=== PATIENT | male | born 1990 | race Caucasian/White ===

== ENCOUNTER 2016-11-22 09:37 | Inpatient (IN) | payer BC, OTHER ==
[~2016-11-22] VITALS: Ht 152.4 cm; Wt 113.4 kg
[2016-11-22] MEDS ORDERED: LEVO175T2 PO (10:50)
[2016-11-22] MEDS ORDERED: INSU100V3 SQ (10:50)
[2016-11-22 11:29] LABS: BASOPHILS % (AUTO) 0.2 % (0.0-2.0); DIFF TOTAL % 100 %; EOSINOPHILS # (AUTO) 0.1 /CMM (0.0-0.7); EOSINOPHILS % (AUTO) 0.8 % (0.0-6.0); HEMATOCRIT 29 % (39-51); HEMOGLOBIN 8.6 g/dL (13.5-17.5); LYMPHOCYTES # (AUTO) 0.8 /CMM (0.8-4.8); LYMPHOCYTES % (AUTO) 8.3 % (20.0-44.0); MEAN CORPUSCULAR HEMOGLOBIN 26 PG (26.0-33.0); MEAN CORPUSCULAR HGB CONC 30 g/dl (31.0-36.0); MEAN CORPUSCULAR VOLUME 86 fL (80-96); MONOCYTES # (AUTO) 0.4 /CMM (0.1-1.30); MONOCYTES % (AUTO) 4.6 % (2.0-12.0); NEUTROPHILS # (AUTO) 7.8 /CMM (1.8-8.9); NEUTROPHILS % (AUTO) 86.1 % (43.0-81.0); PLATELET COUNT (AUTO) 268 /CMM (150-450); RED BLOOD CELL COUNT(AUTO) 3.32 MIL/uL (4.5-6.0); WHITE BLOOD COUNT (AUTO) 9.1 K/uL (4.3-11.0)
[2016-11-22 11:36] LABS: CALCIUM, SERUM 8.8 mg/dL (8.5-10.1); POTASSIUM 4.7 mmol/L (3.5-5.1)
[2016-11-22 11:37] LABS: INR 1.1 (0.87-1.13); PROTHROMBIN TIME 11.5 SECS (9.5-12.7)
[2016-11-22 11:38] LABS: CREATININE 7.7 mg/dL (0.6-1.3)
[2016-11-22 12:30] VITALS: BP 133/83
[2016-11-22] MEDS ORDERED: DEXTROSE 50%-WATER 50 ML DISP.SYRIN IV PRN (12:30)
[2016-11-22] MEDS ORDERED: MAGNESIUM HYDROXIDE 30 ML UDC PO PRN (12:30)
[2016-11-22] MEDS ORDERED: ONDANSETRON HCL/PF 4 MG/2 ML VIAL IVP PRN (12:30)
[2016-11-22] MEDS ORDERED: MAG HYDROX/AL HYDROX/SIMETH 30 ML UDC PO PRN (12:30)
[2016-11-22] MEDS ORDERED: BLOOD SUGAR DIAGNOSTIC 1 EACH STRIP IN SCH (12:30)
[2016-11-22] MEDS ORDERED: ACETAMINOPHEN 325 MG TABLET PO PRN (12:30)
[2016-11-22] MEDS ORDERED: Z GUARD REMEDY 2 OZ OINT TP PRN (12:30)
[2016-11-22] MEDS ORDERED: HYDROCODONE/APAP 5/325MG 1 EACH TABLET PO PRN (12:30)
[2016-11-22] MEDS ORDERED: *INSULIN REGULAR(HUMULIN R)HUM 100 UNIT/ML VIAL SQ PRN (12:30)
[2016-11-22] MEDS: BLOOD SUGAR DIAGNOSTIC 1 EACH STRIP VI SCH ×3 (14:24→22:30)
[2016-11-22] MEDS: INSULIN REGULAR, HUMAN 100 UNIT/ML 3 ML VIAL SQ PRN ×2 (14:28→18:24)
[2016-11-22] MEDS ORDERED: IV NS 0.9% 250 ML IV ONE (19:00)
[2016-11-22 20:00] VITALS: BP 148/91
[2016-11-22] MEDS ORDERED: ZOLPIDEM TARTRATE 5 MG TABLET PO PRN (22:00)
[2016-11-22] MEDS ORDERED: INSULIN DETEMIR 100 UNIT/ML CARTRIDGE SQ SCH (22:00)
[2016-11-23] MEDS: BLOOD SUGAR DIAGNOSTIC 1 EACH STRIP VI SCH ×6 (02:01→22:54)
[2016-11-23] MEDS ORDERED: LEVOTHYROXINE SODIUM 175 MCG TABLET PO SCH (07:30)
[2016-11-23 08:07] LABS: DIFF TOTAL % 100 %; EOSINOPHILS # (AUTO) 0.1 /CMM (0.0-0.7); EOSINOPHILS % (AUTO) 1.1 % (0.0-6.0); HEMATOCRIT 26 % (39-51); HEMOGLOBIN 7.9 g/dL (13.5-17.5); LYMPHOCYTES # (AUTO) 1.1 /CMM (0.8-4.8); LYMPHOCYTES % (AUTO) 10.8 % (20.0-44.0); MEAN CORPUSCULAR HEMOGLOBIN 26 PG (26.0-33.0); MEAN CORPUSCULAR HGB CONC 31 g/dl (31.0-36.0); MEAN CORPUSCULAR VOLUME 86 fL (80-96); MONOCYTES # (AUTO) 0.4 /CMM (0.1-1.30); NEUTROPHILS # (AUTO) 8.2 /CMM (1.8-8.9); NEUTROPHILS % (AUTO) 84.1 % (43.0-81.0); PLATELET COUNT (AUTO) 242 /CMM (150-450); RED BLOOD CELL COUNT(AUTO) 3.02 MIL/uL (4.5-6.0); WHITE BLOOD COUNT (AUTO) 9.8 K/uL (4.3-11.0)
[2016-11-23 08:26] LABS: CALCIUM, SERUM 8.5 mg/dL (8.5-10.1); CREATININE 5.8 mg/dL (0.6-1.3); POTASSIUM 3.9 mmol/L (3.5-5.1)
[2016-11-23] MEDS: PANTOPRAZOLE 40 MG TABLET.DR PO SCH (08:59)
[2016-11-23 11:22] VITALS: BP 157/92
[2016-11-23] MEDS ORDERED: DEXTROSE 50%-WATER 50 ML DISP.SYRIN IV PRN ×2 (14:30→16:00)
[2016-11-23] MEDS ORDERED: *INSULIN REGULAR(HUMULIN R)HUM 100 UNIT/ML VIAL SQ PRN (14:30)
[2016-11-23 15:23] LABS: THYROID STIMULATING HORMONE 56.319 uIU/mL (0.358-3.74)
[2016-11-23] MEDS ORDERED: INSULIN REGULAR, HUMAN 100 UNIT/ML 3 ML VIAL SQ PRN (16:00)
[2016-11-23] MEDS: INSULIN REGULAR, HUMAN 100 UNIT/ML 3 ML VIAL SQ PRN (16:34)
[2016-11-23 22:00] VITALS: BP 142/98
[2016-11-23] MEDS ORDERED: INSULIN DETEMIR 100 UNIT/ML CARTRIDGE SQ SCH (22:00)
[2016-11-24] MEDS: BLOOD SUGAR DIAGNOSTIC 1 EACH STRIP VI SCH ×2 (07:30→12:22)
[2016-11-24] MEDS: PANTOPRAZOLE 40 MG TABLET.DR PO SCH (07:30)
[2016-11-24 08:00] VITALS: BP 116/49
[2016-11-24] MEDS ORDERED: LEVOTHYROXINE SODIUM 100 MCG TABLET PO SCH (09:58)
[2016-11-24] MEDS: INSULIN REGULAR, HUMAN 100 UNIT/ML 3 ML VIAL SQ PRN (12:25)
[2016-11-25] MEDS ORDERED: LEVOTHYROXINE SODIUM 100 MCG TABLET PO SCH (07:30)
== END 2016-11-24 15:00 | disposition home or self-care (01) | DRG 314 ==
LOC: ER 09:40 → TELE1 12:12 → MEDSG1 17:54
PROVIDERS: ADMIT Student in an Organized Health Care Education/Training Program; ATTEND Student in an Organized Health Care Education/Training Program
PROC: 5A1D60Z (ICD-10-PCS; principal; 2016-11-22)
DX: T82.49XA Other complication of vascular dialysis catheter, initial encounter (principal); N18.6 End stage renal disease; I13.11 Hypertensive heart and chronic kidney disease without heart failure, with stage 5 chronic kidney disease, or end stage renal disease; E87.1 Hypo-osmolality and hyponatremia; J90 Pleural effusion, not elsewhere classified; Z99.2 Dependence on renal dialysis; E11.22 Type 2 diabetes mellitus with diabetic chronic kidney disease; Q90.9 Down syndrome, unspecified; D63.1 Anemia in chronic kidney disease; E03.9 Hypothyroidism, unspecified; E87.70 Fluid overload, unspecified; I25.10 Atherosclerotic heart disease of native coronary artery without angina pectoris; Z91.19 Patient's noncompliance with other medical treatment and regimen; Y84.9 Medical procedure, unspecified as the cause of abnormal reaction of the patient, or of later complication, without mention of misadventure at the time of the procedure; Y92.009 Unspecified place in unspecified non-institutional (private) residence as the place of occurrence of the external cause; E83.9 Disorder of mineral metabolism, unspecified; E11.65 Type 2 diabetes mellitus with hyperglycemia
CPT/HCPCS: 36415; 71010-TC; 80048-TC; 80061-TC; 82962-TC; 83735-TC; 84443-TC; 85025-TC; 85730-TC; 87081-TC; 94799-TC; A4606; A6402; A6403; J1815; Z7610

== ENCOUNTER 2016-11-29 11:41 | Emergency (ER) | payer BC ==
[~2016-11-29] VITALS: Ht 157.5 cm; Wt 68.0 kg
[~2016-11-29 11:41] MED LIST: INSU100V3 SQ; LEVO175T2 PO
[2016-11-29 13:17] VITALS: BP 118/74
== END 2016-11-29 13:19 | disposition home or self-care (01) ==
LOC: ER 11:43
DX: E11.22 Type 2 diabetes mellitus with diabetic chronic kidney disease (principal); I12.0 Hypertensive chronic kidney disease with stage 5 chronic kidney disease or end stage renal disease; N18.6 End stage renal disease; E03.9 Hypothyroidism, unspecified; Q90.9 Down syndrome, unspecified; Z99.2 Dependence on renal dialysis; Z79.4 Long term (current) use of insulin
CPT/HCPCS: 99284; A4606; Z7610

== ENCOUNTER 2016-11-30 11:26 | Inpatient (IN) | payer BC ==
[~2016-11-30] VITALS: Ht 157.5 cm; Wt 57.2 kg
[2016-11-30] VITALS (14 sets, daily range): BP systolic 108–176; BP diastolic 60–128
--- NOTE | 2016-11-30 11:30 | NUR ---
PT BIB RA C/O SOB. HYPOXIC IN 80'S ON BREATHING TREATMENT FROM RESCUE. SKIN COOL AND PALE, NONDIAPHORETIC. WHEEZES AUDIBLE. PT AT BASELINE LOC. MD AT BEDSIDE FOR EXAM. IN ER BED 09 ON MONITOR WITH BREATHING TREATMENT ONGOING.
--- NOTE | 2016-11-30 11:40 | NUR ---
CALLED FOR MIDLINE
--- NOTE | 2016-11-30 11:51 | NUR ---
DR MARIEE AT BEDSIDE FOR ULTRASOUND GUIDED IV INSERTION. SURFACE PLATE FINISHER AT BEDSIDE. 20G RAC INSERTED BY ; LABS DRAWN OFF LINE. VBG DRAWN FOR RT.
--- NOTE | 2016-11-30 12:06 | NUR ---
CALLED NURSING SUP. FOR ICU BED
[2016-11-30 12:15] LABS: ABG BASE EXCESS -7.9 mmol/L; ABG OXYGEN SATURATION 26.3 % (92.0-98.5); ABG PCO2 71.7 mmHg (35.0-45.0); ABG PH 7.101 (7.350-7.450); ABG PO2 23.3 mmHg (75.0-100.0); ABG TOTAL HEMOGLOBIN 8.6 G/dL (13.5-18.0); COHb 0.7 % (0.5-1.5); MetHb 1.4 % (0.0-1.5); O2Hb 25.7 % (94.0-97.0); VENT MODE, BG SIMPLE MASK
[2016-11-30 12:17] LABS: ALBUMIN 2.8 g/dL (3.4-5.0); BILIRUBIN,DIRECT 0.1 mg/dL (0.0-0.2); BILIRUBIN,TOTAL 0.4 mg/dL (0.2-1.0); CALCIUM, SERUM 8.3 mg/dL (8.5-10.1); POTASSIUM 5.5 mmol/L (3.5-5.1); TOTAL PROTEIN, SERUM 8.2 g/dL (6.4-8.2)
[2016-11-30 12:19] LABS: TROPONIN I 0.055 ng/mL (0.00-0.056)
--- NOTE | 2016-11-30 12:20 | NUR ---
RT AT BEDSIDE FOR BIPAP
[2016-11-30 12:21] LABS: BASOPHILS % (AUTO) 0.3 % (0.0-2.0); EOSINOPHILS # (AUTO) 0.1 /CMM (0.0-0.7); EOSINOPHILS % (AUTO) 0.9 % (0.0-6.0); HEMATOCRIT 26 % (39-51); HEMOGLOBIN 8.1 g/dL (13.5-17.5); LYMPHOCYTES % (AUTO) 12.8 % (20.0-44.0); MEAN CORPUSCULAR HEMOGLOBIN 27 PG (26.0-33.0); MEAN CORPUSCULAR HGB CONC 31 g/dl (31.0-36.0); MEAN CORPUSCULAR VOLUME 87 fL (80-96); MONOCYTES # (AUTO) 0.3 /CMM (0.1-1.30); MONOCYTES % (AUTO) 3.4 % (2.0-12.0); NEUTROPHILS # (AUTO) 6.5 /CMM (1.8-8.9); NEUTROPHILS % (AUTO) 82.6 % (43.0-81.0); PLATELET COUNT (AUTO) 240 /CMM (150-450); RDW COEFFICIENT OF VARIATION 20.3 (11.5-15.0); WHITE BLOOD COUNT (AUTO) 7.9 K/uL (4.3-11.0)
[2016-11-30] MEDS ORDERED: MIDAZOLAM HCL 2 MG/2ML VIAL ONE (12:23)
[2016-11-30 12:26] LABS: CREATININE 8.8 mg/dL (0.6-1.3)
[2016-11-30] MEDS ORDERED: MIDAZOLAM HCL 2 MG/2ML VIAL IV ONE ×2 (12:30→13:30)
--- NOTE | 2016-11-30 12:30 | NUR ---
PATIENT REFUSES TO KEEP BIPAP ON NURSE(JUAN) AND AWARE.
[2016-11-30 12:34] LABS: LACTIC ACID 1.6 mmol/L (0.4-2.0)
--- NOTE | 2016-11-30 12:39 | NUR ---
ATTEMPTED TO PLACE ON BIPAP AGAIN. PATIENT CONTINUED TO BE COMBATIVE AND REMOVE MASK. NOTIFIED AND NURSE(JUAN).
--- NOTE | 2016-11-30 13:31 | NUR ---
[facility] PAGED, DR.VU SINGH SENIOR SOFTWARE ANALYST
--- NOTE | 2016-11-30 13:40 | NUR ---
PT BREATHING MUCH EASIER AT THIS TIME ON BIPAP. OXYGENATING WELL, RESP UNLABORED WITH BIPAP ASSIST. MOTHER AT BEDSIDE.
--- NOTE | 2016-11-30 13:51 | NUR ---
JOB RN AT BEDSIDE FOR MIDLINE PLACEMENT
[2016-11-30] MEDS ORDERED: ONDANSETRON HCL/PF 4 MG/2 ML VIAL IVP PRN (14:00)
[2016-11-30] MEDS ORDERED: MAG HYDROX/AL HYDROX/SIMETH 30 ML UDC PO PRN (14:00)
[2016-11-30] MEDS ORDERED: MAGNESIUM HYDROXIDE 30 ML UDC PO PRN (14:00)
--- NOTE | 2016-11-30 14:10 | NUR ---
PT'S MOTHER WILL NOT ALLOW FOR MIDLINE PLACEMENT, DESPITE EDUCATION ABOUT THE INSTABILITY OF CURRENT IV. PT HAS RIGHT AC 20G WITH GOOD BLOOD RETURN.
[2016-11-30] MEDS ORDERED: *INSULIN REGULAR(HUMULIN R)HUM 100 UNIT/ML VIAL SQ PRN (14:30)
--- NOTE | 2016-11-30 14:42 | NUR ---
PT TRANSPORTED TO ICU RM 260 IN CRITICAL CONDITION, BECOMING HYPOXIC ON 6LPM VIA SIMPLE FACE MASK PRIOR TO TRANSPORT. RT PRESENT DURING TRANSFER FOR RESUMING OF BIPAP IN ICU.
--- NOTE | 2016-11-30 14:57 | NUR ---
MIDDLE SCHOOL TEACHER; ADMIT RECEIVED PT VIA GURNEY WITH SIMPLE MASK 6L. PTS MOTHER AT BEDSIDE REFUSING ANY TREATMENT, NO BIPAP, NO HD, NO ABG DRAWS. PT Teresa SINGH AT BEDSIDE EXPLAINING TO PT MOTHER THE NEED FOR TREATMENT. MOTHER CONTINUES TO REFUSE AND IS ONLY ASKING FOR BLOOD TRANSFUSION BUT NO HD. EXPLAINED THAT IF WE GIVE IT WILL CAUSE MORE FLUID OVER LOAD. BUT SHE STILL CONTINUES TREATMENT.
--- NOTE | 2016-11-30 14:57 | NUR ---
RT PT FAMILY EXTREMELY UNCOOPERATIVE AND REFUSING ALL RESPIRATORY SERVICES, DR. SINGH AND RN AWARE.
--- NOTE | 2016-11-30 15:00 | NUR ---
CARTON FILLER: MILLING PLANER OPERATOR MADE AWARE REGARDING PTS MOTHER REFUSING ANY CARE FOR PT.
--- NOTE | 2016-11-30 15:30 | NUR ---
SPACE SYSTEMS OPERATIONS CRAFTSMAN; PTS MOTHER CASSY ANDERSON NOW AGREEING WITH HD LONG PT GETS BLOOD TRANSFUSION. DR. SINHG MADE AWARE NEW ORDERS ENTERED.
--- NOTE | 2016-11-30 15:35 | NUR ---
PRE PRESS MANAGER; PT REMOVING CUSTOMER SERVICE PROFESSIONAL AND SPO2 MONITOR. EXPLAINED THE NEED TO BE ON CONTINUOUS MONITOR BUT PT CONTINUES TO REMOVE MONITOR.
[2016-11-30] MEDS: BLOOD SUGAR DIAGNOSTIC 1 EACH STRIP IN SCH (17:11)
[2016-11-30] MEDS ORDERED: BLOOD IV SET 1 EA INFUS.SET MC ONE (17:16)
[2016-11-30] MEDS: INSULIN REGULAR, HUMAN 100 UNIT/ML 3 ML VIAL SQ PRN ×2 (17:17→23:45)
--- NOTE | 2016-11-30 17:24 | NUR ---
CARDIOLOGY CONSULTANT; ACCU CHECK BLOOD SUGAR CHECKED RESULT 278, ORDER TO GIVE 12UNITS OF REGULAR INSULIN SQ, PTS MOTHER REFUSES FOR PT TO GET FULL 12UNITS. PER MOTHER JUST TO GIVE 6UNITS.
--- NOTE | 2016-11-30 17:46 | NUR ---
[facility] HOLD; TRANSFUSION PT HD STARTED. PRBC TO BE TRANSFUSED WITH HD, SEE HD NOTED FOR VS.
[2016-11-30] MEDS: ZOLPIDEM TARTRATE 5 MG TABLET PO PRN (23:39)
[2016-12-01] VITALS (26 sets, daily range): BP systolic 64–182; BP diastolic 26–117
[2016-12-01] MEDS: Z GUARD REMEDY 2 OZ OINT TP PRN (00:06)
[2016-12-01] MEDS: BLOOD SUGAR DIAGNOSTIC 1 EACH STRIP IN SCH ×4 (00:07→17:56)
[2016-12-01] MEDS: HYDROCODONE/APAP 5/325MG 1 EACH TABLET PO PRN (00:36)
--- NOTE | 2016-12-01 00:36 | NUR ---
GLAZE CARRIER - REC'D PT. RECEIVING HD. 1800CC REMOVED. PT.IS REFUSING "EVERYTHING". HOWEVER, AT 23:39 PT. SAID "YES" TO AMBIEN. PT. WAS ADM. AMBIEN 5MG/PO TO HELP W/ SLEEP. PT. CANNOT SLEEP DUE TO PAIN IN INFECTED LEFT FISTULA. AT 00:30, PT. WAS ADM. NORCO ONE TAB ()/PO. PT.IS REFUSING B/P. EKG, BUT DID LET RN TAKE HIS ACCU - CHECK. #386. PT. WAS COVERED W/20UNITS OF REG. INSULIN PER AGGRESSIVE SCALE. WILL RECHECK. NOTED. PT.IS AFEBRILE. RAC-PIV. WRAPPED IN FISHNET, PT. IS REFUSING TO LET ME FLUSH LINES. WILL F/U. CONT. POC.
--- NOTE | 2016-12-01 06:30 | NUR ---
ROBOTICS TECHNOLOGIST - PT.IS STILL REFUSING EKG MONITORING, B/P'S, AND AM LAB DRAW. SILVIA HD RN IS HERE TO PERFORM HD & WAS ABLE TO GIVE RN VS'S AND LAB DRAW FROM DIALYSIS MACHINE. ACCUCHECK WAS DONE AT 5AM AND WAS #141. PT. DID SLEEP FOR MOST LATTER PART OF THE MORNING. PT.REMAINS ON SIMPLE MASK AT 5L. LAST SET OF VS'S WAS B/P=130/70, HR/SR/72, O2 SATS AT 91%, RR- 12 & TAS TEMP AT 97.6. PT. DID LET RADIOLOGY STAFF PERFORM PCXR. REPORT WILL BE GIVEN TO MAURO KHALIL. CONT. POC.
[2016-12-01 06:39] LABS: BASOPHILS # (AUTO) 0.1 /CMM (0.0-0.2); BASOPHILS % (AUTO) 2.5 % (0.0-2.0); EOSINOPHILS % (AUTO) 0.8 % (0.0-6.0); HEMATOCRIT 22 % (39-51); LYMPHOCYTES # (AUTO) 0.4 /CMM (0.8-4.8); MEAN CORPUSCULAR HEMOGLOBIN 27 PG (26.0-33.0); MEAN CORPUSCULAR HGB CONC 31 g/dl (31.0-36.0); MEAN CORPUSCULAR VOLUME 86 fL (80-96); MONOCYTES # (AUTO) 0.2 /CMM (0.1-1.30); MONOCYTES % (AUTO) 4.3 % (2.0-12.0); NEUTROPHILS # (AUTO) 4.5 /CMM (1.8-8.9); NEUTROPHILS % (AUTO) 84.4 % (43.0-81.0); PLATELET COUNT (AUTO) 156 /CMM (150-450); RED BLOOD CELL COUNT(AUTO) 2.55 MIL/uL (4.5-6.0); WHITE BLOOD COUNT (AUTO) 5.4 K/uL (4.3-11.0)
[2016-12-01 06:54] LABS: ALBUMIN 2.3 g/dL (3.4-5.0); BILIRUBIN,TOTAL 0.4 mg/dL (0.2-1.0); CALCIUM, SERUM 7.6 mg/dL (8.5-10.1); CREATININE 7.1 mg/dL (0.6-1.3); MAGNESIUM 2.4 mg/dL (1.8-2.4); PHOSPHORUS 6.6 mg/dL (2.5-4.9); POTASSIUM 4.1 mmol/L (3.5-5.1); TOTAL PROTEIN, SERUM 6.9 g/dL (6.4-8.2)
[2016-12-01 07:15] LABS: HEMOGLOBIN 6.8 g/dL (13.5-17.5)
--- NOTE | 2016-12-01 07:20 | NUR ---
MODULAR HOME CREW MEMBER: H/H 8.10/26 on 11/30/16, got 2 units PRBC, H/H 6.05/22 now, will repeat H/H now, no acute bleeding by report. Pt.is getting HD now, refusing for VS monitoring, blood draw, wound care consult, RR WNL, unable to see O2 sat. prop., SR, SBP over 100, pt.is awake, confused (Down Sd), rest, was encouraged friendly and oriented for POC
[2016-12-01 07:39] LABS: BASOPHILS % (AUTO) 0.7 % (0.0-2.0); EOSINOPHILS # (AUTO) 0.1 /CMM (0.0-0.7); EOSINOPHILS % (AUTO) 0.8 % (0.0-6.0); HEMATOCRIT 31 % (39-51); HEMOGLOBIN 9.6 g/dL (13.5-17.5); LYMPHOCYTES # (AUTO) 0.6 /CMM (0.8-4.8); LYMPHOCYTES % (AUTO) 10.3 % (20.0-44.0); MEAN CORPUSCULAR HEMOGLOBIN 27 PG (26.0-33.0); MEAN CORPUSCULAR HGB CONC 31 g/dl (31.0-36.0); MEAN CORPUSCULAR VOLUME 86 fL (80-96); MONOCYTES # (AUTO) 0.3 /CMM (0.1-1.30); MONOCYTES % (AUTO) 4.3 % (2.0-12.0); NEUTROPHILS # (AUTO) 5.2 /CMM (1.8-8.9); NEUTROPHILS % (AUTO) 83.9 % (43.0-81.0); PLATELET COUNT (AUTO) 238 /CMM (150-450); RDW COEFFICIENT OF VARIATION 19.2 (11.5-15.0); RED BLOOD CELL COUNT(AUTO) 3.56 MIL/uL (4.5-6.0); WHITE BLOOD COUNT (AUTO) 6.2 K/uL (4.3-11.0)
--- NOTE | 2016-12-01 07:52 | NUR ---
WOUND CARE CONSULT PATIENT REFUSED TO ALLOW HUMAN RESOURCES ADMINISTRATOR TO PERFORM ASSESSMENT OF SKIN. WILL TRY AGAIN AT A LATER DATE PATIENT CONDITION PERMITS.
[2016-12-01] MEDS: DEXTROSE 50%-WATER 50 ML DISP.SYRIN IV PRN (07:58)
--- NOTE | 2016-12-01 08:00 | NUR ---
SUPERVISOR CHAR HOUSE: checked BS x2: 37,38, 50%Dextrose 50ml IV given
--- NOTE | 2016-12-01 08:15 | NUR ---
SUPPLY ANALYST: repeated H/H: 9., pt.mother is in room, was notified re pt.current status, POC, VS, orders, spoke with HD nurse, pt.is still refusing for VS monitoring
--- NOTE | 2016-12-01 09:30 | NUR ---
TAFFY PULLER: O2 sat. 82-87%, pt.is still refusing Bipap, pt.mother said: its ok, on SM O2 5L, switched for NRBSM by RT, O2 sat. up to 89-90%, L.f/arm fistula wound: no acute bleeding, same wound status, dressing was changed, was in room, updated by HD nurse
[2016-12-01] MEDS: PANTOPRAZOLE 40 MG VIAL IV SCH (09:36)
[2016-12-01 10:16] LABS: ANISOCYTOSIS 1+; EOSINOPHILS % (MANUAL) 3 % (0-4); HYPOCHROMASIA 2+; LYMPHOCYTES % (MANUAL) 4 % (16-48); MONOCYTES % (MANUAL) 3 % (0-11.0); NEUTROPHILS % (MANUAL) 90 (42-76); PLATELET ESTIMATE ADEQUATE
--- NOTE | 2016-12-01 11:00 | NUR ---
INSURANCE SPECIALIST: is in room, updated with pt.current condition, VS, I/O, HD, labs, BSL. Unable to monitor VS, O2 sat. correctly, Bipap refused/pt.is on SM O2 6L now, no SOB, removing sensors after 7 attempts to reapply, SR, SBP over 100, pt.is awake, weak, can follow simple commands, but O2 sat. around 80-90%, pt.mother said: can't apply Bipap, no way for restraints d/t pt.mental status, no c/o any pain
--- NOTE | 2016-12-01 13:00 | NUR ---
PROFESSIONAL BENEFITS SALES CONSULTANT: pt.is awake, weak, rest, in seat position, no SOB, still removing [id number], on O2 SM 6 L, pt.and pt.mother still refuse for Bipap, were encouraged to let get prop.monitoring per ICU protocols, oriented for POC, risks re: refuse to follow MD orders/monitoring d/t respiratory status, pt.mother spoke with before, [facility]SH was paged re home meds verification
[2016-12-01] MEDS: LEVOTHYROXINE SODIUM 175 MCG TABLET PO SCH (14:35)
--- NOTE | 2016-12-01 14:45 | NUR ---
FIELD ADMINISTRATOR: Reuben Wall NP is in room, updated with pt.current condition, VS, unable to fix/monitor O2 sat. well, Bipap refusing, HD done, I/O, L.jacquelyn matute, BS: - ,38, 05.30 - after Dextrose 50-50, 09.19 - , labs, meds, pt.is on aggressive insulin SS, spoke with pt.mother with Rk translation support, see new orders
--- NOTE | 2016-12-01 16:03 | NUR ---
FOREIGN LANGUAGE INTERPRETER: reapplied all sensors: SR 70-72, BP 136/97, RR 14-16, O2 sat. 90-93% on 10L NRBM, pt.is awake, was let to see VS, in sit position, able void: 100ml, no any pain
--- NOTE | 2016-12-01 17:50 | NUR ---
RAILWAY SIGNALLING ENGINEER: BS 155, 2 units R.insulin given
[2016-12-01] MEDS: ACETAMINOPHEN 325 MG TABLET PO PRN (17:51)
[2016-12-01] MEDS: INSULIN REGULAR, HUMAN 100 UNIT/ML 3 ML VIAL SQ PRN ×2 (18:00→22:02)
--- NOTE | 2016-12-01 18:00 | NUR ---
PRESS BREAKER: pt.sister is in room, got detailed explanation re pt.current condition, orders, VS, risks for Resp.Tx refuses, pt.c/o headache now, 3-01/08, Tylenol given
--- NOTE | 2016-12-01 19:25 | NUR ---
Patient is developmentally delay, he is HD dependent. He goes to [phone] every MWF. Patient lives at home with his mother, he requires assistance with adl's. Patient will go back home upon discharge per family. Addendum: 12/01/16 at 1926 by BLANK SIMS RN Amended: Links added.
--- NOTE | 2016-12-01 19:30 | NUR ---
ICU/RN RECEIVED PT SCREAMING FOR HELP,WANTING 1005% NRB TO A SIMPLE MASK.WILL NOT LET RN TO CHECK SP02,KEEPS SAYING "NO!" EVEN W/ MUCH PERSUASION.SHAKES HEAD WHEN ATTEMPTED TO PUT PULSE OX. ON EAR OR ANY FINGERS.
--- NOTE | 2016-12-01 20:30 | NUR ---
ICU/RN WANTED TYLENOL FOR HEADACHE BUT REFUSED AFTER TAKING MED FRO PYXIS.
[2016-12-02] VITALS (32 sets, daily range): BP systolic 32–161; BP diastolic 22–117
[2016-12-02] MEDS: BLOOD SUGAR DIAGNOSTIC 1 EACH STRIP IN SCH ×5 (00:19→21:45)
--- NOTE | 2016-12-02 00:20 | NUR ---
ICU/RN PT C/O HEADACHE,ASKING FOR TYLENOL.650MG TYLENOL GIVEN UNABLE TO GET PAIN LEVEL PT NON-COMPLIANT AND DOES NOT FOLLOW COMMANDS.
[2016-12-02] MEDS: ACETAMINOPHEN 325 MG TABLET PO PRN ×2 (00:21→09:54)
--- NOTE | 2016-12-02 04:20 | NUR ---
ICU/RN AWAKENED BY SUPERVISOR FUR DRESSING TO DRAW BLOOD BUT PT REFUSED EVEN W/MUCH ENCOURAGEMENT.ASKED FOR SNACK IN A NICE MANNER AND SAID"PLS".SKIN WARM AND DRY.GIVEN 2GRAHAM CRACKERS AND 2%MILK.SPOT CHECK ON SAT.COOPERATIVE.
--- NOTE | 2016-12-02 07:23 | NUR ---
ICU/RN REPORT AND CARE OF PT.GIVEN TO JOB RN.
[2016-12-02] MEDS: PANTOPRAZOLE 40 MG VIAL IV SCH (08:36)
[2016-12-02] MEDS: LEVOTHYROXINE SODIUM 175 MCG TABLET PO SCH (08:36)
--- NOTE | 2016-12-02 10:03 | NUR ---
PT'S MOTHER AT BEDSIDE IS NOT ALLOWING FOR PERIPHERAL BLOOD DRAW. WILL ONLY ALLOW FOR BLOOD DRAW THROUGH THE HEMODIALYSIS CATHETER. SHE WANTS DIALYSIS TODAY WELL. I UTILIZED IRANIAN SPEAKING CLINICAL OUTCOMES MANAGER TO TELL HER THAT WE NEED TO HAVE LABS PRIOR TO HEMODIALYSIS SO WE KNOW WHAT ELECTROLYTES (ESPECIALLY POTASSIUM) TO CORRECT. THE MOTHER TELLS THE CLINICAL OUTCOMES MANAGER ([email or web address]) THAT THE POTASSIUM IS FINE... SHE IS EXTREMELY SELECTIVE WITH CARE AND NOT ACCEPTING EDUCATION ABOUT HER CARE. AWAITING FOR RENAL MD TO SEE IF WE CAN DRAW FROM THE HD CATHETER, RUN THE LABS AND DO HD TODAY.
[2016-12-02] MEDS ORDERED: EPOETIN ALFA (10,000 UNIT) 10,000 UNIT/ML VIAL SQ ONE (11:00)
--- NOTE | 2016-12-02 11:12 | NUR ---
MOTHER AT BEDSIDE NOT ALLOWING FOR ABG DRAW. SHE ALLOWS FOR BLOOD DRAW FROM THE IV ONLY. OBTAINED FROM IV SAMPLE AND RAN VBG
[2016-12-02 11:13] LABS: ABG BASE EXCESS -8.2 mmol/L; ABG OXYGEN SATURATION 39.3 % (92.0-98.5); ABG PCO2 54.5 mmHg (35.0-45.0); ABG PH 7.186 (7.350-7.450); ABG PO2 28.6 mmHg (75.0-100.0); ABG TOTAL HEMOGLOBIN 11.1 G/dL (13.5-18.0); O2Hb 38.1 % (94.0-97.0); SITE, ABG Right Radial; VENT MODE, BG NON-REBREATHER
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
--- NOTE | 2016-12-02 11:40 | NUR ---
HD nurse in for treatment.
[2016-12-02 12:19] LABS: BASOPHILS % (AUTO) 0.1 % (0.0-2.0); EOSINOPHILS # (AUTO) 0.1 /CMM (0.0-0.7); EOSINOPHILS % (AUTO) 1.4 % (0.0-6.0); HEMATOCRIT 33 % (39-51); HEMOGLOBIN 10.1 g/dL (13.5-17.5); LYMPHOCYTES # (AUTO) 0.6 /CMM (0.8-4.8); LYMPHOCYTES % (AUTO) 6.9 % (20.0-44.0); MEAN CORPUSCULAR HEMOGLOBIN 27 PG (26.0-33.0); MEAN CORPUSCULAR HGB CONC 31 g/dl (31.0-36.0); MEAN CORPUSCULAR VOLUME 86 fL (80-96); MONOCYTES # (AUTO) 0.3 /CMM (0.1-1.30); MONOCYTES % (AUTO) 3.5 % (2.0-12.0); NEUTROPHILS # (AUTO) 7.6 /CMM (1.8-8.9); NEUTROPHILS % (AUTO) 88.1 % (43.0-81.0); PLATELET COUNT (AUTO) 241 /CMM (150-450); RDW COEFFICIENT OF VARIATION 18.9 (11.5-15.0); RED BLOOD CELL COUNT(AUTO) 3.77 MIL/uL (4.5-6.0); WHITE BLOOD COUNT (AUTO) 8.6 K/uL (4.3-11.0)
[2016-12-02 12:31] LABS: INR 1.11 (0.87-1.13)
[2016-12-02 12:32] LABS: CALCIUM, SERUM 8.5 mg/dL (8.5-10.1); POTASSIUM 5.4 mmol/L (3.5-5.1)
[2016-12-02 12:40] LABS: CREATININE 9.7 mg/dL (0.6-1.3)
[2016-12-02 12:40] LABS: ABG BASE EXCESS -0.4 mmol/L; ABG OXYGEN SATURATION 56.7 % (92.0-98.5); ABG PCO2 70.8 mmHg (35.0-45.0); ABG PH 7.223 (7.350-7.450); ABG PO2 35.7 mmHg (75.0-100.0); ABG TOTAL HEMOGLOBIN 11.4 G/dL (13.5-18.0); COHb 1.4 % (0.5-1.5); O2Hb 55.3 % (94.0-97.0)
[2016-12-02] MEDS: CALCIUM ACETATE 667 MG TABLET PO SCH ×2 (13:00→18:00)
--- NOTE | 2016-12-02 13:04 | NUR ---
US tech at bedside evaluating the fluid in the lungs and whether it is able to be pulled with thoracentesis or not (loculated fluid). Addendum: 12/02/16 at 1337 by ANGELA SUNG RN US tech speaks directly with radiologist. He determines that the fluid is loculated and it is not able to be pulled via thoracentesis. Dr. August notified about US results.
--- NOTE | 2016-12-02 13:39 | NUR ---
DR. DALAL ORDERS TO HAVE VBG DRAWN AFTER HD IS COMPLETE. HE OKAYS TO DRAW FROM PIV THE PT WILL NOT ALLOW FOR BLOOD DRAW.
--- NOTE | 2016-12-02 14:22 | NUR ---
HD COMPLETE 2.5 LITERS OUT.
--- NOTE | 2016-12-02 14:23 | NUR ---
DR. OG CALLED ASKING IF THE PATIENT'S HD CATHETER IS WORKING. I EXPLAINED PER HD NURSE THAT THE RED PORT IN NOT WITHDRAWING BLOOD, DR. OG STATES THAT LONG HE CAN GET HEMODIALYSIS HE WILL NOT PLACE A NEW ONE.
--- NOTE | 2016-12-02 15:13 | NUR ---
PT REMOVING BIPAP TO THE POINT OF BEING COMBATIVE. OBTAINED VBG PRIOR, TO REMOVAL AWAITING RESULTS.
[2016-12-02 15:23] LABS: ABG OXYGEN SATURATION 78.2 % (92.0-98.5); ABG PCO2 42.2 mmHg (35.0-45.0); ABG PH 7.313 (7.350-7.450); ABG PO2 48.2 mmHg (75.0-100.0); ABG TOTAL HEMOGLOBIN 9.6 G/dL (13.5-18.0); MetHb 1.2 % (0.0-1.5); O2Hb 75.7 % (94.0-97.0)
--- NOTE | 2016-12-02 15:35 | NUR ---
PATIENT'S VBG RESULTS REPORTED TO . HE WAS ALSO MADE AWARE THAT PATIENT IS REMOVING BIPAP MASK AND WAS PLACED ON NON-REBREATHER MASK WITH 100% SATURATION. NO NEW ORDER AT THIS TIME. RN(JOB) NOTIFIED.
[2016-12-02] MEDS: INSULIN REGULAR, HUMAN 100 UNIT/ML 3 ML VIAL SQ PRN ×2 (17:32→23:00)
--- NOTE | 2016-12-02 18:39 | NUR ---
PT DOES NOT HAVE APPETITE FOR DINNER ONLY FEW SIPS OF FLUID (TRYING TO RESTRICT FLUIDS), HELD PHOSLO.
--- NOTE | 2016-12-02 21:23 | NUR ---
2100 WATCHING TV O2 100% NON-REBREATHING MASK. SAT, 90% . ASKING FOR H20 CONSTANTLY ICE CHIPS GIVEN. FUSSING WHILE TAKING BP. RATHER UNCOOPERATIVE. SISTER IN VISITING. Addendum: 12/02/16 at 2126 by GULSHAN CULLEN RN Amended: Links added.
[2016-12-02 22:39] LABS: CREATININE 7.5 mg/dL (0.6-1.3)
[2016-12-02] MEDS: ZOLPIDEM TARTRATE 5 MG TABLET PO PRN (23:14)
--- NOTE | 2016-12-02 23:33 | NUR ---
2200 BS ACCUCHECK WAS 531 LAB DRAW WAS 593 20 UNITS HUMILAN REG. INSULIN GIVEN PER SCALE ALSO NOTIFIED . WILL CHECK IN 1 HR. & COVER ACCORSINGLY. 2330 SLEEPING PILL OFFERED TRYING TO GO TO SLEEP. Addendum: 12/02/16 at 2337 by GULSHAN CULLEN RN Amended: Links added.
[2016-12-03] VITALS (23 sets, daily range): BP systolic 91–175; BP diastolic 27–113
[2016-12-03] MEDS: HYDROCODONE/APAP 5/325MG 1 EACH TABLET PO PRN (00:07)
[2016-12-03] MEDS: INSULIN REGULAR, HUMAN 100 UNIT/ML 3 ML VIAL SQ PRN (00:23)
[2016-12-03] MEDS ORDERED: MORPHINE SULFATE INJ 2 MG/ML DISP.SYRIN ONE (03:39)
[2016-12-03 04:39] LABS: EOSINOPHILS # (AUTO) 0.1 /CMM (0.0-0.7); EOSINOPHILS % (AUTO) 0.5 % (0.0-6.0); HEMATOCRIT 33 % (39-51); HEMOGLOBIN 10.2 g/dL (13.5-17.5); LYMPHOCYTES # (AUTO) 0.4 /CMM (0.8-4.8); LYMPHOCYTES % (AUTO) 4.4 % (20.0-44.0); MEAN CORPUSCULAR HEMOGLOBIN 27 PG (26.0-33.0); MEAN CORPUSCULAR HGB CONC 31 g/dl (31.0-36.0); MEAN CORPUSCULAR VOLUME 87 fL (80-96); MONOCYTES # (AUTO) 0.3 /CMM (0.1-1.30); MONOCYTES % (AUTO) 2.5 % (2.0-12.0); NEUTROPHILS # (AUTO) 9.5 /CMM (1.8-8.9); NEUTROPHILS % (AUTO) 92.6 % (43.0-81.0); PLATELET COUNT (AUTO) 228 /CMM (150-450); RDW COEFFICIENT OF VARIATION 19.2 (11.5-15.0); RED BLOOD CELL COUNT(AUTO) 3.78 MIL/uL (4.5-6.0); WHITE BLOOD COUNT (AUTO) 10.2 K/uL (4.3-11.0)
[2016-12-03 04:58] LABS: CALCIUM, SERUM 8.6 mg/dL (8.5-10.1); MAGNESIUM 2.2 mg/dL (1.8-2.4); PHOSPHORUS 6.5 mg/dL (2.5-4.9); POTASSIUM 4.5 mmol/L (3.5-5.1)
[2016-12-03 05:01] LABS: CREATININE 7.7 mg/dL (0.6-1.3)
--- NOTE | 2016-12-03 06:56 | NUR ---
0630 AWAKE MOST OF THE NIGHT ASKING FOR H20 . O2 SAT. 80-85 % remains uncooperative. Refused bath. Addendum: 12/03/16 at 0659 by GULSHAN CULLEN RN Amended: Links added.
[2016-12-03] MEDS: DEXTROSE 50%-WATER 50 ML DISP.SYRIN IV PRN ×2 (07:23→11:45)
--- NOTE | 2016-12-03 07:30 | NUR ---
RN INITIAL NOTES 0710 RECEIVED PT AWAKE, A/OX1. SITTING ON BED, YELLING. ON NON-REBREATHER MASK 100%. NO SIGNS OF PAIN NOTED. WITH RAC G#20 AND RIGHT FEMORAL HD CATH IN PLACE. PT CLEAN AND DRY. WILL CONTINUE TO MONITOR. 0720 BLOOD SUGAR CHECKED, RESULT 38. REPEATED, RESULT 28. D50 GIVEN ORDERED. PT REMAINS AWAKE, A/OX1. MO SOB NOTED. WILL RECHECK BLOOD SUGAR. WILL MONITOR.
[2016-12-03] MEDS: LEVOTHYROXINE SODIUM 175 MCG TABLET PO SCH (08:20)
[2016-12-03] MEDS: PANTOPRAZOLE 40 MG VIAL IV SCH (08:20)
[2016-12-03] MEDS: CALCIUM ACETATE 667 MG TABLET PO SCH ×3 (08:20→17:05)
[2016-12-03] MEDS: BLOOD SUGAR DIAGNOSTIC 1 EACH STRIP IN SCH ×4 (08:28→22:07)
--- NOTE | 2016-12-03 08:30 | NUR ---
RN NOTES PT PLACED ON BIPAP. 02 SAT ON 70S. KEPT HOB ELEVATED. WILL CONTINUE TO MONITOR.
--- NOTE | 2016-12-03 09:23 | NUR ---
@0830 pt placed on bipap s/p SPO2<90, SOB and noted cyanosis. Mother at bedside, agitated and uncooperative. Post placement on BIPAP, SPO2 waveform from finger pulse ox unreliable, fingers cold and cyanotic. Max SPO2 reading noted @ 88%. RT and RN attempted to place an ear pulse ox sensor but mother refused. Wants the patient to "sleep", refuses BP cuff and placement of pulse ox on ear. Will continue monitoring pt for any further changes.
--- NOTE | 2016-12-03 10:40 | NUR ---
RN NOTES SEEN AND EXAMINED BY DR. KYLAH FLORES. AWARE OF CURRENT LAB RESULTS. ORDERED HD, EPOGEN AND LABS IN AM. MOTHER AT BEDSIDE AWARE
--- NOTE | 2016-12-03 11:00 | NUR ---
RN NOTES SEEN AND EXAMINED BY DR. DALAL. AWARE OF CURRENT LAB AND CXR RESULT. NOTIFIED THAT PT 02 SAT WENT DOWN TO 70S AND PLACED ON BIPAP. PT AND MOM REMOVING BIPAP FROM TIME TO TIME. EXPLAINED THAT PT NEEDS TO BE ON BIPAP TO KEEP O2 SAT AT LEAST 90%. DR. DALAL EMPHASIZED THAT PUTTING A TUBE IN WONT HELP BEC PT HAS LEFT AND RIGHT MULTILOCULATED PLEURAL EFFUSION AND DR. FLORES ALSO EXPLAINED TO MOM THAT DIALYSIS CANT REMOVED THOSE FLUID IN HIS LUNGS BEC ITS MULTILOCULATED. PT AND MOTHER REMAINS NON-COMPLIANT. REMOVING BIPAP FROM TIME TO TIME, 02 SAT DROPS FROM 90S- 70S, THEN WILL PUT BIPAP BACK ON. EXPLAINED TO MOTHER THAT SHE CANNOT INTERFERE WITH PT'S CARE. DR. DALAL ORDERED BLE VENOUS DOPPLER TO R/O DVT. WILL CLOSELY MONITOR.
--- NOTE | 2016-12-03 12:30 | NUR ---
RN NOTES BLOOD SUGAR LEVEL 28 AT 1159. D50 GIVEN ORDERED. RECHECKED AT 1221, LEVEL 120. ENCOURAGED TO EAT AT LEAST 75% FOR LUNCH. WILL MONITOR.
--- NOTE | 2016-12-03 13:15 | NUR ---
RN NOTES BLE VENOUS DOPPLER REFUSED BY MOTHER. EXPLAINED THE IMPORTANCE. PT ASLEEP. WILL COME BACK ONCE PT AWAKE. Addendum: 12/03/16 at 1416 by NI JACKSON RN PT AWAKE. EXPLAINED TO MOTHER THAT BLE VENOUS DOPPLER NEEDS TO BE DONE. MOTHER AGREED. CALLED [phone] TO NOTIFY PT AWAKE AND SHE CAN DO BLE VENOUS DOPPLER. LEFT A G.
--- NOTE | 2016-12-03 16:00 | NUR ---
RN NOTES NOTED RAC INFILTRATED. REMOVED IV LINE. COVERED WITH GAUZE. EXPLAINED TO PT AND MOTHER THAT PT NEEDS TO HAVE AN IV LINE ACCESS. NEED TO START AN IV LINE. MOTHER REFUSED, EXPLAINED X3. STILL REFUSED. WILL TRY TO OFFER AGAIN LATER
--- NOTE | 2016-12-03 17:18 | NUR ---
REMI NOTES BLOOD SUGAR CHECKED, 51. GIVEN APPLE JUICE PER PT'S CHOICE AND MOTHER GAVE A LIL CHOCOLATE. EXPLAINED THAT PT NEEDS IV LINE TO BE INSERTED FOR D50 ORDERED. MOTHER REFUSED. EXPLAINED IMPORTANCE AND OFFERED 3X. PT GIVEN SUGAR THRU MOUTH AND ADDITIONAL JUICE. SHERRON ZAMUDIO NP NOTIFIED. AWAITING FOR CALL BACK. Addendum: 12/03/16 at 1734 by NI JACKSON RN WENT INSIDE THE ROOM TO RECHECK BLOOD SUGAR. MOTHER REFUSED. EXPLAINED IMPORTANCE. OFFERED 3X. STILL REFUSED. CALLED SHERRON ZAMUDIO NP. LEFT A MESSAGE. AWAITING CALL BACK. Addendum: 12/03/16 at 1752 by NI JACKSON RN REMI ZAMUDIO NP CALLED BACK AND NOTIFIED REGARDING LATEST BLOOD SUGAR 51. GIVEN JUICE AND A LIL CHOCOLATE. NO IV LINE. UNABLE TO GIVE D50 ORDERED. MOTHER REFUSED IV LINE REINSERTION DESPITE OF EXPLANATION OF IMPORTANCE/BENEFITS. MOTHER REFUSED BLOOD SUGAR RECHECK AFTER EXPLAINATION OF IMPORTANCE/BENEFITS. MOTHER IS MAD AND NON-COMPLIANT. ALSO REMOVED BP CUFF AND STILL REMOVING BIPAP EVERY NOW AND THEN. OS SAT FLUCTUATES FROM 60S-80S. PER MOTHER, SOMEONE WILL PICK THEM UP AND WILL GO TO ANOTHER HOSPITAL. ARCHITECTURAL PROJECT MANAGER AWARE. NO ORDER MADE. WILL MONITOR.
--- NOTE | 2016-12-03 18:45 | NUR ---
RN CLOSING NOTES PT ON BIPAP, MOTHER PUT IT ON AND OFF. BOTH PT AND MOTHER NON-COMPLIANT, PROJECT INTERNSHIP AWARE. NO IV LINE. MOTHER REFUSED REINSERTION DESPITE OF OFFERING 3X AND EXPLANATION OF IMPORTANCE. UNABLE TO MONITOR BP ON TIMELY MANNER, MOTHER REMOVES CUFF, PROJECT INTERNSHIP AWARE. PT LOOKS COMFORTABLE, HOB ELEVATED. NO SIGNS OF PAIN NOTED. WILL ENDORSE FOR CONTINUITY OF CARE.
[2016-12-03] MEDS ORDERED: PHENYLEPHRINE 10 MG/ML VIAL ONE (19:32)
[2016-12-03] MEDS ORDERED: IV D5W 500 ML IV ONE (19:33)
[2016-12-03] MEDS ORDERED: IV SET PRIMARY PUMP SET 1 EA INFUS.SET MC ONE (19:33)
--- NOTE | 2016-12-03 20:00 | NUR ---
received pt from day shift, alert, follows commands, SR, on bipap at 100% fio2, sat well, lungs congested, no edema, tolerates diet, anuric, HD in AM, v/s stable, no pain, pt turns and repositions by himself.
--- NOTE | 2016-12-03 22:08 | NUR ---
BS 56, no iv access for D50, pt refused IV insertion, orange juice given.
--- NOTE | 2016-12-03 22:40 | NUR ---
pt refused rechecking blood sugar.
[2016-12-04] VITALS (66 sets, daily range): BP systolic 46–149; BP diastolic 21–93
--- NOTE | 2016-12-04 00:59 | NUR ---
pt is resting in the bed, on and off of bipap, v/s stable, no pain.
--- NOTE | 2016-12-04 04:14 | NUR ---
pt is resting in the bed, on bipap at 100% fi02, sat well, v/s stable, no pain.
[2016-12-04 04:54] LABS: BASOPHILS % (AUTO) 0.1 % (0.0-2.0); EOSINOPHILS % (AUTO) 0.6 % (0.0-6.0); HEMATOCRIT 30 % (39-51); HEMOGLOBIN 9.3 g/dL (13.5-17.5); LYMPHOCYTES # (AUTO) 0.4 /CMM (0.8-4.8); LYMPHOCYTES % (AUTO) 5.4 % (20.0-44.0); MEAN CORPUSCULAR HEMOGLOBIN 27 PG (26.0-33.0); MEAN CORPUSCULAR HGB CONC 31 g/dl (31.0-36.0); MEAN CORPUSCULAR VOLUME 87 fL (80-96); MONOCYTES # (AUTO) 0.2 /CMM (0.1-1.30); MONOCYTES % (AUTO) 2.8 % (2.0-12.0); NEUTROPHILS # (AUTO) 6.6 /CMM (1.8-8.9); NEUTROPHILS % (AUTO) 91.1 % (43.0-81.0); PLATELET COUNT (AUTO) 186 /CMM (150-450); RDW COEFFICIENT OF VARIATION 19.7 (11.5-15.0); RED BLOOD CELL COUNT(AUTO) 3.43 MIL/uL (4.5-6.0); WHITE BLOOD COUNT (AUTO) 7.2 K/uL (4.3-11.0)
[2016-12-04 05:05] LABS: CALCIUM, SERUM 8.1 mg/dL (8.5-10.1); MAGNESIUM 2.1 mg/dL (1.8-2.4); POTASSIUM 5.9 mmol/L (3.5-5.1)
[2016-12-04 05:10] LABS: CREATININE 8.9 mg/dL (0.6-1.3)
[2016-12-04] MEDS: BLOOD SUGAR DIAGNOSTIC 1 EACH STRIP IN SCH ×4 (07:30→20:03)
--- NOTE | 2016-12-04 07:45 | NUR ---
ICU/RN PT IS SITTING IN THE BED ON NONREBREATHER MASK SAT O2-78-80%.MOTHER AT BED SIDE PT REFUSED BI-PAP AT THIS MOMENT.SOB,GENERALIZED WEAKNESS NOTED.BP STABLE,AFEBRILE.NO PAIN REPORTED AT THIS TIME.PT HAS NO IV ACCESS,HE REFUSED IT.PT HAS RIGHT FEMORAL HD CATH ,ESRD ON HD .GENERALIZED EDEMA PRESENT.PT HAS LEFT HAND DRESSING REFUSED TO TOUCH IT AND CHECK.ANURIC.PT HAS DOWN SYNDROME.MOTHER AT BEDSIDE.MOTHER AND SON ARE NON COMPLIANT WITH POC.
[2016-12-04] MEDS: CALCIUM ACETATE 667 MG TABLET PO SCH ×3 (07:49→17:20)
[2016-12-04] MEDS: LEVOTHYROXINE SODIUM 175 MCG TABLET PO SCH (07:49)
[2016-12-04] MEDS ORDERED: PANTOPRAZOLE 40 MG TABLET.DR PO SCH (08:00)
--- NOTE | 2016-12-04 08:02 | NUR ---
RT PATIENT PLACED BACK ON BIPAP FOR SOB AND DESATURATION. MOTHER AT BEDSIDE WHO IS VERY NON COMPLIANT WITH MEDICARE CARE. PATIENT SHOULD REMAIN ON BIPAP BUT MOTHER REMOVES AT WILL AND PLACES PATIENT ON NON REBREATHER. CARE PLAN THOROUGHLY EXPLAINED TO MOTHER AND SHE REMAINS NON COMPLIANT. MEDICAL STAFF AND MANAGERS AWARE. Addendum: 12/04/16 at 0821 by MIRANDA POWELL RT Amended: Links added.
--- NOTE | 2016-12-04 08:42 | NUR ---
RT AGAINST MEDICAL ADVICE PATIENTS MOTHER REMOVED BIPAP AND PLACED HIM ON NON REBREATHER. PATIENT DESATURATING AND MOTHER DOES NOT ALLOW ME TO PLACE BIPAP BACK ON. RN AWARE.
--- NOTE | 2016-12-04 10:00 | NUR ---
ICU/SHAVING MACHINE OPERATOR NURSE BRAD AND NURSING HEALTH AID STACEY TALK TO THE MOTHER OF THE PATIENT.FAMILY AGREE TO INTUBATE NOTIFIED.
[2016-12-04] MEDS ORDERED: IV SET PRIMARY PUMP SET 1 EA INFUS.SET MC ONE ×2 (10:02→17:14)
[2016-12-04] MEDS ORDERED: IV NS 0.9% 250 ML IV ONE ×2 (10:03→17:14)
--- NOTE | 2016-12-04 10:15 | NUR ---
RT PER MD ORDER PATIENT ORALLY INTUBATED BY ER DOCTOR ACOSTA WITH A 7.5 ETT SECURED AT 21CM @ TOP LIP VIA ANCHOR FAST. POSITIVE CO2 DETECTOR COLOR CHANGE NOTED. BILAT BREATH SOUNDS, BILAT CHEST RISE NOTED. PLACED ON 840 VENTILATOR WITH SETTINGS PER DR DALAL. AC12, 450, 100% +5. VENT ALARMS CHECKED + AUDIBLE. AMBU BAG AT HOB. Addendum: 12/04/16 at 1042 by MIRANDA POWELL RT Amended: Links added.
[2016-12-04] MEDS ORDERED: VECURONIUM 10 MG VIAL IV ONE (10:30)
[2016-12-04] MEDS ORDERED: ETOMIDATE 2 MG/ML VIAL IV ONE ×2 (10:30→11:30)
--- NOTE | 2016-12-04 10:30 | NUR ---
ICU/RN PT IS SEDATED ORDERED AND INTUBATED,BY ER DOCTOR.
[2016-12-04] MEDS ORDERED: EPOETIN ALFA (10,000 UNIT) 10,000 UNIT/ML VIAL SQ ONE (11:00)
--- NOTE | 2016-12-04 11:02 | NUR ---
RT POST CHEST X-RAY PER MD ORDER ETT PUSHED IN 4CM AND SECURED AT 25CM TOP LIP Addendum: 12/04/16 at 1103 by MIRANDA POWELL RT Amended: Links added.
[2016-12-04] MEDS: PROPOFOL 100 ML IV PRN ×2 (11:18→18:51)
[2016-12-04] MEDS ORDERED: ROCURONIUM BROMIDE 50 MG/5 ML IV ONE (11:30)
[2016-12-04 11:33] LABS: ABG BASE EXCESS -9.4 mmol/L; ABG OXYGEN SATURATION 81.5 % (92.0-98.5); ABG PCO2 61.3 mmHg (35.0-45.0); ABG PH 7.131 (7.350-7.450); ABG PO2 57.9 mmHg (75.0-100.0); ABG TOTAL HEMOGLOBIN 10.8 G/dL (13.5-18.0); AaDO2 593.8 mmHg; COHb 1.5 % (0.5-1.5); MetHb 0.7 % (0.0-1.5); O2Hb 79.7 % (94.0-97.0); SITE, ABG Right Radial
--- NOTE | 2016-12-04 12:10 | NUR ---
ICU/RN CT OF THE CHEST DONE ORDERED.PT IS BACK TO THE ROOM .PT IS SEDATED ON PROPOFOL.FAMILY AT BEDSIDE.
[2016-12-04] MEDS: INSULIN REGULAR, HUMAN 100 UNIT/ML 3 ML VIAL SQ PRN (12:17)
--- NOTE | 2016-12-04 14:00 | NUR ---
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
[2016-12-04] MEDS ORDERED: IV NS 0.9% 500 ML IV ONE (14:04)
[2016-12-04 14:14] LABS: ABG BASE EXCESS -5.9 mmol/L; ABG OXYGEN SATURATION 95.8 % (92.0-98.5); ABG PCO2 28.6 mmHg (35.0-45.0); ABG PH 7.413 (7.350-7.450); ABG PO2 84.4 mmHg (75.0-100.0); ABG TOTAL HEMOGLOBIN 8.9 G/dL (13.5-18.0); COHb 1.9 % (0.5-1.5); MetHb 1.1 % (0.0-1.5); O2Hb 92.9 % (94.0-97.0); PEEP,BG 8 cm H2O; SITE, ABG Right Brachial; VT, ABG 500 mL
[2016-12-04] MEDS: NOREPINEPHRINE 16 MG in IV D5W 500 ML IV PRN (15:37)
[2016-12-04] MEDS ORDERED: PHARMACY TO ADJUST ALL MEDS FOR RENAL FUNCT XX PRN (16:30)
[2016-12-04] MEDS ORDERED: FEE PK DOSING 1 MIN EA MC ONE (16:44)
[2016-12-04] MEDS ORDERED: DEXTROSE 50%-WATER 50 ML DISP.SYRIN IV PRN (17:00)
[2016-12-04] MEDS ORDERED: VANCOMYCIN 1 GM in IV D5W 250 ML IV PRN (17:00)
[2016-12-04] MEDS: MEROPENEM 500 MG in IV NS 0.9% 50 ML IV SCH (17:20)
--- NOTE | 2016-12-04 17:40 | NUR ---
ICU/RN CORINNA RICHTER AT BEDSIDE.PLACED A-LINE ON THE LEFT FEMORAL .PT TOLERATED WELL.FAMILY AT BEDSIDE.
--- NOTE | 2016-12-04 18:15 | NUR ---
ICU/RN PM CARE PROVIDED.DUE MEDS ARE GIVEN ORDERED.WOUND DRESSING DONE .HD IS OVER 2,600 ML OUT.DURING HD BLOOD PRESSURE DECREASED.LEVOPHED STARTED ORDERED.PT IS STILL ON LEVOPHED.SEDATED ON PROPOFOL.BILATERAL WRIST RESTRAINS ON.SUCTION PROVIDED.REPOSITION FOR COMFORT.
[2016-12-04] MEDS ORDERED: SECONDARY IV SET 1 EA INFUS.SET MC ONE (18:46)
--- NOTE | 2016-12-04 19:30 | NUR ---
RN INITIAL NOTES RECEIVED PT SEDATED WITH DIPRIVAN 50MCG/KG/MIN ON BED. INTUBATED ETT 7.5/25, VENT AC 24, TV 500, 80% FIO2, PEEP 8, SATURATING WELL, NO S/S OF RESP DISTRESS. CURRENTLY SR ON THE MONITOR, HR 70'S, ON LEVOPHED DRIP @ 2MCG/MIN. OGT IS CLAMPED. PT IS ANURIC. PT HAS A NON-WORKING LEFT WRIST AV SHUNT, COVERED WITH KERLIX. LEFT FEMORAL A-LINE AND RIGHT FEMORAL HD CATH BOTH INTACT. LEFT UPPER ARM PICC INTACT, FLUSHED AND PATENT, NO S/S OF INFILTRATION/INFECTION, DRESSINGS CDI. BED LOW AND LOCKED, SIDERAILS UP, BED ALARM ON, BILATERAL SOFT WRIST RESTRAINTS IN PLACE. WILL MONITOR CLOSELY
[2016-12-04] MEDS: methylPREDNISolone SOD SUCC 125 MG/2ML VIAL IV SCH (20:04)
[2016-12-04] MEDS: *INSULIN REGULAR(HUMULIN R)HUM 100 UNIT/ML VIAL SQ PRN (20:08)
[2016-12-05] VITALS (67 sets, daily range): BP systolic 64–128; BP diastolic 31–74
[2016-12-05] MEDS: BLOOD SUGAR DIAGNOSTIC 1 EACH STRIP IN SCH ×6 (00:28→20:07)
[2016-12-05] MEDS: PROPOFOL 100 ML IV PRN ×5 (00:40→23:25)
[2016-12-05] MEDS: *INSULIN REGULAR(HUMULIN R)HUM 100 UNIT/ML VIAL SQ PRN ×4 (04:17→20:08)
[2016-12-05] MEDS: methylPREDNISolone SOD SUCC 125 MG/2ML VIAL IV SCH ×3 (04:18→20:07)
[2016-12-05 04:39] LABS: EOSINOPHILS % (AUTO) 0.4 % (0.0-6.0); HEMATOCRIT 28 % (39-51); HEMOGLOBIN 9.1 g/dL (13.5-17.5); LYMPHOCYTES # (AUTO) 0.3 /CMM (0.8-4.8); LYMPHOCYTES % (AUTO) 4.1 % (20.0-44.0); MEAN CORPUSCULAR HEMOGLOBIN 28 PG (26.0-33.0); MEAN CORPUSCULAR HGB CONC 33 g/dl (31.0-36.0); MEAN CORPUSCULAR VOLUME 85 fL (80-96); MONOCYTES # (AUTO) 0.1 /CMM (0.1-1.30); MONOCYTES % (AUTO) 1.5 % (2.0-12.0); NEUTROPHILS # (AUTO) 7.8 /CMM (1.8-8.9); PLATELET COUNT (AUTO) 164 /CMM (150-450); RDW COEFFICIENT OF VARIATION 19.4 (11.5-15.0); WHITE BLOOD COUNT (AUTO) 8.3 K/uL (4.3-11.0)
[2016-12-05 05:10] LABS: CALCIUM, SERUM 8.2 mg/dL (8.5-10.1); MAGNESIUM 2.1 mg/dL (1.8-2.4); PHOSPHORUS 4.6 mg/dL (2.5-4.9); POTASSIUM 5.4 mmol/L (3.5-5.1)
[2016-12-05 05:17] LABS: CREATININE 7.6 mg/dL (0.6-1.3)
[2016-12-05] MEDS ORDERED: IV SET PRIMARY PUMP SET 1 EA INFUS.SET MC ONE ×3 (05:48→21:31)
--- NOTE | 2016-12-05 06:20 | NUR ---
RN NOTES RECEIVED A CALL FROM THE RADIOLOGIST WHEREIN SHE STATED THAT THE PATIENT'S PICC LINE PLACEMENT IS QUESTIONABLE BASED FROM WHAT SHE READ IN THE CHEST CT AND XRAY. SHE SUGGESTS THAT A VBG TO BE DONE THROUGH THE PICC LINE TO CONFIRM PLACEMENT. DR ADAN IS NOTIFIED, AWAITING ORDERS. WILL ALSO NOTIFY INCOMING AM RN
--- NOTE | 2016-12-05 06:30 | NUR ---
RN CLOSING NOTES PT REMAINS STABLE OF THE MOMENT. ALL DUE MEDS GIVEN, AM CARE PROVIDED. WILL ENDORSE CONTINUITY OF CARE TO AM RN
--- NOTE | 2016-12-05 08:01 | NUR ---
PRODUCTION GRAPHIC DESIGNER RECEIVED PATIENT FROM THE PREVIOUS SHIFT. PATIENT IN BED. RESTING COMFORTABLY. NO DISTRESS. EVEN NON LABORED BREATHING PATTERN. SEDATED ON DIPRIVAN 50MCG. BP MONITORED. SINUS PETTY ON MONITOR. FAMILY AT BEDSIDE. AFEBRILE. TURNED AND REPOSITIONED FOR COMFORT AND WOUND PREVENTION. WILL CONTINUE TO MONITOR AND PROVIDE CARE.
--- NOTE | 2016-12-05 08:35 | NUR ---
RESIDENTIAL BUILDER I WAS ABLE TO PERFORM ASSESSMENT OF PATIENT'S LEFT FOREARM AND RIGHT UPPER ARM WOUNDS. PATIENT'S MOM CAME IN THE ROOM AND REFUSED FOR ME TO LOOK AT PATIENT'S BACK AT THIS TIME. PLEASE SEE PCS FOR TODAY FOR ASSESSMENT AND ALL RECOMMENDATIONS. PATIENT NOW INTUBATED, RECOMMEND TURNING SCHED Q 2 HOURS, BILATERAL HEEL FLOATING AND USE OF Z GUARD FOR MOISTURE MANAGEMENT. PATIENT ON DARIUSZ ISOFLEX LOW AIRLOSS BED FOR SKIN MANAGEMENT AT THIS TIME. CURRENT ROSLYN AT 13. ALL DISCUSSED WITH [employer] SERVICES DISPATCHER AT THE BEDSIDE AND ALSO THE TREATMENT PLAN FOR THE PATIENT'S ARM WOUNDS WAS DISCUSSED WITH PATIENT'S MOM AT THE BEDSIDE.
[2016-12-05 08:51] LABS: ABG BASE EXCESS -5.5 mmol/L; ABG OXYGEN SATURATION 97.4 % (92.0-98.5); ABG PH 7.452 (7.350-7.450); ABG PO2 108.1 mmHg (75.0-100.0); AaDO2 292.2 mmHg; MetHb 0.5 % (0.0-1.5); O2Hb 95.9 % (94.0-97.0); PEEP,BG 8 cm H2O; SITE, ABG Right Radial; VT, ABG 500 mL
[2016-12-05] MEDS: HYDROGEL DRESSING 90 GM TUBE TP SCH (09:13)
[2016-12-05] MEDS: NEOMY SULF/BACITRAC ZN/POLY 15 GM TUBE TP SCH (09:13)
[2016-12-05] MEDS ORDERED: IV NS 0.9% 500 ML IV ONE (09:13)
[2016-12-05] MEDS ORDERED: IV NS 0.9% 250 ML IV ONE (09:13)
[2016-12-05] MEDS: CALCIUM ACETATE 667 MG TABLET PO SCH ×3 (09:18→17:11)
[2016-12-05] MEDS: PANTOPRAZOLE 40 MG VIAL IV SCH (09:18)
[2016-12-05] MEDS: LEVOTHYROXINE SODIUM 175 MCG TABLET PO SCH (09:18)
--- NOTE | 2016-12-05 09:30 | NUR ---
SPACE PHYSICIST DURING SEDATION VACATION PATIENT NOTED TO BE RESTLESS, AGITATED, NO FOCUSED ENOUGH TO FOLLOW COMMANDS. PATIENT TRYING TO REMOVE LINES AND TUBES DURING SEDATION VACATION. SEDATION RESTARTED.
[2016-12-05 11:42] LABS: ABG BASE EXCESS -4.4 mmol/L; ABG PCO2 43.2 mmHg (35.0-45.0); ABG PH 7.315 (7.350-7.450); ABG PO2 35.6 mmHg (75.0-100.0); AaDO2 272.3 mmHg; COHb 1.4 % (0.5-1.5); MetHb 1.2 % (0.0-1.5); O2Hb 54.5 % (94.0-97.0); SITE, ABG A-Line
[2016-12-05] MEDS: NOREPINEPHRINE 16 MG in IV D5W 500 ML IV PRN (16:36)
--- NOTE | 2016-12-05 16:48 | NUR ---
PAYROLL MANAGER PATIENT IN BED. MODERATE AGITATION NOTED. DIPRIVAN INCREASED TO 100MCG/MIN/KG TO MANAGE AGITATION. HYPOTENSIVE SO ON LEVOPHED LOW DOSES FOR BP SUPPORT. ANEURIC. SINUS RHYTHM ON MONITOR. AFEBRILE. VITAL SIGNS MONITORED. TURNED AND REPOSITIONED FOR COMFORT AND WOUND PREVENTION. WILL CONTINUE TO MONITOR AND PROVIDE CARE.
--- NOTE | 2016-12-05 17:02 | NUR ---
FLATWORK FOLDER VANCO RANDOM LEVEL FROM AM 28. VANCO DOSE HELD. PHARMACIST MADE AWARE.
[2016-12-05] MEDS: MEROPENEM 500 MG in IV NS 0.9% 50 ML IV SCH (17:11)
--- NOTE | 2016-12-05 19:30 | NUR ---
RN INITIAL NOTES RECEIVED PT SEDATED WITH DIPRIVAN 70MCG/KG/MIN ON BED. INTUBATED ETT 7.5/25, VENT AC 16, TV 500, 50% FIO2, PEEP 5, SATURATING WELL, NO S/S OF RESP DISTRESS. CURRENTLY SR ON THE MONITOR, HR 60'S. OGT IS CLAMPED. PT IS ANURIC. PT HAS A NON-WORKING LEFT WRIST AV SHUNT, COVERED WITH KERLIX. LEFT FEMORAL A-LINE AND RIGHT FEMORAL HD CATH BOTH INTACT. LEFT UPPER ARM PICC INTACT, FLUSHED AND PATENT, NO S/S OF INFILTRATION/INFECTION, DRESSINGS CDI. BED LOW AND LOCKED, SIDERAILS UP, BED ALARM ON, BILATERAL SOFT WRIST RESTRAINTS IN PLACE. WILL MONITOR CLOSELY
[2016-12-06] VITALS (54 sets, daily range): BP systolic 85–164; BP diastolic 35–82
[2016-12-06] MEDS: BLOOD SUGAR DIAGNOSTIC 1 EACH STRIP IN SCH ×6 (00:39→21:12)
[2016-12-06] MEDS: *INSULIN REGULAR(HUMULIN R)HUM 100 UNIT/ML VIAL SQ PRN ×6 (00:45→21:13)
[2016-12-06] MEDS: PROPOFOL 100 ML IV PRN ×6 (01:42→20:10)
[2016-12-06] MEDS: methylPREDNISolone SOD SUCC 125 MG/2ML VIAL IV SCH ×3 (04:33→20:46)
[2016-12-06 05:06] LABS: HEMATOCRIT 29 % (39-51); HEMOGLOBIN 9.5 g/dL (13.5-17.5); MEAN CORPUSCULAR HEMOGLOBIN 28 PG (26.0-33.0); MEAN CORPUSCULAR HGB CONC 33 g/dl (31.0-36.0); MEAN CORPUSCULAR VOLUME 86 fL (80-96); PLATELET COUNT (AUTO) 191 /CMM (150-450); RED BLOOD CELL COUNT(AUTO) 3.37 MIL/uL (4.5-6.0); WHITE BLOOD COUNT (AUTO) 6.9 K/uL (4.3-11.0)
[2016-12-06 05:39] LABS: CALCIUM, SERUM 8.5 mg/dL (8.5-10.1); MAGNESIUM 2.3 mg/dL (1.8-2.4)
[2016-12-06 05:45] LABS: POTASSIUM 6.5 mmol/L (3.5-5.1)
[2016-12-06 05:46] LABS: PHOSPHORUS 9.6 mg/dL (2.5-4.9)
[2016-12-06 06:26] LABS: ANISOCYTOSIS 2+; PLATELET ESTIMATE ADEQUATE
--- NOTE | 2016-12-06 06:30 | NUR ---
RN CLOSING NOTES PT REMAINS STABLE OF THE MOMENT. ALL DUE MEDS GIVEN, AM CARE PROVIDED. WILL ENDORSE CONTINUITY OF CARE TO AM RN
--- NOTE | 2016-12-06 07:15 | NUR ---
COMMERCIAL ATTACHE NOTES RECEIVED PATIENT SEDATED , RESPONSIVE TO PAIN STIMULI , NOT IN ACUTE DISTRESS , RESPIRATION EVEN AND UNLABORED WITH SPO2 OF 100% VIA MECHANICAL VENTILATOR SETTING ORDERED , ETT 7.5/[address] , SB 55 ON BEDSIDE MONITOR , OJT IN PLACE VERIFIED VIA AUSCULTATION NOTED WITH GURGLING SOUND AT STOMACH REGION , ON DARIUSZ BED , B WRIST RESTRAINS IN PLACE VISUAL CHECK PER PROTOCOL , JUAN MANUEL PICC LINE TRIPLE LUMEN PATENT AND INTACT WITH DIPRIVAN @ 35MCG/MIN , R FEMORAL HD CATH C/D/I , L FEMORAL A LINE PATENT AND INTACT ZEROED WITH GOOD WAVE FORM , L WRIST AV SHUNT NOT WORKING , ALL NEEDS ATTENDED , BED ON LOW AND LOCKED POSITION , SIDE RAILS X2 ,HOB @ 45 , WILL CONTINUE TO MONITOR
[2016-12-06 08:37] LABS: BAND % (MANUAL) 3 % (0.0-5.0); LYMPHOCYTES % (MANUAL) 6 % (16-48); MONOCYTES % (MANUAL) 2 % (0-11.0); NEUTROPHILS % (MANUAL) 89 (42-76)
[2016-12-06] MEDS: LEVOTHYROXINE SODIUM 175 MCG TABLET PO SCH (08:40)
[2016-12-06] MEDS: CALCIUM ACETATE 667 MG TABLET PO SCH (08:40)
[2016-12-06] MEDS: PANTOPRAZOLE 40 MG VIAL IV SCH (08:40)
[2016-12-06] MEDS: Z GUARD REMEDY 2 OZ OINT TP PRN (08:41)
[2016-12-06] MEDS: HYDROGEL DRESSING 90 GM TUBE TP SCH (08:42)
[2016-12-06] MEDS: NEOMY SULF/BACITRAC ZN/POLY 15 GM TUBE TP SCH (08:42)
--- NOTE | 2016-12-06 08:45 | NUR ---
PUBLICATIONS DISTRIBUTION CLERK NOTES DR DALAL AT BEDSIDE , NOTIFIED PT TOLERATING CURRENT VENT SETTINGS WITH SPO2 OF 100% NO DISTRESS NOTED , SB 50-55 ON BEDSIDE MONITOR , WITH BP OF 130/55 VIA CHIQUITA , AFEBRILE, OFF DIPRIVAN SINCE 0800 , AWARE .
--- NOTE | 2016-12-06 09:00 | NUR ---
COLLEGE ARCHIVIST NOTES NOTIFIED DR DALAL REGARDING ABG RESULT , TIDAL VOLUME TITRATED DOWN TO 450 AND FIO2 45 % WITH SPO2 OF 100% WILL CONTINUE TO MONITOR ,
--- NOTE | 2016-12-06 09:00 | NUR ---
MOUNTED POLICE NOTES @ 0800 PATIENT ON SEDATION VACATION , STABLE AT THIS TIME , SEDATED , BILATERAL WRIST RESTRAINTS IN PLACE , WILL CONTINUE TO MONITOR @ 0830 , PT ABLE TO OPENS EYES ,AGITATED , DIRPIVAN @ 35MCG/MIN RE STARTED .
[2016-12-06 09:12] LABS: ABG BASE EXCESS -5.6 mmol/L; ABG OXYGEN SATURATION 98.3 % (92.0-98.5); ABG PCO2 29.5 mmHg (35.0-45.0); ABG PH 7.407 (7.350-7.450); ABG PO2 133.1 mmHg (75.0-100.0); ABG TOTAL HEMOGLOBIN 9.8 G/dL (13.5-18.0); AaDO2 190.2 mmHg; COHb 1.5 % (0.5-1.5); MetHb 0.7 % (0.0-1.5); O2Hb 96.1 % (94.0-97.0); PEEP,BG 5 cm H2O; SITE, ABG A-Line; VT, ABG 500 mL
[2016-12-06] MEDS ORDERED: EPOETIN ALFA (10,000 UNIT) 10,000 UNIT/ML VIAL SQ ONE (12:00)
--- NOTE | 2016-12-06 12:00 | NUR ---
BOOKBINDING MACHINE OPERATOR NOTES DR KYLAH FLORES AT BEDSIDE , NOTIFIED PT NA 129 , K 6.5 , BUN 65 , CREATININE 8.0 , CA 8.5 , PHOS 9.6 AND MAG 2.3 , PER MD SHE WILL ORDER HD AND INCREASE DOSE OF PHOSLO. HSERRON LAST SCOURER AT BEDSIDE , NOTIFIED PT HR IS SR 40-50 , OFF LEVOPHED , WITH SBP OF 105/55 , DIETARY CONSULT STILL PENDING FOR OJT FEEDING , AFEBRILE, LAST SCOURER AWARE
[2016-12-06] MEDS: CALCIUM ACETATE 667 MG TABLET NG SCH ×2 (13:44→16:40)
--- NOTE | 2016-12-06 14:21 | NUR ---
Patient received orally intubated with 7.5 ETT secured at 25 cm mid lip line. ETT moved from left to right via anchor fast throughout shift per policy. Patient on PB 840 Vent with alarms verified and audible. Vent settings changed to AC 16, VT 450, FI02=40%, PEEP+5, PER DR. DALAL'S ORDER. Suctioned and lavaged small-moderate amount of thick lew secretions. Ambu bag at [facility].
[2016-12-06] MEDS: RENAL NOVASOURCE 1,000 ML BOTTLE GT PRN (16:00)
--- NOTE | 2016-12-06 16:00 | NUR ---
SALES AND MARKETING ASSISTANT NOTES NG TUBE FEEDING OF NOVASOURCE RENAL STARTED @ 20ML/HR, INCREASE GOAL RATE OF @60ML/HR VERIFIED PLACEMENT VIA AUSCULTATION NOTED WITH GURGLING SOUND AROUND STOMACH , WILL CONTINUE TO MONITOR
--- NOTE | 2016-12-06 16:15 | NUR ---
DIGITAL MEDIA DIRECTOR NOTES PT STABLE POST HD REMOVED 2800 L OF FLUIDS , LEVOPHED TITRATED DOWN TO 5MCG/MIN , BP OF 134/44 , JR 67 , SPO2 OF 9 VIA MECHANICAL VENTILATOR SETTINGS ORDERED , RR 16 , AFEBRILE TOLERATED WELL , WILL CONTINUE TO MONITOR
[2016-12-06] MEDS ORDERED: IV SET PRIMARY PUMP SET 1 EA INFUS.SET MC ONE ×2 (16:28→19:48)
[2016-12-06] MEDS: MEROPENEM 500 MG in IV NS 0.9% 50 ML IV SCH (16:40)
[2016-12-06] MEDS ORDERED: VANCOMYCIN 500 MG in IV D5W 100 ML IV PRN (17:00)
[2016-12-06] MEDS: LACTOBACILLUS RHAMNOSUS GG 1 EACH CAP.SPRINK GT SCH (18:44)
[2016-12-06] MEDS ORDERED: IV NS 0.9% 500 ML IV ONE (19:49)
[2016-12-06] MEDS ORDERED: IV NS 0.9% 250 ML IV ONE (19:49)
[2016-12-06] MEDS: IV NS 0.9% 250 ML IV PRN (19:58)
--- NOTE | 2016-12-06 21:15 | NUR ---
CRATE REPAIRER: SALMA WINN ON THE ICU UNIT AND MADE AWARE OF PT's RIGHT PUPIL UNEQUAL AND CLOUDY. NO NEW ORDER AT THIS TIME. RENETTA CHARGE NURSE MADE AWARE. PT REMAINS ORALLY INTUBATED AND TOLERATING MECH VENT SETTINGS. SEDATED ON DIPRIVAN DECREASED RATE TO 30MCG/KG/MIN. BILAT. SOFT WRIST RESTRAINTS IN PLACE PER PROTOCOL FOR EPISODE OF TRYING TO REACH FOR TUBINGS. WT GOOD CIRCULATION AND NO NEW SKIN BREAKDOWN WHEN RELEASED AND CHECKED. TOLERATING OGT FEEDING AT 50ML/HR WT NO RESIDUAL AND WILL INCREASE RATE TO MAX. GOAL RATE TOLERATED. SR-SB ON THE TORPEDO WORKER. SAFETY PRECAUTION NOTED. WILL CONTINUE TO MONITOR.
[2016-12-07] VITALS (52 sets, daily range): BP systolic 70–170; BP diastolic 30–94
[2016-12-07] MEDS: BLOOD SUGAR DIAGNOSTIC 1 EACH STRIP IN SCH ×7 (01:19→21:32)
[2016-12-07] MEDS: *INSULIN REGULAR(HUMULIN R)HUM 100 UNIT/ML VIAL SQ PRN ×2 (01:20→05:24)
--- NOTE | 2016-12-07 02:30 | NUR ---
VEHICLE TECHNICIAN: DILLAN NOW AT 75MCG/KG/MIN PT HAS EPISODES RESTLESSNESS M/B TRYING TO REACH TUBINGS AND MOVING LEGS. BILAT. SOFT WRIST RESTRAINTS REMAINED IN PLACE PER PROTOCOL. RELEASED AND CHECKED WT GOOD CIRCULATION AND PALPABLE PULSES. BED BATH GIVEN AND TOLERATED FAIRLY. TOLERATING OGT FEEDING AT MAX. GOAL RATE OF 60ML/HR WT 10CC RESIDUAL. REPOSITIONED FOR COMFORT. SAFETY PRECAUTION NOTED AT ALL TIMES.
[2016-12-07] MEDS: PROPOFOL 100 ML IV PRN ×6 (03:06→22:12)
[2016-12-07 05:02] LABS: HEMATOCRIT 32 % (39-51); HEMOGLOBIN 10.3 g/dL (13.5-17.5); MEAN CORPUSCULAR HEMOGLOBIN 27 PG (26.0-33.0); MEAN CORPUSCULAR HGB CONC 32 g/dl (31.0-36.0); MEAN CORPUSCULAR VOLUME 86 fL (80-96); PLATELET COUNT (AUTO) 200 /CMM (150-450); RDW COEFFICIENT OF VARIATION 19.1 (11.5-15.0); RED BLOOD CELL COUNT(AUTO) 3.76 MIL/uL (4.5-6.0); WHITE BLOOD COUNT (AUTO) 9.8 K/uL (4.3-11.0)
[2016-12-07] MEDS: methylPREDNISolone SOD SUCC 125 MG/2ML VIAL IV SCH ×3 (05:11→21:35)
[2016-12-07 05:24] LABS: CALCIUM, SERUM 8.4 mg/dL (8.5-10.1); CREATININE 7.1 mg/dL (0.6-1.3); MAGNESIUM 2.2 mg/dL (1.8-2.4); POTASSIUM 6.1 mmol/L (3.5-5.1)
[2016-12-07 05:31] LABS: PHOSPHORUS 9.4 mg/dL (2.5-4.9)
--- NOTE | 2016-12-07 05:38 | NUR ---
Per DR SANTOS request ET tube was withdrawn and secured at 24cm at the lip.
--- NOTE | 2016-12-07 06:20 | NUR ---
ENDODONTIST: SALMA WINN MADE AWARE OF JUAN MANUEL PICC LINE ABNORMAL POSITION PER RADIOLOGIST. SALMA SAID SALMA SIU ADDRESSED THE ISSUE ON HIS NOTES ON 12/05/16 AT 10:26AM THAT IT IS SAFE TO USE AND ON THE VEIN. SHE ALSO ORDERED CXR STAT AFTER RETRACTION OF ETT TO 1CM TO VERIFY PLACEMENT.
[2016-12-07 07:37] LABS: BAND % (MANUAL) 2 % (0.0-5.0); LYMPHOCYTES % (MANUAL) 7 % (16-48); MONOCYTES % (MANUAL) 2 % (0-11.0); NEUTROPHILS % (MANUAL) 89 (42-76)
[2016-12-07 07:38] LABS: ANISOCYTOSIS 1+; PLATELET ESTIMATE ADEQUATE
[2016-12-07] MEDS: CALCIUM ACETATE 667 MG TABLET NG SCH ×3 (07:49→17:22)
[2016-12-07] MEDS: PANTOPRAZOLE 40 MG VIAL IV SCH (07:50)
[2016-12-07] MEDS: LACTOBACILLUS RHAMNOSUS GG 1 EACH CAP.SPRINK GT SCH ×2 (07:50→17:22)
[2016-12-07] MEDS: LEVOTHYROXINE SODIUM 175 MCG TABLET PO SCH (07:50)
[2016-12-07] MEDS: HYDROGEL DRESSING 90 GM TUBE TP SCH (07:51)
[2016-12-07] MEDS: NEOMY SULF/BACITRAC ZN/POLY 15 GM TUBE TP SCH (07:51)
--- NOTE | 2016-12-07 08:00 | NUR ---
ACCELERATOR SYSTEMS DIRECTOR PT IN BED INTUBATED SEDATED ON PROPOFOL, PT STILL WAKES UP WITH PROPOFOL 80MICS, SR ON TELE SBP STABLE IN THE 90S O2 SAT 100%, ABD SOFT NG TUBE PATENT INFUSING FEEDING ORDERED, IV ACCESS PATENT CARDIAC MONITOR SHERRON OK TO USE PICC LINE THE LINE ACCORDING TO HIM IS IN THE RIGHT PLACE, HD CATERER NOTED, FAMILY AT BEDSIDE (MOTHER) WILL CONTINUE TO MONIITOR TURN AND REPSOTIION IN BED FALL PRECAUTIONS TAKEN WILL CONTINUE TO MONITOR.
--- NOTE | 2016-12-07 08:27 | NUR ---
RT PATIENT REC'D ORALLY INTUBATED WITH A 7.5 ETT SECURED AT 24CM AT THE LIP VIA ANCHOR FAST. ON [facility] VENTILATOR WITH SETTINGS SET PER MD TOLERATED WELL. VENT ALARMS CHECKED + AUDIBLE. CUFF PRESSURE CHECKED WELL TENDER. SX'D WITH SMALL AMT PALE SEMITHICK SECRETIONS. B/S DIM COARSE. PATIENT SEDATED AND APPEARS COMFORTABLE. AMBU BAG AT [facility]. CONTINUE CURRENT PLAN OF RESP CARE. Addendum: 12/07/16 at 0830 by MIRANDA POWELL RT Amended: Links added.
[2016-12-07 08:40] LABS: ABG BASE EXCESS -3.9 mmol/L; ABG OXYGEN SATURATION 95.2 % (92.0-98.5); ABG PH 7.318 (7.350-7.450); ABG PO2 92.1 mmHg (75.0-100.0); ABG TOTAL HEMOGLOBIN 11.1 G/dL (13.5-18.0); AaDO2 142.5 mmHg; MetHb 0.8 % (0.0-1.5); O2Hb 93.5 % (94.0-97.0); SITE, ABG A-Line
[2016-12-07] MEDS ORDERED: DEXTROSE 50%-WATER 50 ML DISP.SYRIN IV PRN ×2 (10:00→20:30)
[2016-12-07] MEDS ORDERED: IV NS 0.9% 250 ML IV ONE (10:07)
[2016-12-07] MEDS ORDERED: IV SET PRIMARY PUMP SET 1 EA INFUS.SET MC ONE ×3 (10:07→22:00)
[2016-12-07] MEDS: RENAL NOVASOURCE 1,000 ML BOTTLE GT PRN (10:25)
[2016-12-07] MEDS: INSULIN REGULAR, HUMAN 100 UNIT/ML 3 ML VIAL SQ PRN ×3 (12:17→20:16)
--- NOTE | 2016-12-07 13:00 | NUR ---
HEAD TRIMMER HD STARTED LEVOPHED ON STANDBY FOR BP SUPPORT.
[2016-12-07] MEDS: NOREPINEPHRINE 16 MG in IV D5W 500 ML IV PRN (14:46)
[2016-12-07] MEDS: LORAZEPAM INJ 2 MG/ML VIAL IV PRN (16:23)
--- NOTE | 2016-12-07 16:30 | NUR ---
DENTAL OFFICE COORDINATOR PT IN BED HD DONE NO DISTRESS OFF OF LEVOPHED TITRATED DOWN TO STOP, NO FEVER ALL PT NEEDS MEET, WILL CONTINUE TO MONITOR.
--- NOTE | 2016-12-07 16:30 | NUR ---
olericulture teacher constantin rn picc line nurse came to bedside as picc line not in the right place he pulled out ok to use.
[2016-12-07] MEDS: MEROPENEM 500 MG in IV NS 0.9% 50 ML IV SCH (17:22)
[2016-12-07 18:53] LABS: CALCIUM, SERUM 6.5 mg/dL (8.5-10.1)
[2016-12-07 18:54] LABS: POTASSIUM 5.2 mmol/L (3.5-5.1)
[2016-12-07 19:02] LABS: CREATININE 2.5 mg/dL (0.6-1.3)
[2016-12-07 19:10] LABS: CALCIUM, SERUM 7.8 mg/dL (8.5-10.1)
[2016-12-07 19:12] LABS: CREATININE 7.2 mg/dL (0.6-1.3)
[2016-12-07 19:32] LABS: POTASSIUM 2.6 mmol/L (3.5-5.1)
--- NOTE | 2016-12-07 19:50 | NUR ---
HEAD CONCIERGE: RECEIVED YITXMJH=047. K=2.6. ACCUCHEK DONE WT TW=385. PA IN CLASS SPECIAL EDUCATION TEACHER MADE AWARE WT ORDERS TO CHANGE ACCUCHEK TO Q4H AND WT AGGRESSIVE SS AND REPEAT BMP STAT.WILL ADMINISTER 20U INSULIN ORDERED PER SS. WILL CONTINUE TO MONITOR.
--- NOTE | 2016-12-07 19:53 | NUR ---
RT Received Patient intubated with 7.5 ETT @ 24cm at lip via anchor fast. Vent alarms set and audible. Suctioned copious amount of thick yellow secretions. Ambu bag at [facility]. Will continue to monitor pt. Addendum: 12/07/16 at 2204 by ANGI VALLEJO RT Amended: Links added.
[2016-12-07 20:49] LABS: CALCIUM, SERUM 6.5 mg/dL (8.5-10.1); POTASSIUM 4.9 mmol/L (3.5-5.1)
[2016-12-07] MEDS ORDERED: IV NS 0.9% 500 ML IV ONE (21:00)
--- NOTE | 2016-12-07 21:30 | NUR ---
LABORER: 2048 [id number]. PA CLARIFIER OPERATOR HELPER MADE AWARE. WAS GIVEN 20U INSULIN AT 2016 FOR NV=044. PER CLARIFIER OPERATOR HELPER, NO INSULIN COVERAGE NEEDED AT THIS TIME. INFORMED HER OF BMP RESULTS WT OPOUJIN=765. THE BLOOD WAS DRAWN SHORTLY AFTER 20U INSULIN WAS GIVEN. CLARIFIER OPERATOR HELPER SAID SHE WILL ORDER ANOTHER BMP AT 0000 AND DIETARY CONSULT.
[2016-12-07] MEDS: IV NS 0.9% 250 ML IV PRN (21:34)
--- NOTE | 2016-12-07 21:55 | NUR ---
PET AMBASSADOR: CALLED REMI ADAN FOR DAY SHIFT AND VERIFIED IF VANCO WAS GIVEN AFTER DIALYSIS BAG AND TUBING IS STILL ON THE IV POLE. HE SAID HE GAVE IT BUT FORGOT TO SCAN. ALSO SAID THAT OGT WAS REPLACED AND THE CT CHEST SHOWN RE OGT ON MID ESOPHAGUS WAS THE OLD ONE. OGT VERIFIED PLACEMENT.
[2016-12-08] VITALS (53 sets, daily range): BP systolic 89–126; BP diastolic 43–72
[2016-12-08] MEDS: BLOOD SUGAR DIAGNOSTIC 1 EACH STRIP IN SCH ×6 (00:23→20:12)
[2016-12-08] MEDS: INSULIN REGULAR, HUMAN 100 UNIT/ML 3 ML VIAL SQ PRN ×5 (00:25→20:12)
--- NOTE | 2016-12-08 00:29 | NUR ---
ELECTRICIAN BUS: BLOOD SUGAR CHECKED WT RESULT OF 427. GIVEN 20U INSULIN. BLOOD DRAWN FOR BMP JUST DONE. PAGED PA MARSH. AWAITING TO CALL BACK.
[2016-12-08] MEDS: PROPOFOL 100 ML IV PRN ×6 (00:43→18:19)
[2016-12-08 01:06] LABS: CALCIUM, SERUM 6.2 mg/dL (8.5-10.1)
--- NOTE | 2016-12-08 01:20 | NUR ---
COOK CANDY: SALMA WINN ON THE UNIT AND MADE AWARE OF BMP RESULTS. COLLAR FOLDER OPERATOR SAID SHE WILL PLACE ORDERS TO GIVE ANOTHER 20U OF REGULAR INSULIN X 1 AND TO RECHECK BLOOD SUGAR IN AN HOUR.
[2016-12-08] MEDS ORDERED: INSULIN REGULAR, HUMAN 100 UNIT/ML 10 ML VIAL SQ ONE (01:30)
[2016-12-08 01:36] LABS: CREATININE 6.6 mg/dL (0.6-1.3)
--- NOTE | 2016-12-08 02:45 | NUR ---
RETREADER: BLOOD SUGAR RECHECKED= 358. PA MARSH MADE AWARE WT NO NEW ORDER AT THIS TIME.
[2016-12-08] MEDS: methylPREDNISolone SOD SUCC 125 MG/2ML VIAL IV SCH ×3 (04:48→20:12)
[2016-12-08 05:10] LABS: CALCIUM, SERUM 6.5 mg/dL (8.5-10.1); MAGNESIUM 2.4 mg/dL (1.8-2.4); PHOSPHORUS 4.3 mg/dL (2.5-4.9); POTASSIUM 4.9 mmol/L (3.5-5.1)
[2016-12-08 05:20] LABS: CREATININE 6.8 mg/dL (0.6-1.3)
[2016-12-08 05:24] LABS: BASOPHILS % (AUTO) 0.1 % (0.0-2.0); HEMATOCRIT 30 % (39-51); HEMOGLOBIN 9.2 g/dL (13.5-17.5); LYMPHOCYTES % (AUTO) 7.5 % (20.0-44.0); MEAN CORPUSCULAR HEMOGLOBIN 26 PG (26.0-33.0); MEAN CORPUSCULAR HGB CONC 30 g/dl (31.0-36.0); MEAN CORPUSCULAR VOLUME 86 fL (80-96); MONOCYTES # (AUTO) 0.4 /CMM (0.1-1.30); NEUTROPHILS # (AUTO) 11.5 /CMM (1.8-8.9); NEUTROPHILS % (AUTO) 89.4 % (43.0-81.0); PLATELET COUNT (AUTO) 166 /CMM (150-450); RDW COEFFICIENT OF VARIATION 19.7 (11.5-15.0); RED BLOOD CELL COUNT(AUTO) 3.53 MIL/uL (4.5-6.0); WHITE BLOOD COUNT (AUTO) 12.8 K/uL (4.3-11.0)
--- NOTE | 2016-12-08 05:35 | NUR ---
HEALTH AND WELLNESS INSTRUCTOR: RECEIVED GLUCOSE RESULT FROM LAB DNIWQ=286. CALLED AND NOTIFIED SALMA WINN AND TOLD HER THAT ACCUCHEK WAS DONE AT SAME TIME LAB WAS DRAWN AND IT WAS 277. INSULIN 12U WAS GIVEN PER SLIDING SCALE. ACCUCHEK WAS DONE AGAIN AFTER LAB CALLED WT RESULT OF 271. TRAFFIC CHIEF SAID WE WILL GO BY THE ACCUCHEK RESULT WT NO NEW ORDER AT THIS TIME.
--- NOTE | 2016-12-08 06:40 | NUR ---
FISHING VESSEL CAPTAIN: NO SIGNIFICANT HENNA AT THIS TIME. TOLERATING VENT SETTINGS ORDERED WT NO ACUTE DISTRESS. NO EVIDENCE OF DISCOMFORT. TOLERATED OGT FEEDING WT NO RESIDUAL AND TURNED OFF AT THIS TIME PRIOR TO SYNTHROID ADMIN. JUAN MANUEL PICC LINE FLUSHED BUT WT MINIMAL RESISTANCE NOTED AND NO BLOOD RETURN. DIPRIVAN INFUSING AT 90MCG/KG/MIN. ALL NEEDS MET. SAFETY PRECAUTION NOTED AT ALL TIMES
--- NOTE | 2016-12-08 08:00 | NUR ---
INFERTILITY NURSE: pt.is sedated with 100mcg/kg/m Diprivan, on wrists restraints, arm activity+, can open eyes for seconds spont., rest now, no grimacing, ST, SBP (ludivina) over 100, pressor off, O2 sat. WNL, plan: SIMV today at 11.00, GTF residual WNL, L.femoral Ludivina dressing intact/0-ed, PICC CXR: loop near tip, REMI Pineda changed PICC to triple lumen midline, good blood return, Ok to use
[2016-12-08] MEDS: LEVOTHYROXINE SODIUM 175 MCG TABLET PO SCH (08:03)
[2016-12-08] MEDS: CALCIUM ACETATE 667 MG TABLET NG SCH ×3 (08:04→17:39)
--- NOTE | 2016-12-08 08:30 | NUR ---
MEMBERSHIP ADMINISTRATOR: pt.mother is in room, discussed re pt.current condition, sedation level/restraints, VS, I/O, GTF, HD, orders/POC, Tx, agree for now
[2016-12-08] MEDS: NEOMY SULF/BACITRAC ZN/POLY 15 GM TUBE TP SCH (09:34)
[2016-12-08] MEDS: PANTOPRAZOLE 40 MG VIAL IV SCH (09:34)
[2016-12-08] MEDS: HYDROGEL DRESSING 90 GM TUBE TP SCH (09:34)
[2016-12-08] MEDS: LACTOBACILLUS RHAMNOSUS GG 1 EACH CAP.SPRINK GT SCH ×2 (09:41→17:18)
[2016-12-08] MEDS ORDERED: IV SET PRIMARY PUMP SET 1 EA INFUS.SET MC ONE ×3 (10:06→22:17)
--- NOTE | 2016-12-08 11:40 | NUR ---
WOOD PATTERNMAKER APPRENTICE: stopped sedation, pt.is going for SIMV mode, suctioned x3 since 0800, am/skin/wound care done
[2016-12-08] MEDS: RENAL NOVASOURCE 1,000 ML BOTTLE GT PRN (11:51)
--- NOTE | 2016-12-08 12:02 | NUR ---
VENT CHANGES MADE PER MD ORDER: CPAP 5/ PS 12, FIO2 40%. Addendum: 12/08/16 at 1203 by MARIAELENA PEREZ RT Amended: Links added.
--- NOTE | 2016-12-08 12:10 | NUR ---
MANAGER OF CARE: sedation is off, pt.is restless, SR, SBP 119-125, O2 sat. 87-89%, coughing with large saliva amount, pt.is unable to follow commands, is in room, updated/resumed AC mode back, spoke with pt.mother. Resumed sedation
--- NOTE | 2016-12-08 12:12 | NUR ---
BACK TO AC 16, 450, FIO2 40%, PEEP 5 DUE TO SPO2 84- 86 AND RR 38 - 41. Addendum: 12/08/16 at 1213 by MARIAELENA PEREZ RT Amended: Links added.
--- NOTE | 2016-12-08 14:51 | NUR ---
SLOT ROUTER: MISSY Smith RN updated with labs, Dr.Lee maldonado
[2016-12-08] MEDS: MEROPENEM 500 MG in IV NS 0.9% 50 ML IV SCH (17:18)
--- NOTE | 2016-12-08 17:33 | NUR ---
ROLL TENSION TESTER: HD done, 2L out, SBP over 100, SR, pt.is rest now, sedated well, O2 sat. WNL
--- NOTE | 2016-12-08 21:00 | NUR ---
TUNNEL MINER DF RECEIVED PT TO ROOM#260 PT INTUBATED TOLERATING CURRENT AC VENT SETTINGS RR OF 20 O2SAT OF 98% SEDATED ON DIPRIVAN AT 80 MCG PT WITH BILATERAL WRIST RESTRAINTS FOR SAFETY(PT WITH DOWN SYNDROME DOES NOT COMPREHEND SAFETY INSTRUCTIONS AND WHEN PT IS UNRESTRAINED HE ATTEMPTS SELF EXTUBATION. PT ACCU CHECK OF 250 AND HE IS COVERED PER SLIDING SCALE WITH 8 UNITS REGULAR INSULIN. VSS. NAD NOTED.
[2016-12-08] MEDS ORDERED: IV NS 0.9% 250 ML IV ONE (22:17)
[2016-12-08] MEDS: LORAZEPAM INJ 2 MG/ML VIAL IV PRN (22:23)
--- NOTE | 2016-12-08 22:24 | NUR ---
AOC DIRECTOR COMBAT PLANS OFFICER DF PT ADMIN PRN ATIVAN FOR SEDATION/AGITATION. PT SEDATED ON 80MCG DIPRIVAN PT AWAKE,ATTEMPTING TO REACH FOR ETT, KICKING WITH BLE. PT ADMIN 1MG ATIVAN IVP. VSS. WILL MONITOR FOR EFFECT.
[2016-12-09] VITALS (72 sets, daily range): BP systolic 69–138; BP diastolic 28–78
[2016-12-09] MEDS: INSULIN REGULAR, HUMAN 100 UNIT/ML 3 ML VIAL SQ PRN ×6 (01:02→21:46)
[2016-12-09] MEDS: PROPOFOL 100 ML IV PRN ×4 (01:02→15:05)
[2016-12-09] MEDS: BLOOD SUGAR DIAGNOSTIC 1 EACH STRIP IN SCH ×6 (01:04→21:44)
[2016-12-09] MEDS: LORAZEPAM INJ 2 MG/ML VIAL IV PRN ×3 (01:54→07:31)
--- NOTE | 2016-12-09 01:54 | NUR ---
SEAT MENDER DF PT ADMIN PRN ATIVAN FOR SEDATION/AGITATION. PT SEDATED ON 80MCG DIPRIVAN PT AWAKE,ATTEMPTING TO REACH FOR ETT, KICKING WITH BLE. PT ADMIN 1MG ATIVAN IVP. VSS. WILL MONITOR FOR EFFECT.
[2016-12-09] MEDS: methylPREDNISolone SOD SUCC 125 MG/2ML VIAL IV SCH ×3 (04:34→21:43)
[2016-12-09] MEDS: RENAL NOVASOURCE 1,000 ML BOTTLE GT PRN (04:36)
--- NOTE | 2016-12-09 04:46 | NUR ---
PRODUCTION CREW SUPERVISOR DF PT ADMIN PRN ATIVAN FOR SEDATION/AGITATION. PT SEDATED ON 80MCG DIPRIVAN PT AWAKE,ATTEMPTING TO REACH FOR ETT, KICKING WITH BLE.PT VERY RESTLESS, UNCOOPERATIVE, EVEN ON 100 MCG OF DIPRIVAN PT ATTEMPTING SELF EXTUBATION, ATTEMPTING TO RAISE UPPER BODY OUT OF BED. PT ADMIN 1MG ATIVAN IVP. VSS. WILL MONITOR FOR EFFECT. PT ACCU CHECK OF 226 COVERED WITH 8 UNITS REGULAR INSULIN. Addendum: 12/09/16 at 0448 by DIMITRIOS WALKER RN DIPRIVAN DECREASED TO 80 MCG POST ADMIN OF ATIVAN,
[2016-12-09 05:30] LABS: HEMATOCRIT 33 % (39-51); HEMOGLOBIN 11.3 g/dL (13.5-17.5); MEAN CORPUSCULAR HEMOGLOBIN 30 PG (26.0-33.0); MEAN CORPUSCULAR HGB CONC 34 g/dl (31.0-36.0); MEAN CORPUSCULAR VOLUME 87 fL (80-96); PLATELET COUNT (AUTO) 158 /CMM (150-450); RDW COEFFICIENT OF VARIATION 19.6 (11.5-15.0); RED BLOOD CELL COUNT(AUTO) 3.79 MIL/uL (4.5-6.0); WHITE BLOOD COUNT (AUTO) 15.2 K/uL (4.3-11.0)
[2016-12-09 05:46] LABS: CALCIUM, SERUM 7.1 mg/dL (8.5-10.1); MAGNESIUM 2.2 mg/dL (1.8-2.4); PHOSPHORUS 3.2 mg/dL (2.5-4.9); POTASSIUM 4.6 mmol/L (3.5-5.1)
[2016-12-09 05:57] LABS: CREATININE 5.2 mg/dL (0.6-1.3)
[2016-12-09] MEDS: LEVOTHYROXINE SODIUM 175 MCG TABLET PO SCH (07:16)
--- NOTE | 2016-12-09 07:50 | NUR ---
GUEST SERVICE TEAM LEADER: pt.is sedated with 80mcg/kg/m Diprivan, can open eyes spont., restless, on wrists restraints, grimacing occas., legs/arms activity+, SBP 90-100, O2 sat. WNL, 40% FiO2, was suctioned, SR, vanco level 20
[2016-12-09] MEDS ORDERED: IV SET PRIMARY PUMP SET 1 EA INFUS.SET MC ONE ×2 (08:29→23:59)
--- NOTE | 2016-12-09 08:30 | NUR ---
THERAPY AIDE: is in room, updated with pt.current condition, VS, I/O, sedation level, orders, HD was done on 12/08, labs, ordered HD for today
--- NOTE | 2016-12-09 09:20 | NUR ---
VEHICLE AND EQUIPMENT CLEANER: Reuben, GRAPHIC TECHNICIAN was notified re VS, sedation level, I/O, labs, HD, orders, meds, v.wean failed on 12/08
[2016-12-09] MEDS: LACTOBACILLUS RHAMNOSUS GG 1 EACH CAP.SPRINK GT SCH ×2 (09:29→16:39)
[2016-12-09] MEDS: PANTOPRAZOLE 40 MG VIAL IV SCH (09:29)
[2016-12-09] MEDS: CALCIUM ACETATE 667 MG TABLET NG SCH ×3 (09:29→17:49)
[2016-12-09] MEDS: NEOMY SULF/BACITRAC ZN/POLY 15 GM TUBE TP SCH (09:30)
[2016-12-09] MEDS: HYDROGEL DRESSING 90 GM TUBE TP SCH (09:30)
[2016-12-09] MEDS ORDERED: SECONDARY IV SET 1 EA INFUS.SET MC ONE ×3 (10:02→12:35)
[2016-12-09] MEDS: ALBUMIN 25% 25 GM in PREMIX 1 EA IV PRN (10:07)
--- NOTE | 2016-12-09 10:30 | NUR ---
TECHNICAL SERVICE ENGINEER: albumin 100ml IV was given d/t low BP
--- NOTE | 2016-12-09 12:15 | NUR ---
MOGUL OPERATOR: HD done, 1.7L out, SBP 90-95, SR
--- NOTE | 2016-12-09 13:55 | NUR ---
WIRE TESTER: Ludivina SBP: 90-98, SR, O2 sat. 94-98%, reactive by name, touch, rest now, pt.mother at BS
[2016-12-09 14:39] LABS: BAND % (MANUAL) 12 % (0.0-5.0); LYMPHOCYTES % (MANUAL) 3 % (16-48); MYELOCYTES % 1 % (0-0); NEUTROPHILS % (MANUAL) 84 (42-76)
[2016-12-09 14:41] LABS: PLATELET ESTIMATE ADEQU
[2016-12-09 14:42] LABS: ANISOCYTOSIS 2+; ROULEAUX 1+
--- NOTE | 2016-12-09 15:26 | NUR ---
MOBILE APPLICATION ARCHITECT: pt.mother refused for PM/bedbath care, confirmed: pt.had long time R.UA AVF surgery, reapplied BP over L.calf, cuff SBP is over 90, Ludivina: 95-120, pt.is fast reactive after suction, tried touch tubes, sedation increased
--- NOTE | 2016-12-09 16:30 | NUR ---
ANIMAL SHELTER SUPERVISOR: updated with pt.current condition, sedation level, suctions amount, VS, HDs, SIMV failed attempt, I/O, GTF, orders
[2016-12-09] MEDS: MEROPENEM 500 MG in IV NS 0.9% 50 ML IV SCH (16:39)
--- NOTE | 2016-12-09 17:59 | NUR ---
CHILD NUTRITION DIRECTOR: pt.is grimacing, with open eyes, arms activity+, increased sedation
--- NOTE | 2016-12-09 18:47 | NUR ---
RF TEST TECHNICIAN: supervisor tan room was in room, did recommendation for new MD order: continue same GTF with rate 35ml/h
--- NOTE | 2016-12-09 20:42 | NUR ---
PT RECEIVED INTUBATED WITH 7.5 ETT SECURED AT 24CM AT THE LIP VIA ANCHOR FAST. NO RESP DISTRESS NOTED. PT TOLERATING VENT SETTINGS. SX'D FOR SML AMT OF THICK WHITE SECRETIONS. VENT ALARMS SET AND AUDIBLE. AMBU BAG AT BEDSIDE. VENT PLUGGED INTO RED OUTLET. WILL CONTINUE TO MONITOR. Addendum: 12/09/16 at 2043 by HILDA ABDULLAHI RT Amended: Links added.
[2016-12-10] VITALS (52 sets, daily range): BP systolic 48–113; BP diastolic 37–75
[2016-12-10] MEDS ORDERED: IV NS 0.9% 500 ML IV ONE
[2016-12-10] MEDS: PROPOFOL 100 ML IV PRN (00:09)
[2016-12-10] MEDS: IV NS 0.9% 250 ML IV PRN (00:14)
[2016-12-10] MEDS: BLOOD SUGAR DIAGNOSTIC 1 EACH STRIP IN SCH ×6 (01:34→20:07)
[2016-12-10] MEDS: INSULIN REGULAR, HUMAN 100 UNIT/ML 3 ML VIAL SQ PRN ×6 (01:36→20:07)
[2016-12-10] MEDS: methylPREDNISolone SOD SUCC 125 MG/2ML VIAL IV SCH ×3 (05:33→20:07)
--- NOTE | 2016-12-10 06:45 | NUR ---
DAILY SALES AUDIT CLERK: NO SIGNIFICANT HENNA DURING THE SHIFT. REMAINED SEDATED ON DIPRIVAN DRIP AT 30MCG/KG/MIN. ABLE TO WAKE UP AND FOLLOW SIMPLE COMMANDS. TOLERATED VENT SETTINGS ORDERED WT NO ACUTE DISTRESS. NO EVIDENCE OF DISCOMFORT. TOLERATED OGT FEEDING WT NO RESIDUAL. TURNED OFF SINCE 629 PRIOR TO SYNTHROID ADMINISTRATION. REMAINED ANURIC. HAD 1 MODERATE AMT. OF SOFT FORMED BROWN STOOLS. GOOD FAREED CARE/BED BATH GIVEN AND TOLERATED FAIRLY. REMAINED SR ON MONITOR. AFEBRILE. NO SIGNIFICANT HIGH OR LOW BLOOD SUGAR RESULTS. BILAT. SOFT WRIST RESTRAINTS IN PLACE PER PROTOCOL FOR EPISODES OF TRYING TO PULL TUBINGS. NOTED WT GOOD CIRCULATION AND NO NEW SKIN BREAKDOWN WHEN RELEASED AND CHECKED. SAFETY PRECAUTION NOTED AT ALL TIMES.
--- NOTE | 2016-12-10 07:10 | NUR ---
CONTROL TOWER RADIO OPERATOR: ENDORSED TO MARITZA RN TO FOLLOW-UP WT RE TRIGLYCERIDE LEVEL.
--- NOTE | 2016-12-10 07:31 | NUR ---
ALTERATION HAND RECEIVED PATIENT FROM THE PREVIOUS SHIFT. PATIENT IN BED. NO DISTRESS. VENT SETTINGS REVIEWED AND VERIFIED. SEDATED ON DIPRIVAN 30MCG. AFEBRILE. SINUS RHYTHM ON MONITORED. CHIQUITA BP MONITORED. TURNED AND REPOSITIONED FOR COMFORT AND WOUND PREVENTION. WILL CONTINUE TO MONITOR AND PROVIDE CARE.
[2016-12-10] MEDS: LORAZEPAM INJ 2 MG/ML VIAL IV PRN ×7 (08:07→22:53)
[2016-12-10 08:08] LABS: CALCIUM, SERUM 8.9 mg/dL (8.5-10.1); CREATININE 6.2 mg/dL (0.6-1.3); POTASSIUM 4.5 mmol/L (3.5-5.1)
--- NOTE | 2016-12-10 08:08 | NUR ---
IV THERAPY NURSE ATIVAN 1MG IVP GIVEN FOR SEDATION. RN ATTEMPTING TO WEAN OFF DIPRIVAN. PRIMARY FACING GRINDER MADE AWARE OF TRIG LEVEL 1127.
[2016-12-10] MEDS: HYDROGEL DRESSING 90 GM TUBE TP SCH (08:17)
[2016-12-10] MEDS: LACTOBACILLUS RHAMNOSUS GG 1 EACH CAP.SPRINK GT SCH ×2 (08:22→17:01)
[2016-12-10] MEDS: LEVOTHYROXINE SODIUM 175 MCG TABLET PO SCH (08:22)
[2016-12-10] MEDS: PANTOPRAZOLE 40 MG VIAL IV SCH (08:22)
[2016-12-10] MEDS: CALCIUM ACETATE 667 MG TABLET NG SCH ×3 (08:22→17:01)
[2016-12-10 08:23] LABS: HEMATOCRIT 34 % (39-51); HEMOGLOBIN 10.4 g/dL (13.5-17.5); MEAN CORPUSCULAR HEMOGLOBIN 27 PG (26.0-33.0); MEAN CORPUSCULAR HGB CONC 31 g/dl (31.0-36.0); MEAN CORPUSCULAR VOLUME 87 fL (80-96); PLATELET COUNT (AUTO) 129 /CMM (150-450); RDW COEFFICIENT OF VARIATION 20.3 (11.5-15.0); RED BLOOD CELL COUNT(AUTO) 3.85 MIL/uL (4.5-6.0); WHITE BLOOD COUNT (AUTO) 18.6 K/uL (4.3-11.0)
[2016-12-10] MEDS: NEOMY SULF/BACITRAC ZN/POLY 15 GM TUBE TP SCH (08:23)
[2016-12-10] MEDS: RENAL NOVASOURCE 1,000 ML BOTTLE GT PRN (08:24)
[2016-12-10] MEDS: NOREPINEPHRINE 16 MG in IV D5W 500 ML IV PRN (09:26)
[2016-12-10] MEDS: MORPHINE SULFATE INJ 2 MG/ML DISP.SYRIN IV PRN ×3 (09:47→18:17)
[2016-12-10 10:09] LABS: BAND % (MANUAL) 3 % (0.0-5.0); EOSINOPHILS % (MANUAL) 0 % (0-4); LYMPHOCYTES % (MANUAL) 2 % (16-48); MONOCYTES % (MANUAL) 6 % (0-11.0); NEUTROPHILS % (MANUAL) 89 (42-76)
[2016-12-10 10:10] LABS: ANISOCYTOSIS 2+; BASOPHILS % (MANUAL) 0 % (0.0-2.0); PLATELET ESTIMATE DECREASED
--- NOTE | 2016-12-10 11:46 | NUR ---
MECHANICAL LABORATORY TECHNICIAN PATIENT REQUIRED LOW DOSES OF LEVOPHED DURING SHORT DIALYSIS TREATMENT. DIALYSIS TREATMENT STOPPED EARLY SINCE PATIENT HAS HIGH VENOUS PRESSURES, AN BUN HAS NOT BEEN DECREASING OVER THE LAST 5 DAYS. PEARL TECHNICIAN MADE AWARE.
[2016-12-10] MEDS ORDERED: MORPHINE SULFATE INJ 4 MG/ML DISP.SYRIN ONE (13:19)
--- NOTE | 2016-12-10 13:20 | NUR ---
PT IN PROCEDURE HAVING FEMORAL CATH PLACED BY DR OG AND STAT ONE TIME MORPHINE 4 MG IVP GIVEN AND CHARTED ON EMAR IN OTHER ENTRY
[2016-12-10] MEDS ORDERED: MORPHINE SULFATE INJ 4 MG/ML DISP.SYRIN IV STA (13:21)
[2016-12-10] MEDS: MEROPENEM 500 MG in IV NS 0.9% 50 ML IV SCH (17:01)
--- NOTE | 2016-12-10 18:35 | NUR ---
STATISTICAL ENGINEER PATIENT IN BED. RESTING COMFORTABLY. NO DISTRESS. ATIVAN AND MORPHINE GIVEN FOR SEDATION. FAMILY AT BEDSIDE. TURNED AND REPOSITIONED FOR COMFORT AND WOUND PREVENTION. WILL CONTINUE TO MONITOR AND PROVIDE CARE.
--- NOTE | 2016-12-10 19:43 | NUR ---
RETAIL SALESMAN NOTES RECEIVED PT IN BED, ASLEEP, AROUSABLE. SEDATED WITH PRN ATIVAN AND MORPHINE. ON VENT VIA 7.5 ETT AT 24 CM AT LIP. SETTINGS OF AC 16 TV 450 FIO2 40% PEEP 5, SANTIAGO WELL. TELE READS SR AT 84 BPM. NO S/S OF ACUTE DISTRESS AT THIS TIME. JUAN MANUEL TLC MIDLINE RUNNING NS AT TKO, LEFT FEMORAL HD CATH WITH PIGTAIL RUNNING LEVOPHED AT 3 MCG/MIN. LEFT FEMORAL ARTERIAL LINE WITH CONTINUOUS IBP MONITORING. OGT IN PLACE, RUNNING NOVASOURCE AT 35 ML/HR, NO RESIDUAL. BILATERAL RESTRAINTS FOR PT SAFETY. HOB ELEVATED, ORAL CARE/SUCTION DONE, TURNED AND REPOSITIONED.
[2016-12-11] VITALS (63 sets, daily range): BP systolic 66–141; BP diastolic 38–75
[2016-12-11] MEDS: BLOOD SUGAR DIAGNOSTIC 1 EACH STRIP IN SCH ×6 (01:36→20:12)
[2016-12-11] MEDS: INSULIN REGULAR, HUMAN 100 UNIT/ML 3 ML VIAL SQ PRN ×5 (01:40→20:16)
[2016-12-11 04:58] LABS: HEMATOCRIT 34 % (39-51); HEMOGLOBIN 10.8 g/dL (13.5-17.5); MEAN CORPUSCULAR HEMOGLOBIN 27 PG (26.0-33.0); MEAN CORPUSCULAR HGB CONC 32 g/dl (31.0-36.0); MEAN CORPUSCULAR VOLUME 86 fL (80-96); PLATELET COUNT (AUTO) 204 /CMM (150-450); RDW COEFFICIENT OF VARIATION 20.8 (11.5-15.0); RED BLOOD CELL COUNT(AUTO) 3.98 MIL/uL (4.5-6.0); WHITE BLOOD COUNT (AUTO) 21.7 K/uL (4.3-11.0)
[2016-12-11 05:15] LABS: ALBUMIN 2.1 g/dL (3.4-5.0); ALKALINE PHOSPHATASE 86 U/L (46-116); BILIRUBIN,TOTAL 0.4 mg/dL (0.2-1.0); CALCIUM, SERUM 9.1 mg/dL (8.5-10.1); CARBON DIOXIDE 26 mmol/L (21-32); CHLORIDE 98 mmol/L (98-107); CREATININE 7.1 mg/dL (0.6-1.3); GFR 10 mL/min (>60); GLUCOSE 144 mg/dL (74-106); MAGNESIUM 2.4 mg/dL (1.8-2.4); PHOSPHORUS 5.4 mg/dL (2.5-4.9); POTASSIUM 4.8 mmol/L (3.5-5.1); SODIUM SERUM 135 mmol/L (136-145); TOTAL PROTEIN, SERUM 6.4 g/dL (6.4-8.2)
[2016-12-11 05:43] LABS: ALANINE AMINOTRANSFERASE < 6 U/L (12-78); ASPARTATE AMINOTRANSFERASE 2 U/L (15-37)
[2016-12-11 05:44] LABS: UREA NITROGEN, BLOOD 84 mg/dL (7-18)
[2016-12-11] MEDS: methylPREDNISolone SOD SUCC 125 MG/2ML VIAL IV SCH ×3 (05:57→20:18)
[2016-12-11] MEDS ORDERED: IV NS 0.9% 500 ML IV ONE (05:58)
[2016-12-11 06:00] LABS: ANISOCYTOSIS 3+; HYPOCHROMASIA 1+
[2016-12-11] MEDS: LORAZEPAM INJ 2 MG/ML VIAL IV PRN ×6 (06:14→20:18)
[2016-12-11] MEDS: IV NS 0.9% 250 ML IV PRN (06:15)
--- NOTE | 2016-12-11 07:25 | NUR ---
ICU/RN: PT RECEIVED INTUBATED, CALM, COOPERATIVE, EASILY AROUSED BY TOUCH. RESTRAINT CARE RENDERED, RELEASED HOWEVER PT REACHES FOR TUBES AND LINES, REAPPLIED. A-LINE ZERO'D AND FLUSHED WITH GOOD WAVEFORM NOTED. L FEM HD CATH PATENT AND INTACT WITH LEVOPHED RUNNING WELL THRU PIGTAIL. ON TF, AUSCULTATED, + PLACEMENT, NO RESIDUAL NOTED. BILAT HEELS OFFLOADED. TELE READING NSR 80'S. ALARM SOUNDS AUDIBLE. SAFETY MEASURES IN PLACE. WILL CONT TO MONITOR PT
--- NOTE | 2016-12-11 07:32 | NUR ---
Received orally intubated pt on vent. Pt current settings are AC 16 450 40% +5. ETT is secured at 24 cm @ the lip. Vent is plugged into a red outlet. Alarms are set and audible. Raeganu bag is at bedside. Addendum: 12/11/16 at 0734 by NOHEMI MERCADO RT Amended: Links added.
[2016-12-11] MEDS: LEVOTHYROXINE SODIUM 175 MCG TABLET PO SCH (08:14)
[2016-12-11] MEDS: LACTOBACILLUS RHAMNOSUS GG 1 EACH CAP.SPRINK GT SCH ×2 (08:14→16:14)
[2016-12-11] MEDS: CALCIUM ACETATE 667 MG TABLET NG SCH ×3 (08:15→16:14)
[2016-12-11] MEDS: PANTOPRAZOLE 40 MG VIAL IV SCH (08:15)
[2016-12-11] MEDS: HYDROGEL DRESSING 90 GM TUBE TP SCH (08:15)
[2016-12-11] MEDS: Z GUARD REMEDY 2 OZ OINT TP PRN (08:16)
[2016-12-11] MEDS: NEOMY SULF/BACITRAC ZN/POLY 15 GM TUBE TP SCH (08:16)
[2016-12-11] MEDS: RENAL NOVASOURCE 1,000 ML BOTTLE GT PRN (08:20)
--- NOTE | 2016-12-11 11:00 | NUR ---
ICU/RN: PT OFF HD WITH 1500MLS OUT, NOW ON 10MCG/MIN OF LEVOPHED; MOTHER ATTEMPTING TO ASSIST WITH CENTRAL LINE CHANGE, EDUCATED ON NEED TO MAINTAIN STERILITY. NEEDS REINFORCEMENT.
--- NOTE | 2016-12-11 12:35 | NUR ---
Dr. Bella was at bedside and ordered pt to be placed on CPAP 5 PS 10. Pt was placed back to AC mode (per MD) due to low tidal volumes.
--- NOTE | 2016-12-11 12:40 | NUR ---
ICU/RN: DR MOORE AT THE BEDSIDE; ORDERS CPAP. PT UNABLE TO TOLERATE, LOW LUNG VOLUMES NOTED. PLACED BACK ON AC PER MD ORDER. MOTHER AT BEDSIDE, EDUCATED.
--- NOTE | 2016-12-11 15:00 | NUR ---
ICU/RN: WOUND CARE RENDERED; MOTHER REFUSING BED BATH FOR PT AT THIS TIME. "SAYS JUST LET HIM REST."
[2016-12-11] MEDS: MORPHINE SULFATE INJ 2 MG/ML DISP.SYRIN IV PRN (15:36)
[2016-12-11] MEDS: MEROPENEM 500 MG in IV NS 0.9% 50 ML IV SCH (16:33)
[2016-12-11] MEDS: NOREPINEPHRINE 16 MG in IV D5W 500 ML IV PRN (18:42)
--- NOTE | 2016-12-11 19:04 | NUR ---
ICU/RN: PT RESTING IN BED, COMFORTABLE, DENIES PAIN AND DISCOMFORT, WATCHING MOVIES, BREATHING EVEN AND UNLABORED, EASILY ORIENTED, CALM AND COOPERATIVE. VS WNL. NO DISTRESS NOTED. CARE ENDORSED TO PM RN FOR HENNA.
--- NOTE | 2016-12-11 19:30 | NUR ---
RN INITIAL NOTES RECEIVED PT AWAKE ON SITTING ON BED, A/O X1. ON VENT, AC 16, TV 450, 40% FIO2, PEEP 5, ETT 7.5/24@LIP, SATURATING WELL. PT STILL ON BILATERAL SOFT WRIST RESTRAINTS FOR SAFETY. CURRENTLY SR ON THE MONITOR, HR 80'S, ON LEVO DRIP @ 2MCG/MIN. ON OGT FEEDING OF NOVASOURCE @ 35MLS/HR, NO RESIDUALS, TOLERATING WELL. LEFT FEMORAL HD CATH AND LEFT FEMORAL A-LINE NOTED. LEFT UPPER ARM MIDLINE FLUSHED AND PATENT, NO S/S OF INFILTRATION/INFECTION, DRESSING CDI. BED LOW AND LOCKED, SIDERAILS UP, BED ALARM ON. WILL MONITOR
[2016-12-11 21:08] LABS: BAND % (MANUAL) 6 % (0.0-5.0); LYMPHOCYTES % (MANUAL) 5 % (16-48); MONOCYTES % (MANUAL) 10 % (0-11.0); NEUTROPHILS % (MANUAL) 79 (42-76); PLATELET ESTIMATE GIANT PLATELET SEEN
[2016-12-12] VITALS (77 sets, daily range): BP systolic 59–159; BP diastolic 27–110
[2016-12-12] MEDS: BLOOD SUGAR DIAGNOSTIC 1 EACH STRIP IN SCH ×6 (00:24→21:23)
[2016-12-12] MEDS: INSULIN REGULAR, HUMAN 100 UNIT/ML 3 ML VIAL SQ PRN ×4 (00:25→21:22)
[2016-12-12 05:01] LABS: CALCIUM, SERUM 9.1 mg/dL (8.5-10.1); CREATININE 7.2 mg/dL (0.6-1.3); POTASSIUM 4.5 mmol/L (3.5-5.1)
[2016-12-12] MEDS: methylPREDNISolone SOD SUCC 125 MG/2ML VIAL IV SCH ×3 (05:03→21:23)
[2016-12-12] MEDS ORDERED: IV NS 0.9% 500 ML IV ONE (05:05)
--- NOTE | 2016-12-12 06:30 | NUR ---
RN CLOSING NOTES PT REMAINS STABLE OF THE MOMENT. ALL DUE MEDS GIVEN, AM CARE PROVIDED. PT REMAINS TO BE ON LEVO DRIP 2MCG/MIN TO KEEP SBP > 90. WILL ENDORSE CONTINUITY OF CARE TO AM RN
[2016-12-12] MEDS: LACTOBACILLUS RHAMNOSUS GG 1 EACH CAP.SPRINK GT SCH ×2 (08:30→18:01)
[2016-12-12] MEDS: CALCIUM ACETATE 667 MG TABLET NG SCH ×3 (08:30→18:01)
[2016-12-12] MEDS: LEVOTHYROXINE SODIUM 175 MCG TABLET PO SCH (08:30)
[2016-12-12] MEDS: PANTOPRAZOLE 40 MG VIAL IV SCH (08:30)
[2016-12-12] MEDS: NEOMY SULF/BACITRAC ZN/POLY 15 GM TUBE TP SCH (08:31)
[2016-12-12] MEDS: HYDROGEL DRESSING 90 GM TUBE TP SCH (08:32)
--- NOTE | 2016-12-12 10:42 | NUR ---
PT SEEN BY Jennifer AYALA PAP TRIAL ATTEMPTED. PT IS APNEIC AT THIS TIME. AC MODE CONTINUED. MOTHER AT BEDSIDE UPDATED ON TRIAL PROGRESS. WILL REATTEMPT CPAP WHEN PT IS MORE AWAKE.
--- NOTE | 2016-12-12 13:30 | NUR ---
PT WAS ON SIMV MODE SINCE 1200. NO DISSTRESS, SAT WNL, ABG OBTAINED. NOW PT IS BEING INITIATED ON HD, PT 'S MOTHER VERBALIZES THAT PT NEEDS A LITTLE BIT OF SEDATION SO PT WILL BE CALM DURING HD. PT SWITCHED BACK TO CA MODE PRIOR TO SEDATION.
[2016-12-12] MEDS: LORAZEPAM INJ 2 MG/ML VIAL IV PRN (13:56)
[2016-12-12 15:51] LABS: ABG BASE EXCESS -3.8 mmol/L; ABG OXYGEN SATURATION 97.3 % (92.0-98.5); ABG PCO2 45.6 mmHg (35.0-45.0); ABG PH 7.309 (7.350-7.450); ABG PO2 116.3 mmHg (75.0-100.0); ABG TOTAL HEMOGLOBIN 9.4 G/dL (13.5-18.0); AaDO2 116.5 mmHg; COHb 1.2 % (0.5-1.5); MetHb 0.7 % (0.0-1.5); O2Hb 95.5 % (94.0-97.0); PEEP,BG 5 cm H2O; SITE, ABG A-Line; VENT MODE, BG CPAP PSV=15
--- NOTE | 2016-12-12 16:00 | NUR ---
PT TOLERATED HD WELL. 2L OFF, VSS, TITRATED OFF LEVO.
[2016-12-12] MEDS: MEROPENEM 500 MG in IV NS 0.9% 50 ML IV SCH (18:01)
--- NOTE | 2016-12-12 20:00 | NUR ---
ICU/RN RECEIVED PT AWAKE ALERT ON VENT VIA ORAL ETT SAT 100% ON 40% FI02.DENIES PAIN OR DISCOMFORT.SITTING UPRIGHT AND WATCHING VIDEO GAMES.SUCTIONED FOR LARGE AMT THICK WHITE SECRETIONS FROM MOUTH AND SMALL PALE YELLOW SECRETIONS FR. ETT.
[2016-12-13] VITALS (43 sets, daily range): BP systolic 87–136; BP diastolic 35–97
[2016-12-13] MEDS: BLOOD SUGAR DIAGNOSTIC 1 EACH STRIP IN SCH ×6 (01:22→21:56)
--- NOTE | 2016-12-13 03:52 | NUR ---
ICU/RN SUCTIONED FOR COPIOUS AMT OF THICK ORAL SECRETIONS AND SCANT AMT. FR.ETT.OFFERED BED BATH BUT PT REFUSED.WOUND FR LT WRIST REDRESSED APPLIED ABX THEN COVERED W/ MEPILEX AND WRAPPED W/KERLIX.
[2016-12-13 04:19] LABS: HEMATOCRIT 30 % (39-51); HEMOGLOBIN 9.2 g/dL (13.5-17.5); MEAN CORPUSCULAR HEMOGLOBIN 27 PG (26.0-33.0); MEAN CORPUSCULAR HGB CONC 31 g/dl (31.0-36.0); MEAN CORPUSCULAR VOLUME 87 fL (80-96); PLATELET COUNT (AUTO) 125 /CMM (150-450); RDW COEFFICIENT OF VARIATION 21.5 (11.5-15.0); WHITE BLOOD COUNT (AUTO) 12.4 K/uL (4.3-11.0)
[2016-12-13 05:33] LABS: POTASSIUM 4.8 mmol/L (3.5-5.1)
[2016-12-13 05:34] LABS: CALCIUM, SERUM 9.3 mg/dL (8.5-10.1); CREATININE 6.1 mg/dL (0.6-1.3); MAGNESIUM 2.5 mg/dL (1.8-2.4); PHOSPHORUS 4.9 mg/dL (2.5-4.9)
[2016-12-13] MEDS: methylPREDNISolone SOD SUCC 125 MG/2ML VIAL IV SCH ×3 (06:30→21:55)
[2016-12-13] MEDS: INSULIN REGULAR, HUMAN 100 UNIT/ML 3 ML VIAL SQ PRN ×5 (06:36→21:54)
[2016-12-13 06:46] LABS: LYMPHOCYTES % (MANUAL) 11 % (16-48); MONOCYTES % (MANUAL) 8 % (0-11.0); NEUTROPHILS % (MANUAL) 81 (42-76)
[2016-12-13 06:48] LABS: ANISOCYTOSIS 1+; HYPOCHROMASIA 1+; OVALOCYTES 1+; PLATELET ESTIMATE DECREASED
[2016-12-13] MEDS ORDERED: IV SET PRIMARY PUMP SET 1 EA INFUS.SET MC ONE (06:55)
--- NOTE | 2016-12-13 08:00 | NUR ---
PT AOX2, COOPERATIVE, VSS. ASSISTED WITH AM HYGIENE. NEW, 2X2 OPEN SKIN AREA NOTED MID SACRAL REGION. FAMILY STATES THIS WAS NOT THERE YESTERDAY. CLEANED WITH NS, HYDROGEL AND MEPILEX APPLIED. WOUND CONSULT NOTIFIED. PT IS GENERALLY INDEPENDENT WITH BED MOBILITY, BUT OFTEN REFUSES SKIN CARE AND ASSISTANCE WITH HYGIENE. HE PREFERS TRY POD SITTING POSITION AND DOES NOT LIKE TO ROTATE SIDS. EDUCATION PROVIDED TO MOTHER, WHO VERBALIZED UNDERSTANDING.
[2016-12-13] MEDS: LEVOTHYROXINE SODIUM 175 MCG TABLET PO SCH (08:31)
[2016-12-13] MEDS: CALCIUM ACETATE 667 MG TABLET NG SCH ×3 (08:31→17:39)
[2016-12-13] MEDS: RENAL NOVASOURCE 1,000 ML BOTTLE GT PRN (08:35)
[2016-12-13] MEDS: LACTOBACILLUS RHAMNOSUS GG 1 EACH CAP.SPRINK GT SCH ×2 (08:37→17:39)
[2016-12-13] MEDS: PANTOPRAZOLE 40 MG VIAL IV SCH (08:38)
[2016-12-13] MEDS: HYDROGEL DRESSING 90 GM TUBE TP PRN ×2 (08:40→09:27)
[2016-12-13] MEDS: NEOMY SULF/BACITRAC ZN/POLY 15 GM TUBE TP SCH (08:40)
[2016-12-13] MEDS: IV NS 0.9% 250 ML IV PRN (09:28)
[2016-12-13] MEDS: HYDROGEL DRESSING 90 GM TUBE TP SCH (09:29)
--- NOTE | 2016-12-13 11:22 | NUR ---
PT. 26 Y OLD MALE AWAKE AND RESPONSIVE/ ALERT POST CPAP SETTINGS SANTIAGO. WELL AND GOOD VOLUMES VITALS STABLE, PT. EXTUBATED PER MD ORDER @1120 AND PLACED ON N/C 4L/MIN NO STRIDOR NOTED AND CONTINUE FOR MONITORING, AMBU BAG REMAIN AT THE BEDSIDE. Addendum: 12/13/16 at 1817 by MAURO MCKEE RT Amended: Links added.
--- NOTE | 2016-12-13 11:30 | NUR ---
PT EXTUBATED NOW ON 4L NC VSS.
--- NOTE | 2016-12-13 11:37 | NUR ---
WOUND CARE CONSULT: PT PRESENTS WITH STAGE II ULCER TO SACRAL AREA. PT WAS JUST EXTUBATED. RECOMMENDATIONS MADE FOR WOUND CARE AND SKIN PROTECTION. DISCUSSED WITH NURSING STAFF. PT ON DARIUSZ ISOFLEX LOW AIRLOSS BED. WILL SEE PRN. DEL RIO IN AGREEMENT WITH PLAN OF CARE. Addendum: 12/13/16 at 1139 by ANDREA HUIZAR WNDNU Amended: Links added.
--- NOTE | 2016-12-13 13:30 | NUR ---
PT ON 4L NC SAT 96 - 98% VSS.
--- NOTE | 2016-12-13 18:52 | NUR ---
PT ASSISTED WITH FULL BED BATH. SKIN CARE ORDERED.
[2016-12-14] VITALS (24 sets, daily range): BP systolic 97–146; BP diastolic 54–91
[2016-12-14] MEDS: INSULIN REGULAR, HUMAN 100 UNIT/ML 3 ML VIAL SQ PRN ×6 (01:37→21:05)
[2016-12-14] MEDS: BLOOD SUGAR DIAGNOSTIC 1 EACH STRIP IN SCH ×6 (01:39→21:03)
[2016-12-14] MEDS ORDERED: IV NS 0.9% 500 ML IV ONE ×2 (04:41→23:26)
[2016-12-14] MEDS: methylPREDNISolone SOD SUCC 125 MG/2ML VIAL IV SCH ×2 (04:48→13:04)
--- NOTE | 2016-12-14 05:00 | NUR ---
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 W/ LEFT FEM. CHIQUITA/DAMPENED/POSITIONAL, LEFT GROIN HD CATH W/PIGTAIL & LUE MIDLINE/3 PORTS, ALL PATENT TO FLUSH. PT. WAS ASKING FOR THE BEDPAN AT START OF SHIFT. PT. EXPELLED LIQUID BROWN STOOL/URINE. 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 PT.HAS HD ORDERED FOR TODAY. PT'S SISTER WAS HERE LAST NIGHT TO VISIT. HEART MONITOR SHOWS SB/40-70'S. PT. SBP'S ARE HIGHER THAN CHIQUITA PRESSURES. CHIQUITA PRESSURE BAG CHANGED. AM LABS DRAWN VIA CHIQUITA. PT.IS SLEEPING INTERMITTENTLY W/O2 SATS >92% ON O2/4L/NC. PCXR JUST DONE. BANDAGE TO LEFT UPPER EXT./WRIST AREA WHERE OLD INFECTED FISTULA WAS. BILAT. FACIAL CHEEKS ARE REDDENED/SKIN ABRASIONS FROM VENT DEVICE. PT. WAS EXTUBATED YESTERDAY & IS DOING WELL. NO S/S OF DISCOMFORT/DISTRESS NOTED. CONT. POC.
[2016-12-14 05:12] LABS: HEMATOCRIT 31 % (39-51); HEMOGLOBIN 9.4 g/dL (13.5-17.5); MEAN CORPUSCULAR HEMOGLOBIN 27 PG (26.0-33.0); MEAN CORPUSCULAR HGB CONC 31 g/dl (31.0-36.0); MEAN CORPUSCULAR VOLUME 88 fL (80-96); PLATELET COUNT (AUTO) 130 /CMM (150-450); RDW COEFFICIENT OF VARIATION 21.6 (11.5-15.0); RED BLOOD CELL COUNT(AUTO) 3.48 MIL/uL (4.5-6.0); WHITE BLOOD COUNT (AUTO) 11.6 K/uL (4.3-11.0)
[2016-12-14 05:32] LABS: CALCIUM, SERUM 9.3 mg/dL (8.5-10.1); POTASSIUM 5.1 mmol/L (3.5-5.1)
[2016-12-14 05:57] LABS: ANISOCYTOSIS 2+; PLATELET ESTIMATE DECREASED
--- NOTE | 2016-12-14 08:00 | NUR ---
ICU/RN INITIAL NOTES,AM RECEIVED REPORT FROM NIGHT NURSE. PT RESTING/SLEEPING IN BED COMFORTABLY. ON NASAL CANULA, 4LITERS, TOLERATING WELL, NO S/S OF DISTRESS OR DISCOMFORT NOTED. PT FOLLOWS COMMAND. SINUS PETTY ON TELE, NO ECTOPY NOTED. PT CONTINUES TO BE ON MECHANICAL SOFT DIET, WILL ADVANCE DIET TOLERATED. NO TORRES IN PLACE, PT ANURIC. SCHEDULED FOR HD TODAY, WILL FOLLOW UP. MIDLINE INTACT, NO S/S OF INFECTION OR INFILTRATION NOTED. ARTERIAL LINE IN PLACE, ZEROED AND CALIBRATED, DAMPENED WAVE FORM NOTED. WILL CONTINUE TO ENCOURAGE PT TO TURN AND REPOSITION SELF IN BED. ALL NEEDS WILL BE MET, SAFETY MEASURES TAKEN, BED IN LOW POSITION, SIDE RAILS UP, CALL LIGHT WITHIN REACH. WILL CONTINUE CARE
[2016-12-14] MEDS: PANTOPRAZOLE 40 MG VIAL IV SCH (08:09)
[2016-12-14] MEDS: LEVOTHYROXINE SODIUM 175 MCG TABLET PO SCH (08:09)
[2016-12-14] MEDS: CALCIUM ACETATE 667 MG TABLET NG SCH ×3 (08:09→17:53)
[2016-12-14] MEDS: LACTOBACILLUS RHAMNOSUS GG 1 EACH CAP.SPRINK GT SCH ×2 (08:09→17:53)
[2016-12-14] MEDS: HYDROGEL DRESSING 90 GM TUBE TP SCH (08:10)
[2016-12-14] MEDS: NEOMY SULF/BACITRAC ZN/POLY 15 GM TUBE TP SCH (08:13)
--- NOTE | 2016-12-14 10:30 | NUR ---
ICU/RN: MD ROUNDS-PT SEEN BY . ASSESSMENT DONE, PT WILL BE DIALYZED TODAY. PER DR. FLORES PT WILL BE GETTING A PERMA CATH TOMORROW. SPOKE TO , AWAITING MD ORDERS FROM DR. OG.
[2016-12-14] MEDS: ALBUMIN 25% 25 GM in PREMIX 1 EA IV PRN (10:33)
[2016-12-14 10:55] LABS: LYMPHOCYTES % (MANUAL) 4 % (16-48); METAMYELOCYTES % 1 % (0-0); MONOCYTES % (MANUAL) 2 % (0-11.0); MYELOCYTES % 2 % (0-0); NEUTROPHILS % (MANUAL) 91 (42-76)
--- NOTE | 2016-12-14 12:44 | NUR ---
ICU/RN: HEMODIALYSIS ENDED, 3LITERS OFF, PT TOLERATED WELL, NO DISTRESS NOTED, VSS. WILL CONTINUE TO MONITOR AND ASSESS
[2016-12-14] MEDS ORDERED: VANCOMYCIN 1 GM in IV D5W 250 ML IV ONE (14:00)
--- NOTE | 2016-12-14 19:28 | NUR ---
ICU/RN ENDING NOTES,AM REPORT ENDORSED TO NIGHT NURSE FOR CONTINUATION OF CARE. PT ON 4L NASAL CANULA, NO ACUTE DISTRESS NOTED, PT RESTING IN BED COMFORTABLY. SINUS ON TELE. PT ANURIC. PER DR. FLORES PT WILL BE HAVING PERMA CATH PLACEMENT, AWAITING FOR ORDERS. WILL ENDORSE TO FOLLOW UP. ALL NEEDS MET, SAFETY MEASURES TAKEN , BED IN LOW POSITION, SIDE RAILS UP, CALL LIGHT WITHIN REACH.
--- NOTE | 2016-12-14 20:20 | NUR ---
ICU/SPARE FIXER MOTHER OF PT CALLED, ASKED HOW VITAL SIGNS WERE. GAVE SMALL UPDATE SAID SHE'LL BE IN LATER TONIGHT OR EARLY TOMORROW. PT AWARE MOTHER CALLED.
--- NOTE | 2016-12-14 21:11 | NUR ---
ICU/BLEACH MACHINE OPERATOR BLOOD SUGAR IS 340, COVERAGE FOR THIS WA 16 UNITS REGULAR INSULIN. WILL CONTINUE TO COVER ORDERED BY . Ronaldo'S CALL LIGHT WITHIN REACH, ORT HOW TO USE THIS.
[2016-12-15] VITALS (24 sets, daily range): BP systolic 97–154; BP diastolic 48–104
--- NOTE | 2016-12-15 00:10 | NUR ---
ICU/OFFICE SERVICES ASSISTANT CONCRETE STONE FINISHING SUPERVISOR CAME UP WITH SURGERY SCHEDULE, HOWEVER PT IS NOT ON THIS LIST. NOTIFIED CHARGE NURSE OF POSSIBLE SURGERY FOR NEW HD CATH. CHARGE NURSE SAID NOT TO MAKE THE PT NPO DUE TO NO OFFICIAL ORDERS FROM MD AND PT IS NOT ON SURGERY SCHEDULE.
[2016-12-15] MEDS: BLOOD SUGAR DIAGNOSTIC 1 EACH STRIP IN SCH ×6 (01:24→20:13)
[2016-12-15] MEDS: INSULIN REGULAR, HUMAN 100 UNIT/ML 3 ML VIAL SQ PRN ×4 (01:28→20:20)
--- NOTE | 2016-12-15 01:30 | NUR ---
ICU/CLINICAL ENGINEER PT'S BLOOD SUGAR IS 418, THERE IS 20 UNITS REGULAR INSULIN FOR THIS. ALSO SAID TO CALL MD, CHARGE WAS NOTIFIED ABOUT THIS SAID IT HAPPENED MANY TIMES AND TOO RECHECK SUGAR IN 1 HOUR. IF NOT LESS THAN 418, WILL CALL MD.
--- NOTE | 2016-12-15 02:40 | NUR ---
ICU/RIVET SPINNER RECHECK OF BLOOD SUGAR WAS 403, WAS CALLED ABOUT THIS. DR. EMERSON GAVE ORDER FOR 20 UNITS REGUAL INSULIN SQ AGAIN THEN RECHECK NORMAL. NEXT RECHECK OF SUGAR IS IN A FEW HOURS.
--- NOTE | 2016-12-15 03:57 | NUR ---
ICU/AIR INTERCEPT CONTROLLER PT REFUSED AM CARE AT THIS TIME, SAID TOO TIRED AND COLD. PT SAID HE WOULD LIKE TO SLEEP NOW. PT HAD BEEN UP MOST OF THE NIGHT WATCHING HIS IPAD. PT WAS CLEANED EARLIER WHEN HE HAD A BM. PT REMAINED CLEAN.
[2016-12-15 05:07] LABS: HEMATOCRIT 30 % (39-51); MEAN CORPUSCULAR HEMOGLOBIN 26 PG (26.0-33.0); MEAN CORPUSCULAR HGB CONC 30 g/dl (31.0-36.0); MEAN CORPUSCULAR VOLUME 88 fL (80-96); PLATELET COUNT (AUTO) 184 /CMM (150-450); RDW COEFFICIENT OF VARIATION 21.2 (11.5-15.0); RED BLOOD CELL COUNT(AUTO) 3.42 MIL/uL (4.5-6.0); WHITE BLOOD COUNT (AUTO) 9.6 K/uL (4.3-11.0)
[2016-12-15 05:14] LABS: CALCIUM, SERUM 9.3 mg/dL (8.5-10.1); CREATININE 6.1 mg/dL (0.6-1.3); MAGNESIUM 2.3 mg/dL (1.8-2.4); PHOSPHORUS 6.1 mg/dL (2.5-4.9); POTASSIUM 4.2 mmol/L (3.5-5.1)
--- NOTE | 2016-12-15 05:20 | NUR ---
ICU/COORDINATE MEASURING MACHINE PROGRAMMER PT REFUSED TO HAVE CHEST XRAY, TOLD TECH TO COME BACK AFTER PT'S MOTHER CAME TO VISIT.
[2016-12-15 05:33] LABS: HYPOCHROMASIA 1+; PLATELET ESTIMATE ADEQUATE
[2016-12-15 05:34] LABS: ANISOCYTOSIS 2+
--- NOTE | 2016-12-15 07:43 | NUR ---
INITIAL FILLER FEEDER NOTE RCVD PT AWAKE AND ALERT SHOWING NO S/O DISTRESS OR C/O PAIN AT THIS TIME. ON NC TOLERATING WELL. JUAN MANUEL MIDLINE AND LEFT FEMORAL A-LINE C/D/I/PATENT NO S/O INFILTRATION OR PHLEBITIS OBSERVED UPON FLUSHING. PT NPO FOR PERMACATH PLACEMENT TODAY. PT'S MOM INFORMED AND CONSENT SIGNED. WILL CONTINUE TO MONITOR FOR SAFETY AND COMFORT. CALL LIGHT WITHIN REACH BED IN LOW AND LOCKED POSITION.
--- NOTE | 2016-12-15 08:14 | NUR ---
WOUND CARE FOLLOW UP: PT SEEN FOR STAGE II ULCER TO SACRAL AREA. SOME IMPROVEMENT NOTED. PT ABLE TO ASSIST WITH REPOSITIONING IN BED. DISCUSSED SKIN PROTECTION AND WOUND CARE RECOMMENDATIONS WITH NURSING STAFF. IN AGREEMENT WITH PLAN OF CARE. Addendum: 12/15/16 at 0816 by ANDREA HUIZAR WNDNU Amended: Links added.
[2016-12-15] MEDS: LEVOTHYROXINE SODIUM 175 MCG TABLET PO SCH (08:19)
[2016-12-15] MEDS: LACTOBACILLUS RHAMNOSUS GG 1 EACH CAP.SPRINK GT SCH ×2 (08:19→17:18)
[2016-12-15] MEDS: CALCIUM ACETATE 667 MG TABLET NG SCH ×3 (08:19→17:18)
[2016-12-15] MEDS: PANTOPRAZOLE 40 MG VIAL IV SCH (08:19)
[2016-12-15] MEDS: methylPREDNISolone SOD SUCC 125 MG/2ML VIAL IV SCH (08:19)
[2016-12-15] MEDS: HYDROGEL DRESSING 90 GM TUBE TP SCH (08:22)
[2016-12-15] MEDS: NEOMY SULF/BACITRAC ZN/POLY 15 GM TUBE TP SCH (09:31)
--- NOTE | 2016-12-15 10:27 | NUR ---
PHYSICAL THERAPY COORDINATOR NOTE PER DR. JENNA LACY TO VD PHYSICAL THERAPY WHILE HAVING LEFT FEMORAL HD ACCESS ON. HOWEVER, PT REFUSED PT AT THIS TIME.
--- NOTE | 2016-12-15 12:50 | NUR ---
CULTURAL ANTHROPOLOGY PROFESSOR NOTE PT AND PT'S MOM INFORMED OF PROCEDURE SCHEDULED FOR 1500.
[2016-12-15] MEDS ORDERED: HEPARIN SODIUM, PORCINE 1,000 UNIT/ML VIAL ONE (14:03)
[2016-12-15] MEDS ORDERED: LIDOCAINE HCL/PF 1% 30 ML SDV ONE (14:03)
--- NOTE | 2016-12-15 14:40 | NUR ---
GREENSKEEPER LABORER NOTE PT TAKEN TO OR FOR PERMACATH PLACEMENT IN STABLE CONDITION VIA BED ACCOMPANIED BY OR STAFF AND MOTHER.
[2016-12-15] MEDS ORDERED: FENTANYL PF 100MCG/2ML AMPUL ONE (14:41)
[2016-12-15] MEDS ORDERED: MIDAZOLAM HCL 2 MG/2ML VIAL ONE (14:41)
[2016-12-15] MEDS ORDERED: KETAMINE HCL (500MG/10ML) 50 MG/ML VIAL ONE (15:07)
--- NOTE | 2016-12-15 16:20 | NUR ---
RETAIL BANKING MANAGER NOTE RCVD PT BACK FROM OR, VITAL SIGNS STABLE CHARTED IN FLOWSHEET LEFT FEMORAL PERMACATH INSERTION SITE OBSERVED DRESSING C/D/I. DRESSING OVER RIGHT JUGULAR AREA ALSO APPEARS C/D/I. PT MADE COMFORTABLE IN BED, WARM BLANKET PLACED OVER PT. PT'S MOM AT BEDSIDE. WILL CONTINUE TO MONITOR.
[2016-12-15 16:29] LABS: BAND % (MANUAL) 3 % (0.0-5.0); BASOPHILS % (MANUAL) 0 % (0.0-2.0); EOSINOPHILS % (MANUAL) 1 % (0-4); LYMPHOCYTES % (MANUAL) 8 % (16-48); MONOCYTES % (MANUAL) 4 % (0-11.0); NEUTROPHILS % (MANUAL) 84 (42-76)
--- NOTE | 2016-12-15 18:31 | NUR ---
ENDING ENGINEER CHIEF NOTE PT AWAKE AND ALERT, SITTING ON BED SHOWING NO S/O DISTRESS OR C/O PAIN AT THIS TIME. CONTINUES TO TOLERATE O2 VIA NC, JUAN MANUEL MIDLINE C/D/I/PATENT. NO S/O INFILTRATION OR PHLEBITIS OBSERVED UPON FLUSHING. DIET RESUMED AND BEING TOLERATED. LEFT FEMORAL PERMACATH AND RIGHT JUGULAR DRESSING C/D/I/NO S/O BLEEDING OBSERVED. PT'S CARE WILL BE ENDORSED TO HEAT TREAT TECHNICIAN RN FOR CONTINUITY OF CARE AT CHANGE OF SHIFT, MEANWHILE WILL CONTINUE TO MONITOR.
[2016-12-16] VITALS (29 sets, daily range): BP systolic 27–164; BP diastolic 17–88
[2016-12-16] MEDS: BLOOD SUGAR DIAGNOSTIC 1 EACH STRIP IN SCH ×6 (00:32→21:25)
[2016-12-16] MEDS: INSULIN REGULAR, HUMAN 100 UNIT/ML 3 ML VIAL SQ PRN ×5 (00:34→21:24)
--- NOTE | 2016-12-16 02:00 | NUR ---
LIQUID FLAVOR COMPOUNDER: PT WAS AWAKE AND WATCHING VIDEOS ON IPAD BEFORE MIDNIGHT. ON 4 L 02 VIA NC WT NO ACUTE DISTRESS. GIVEN SNACKS PER REQUEST WT CRACKERS AND DRANK 2% NON-FAT MILK AND SOME WATER. NOW IN BED ASLEEP. DRESSING ON LEFT FEMORAL PERMA CATH REMAINED C/D/I. SAFETY PRECAUTION NOTED. WILL CONTINUE TO MONITOR.
[2016-12-16 04:57] LABS: CALCIUM, SERUM 9.1 mg/dL (8.5-10.1); CREATININE 6.6 mg/dL (0.6-1.3); POTASSIUM 4.4 mmol/L (3.5-5.1)
--- NOTE | 2016-12-16 06:05 | NUR ---
GAS PIT WORKER: HEMODIALYSIS STARTED. INFORMED DIALYSIS NURSE OF TODAY'S LAB RESULTS. NO ACUTE DISTRESS, NO C/O PAIN OR EVIDENCE OF DISCOMFORT.
[2016-12-16] MEDS ORDERED: SECONDARY IV SET 1 EA INFUS.SET MC ONE (07:00)
[2016-12-16] MEDS: ALBUMIN 25% 25 GM in PREMIX 1 EA IV PRN (07:06)
--- NOTE | 2016-12-16 07:45 | NUR ---
PROPAGATOR LABORER: pt.is awake, Ox1, rest, but uncooperative, encouraged to get care well, nom c/o pain, getting HD/got albumin IV, [place]: SBP 88-100 now, unable to check cuff BP properly, on 4L O2 n/c, O2 sat. WNL
[2016-12-16] MEDS: CALCIUM ACETATE 667 MG TABLET NG SCH ×3 (08:01→17:51)
[2016-12-16] MEDS: LEVOTHYROXINE SODIUM 175 MCG TABLET PO SCH (08:01)
[2016-12-16] MEDS: methylPREDNISolone SOD SUCC 125 MG/2ML VIAL IV SCH (08:36)
[2016-12-16] MEDS: PANTOPRAZOLE 40 MG VIAL IV SCH (08:36)
[2016-12-16] MEDS: LACTOBACILLUS RHAMNOSUS GG 1 EACH CAP.SPRINK GT SCH ×2 (08:36→17:50)
[2016-12-16] MEDS: HYDROGEL DRESSING 90 GM TUBE TP PRN (08:37)
[2016-12-16] MEDS: NEOMY SULF/BACITRAC ZN/POLY 15 GM TUBE TP SCH (08:37)
[2016-12-16] MEDS: HYDROGEL DRESSING 90 GM TUBE TP SCH (08:38)
--- NOTE | 2016-12-16 09:00 | NUR ---
MEDICAL ART THERAPIST: HD done, 2.2L out, HDcath, Ludivina dressings were changed, VSS, is in room, updated with all above, spoke with pt.mother, pt.mother oriented for POC
--- NOTE | 2016-12-16 09:30 | NUR ---
SAUSAGE WRAPPER: pt.mother was instructed to f/u pt.DM diet, risk of hyperglycemia with home food using
--- NOTE | 2016-12-16 10:30 | NUR ---
PLATINUM SMITH: is in room, updated with pt.current condition, VS, I/O, HD, O2 sat., spoke with pt.mother, see new orders
--- NOTE | 2016-12-16 13:00 | NUR ---
RAG CUTTING MACHINE TENDER: notified RT re: L.chest PT order. BS 367 now, pt.mother and sister are extremely disagree for 20 units R.Insulin sq dose per SS, said: cut for 50% dose and Ok to give 10 units of R.insulin sq, pt.mother got explanation again re hyperglycemia s/s risks, but refused for full dose again and said give 10 units insulin sq. By reports: pt.mother did it multiple times and argues: pt.is very sensitive for high insulin doses and 30-40 BS dropped multiple episodes, pt.mother said: doctors know about this
--- NOTE | 2016-12-16 13:00 | NUR ---
SECOND CUTTER: PT called: no PT Tx until pt.alina [place]
--- NOTE | 2016-12-16 14:24 | NUR ---
TELEHEALTH COORDINATOR: SALMA Alexis is in the room, spoke with pt.mother, updated with pt. VS, HD, orders, I/O, BS, last dose 10 units Insulin was given (refused for 20 units) - ok with that
--- NOTE | 2016-12-16 14:30 | NUR ---
PRESS CLIPPINGS CUTTER AND PASTER: pt.mother was instructed again re: DM diet request, home food restrictions
[2016-12-16] MEDS: ACETYLCYSTEINE 10% SOLN 400 MG/4 ML VIAL NEB SCH ×2 (15:31→23:18)
--- NOTE | 2016-12-16 15:50 | NUR ---
FOREST RANGER: pt.is transferred to Tele after full report for REMI Vale
--- NOTE | 2016-12-16 16:00 | NUR ---
RN NOTE: PATIENT TRANSFERRED TO ROOM 117-1, ON 3L 02 VIA NC, PATIENT NOTED TO BE ALERT WATCHING VIDEOS ON IPAD. MOTHER AT BEDSIDE. SR ON TELE MONITOR. JUAN MANUEL MIDLINE PATENT AND INTACT. PATIENT SITTING IN BED. ATTEMPTED TO REPOSITION PATIENT, HOWEVER PATIENT REFUSED TO BE TOUCHED. MOTHER REFUSED TO REPOSITION. VS OBTAINED WNL. SAFETY MEASURES OBSERVED. CALL LIGHT PLACED WITHIN REACH. ONGOING MONITORING.
--- NOTE | 2016-12-16 17:32 | NUR ---
TESTER ELECTRONIC SCALE NOTE: BS CHECKED AND NOTED TO 494, HYPOID GEAR GENERATOR SHERRON ZAMUDIO MADE AWARE. WILL ADMINISTER 20U PER SLIDING SCALE. NO ORDERS RECEIVED. CLOSE MONITORING
--- NOTE | 2016-12-16 17:42 | NUR ---
BABY STROLLER RENTAL CLERK NOTE: PATIENT BLOOD SUGAR CHECKED AGAIN AND NOTED TO BE 526, SHERRON ZAMUDIO STRIP PRESSER MADE AWARE, STAT BLOOD SUGAR DRAW ORDERED. PATIENT HOWEVER REFUSES, EDUCATION PROVIDED REGARDING BLOOD DRAW, PATIENT CONTINUES TO REFUSE. ONGOING PREVIOUSLY NOTED 20U OF REGULAR INSULIN ADMINISTERED. ONGOING MONITORING
--- NOTE | 2016-12-16 18:10 | NUR ---
RN NOTE: PATIENT CONTINUES TO REFUSE BLOOD DRAW. ONGOING MONITORING.
--- NOTE | 2016-12-16 20:40 | NUR ---
RN NOTES: PATIENT REFUSED VITAL SIGNS CHECK. WILL CONTINUE TO MONITOR.
[2016-12-17] VITALS: BP 107/65
[2016-12-17] MEDS: INSULIN REGULAR, HUMAN 100 UNIT/ML 3 ML VIAL SQ PRN ×3 (00:56→21:08)
[2016-12-17] MEDS: BLOOD SUGAR DIAGNOSTIC 1 EACH STRIP IN SCH ×6 (01:02→21:08)
--- NOTE | 2016-12-17 05:44 | NUR ---
RN NOTES: PATIENT REFUSED VITAL SIGNS CHECK. WILL CONTINUE TO MONITOR.
[2016-12-17] MEDS: ACETYLCYSTEINE 10% SOLN 400 MG/4 ML VIAL NEB SCH ×3 (07:06→23:22)
[2016-12-17] MEDS: LEVOTHYROXINE SODIUM 175 MCG TABLET PO SCH ×2 (07:30→09:06)
[2016-12-17 08:00] VITALS: BP 126/69
[2016-12-17] MEDS: CALCIUM ACETATE 667 MG TABLET NG SCH ×4 (08:00→17:08)
[2016-12-17 09:00] LABS: CALCIUM, SERUM 9.2 mg/dL (8.5-10.1); CREATININE 5.8 mg/dL (0.6-1.3); POTASSIUM 3.9 mmol/L (3.5-5.1)
[2016-12-17] MEDS: methylPREDNISolone SOD SUCC 125 MG/2ML VIAL IV SCH ×2 (09:00→09:07)
[2016-12-17] MEDS: LACTOBACILLUS RHAMNOSUS GG 1 EACH CAP.SPRINK GT SCH ×3 (09:00→17:08)
[2016-12-17] MEDS: PANTOPRAZOLE 40 MG VIAL IV SCH ×2 (09:00→09:07)
--- NOTE | 2016-12-17 09:00 | NUR ---
RN NOTES NOTED BS 45MG/DL, MOM AT BEDSIDE, PT ADVISED TO DRINK ORANGE JUICE PER PROTOCOL, MOM SAID PT ALREADY EATING HIS FOOD. PT AWAKE ALERT WATCHING MOVIE ON HIS IPAD, DENIES PAIN/DISCOMFORT AT THIS TIME.
[2016-12-17] MEDS: HYDROGEL DRESSING 90 GM TUBE TP SCH (09:07)
[2016-12-17] MEDS: NEOMY SULF/BACITRAC ZN/POLY 15 GM TUBE TP SCH (09:08)
--- NOTE | 2016-12-17 11:46 | NUR ---
RN NOTES PT REFUSED BS CHECK. RISKS AND BENEFITS EXPLAINED, OFFERED AGAIN, PT STRONGLY REFUSED
[2016-12-17] MEDS: predniSONE 20 MG TABLET PO SCH (13:40)
--- NOTE | 2016-12-17 14:00 | NUR ---
RN NOTES SPOKE WITH SHERRON PIPE ORGAN TECHNICIAN, SHERRON MADE AWARE PT REFUSING MEDS AND BLOOD SUGAR CHECK DESPITE OF EXPLAINING RISKS AND BENEFITS
[2016-12-17 16:00] VITALS: BP 128/88
--- NOTE | 2016-12-17 19:13 | NUR ---
RN NOTES PT IN BED, ASLEEP AT THIS TIME. NO ACUTE CHANGE IN CONDITION NOTED. KEPT COMFORTABLE. FREQUENT VISUAL CHECKS. ENDORSED TO NEXT SHIFT FOR CONTINUITY OF CARE
[2016-12-17 20:00] VITALS: BP 141/79
--- NOTE | 2016-12-17 21:09 | NUR ---
RN NOTES: PATIENT HAS BLOOD SUGAR VALUE OF 421 MG/DL. MD. EMERSON IS NOTIFIED AND ORDERED TO GIVE INSULIN ACCORDING TO SLIDING SCALE. 20 UNITS OF REGULAR INSULIN IS GIVEN PRESCRIBED. WILL CONTINUE TO MONITOR.
--- NOTE | 2016-12-17 22:45 | NUR ---
RECEIVED PT FROM REMI GRIFFIN, AWAKE AND ALERT, ORIENTED 1-2, NO PAIN OR RESPIRATORY DISTRESS NOTED DURING PHYSICAL ASSESSMENT, CLEAN/DRY AND COMFORTABLE, WILL CONTINUE TO MONITOR HOURLY AND NEEDED.
[2016-12-18] MEDS: BLOOD SUGAR DIAGNOSTIC 1 EACH STRIP IN SCH ×6 (01:09→20:38)
[2016-12-18] MEDS: INSULIN REGULAR, HUMAN 100 UNIT/ML 3 ML VIAL SQ PRN ×6 (01:12→20:39)
--- NOTE | 2016-12-18 06:02 | NUR ---
MS RN CLOSING NOTE PT REMAINED STABLE DURING GREEN BUILDING ENERGY ENGINEER, NO PAIN OR RESPIRATORY DISTRESS NOTED, BS WAS 175 THIS AM, 4UNIT OF COVERAGE PER SLIDING SCALE GIVEN, PT DIDN'T SLEEP MUCH DURING NIGHT, WAS UP AND PLAYING WITH AN ELECTRONIC DEVICE HE HAS FOR ENTERTAINMENT, PT KEPT CLEAN/DRY AND COMFORTABLE, SAFETY MEASURES MAINTAINED, WILL ENDORSE TO INCOMING NURSE FOR HENNA.
[2016-12-18] MEDS: ACETYLCYSTEINE 10% SOLN 400 MG/4 ML VIAL NEB SCH ×3 (07:33→23:59)
[2016-12-18 07:37] LABS: CALCIUM, SERUM 8.7 mg/dL (8.5-10.1); CREATININE 6.1 mg/dL (0.6-1.3); POTASSIUM 4.3 mmol/L (3.5-5.1)
[2016-12-18 08:00] VITALS: BP 124/69
[2016-12-18] MEDS: PANTOPRAZOLE 40 MG VIAL IV SCH (08:44)
[2016-12-18] MEDS: HYDROGEL DRESSING 90 GM TUBE TP PRN (08:53)
[2016-12-18] MEDS: Z GUARD REMEDY 2 OZ OINT TP PRN (08:54)
[2016-12-18] MEDS: HYDROGEL DRESSING 90 GM TUBE TP SCH (08:55)
[2016-12-18] MEDS: predniSONE 20 MG TABLET PO SCH (08:57)
[2016-12-18] MEDS: CALCIUM ACETATE 667 MG TABLET NG SCH ×4 (08:57→18:23)
[2016-12-18] MEDS: LEVOTHYROXINE SODIUM 175 MCG TABLET PO SCH (08:57)
[2016-12-18] MEDS: LACTOBACILLUS RHAMNOSUS GG 1 EACH CAP.SPRINK GT SCH ×2 (08:57→18:03)
[2016-12-18] MEDS ORDERED: IV SET PRIMARY PUMP SET 1 EA INFUS.SET MC ONE (12:58)
[2016-12-18] MEDS ORDERED: SECONDARY IV SET 1 EA INFUS.SET MC ONE (12:58)
[2016-12-18] MEDS: VANCOMYCIN 500 MG in IV D5W 100 ML IV PRN (13:11)
[2016-12-18] MEDS: IV NS 0.9% 250 ML IV PRN (13:13)
--- NOTE | 2016-12-18 13:24 | NUR ---
RN NOTE PT'S MOM REFUSED INSULIN ADMINISTRATION, BG - 191 MG/DL, RISKS AND BENEFITS EXPLAINED STILL REFUSED.
[2016-12-18 16:00] VITALS: BP 137/77
--- NOTE | 2016-12-18 17:53 | NUR ---
RN NOTES PT BG IS 408 MG/DL, 20 UNITS OF REGULAR INSULIN WERE GIVEN AND SALMA ZAMUDIO WAS NOTIFIED. NO NEW ORDERS AT THIS TIME, WILL MONITOR CLOSELY.
[2016-12-18] MEDS: NEOMY SULF/BACITRAC ZN/POLY 15 GM TUBE TP SCH (18:08)
[2016-12-18 20:00] VITALS: BP 149/104
--- NOTE | 2016-12-18 20:00 | NUR ---
RN MS - PT RECEIVED IN BED, AOX1-2, PT IS ANURIC, ON HD, LAST HD TODAY 12/18 2L OUT. PT HAS STAGE 2 SACRAL WOUND, WOUND TX DONE PER ORDER. PT IS ON MECHANICAL SOFT DIABETIC DIET. PT HAD BM, SOFT BROWN. PT HAS JUAN MANUEL MIDLINE AND L FEM HD CATH. ACCUCHECK Q4. NAD, VSS. WILL CONTINUE TO MONITOR
--- NOTE | 2016-12-18 20:51 | NUR ---
BLOOD GLUCOSE 511, PT COVERED WITH 20 UNITS VIA SLIDING SCALE, MD EMERSON NOTIFIED, NO NEW ORDERS, WILL RECHECK BLOOD SUGAR AND CHECK BMP IN AM
[2016-12-19] MEDS: BLOOD SUGAR DIAGNOSTIC 1 EACH STRIP IN SCH ×6 (00:48→21:00)
[2016-12-19] MEDS: INSULIN REGULAR, HUMAN 100 UNIT/ML 3 ML VIAL SQ PRN ×4 (00:53→17:26)
[2016-12-19 04:00] VITALS: BP 144/94
--- NOTE | 2016-12-19 05:00 | NUR ---
BLOOD GLUCOSE LOWERED TO 155
--- NOTE | 2016-12-19 07:15 | NUR ---
RN INITIAL NOTES: REC'D PT SITTING ON BED, A&O X2, NOT IN ANY DISTRESS. PT ON O2 AT 3 LPM/NC, SATURATING AT 90%. HAS JUAN MANUEL MIDLINE, SL, FLUSHED, PATENT, C/D/I, NO SIGNS OF INFECTION/ INFILTRATION NOTED. HAS L FEMORAL HD CATH, PATENT, C/D/I, NO SIGNS OF INFECTION NOTED, W/ ONGOING HD PROCEDURE. CL PLACED W/IN REACHED. BED KEPT LOW & IN LOCKED POSITION. WILL CONTINUE TO MONITOR.
[2016-12-19] MEDS: ACETYLCYSTEINE 10% SOLN 400 MG/4 ML VIAL NEB SCH ×3 (07:26→23:26)
--- NOTE | 2016-12-19 08:20 | NUR ---
Radiology at pt bedside to perform cxr1v, pt became agitated and banged on the table and is refusing xray, Will try again when pt is more relaxed. RICKIE 800am 12/19/16
[2016-12-19] MEDS: CALCIUM ACETATE 667 MG TABLET NG SCH ×3 (08:34→17:25)
[2016-12-19] MEDS: LACTOBACILLUS RHAMNOSUS GG 1 EACH CAP.SPRINK GT SCH ×2 (08:34→17:25)
[2016-12-19] MEDS: LEVOTHYROXINE SODIUM 175 MCG TABLET PO SCH (08:34)
[2016-12-19] MEDS: HYDROGEL DRESSING 90 GM TUBE TP SCH (08:35)
[2016-12-19] MEDS: predniSONE 20 MG TABLET PO SCH (08:35)
[2016-12-19] MEDS: PANTOPRAZOLE 40 MG VIAL IV SCH (08:35)
[2016-12-19] MEDS: NEOMY SULF/BACITRAC ZN/POLY 15 GM TUBE TP SCH (08:36)
[2016-12-19] MEDS: Z GUARD REMEDY 2 OZ OINT TP PRN (08:36)
--- NOTE | 2016-12-19 09:00 | NUR ---
RN NOTES: HOME MED ELIQUIS 5 MG SENT TO PHARMACY. EXPLAINED TO PT'S MOTHER THE RISK OF GIVING HIS SON HIS HOME MEDS WHILE PT IS IN THE HOSPITAL, CHANCES OF DOUBLE DOSING. VERBALIZED UNDERSTANDING.
--- NOTE | 2016-12-19 09:14 | NUR ---
WOUND CARE FOLLOW UP: PT NOT SEEN FOR SKIN RE-ASSESSMENT YET DUE TO PT ON DIALYSIS AT THIS TIME. WILL FOLLOW.
--- NOTE | 2016-12-19 09:30 | NUR ---
RN NOTES PTS LIPS LOOKED BLUE, CHANGED SIMPLE MASK TO NON REBREATHER MASK 10L, TOLERATING WELL, O2 SAT 100%. WILL CONTINUE TO MONITOR
[2016-12-19 10:01] LABS: CREATININE 3.8 mg/dL (0.6-1.3)
--- NOTE | 2016-12-19 12:00 | NUR ---
RN NOTES: PT REFUSED 8AM & 12PM VS MONITORING, MOTHER AT BEDSIDE. RISK & BENEFITS EXPLAINED, STILL REFUSED.
--- NOTE | 2016-12-19 12:01 | NUR ---
RN NOTES STILL ON NON REBREATHER MASK 10L, TOLERATING WELL, O2 SAT 93%. WILL CONTINUE TO MONITOR
[2016-12-19] MEDS ORDERED: POTASSIUM CHLORIDE 20 MEQ TAB.PRT.SR PO ONE (12:30)
--- NOTE | 2016-12-19 13:00 | NUR ---
RN NOTES: ACCUCHECK DONE W/ BLOOD SUGAR OF 255 MG/DL, PER SLIDING SCALE GIVE INSULIN R OF 12 UNITS. BUT PT'S MOTHER REFUSES IT & ASKED IF HIS SON CAN GET 8 UNITS ONLY. EXPLAINED TO PT'S MOM THE STANDING ORDER & THE RISK & BENEFITS OF THE MEDICATION BUT STILL REFUSES IT. INFORMED DR. MURPHY, SHE SAID OKAY TO GIVE 8 UNITS OF INSULIN.
[2016-12-19 16:00] VITALS: BP 153/85
[2016-12-19] MEDS: methylPREDNISolone SOD SUCC 125 MG/2ML VIAL IV SCH ×2 (17:45→21:00)
--- NOTE | 2016-12-19 18:41 | NUR ---
RN CLOSING NOTES: NO ACUTE CHANGES NOTED W/IN SHIFT, A&O X2, NOT IN ANY DISTRESS. S/P HD, 3L OUTPUT, TOLERATED WELL. PT JUAN MANUEL MIDLINE, PATENT, C/D/I, NO SIGNS OF INFECTION/ INFILTRATION. L FEM HD CATH C/D/I. WOUND CARE DONE. SAFETY MAINTAINED. CL PLACED W/IN REACHED. NEEDS ATTENDED. WILL ENDORSE TO PM RN FOR HENNA.
--- NOTE | 2016-12-19 19:45 | NUR ---
RN INITIAL NOTE RECEIVED PT IN NO ACUTE DISTRESS IN BED. PT HAS DOWN SYNDROME AND IS A/O X 2. PT IS ON O2 VIA NON-REBREATHER @ 15LPM AND TOLERATING WELL WITH O2 SAT @ 98%. PT DENIES ANY SOB, DIFFICULTY BREATHING OR PAIN AT THIS TIME. PT HAS JUAN MANUEL MIDLINE THAT IS CLEAN DRY INTACT AND PATENT WITH SALINE FLUSH. PT HAS L FEMORAL HD CATH THAT IS CLEAN DRY AND INTACT. BED IN LOW LOCK POSITION WITH RIALS UP X 2. CALL LIGHT WITHIN REACH AND ALL SAFETY MEASURES ENSURED AND CARRIED OUT. WILL CONTINUE TO MONITOR PT.
[2016-12-19 20:00] VITALS: BP 148/98
[2016-12-19 20:40] VITALS: BP 148/98
--- NOTE | 2016-12-19 21:55 | NUR ---
RN NOTE PT REFUSED BLOOD GLUCOSE CHECK AND SOLU-MEDROL MEDICATION. INFORMED PT ON NOT GETTING BLOOD GLUCOSE CHECK AND NOT RECEIVING MEDICATION. INFORMED CHARGE NURSE AND CHARGE NURSE TRIED TO SPEAK WITH PT WELL. PT STILL REFUSED BOTH BLOOD GLUCOSE CHECK AND SOLU-MEDROL MEDICATION.
[2016-12-20] MEDS: INSULIN REGULAR, HUMAN 100 UNIT/ML 3 ML VIAL SQ PRN ×4 (01:39→21:32)
[2016-12-20] MEDS: BLOOD SUGAR DIAGNOSTIC 1 EACH STRIP IN SCH ×6 (01:39→21:28)
--- NOTE | 2016-12-20 01:41 | NUR ---
RN NOTE TOOK BS AND GOT [address] GRANDE AND RECEIVED ORDERS TO GIVEN REGULAR INSULIN @ 12 UNITS IV. READBACK ORDERS FOR CLARIFICATION AND WILL ADMINISTER. UNABLE TO PUT IN ORDERS FOR REGULAR INSULIN IV. WILL PUT A MISC ORDER IN AND HAVE CHARGE NURSE HECTOR WITNESS PULLING 12 UNITS AND GIVING IV. WILL RECHECK BS IN 2 HOURS PER MD ORDERS.
[2016-12-20 04:00] VITALS: BP 154/98
[2016-12-20 04:48] VITALS: BP 154/98
--- NOTE | 2016-12-20 04:50 | NUR ---
RN NOTE NOTIFIED DR GRANDE THAT PT BS IS 493 AND PER SS WILL GIVE [address] GRANDE WAS OK WITH INTERVENTION.
[2016-12-20] MEDS: methylPREDNISolone SOD SUCC 125 MG/2ML VIAL IV SCH ×3 (05:26→21:25)
--- NOTE | 2016-12-20 06:51 | NUR ---
RN CLOSING NOTE PT REMAINS IN NO ACUTE DISTRESS IN BED. PT DID NOT HAVE ANY SIGNIFICANT CHANGE IN CONDITION DURING SHIFT. ALL NEEDS MET ALL ORDERS CARRIED OUT. ALL SAFETY MEASURES ENSURED AND CARRIED OUT. WILL ENDORSE TO AM RN FOR CONTINUITY OF CARE.
[2016-12-20] MEDS: ACETYLCYSTEINE 10% SOLN 400 MG/4 ML VIAL NEB SCH ×3 (07:34→23:34)
[2016-12-20 08:00] VITALS: BP 171/110
[2016-12-20] MEDS: PANTOPRAZOLE 40 MG VIAL IV SCH (08:28)
[2016-12-20] MEDS: APIXABAN 5 MG PO SCH (09:09)
[2016-12-20] MEDS: LACTOBACILLUS RHAMNOSUS GG 1 EACH CAP.SPRINK GT SCH ×2 (09:09→17:02)
[2016-12-20] MEDS: CALCIUM ACETATE 667 MG TABLET NG SCH ×3 (09:09→17:02)
[2016-12-20] MEDS: LEVOTHYROXINE SODIUM 175 MCG TABLET PO SCH (09:09)
[2016-12-20] MEDS: HYDROGEL DRESSING 90 GM TUBE TP SCH (09:11)
[2016-12-20] MEDS: NEOMY SULF/BACITRAC ZN/POLY 15 GM TUBE TP SCH (09:11)
--- NOTE | 2016-12-20 09:22 | NUR ---
RN MS NOTES PT BG 0900 WAS 268 MG/DL, PER MOTHERS REQUEST ONLY GIVE 4 UNITS OF INSULIN.
[2016-12-20 11:48] LABS: CALCIUM, SERUM 7.9 mg/dL (8.5-10.1); CREATININE 2.9 mg/dL (0.6-1.3); MAGNESIUM 1.8 mg/dL (1.8-2.4); POTASSIUM 3.5 mmol/L (3.5-5.1)
[2016-12-20] MEDS: VANCOMYCIN 500 MG in IV D5W 100 ML IV PRN (11:52)
--- NOTE | 2016-12-20 13:00 | NUR ---
RN MS NOTES PT HAD HD WITH NURSE GEE, 3.8L OUT, PT STABLE, ASLEEP WITH MOTHER AT BEDSIDE, VS STABLE.
[2016-12-20] MEDS ORDERED: VANCOMYCIN 500 MG in IV D5W 100 ML IV ONE (15:00)
[2016-12-20 16:00] VITALS: BP 153/96
--- NOTE | 2016-12-20 16:54 | NUR ---
RN MS NOTES PT ON NONREBREATHER 15L SAT AT 90%, NOT IN ANY DISTRESS.
--- NOTE | 2016-12-20 17:45 | NUR ---
RN MS NOTES PTS MOTHER STATED WOULD ELIQUIS REFILL WHEN GOING HOME PRIOR TO DISCHARGE.
--- NOTE | 2016-12-20 18:26 | NUR ---
RN MS ENDING NOTES PT STABLE WITH NO ACUTE CHANGES NOTED, ALL DUE MEDS GIVEN, ALL NEEDS MET, PTS MOTHER LEFT, PT STABLE FOR CONTINUITY OF CARE.
--- NOTE | 2016-12-20 19:30 | NUR ---
MS RN INITIAL NOTES RECEIVED PATIENT AWAKE, SITTING IN BED WATCHING IPAD. PATIENT NON-COMPLIANT WITH DIET. NO RESPIRATORY DISTRESS NOTED, ON 8LPMO2 VIA SIMPLE MASK. NO S/S OF PAIN OR DISCOMFORT. SKIN WARM AND DRY TO TOUCH. WITH JUAN MANUEL MIDLINE PATENT AND INTACT. SIDE RAILS UP AND LOCKED, BED KEPT AT LOWEST POSITION. CALL LIGHT KEPT WITHIN EASY REACH. WILL CONTINUE TO MONITOR.
[2016-12-20 20:00] VITALS: BP 129/89
--- NOTE | 2016-12-20 21:51 | NUR ---
PATIENT BLOOD SUGAR 458, 20UNITS INSULIN GIVEN PER SLIDING SCALE. INFORMED DR. GRANDE WITH ORDERS TO GIVE REGULAR INSULIN 14UNITS IV AND RECHECK BLOOD SUGAR IN TWO HOURS.
[2016-12-20] MEDS ORDERED: INSULIN REGULAR, HUMAN 100 UNIT/ML 10 ML VIAL IV ONE (22:00)
[2016-12-21] MEDS: BLOOD SUGAR DIAGNOSTIC 1 EACH STRIP IN SCH ×6 (00:15→22:07)
[2016-12-21 04:00] VITALS: BP 159/96
[2016-12-21 04:26] VITALS: BP 159/96
[2016-12-21] MEDS: methylPREDNISolone SOD SUCC 125 MG/2ML VIAL IV SCH ×3 (04:39→22:07)
[2016-12-21] MEDS: INSULIN REGULAR, HUMAN 100 UNIT/ML 3 ML VIAL SQ PRN ×2 (04:40→22:27)
--- NOTE | 2016-12-21 06:41 | NUR ---
MS RN CLOSING NOTES NO SIGNIFICANT CHANGES OVERNIGHT. NO RESPIRATORY DISTRESS NOTED WITH 7LPMO2 VIA SIMPLE MASK. JUAN MANUEL MIDLINE PATENT AND INTACT. ALL NEEDS ANTICIPATED AND MET. KEPT CLEAN AND DRY. SIDE RAILS UP AND LOCKED. BED KEPT AT LOWEST POSITION. CALL LIGHT KEPT WITHIN EASY REACH. WILL ENDORSE CONTINUITY OF CARE TO AM NURSE.
[2016-12-21 06:57] LABS: CALCIUM, SERUM 7.9 mg/dL (8.5-10.1); CREATININE 4.3 mg/dL (0.6-1.3); MAGNESIUM 2.1 mg/dL (1.8-2.4); POTASSIUM 4.2 mmol/L (3.5-5.1)
--- NOTE | 2016-12-21 07:30 | NUR ---
RN INITIAL NOTE PT RECEIVED IN BED. PT AWAKE AND ALERT. PT ABLE TO MAKE NEEDS KNOWN. NO S/S OF PAIN OR DISCOMFORT. RESPIRATIONS ARE EVEN AND UNLABORED. SKIN WARM AND DRY TO TOUCH. LEFT UPPER MIDLINE FLUSHED, AND PATENT. DRESSING C/D/I. SCHEDULED FOR HEMODIALYSIS THIS MORNING. SAFETY MEASURES IMPLEMENTED. BED IN LOCKED POSITION, SIDE RAILS UP. CALL LIGHT WITHIN EASY REACH. WILL CONTINUE TO MONITOR.
[2016-12-21 08:00] VITALS: BP 136/84
[2016-12-21] MEDS: ACETYLCYSTEINE 10% SOLN 400 MG/4 ML VIAL NEB SCH ×3 (08:05→23:30)
[2016-12-21] MEDS: APIXABAN 5 MG PO SCH (08:29)
[2016-12-21] MEDS: LACTOBACILLUS RHAMNOSUS GG 1 EACH CAP.SPRINK GT SCH ×2 (08:29→17:23)
[2016-12-21] MEDS: CALCIUM ACETATE 667 MG TABLET NG SCH ×3 (08:30→17:23)
[2016-12-21] MEDS: PANTOPRAZOLE 40 MG VIAL IV SCH (08:30)
[2016-12-21] MEDS: LEVOTHYROXINE SODIUM 175 MCG TABLET PO SCH (08:30)
[2016-12-21] MEDS: NEOMY SULF/BACITRAC ZN/POLY 15 GM TUBE TP SCH (08:31)
[2016-12-21] MEDS: Z GUARD REMEDY 2 OZ OINT TP PRN (08:32)
[2016-12-21] MEDS: HYDROGEL DRESSING 90 GM TUBE TP SCH (08:33)
--- NOTE | 2016-12-21 11:36 | NUR ---
MS RN NOTE SPOKE WITH DR GRANDE PT BLOOD SUGAR 465 AND GAVE 20 UNITS PER SCALE, RECHECKED SUGAR WAS 547. ORDERED 14 UNITS REGULAR INSULIN IVP ONE TIME. ALSO ORDERED LEVEMIR 10 UNITS QHS AND NOVOLOG 10 UNITS PRIOR TO MEALS IN ADDITION TO SLIDING SCALE COVERAGE. CONFIRMED ORDERS. WILL CONTINUE TO MONITOR.
[2016-12-21 17:00] VITALS: BP 169/115
--- NOTE | 2016-12-21 17:45 | NUR ---
RN NOTES PT'S BLOOD SUGAR IS 267. INSULIN DOSE SHOULD BE 12UNITS, HOWEVER, MOTHER WILL ONLY ALLOW [address] SU INFORMED. ALSO MOTHER HAS CONCERNS ABOUT FACIAL SWELLING, EVEN AFTER 3 LITERS WERE REMOVED DURING DIALYSIS TODAY. AND ELEVATED B/P
[2016-12-21] MEDS: AMLODIPINE BESYLATE 5 MG TABLET PO SCH (18:35)
--- NOTE | 2016-12-21 19:04 | NUR ---
RN CLOSING NOTE PT RESTING IN BED COMFORTABLY, ALL MD ORDERS CARRIED OUT. PT KEPT CLEAN AND DRY. IV SITE C/D/I. ALL SAFETY MEASURES IN PLACE AT ALL TIMES. REPORT WILL BE GIVEN TO PM RN FOR HENNA.
--- NOTE | 2016-12-21 19:30 | NUR ---
MS RN INITIAL NOTE RECEIVED PT WITH FAMILY AT BEDSIDE. A/O X3 [id number] SPEAKING AND ABLE TO MAKE SOME NEEDS KNOWN. ON 7L O2 VIA FACE MASK AND SATING WELL. IV JUAN MANUEL MIDLINE SL CLEAN, DRY AND INTACT, FLUSHING WELL. L FEMORAL CESAR CATH CLEAN AND INTACT.BED IN LOWEST POSITION AND LOCKED IN PLACE. CALL LIGHT WITHIN EASY REACH AT ALL TIMES. ALL SAFETY MEASURES IN PLACE. WILL CONTINUE TO MONITOR.
[2016-12-21 20:00] VITALS: BP_SYST 168; BP_SYST 169; BP_DIAS 118; BP_DIAS 90
--- NOTE | 2016-12-21 23:44 | NUR ---
RT PT REFUSED TX. VERY AGITATED AND UPSET AT THE MOMENT. NO SOB OR DISTRESS NOTED AT THIS TIME. RN AWARE.
[2016-12-22] MEDS ORDERED: INSULIN REGULAR, HUMAN 100 UNIT/ML 10 ML VIAL IV ONE
[2016-12-22] MEDS: BLOOD SUGAR DIAGNOSTIC 1 EACH STRIP IN SCH ×6 (02:15→21:13)
[2016-12-22] MEDS: INSULIN REGULAR, HUMAN 100 UNIT/ML 3 ML VIAL SQ PRN ×4 (02:22→21:17)
[2016-12-22 04:00] VITALS: BP 157/95
[2016-12-22] MEDS: methylPREDNISolone SOD SUCC 125 MG/2ML VIAL IV SCH ×3 (05:23→21:13)
--- NOTE | 2016-12-22 06:30 | NUR ---
MS RN CLOSING NOTE PT REMAINED STABLE DURING SHIFT. NO ACUTE DISTRESS NOTED AND SATING WELL. ALL SAFETY MEASURES IN PLACE. CALL LIGHT WITHIN REACH AT ALL TIMES. WILL ENDORSE TO NEXT SHIFT FOR HENNA.
[2016-12-22] MEDS: INSULIN ASPART NOVOLOG 100 UNIT/ML CARTRIDGE SQ SCH ×3 (07:30→17:24)
--- NOTE | 2016-12-22 07:30 | NUR ---
RN NOTES RECEIVED PT ON UPRIGHT SITTING POSITION, CURRENTLY RECEIVING BREATHING TX, RT AT BEDSIDE. NO ACUTE DISTRESS NOTED. NOTED WITH JUAN MANUEL MIDLINE COVERED WITH KERLIX PER MOM'S REQUEST. WITH LEFT FEM CESAR CATH FOR HD ACCESS. DENIES PAIN. CALL LIGHT WITHIN REACH, WILL CONT TO MONITOR
[2016-12-22] MEDS: ACETYLCYSTEINE 10% SOLN 400 MG/4 ML VIAL NEB SCH ×4 (07:34→23:39)
[2016-12-22 08:00] VITALS: BP 152/111
[2016-12-22] MEDS: PANTOPRAZOLE 40 MG VIAL IV SCH (08:29)
[2016-12-22] MEDS: LACTOBACILLUS RHAMNOSUS GG 1 EACH CAP.SPRINK GT SCH ×2 (08:29→17:22)
[2016-12-22] MEDS: AMLODIPINE BESYLATE 5 MG TABLET PO SCH (08:29)
[2016-12-22] MEDS: HYDROGEL DRESSING 90 GM TUBE TP SCH (08:30)
[2016-12-22] MEDS: APIXABAN 5 MG PO SCH (08:30)
[2016-12-22] MEDS: LEVOTHYROXINE SODIUM 175 MCG TABLET PO SCH (08:30)
[2016-12-22] MEDS: CALCIUM ACETATE 667 MG TABLET NG SCH ×3 (08:30→17:22)
[2016-12-22] MEDS: NEOMY SULF/BACITRAC ZN/POLY 15 GM TUBE TP SCH (08:30)
--- NOTE | 2016-12-22 08:55 | NUR ---
WOUND CARE FOLLOW UP: PT'S MOTHER AT BEDSIDE AGREED FOR PT TO HAVE SKIN ASSESSMENT/WOUND FOLLOW UP BUT THEN ABRUPTLY REFUSED SKIN ASSESSMENT. WILL SEE PT PT CONDITION PERMITS. CONTINUE ALL SKIN PROTECTION MEASURES AND WOUND ORDERS. DISCUSSED WITH NURSING STAFF.
--- NOTE | 2016-12-22 09:15 | NUR ---
RN NOTES ONGOING HD, LABS DRAWN PRE HD
[2016-12-22 09:40] LABS: CALCIUM, SERUM 7.9 mg/dL (8.5-10.1); CREATININE 3.6 mg/dL (0.6-1.3); POTASSIUM 4.1 mmol/L (3.5-5.1)
--- NOTE | 2016-12-22 11:22 | NUR ---
RN NOTES HD COMPLETED 3L OUT
[2016-12-22] MEDS ORDERED: IV SET PRIMARY PUMP SET 1 EA INFUS.SET MC ONE (12:18)
[2016-12-22] MEDS: VANCOMYCIN 500 MG in IV D5W 100 ML IV PRN (12:21)
--- NOTE | 2016-12-22 14:00 | NUR ---
RN NOTES PT REFUSED ECHO, RISKS AND BENEFITS EXPLAINED. PT STRONGLY REFUSED
--- NOTE | 2016-12-22 16:00 | NUR ---
RN NOTES PT REFUSED 1600 VS CHECK.
[2016-12-22] MEDS: INSULIN DETEMIR 100 UNIT/ML CARTRIDGE SQ SCH (21:15)
[2016-12-23] MEDS: BLOOD SUGAR DIAGNOSTIC 1 EACH STRIP IN SCH ×6 (01:10→21:23)
[2016-12-23] MEDS: INSULIN REGULAR, HUMAN 100 UNIT/ML 3 ML VIAL SQ PRN ×3 (01:12→21:42)
[2016-12-23] MEDS: methylPREDNISolone SOD SUCC 125 MG/2ML VIAL IV SCH ×3 (05:56→21:23)
[2016-12-23 06:36] LABS: CALCIUM, SERUM 8.4 mg/dL (8.5-10.1); CREATININE 3.7 mg/dL (0.6-1.3); POTASSIUM 3.8 mmol/L (3.5-5.1)
--- NOTE | 2016-12-23 07:10 | NUR ---
RN NOTES RECEIVED PT ON BED , AOx2 , ON 7L O2 VIA SIMPLE MASK , NO SOB NOTED , JUAN MANUEL MIDLINE AND LEFT FEM CESAR CATH FOR HD ACCESS SITE CDI, NO DISTRESS NOTED, DENIES PAIN. CALL LIGHT WITHIN REACH, WILL CONT TO MONITOR PT CLOSELY AND NOTIFY MD FOR ANY SIGNIFICANT CHANGES.
[2016-12-23] MEDS: ACETYLCYSTEINE 10% SOLN 400 MG/4 ML VIAL NEB SCH ×3 (07:25→22:16)
[2016-12-23 08:00] VITALS: BP 140/90
[2016-12-23] MEDS: LEVOTHYROXINE SODIUM 175 MCG TABLET PO SCH (08:07)
[2016-12-23] MEDS: LACTOBACILLUS RHAMNOSUS GG 1 EACH CAP.SPRINK GT SCH ×2 (08:07→17:34)
[2016-12-23] MEDS: CALCIUM ACETATE 667 MG TABLET NG SCH ×3 (08:07→17:35)
[2016-12-23] MEDS: PANTOPRAZOLE 40 MG VIAL IV SCH (08:08)
[2016-12-23] MEDS: AMLODIPINE BESYLATE 5 MG TABLET PO SCH (08:08)
[2016-12-23] MEDS: APIXABAN 5 MG PO SCH (08:10)
[2016-12-23] MEDS: NEOMY SULF/BACITRAC ZN/POLY 15 GM TUBE TP SCH (08:10)
[2016-12-23] MEDS: Z GUARD REMEDY 2 OZ OINT TP PRN (08:10)
[2016-12-23] MEDS: INSULIN ASPART NOVOLOG 100 UNIT/ML CARTRIDGE SQ SCH ×3 (08:14→17:30)
[2016-12-23] MEDS: HYDROGEL DRESSING 90 GM TUBE TP SCH (09:20)
--- NOTE | 2016-12-23 11:30 | NUR ---
RN NOTES PT ALERT AND ORIENTED , SITTING UP ON THE BED , BLOOD GLUCOSE = 45 AND REPEATED BLOOD GLUCOSE 47. PT'S MOTHER REFUSING D50 IV AND GAVE PT CHOCOLATE BAR INSTEAD . EXPLAINED TO PT AN MOTHER HOW IMPORTANT IT IS TO BRING UP THE GLUCOSE IN THE BODY , PT MOTHER STILL REFUSING TO GIVE D50 IV , DR MURPHY NOTIFIED , CONTINUE TO MONITOR PT CLOSELY .
--- NOTE | 2016-12-23 12:08 | NUR ---
RN NOTES BG= 52 , PT SITTING UP AND WATCHING MOVIE , NO SIGN OF HYPOGLYCEMIA NOTED, PT'S MOTHER STILL REFUSING D50 IV , SHE WANTS TO WAIT 30 MINUTES AND HAVE BG RECHECKED, CONTINUE TO MONITOR PT CLOSELY .
[2016-12-23 16:00] VITALS: BP 143/93
--- NOTE | 2016-12-23 18:31 | NUR ---
RN NOTES PT STABLE , RESPIRATION EVEN AND UNLABORED , ON 7L O2 SIMPLE MASK, L UPPER ARM MIDLINE CDI, MEDICATED PER MD ORDER , NO SIGNIFICANT CHANGES NOTED ON THIS SHIFT .
--- NOTE | 2016-12-23 19:30 | NUR ---
MS RN INITIAL NOTE RECEIVED REPORT FROM RACHNA KHALIL. PT IN BED SITTING UP WATCHING A VIDEO ON HIS IPAD. A/A/O X2-3. LUNG SOUNDS RHONCHI, NRB MASK ON, SKIN ON FACE INTACT. BOWEL SOUNDS PRESENT. PULSES PRESENT IN ALL EXTREMITIES. IV PATENT AND INTACT. LEFT FEMORAL CESAR CATH INTACT, AWAITING DIALYSIS NURSE. BED IN LOW LOCKED POSITION. CALL LIGHT WITHIN REACH. SNACKS PROVIDED. WILL CONTINUE TO MONITOR.
[2016-12-23 20:00] VITALS: BP 164/92
[2016-12-23] MEDS: INSULIN DETEMIR 100 UNIT/ML CARTRIDGE SQ SCH (23:09)
[2016-12-24] MEDS: BLOOD SUGAR DIAGNOSTIC 1 EACH STRIP IN SCH ×6 (01:33→20:48)
[2016-12-24] MEDS: INSULIN REGULAR, HUMAN 100 UNIT/ML 3 ML VIAL SQ PRN ×3 (01:34→20:57)
[2016-12-24] MEDS: methylPREDNISolone SOD SUCC 125 MG/2ML VIAL IV SCH ×3 (05:15→20:49)
[2016-12-24] MEDS: ACETYLCYSTEINE 10% SOLN 400 MG/4 ML VIAL NEB SCH ×3 (07:22→22:51)
[2016-12-24] MEDS: INSULIN ASPART NOVOLOG 100 UNIT/ML CARTRIDGE SQ SCH ×3 (07:30→16:48)
[2016-12-24 08:00] VITALS: BP 169/107
[2016-12-24] MEDS: APIXABAN 5 MG PO SCH (08:09)
[2016-12-24] MEDS: CALCIUM ACETATE 667 MG TABLET NG SCH ×3 (08:09→17:01)
[2016-12-24] MEDS: LACTOBACILLUS RHAMNOSUS GG 1 EACH CAP.SPRINK GT SCH ×2 (08:09→17:01)
[2016-12-24] MEDS: LEVOTHYROXINE SODIUM 175 MCG TABLET PO SCH (08:09)
[2016-12-24] MEDS: PANTOPRAZOLE 40 MG VIAL IV SCH (08:09)
[2016-12-24] MEDS: AMLODIPINE BESYLATE 5 MG TABLET PO SCH (08:27)
[2016-12-24] MEDS: HYDROGEL DRESSING 90 GM TUBE TP PRN ×2 (08:28→08:29)
[2016-12-24] MEDS: NEOMY SULF/BACITRAC ZN/POLY 15 GM TUBE TP SCH (08:28)
[2016-12-24 08:32] VITALS: BP 157/98
--- NOTE | 2016-12-24 08:37 | NUR ---
RECEIVED PT. AWAKE ,ALERT ,SITTING ON BED MOTHER AT BEDSIDE,REFUSED PROTONIX AND BP MEDS TO BE GIVEN.
[2016-12-24] MEDS: HYDROGEL DRESSING 90 GM TUBE TP SCH (09:00)
[2016-12-24 11:03] LABS: HEMATOCRIT 25 % (39-51); MEAN CORPUSCULAR HEMOGLOBIN 29 PG (26.0-33.0); MEAN CORPUSCULAR HGB CONC 32 g/dl (31.0-36.0); MEAN CORPUSCULAR VOLUME 91 fL (80-96); PLATELET COUNT (AUTO) 249 /CMM (150-450); RDW COEFFICIENT OF VARIATION 24.5 (11.5-15.0); RED BLOOD CELL COUNT(AUTO) 2.78 MIL/uL (4.5-6.0)
[2016-12-24 12:00] VITALS: BP 133/82
[2016-12-24 12:20] LABS: BAND % (MANUAL) 2 % (0.0-5.0); LYMPHOCYTES % (MANUAL) 3 % (16-48); MONOCYTES % (MANUAL) 2 % (0-11.0); NEUTROPHILS % (MANUAL) 93 (42-76)
[2016-12-24 12:21] LABS: ANISOCYTOSIS 2+; HYPOCHROMASIA 1+; PLATELET ESTIMATE ADEQUATE
[2016-12-24 13:54] LABS: CALCIUM, SERUM 8.1 mg/dL (8.5-10.1); CREATININE 3.2 mg/dL (0.6-1.3); POTASSIUM 4.5 mmol/L (3.5-5.1)
--- NOTE | 2016-12-24 15:40 | NUR ---
MOTHER AT BEDSIDE REFUSING INSULIN COVERAGE ,MD AWARE.
[2016-12-24 16:46] VITALS: BP 149/98
--- NOTE | 2016-12-24 17:04 | NUR ---
pt. refused to have sugar checked again and refused insulin,md aware.
--- NOTE | 2016-12-24 18:27 | NUR ---
PT. REFUSED TO EAT DINNER.NO ACUTE DISTRESS.
--- NOTE | 2016-12-24 20:00 | NUR ---
RN NOTES RECEIVED PT ASLEEP ON BED. BREATHING EVEN AND UNLABORED. NO FACIAL COMPLAIN OF PAIN. AFEBRILE. ON O2 MASK AT 8LPM SATING 96% AOX 2 WHEN AWAKE. IV SITE ON JUAN MANUEL MIDLINE INTACT AND PATENT NO INFILTRATION SHOED WITH LEFT FEMORAL CESAR CATH WITH CLEANED AND DRY DRESSING. MOM REFUSED TO GIVE INSULIN PER SLIDING SCALE INSPITE OF HAVING BS > 200 WELL VS TO CHECKED. RISK AND BENEFITS EXPLAINED EDUCATED MOTHER REGARDING THE PLAN OF CARE. MOTHER AWARE AND DOESNT WANT SON TO BE BOTHER. KEPT PT CLEANED AND COMFORTABLE IN BED. WILL CONTINUE TO MONITOR.
[2016-12-24] MEDS: INSULIN DETEMIR 100 UNIT/ML CARTRIDGE SQ SCH (21:59)
[2016-12-25] MEDS: BLOOD SUGAR DIAGNOSTIC 1 EACH STRIP IN SCH ×6 (00:32→21:44)
[2016-12-25] MEDS: INSULIN REGULAR, HUMAN 100 UNIT/ML 3 ML VIAL SQ PRN ×3 (00:36→22:27)
[2016-12-25 04:00] VITALS: BP 130/101
[2016-12-25] MEDS: methylPREDNISolone SOD SUCC 125 MG/2ML VIAL IV SCH ×3 (05:21→21:44)
--- NOTE | 2016-12-25 06:32 | NUR ---
RN NOTES PT SITTING ON BED WATCHING ON HIS TABLET. AOX 2 COMPLIANT WITH CARE . CONTINUE ON O2 8LPM VIA MASK TOLERATED WELL. BREATHING EVEN AND UNLABORED. DENIES PAIN. AFEBRILE. IV SITE AND CESAR CATH REMAINED INTACT AND CLEANED. NO ASE FROM S/P DIALYSIS. NO S/S OF HYPO OR HYPERGLYCEMIA. INSULIN PER SLIDING SCALE REMAINED EFFECTIVE. PT LOVES TO EAT AND DRINK. ALL DUE MEDICINE ADMINISTERED AND TOLERATED WELL. NO ASE NOTED. ALL NEEDS ATTENDED. WILL ENDORSED CONTINUITY OF CARE TO AM NURSE.
[2016-12-25] MEDS: INSULIN ASPART NOVOLOG 100 UNIT/ML CARTRIDGE SQ SCH ×3 (07:30→17:51)
[2016-12-25 08:00] VITALS: BP 160/117
[2016-12-25] MEDS: ACETYLCYSTEINE 10% SOLN 400 MG/4 ML VIAL NEB SCH ×2 (08:02→15:26)
[2016-12-25] MEDS: LACTOBACILLUS RHAMNOSUS GG 1 EACH CAP.SPRINK GT SCH ×3 (09:00→17:48)
[2016-12-25] MEDS: HYDROGEL DRESSING 90 GM TUBE TP SCH (09:00)
[2016-12-25] MEDS: NEOMY SULF/BACITRAC ZN/POLY 15 GM TUBE TP SCH (09:00)
[2016-12-25] MEDS: AMLODIPINE BESYLATE 5 MG TABLET PO SCH ×2 (09:00→09:23)
[2016-12-25] MEDS: CALCIUM ACETATE 667 MG TABLET NG SCH ×3 (09:20→17:47)
[2016-12-25] MEDS: LEVOTHYROXINE SODIUM 175 MCG TABLET PO SCH (09:23)
[2016-12-25] MEDS: APIXABAN 5 MG PO SCH (09:23)
[2016-12-25] MEDS: PANTOPRAZOLE 40 MG VIAL IV SCH (09:25)
--- NOTE | 2016-12-25 10:25 | NUR ---
WOUND CARE FOLLOW UP: PT STANDING AT BEDSIDE WITH ADVERTISING ACCOUNT REPRESENTATIVE. ATTEMPTED SACRAL WOUND FOLLOW UP BUT PT'S MOTHER CAME INTO ROOM AND REFUSED TO HAVE WOUND ASSESSMENT COMPLETED. FROM BRIEF ASSESSMENT, SACRAL WOUND IS PINK WITH DRY APPEARANCE. RECOMMEND CONTINUE PRESENT WOUND TREATMENT WITH HYDROGEL, MEPILEX AND OFFLOADING. NURSING SEED LABORATORY TECHNICIAN STACEY CAME TO SPEAK WITH MOTHER IN HER LANGUAGE. PER NURSING SPVSR, PT'S MOTHER REFUSED TO ALLOW WOUND CARE CURRENTLY PRESCRIBED AND MOTHER STATED THAT SHE KNOWS HER SON'S BODY AND THAT SHE IS USING A "CREAM". SHE ALSO REFUSED TO HAVE LEFT ARM ASSESSED AND STATED SHE KNOW WHAT TO DO AND THAT SHE IS TAKING CARE OF IT. PATIENT IS ABLE TO MOVE ALL EXTREMITIES, ABLE TO MOVE AND STAND. WILL SEE PRN. DISCUSSED WITH NURSING STAFF. MD IN AGREEMENT WITH PLAN OF CARE.
--- NOTE | 2016-12-25 10:33 | NUR ---
12/25/16 0900 pt mother in the room, states she does not want pt to have insulin " she knows what is best for her pt." pt refused to take his morning medication, educated patient the importance of the medication and how his bp is high and the medicine will help. Pt still refused.
--- NOTE | 2016-12-25 15:31 | NUR ---
Pt's mom requested a verification of admission letter for immigration to [place] a temporary visa for pt's cousin Sidney Hernandez to come to [place] to assist in caring for the pt. SW typed letter and gave it to pt's mother Carolin Owens per her request.
[2016-12-25 16:00] VITALS: BP 153/102
[2016-12-25] MEDS: APIXABAN 2.5 MG TABLET PO SCH (17:48)
--- NOTE | 2016-12-25 17:52 | NUR ---
pt blood glucose was 294, order to get 10 units of novolog but pts family requsted he only get 3 units "10 units is to much and his sugar will fall to low".
[2016-12-25 20:00] VITALS: BP_SYST 169; BP_DIAS 115; BP_DIAS 45
--- NOTE | 2016-12-25 20:03 | NUR ---
MS RN RCD PT W/DX RESP FAIL; PT A/O x3; ABLE TO MAKE NEEDS KNOWN. ON O2 NC 6L SATURATION 100%; REMOVING NC ASKING FOR MASK. REINFORCED TO PT TO LEAVE NC ON. PT UPSET BUT WITH NC ON AT THIS TIME. JUAN MANUEL MIDLINE INTACT PATENT AND FLUSHING WELL. NO DISTRESS NOTED AT THIS TIME. BED LOCKED AND IN LOW POSITION. BED ALARM ON. CONTINUE TO MONITOR.
[2016-12-25] MEDS: INSULIN DETEMIR 100 UNIT/ML CARTRIDGE SQ SCH (21:45)
[2016-12-25] MEDS ORDERED: INSULIN REGULAR, HUMAN 100 UNIT/ML 10 ML VIAL ONE (22:19)
[2016-12-26] VITALS (7 sets, daily range): BP systolic 124–180; BP diastolic 70–117
[2016-12-26] MEDS: ACETYLCYSTEINE 10% SOLN 400 MG/4 ML VIAL NEB SCH ×4 (00:31→15:23)
[2016-12-26] MEDS: INSULIN REGULAR, HUMAN 100 UNIT/ML 3 ML VIAL SQ PRN ×2 (01:06→05:43)
[2016-12-26] MEDS: BLOOD SUGAR DIAGNOSTIC 1 EACH STRIP IN SCH ×6 (01:06→22:07)
[2016-12-26] MEDS: methylPREDNISolone SOD SUCC 125 MG/2ML VIAL IV SCH ×3 (05:43→17:22)
--- NOTE | 2016-12-26 05:51 | NUR ---
ASSISTANT FAMILY TEACHER - REC'D REPORT FROM YADIRA KHALIL AT 23:15 LAST NIGHT. PT. IS A&O X 3. HX OF DOWN'S SYNDROME. PT. KEEPS REPEATING HIMSELF FOR A RESP."MASK". PT.IS SATTING 99% ON O2/5L/NC, WHEN HE KEEPS IT ON. PT'S BS AT ONE AM WAS #305. PT.WAS COVERED W/16 UNITS OF REG. INSULIN. PT'S BS AT PRESENT IS #53. PT. WAS GIVEN A FEW JUICES & ONE JELLO. PT.HAS HD SCHEDULED FOR TODAY. ACCESS IS IN THE LEFT FEMORAL SITE. DOLORESE MIDLINE DL HAS BOTH PORTS PATENT TO FLUSH. WILL REPEAT BS AT 06:15AM. CONT. POC.
--- NOTE | 2016-12-26 06:42 | NUR ---
INVENTORY CONTROL ASSOCIATE - PT'S RECHECK FOR BLOOD SUGAR IS #92. CONT. TO MONITOR CLOSELY. CONT. POC.
[2016-12-26] MEDS: HYDROGEL DRESSING 90 GM TUBE TP SCH (08:23)
[2016-12-26] MEDS: AMLODIPINE BESYLATE 5 MG TABLET PO SCH (09:00)
[2016-12-26 09:15] LABS: ABG BASE EXCESS -7.2 mmol/L; ABG OXYGEN SATURATION 92.4 % (92.0-98.5); ABG PCO2 34.7 mmHg (35.0-45.0); ABG PH 7.332 (7.350-7.450); ABG PO2 76.7 mmHg (75.0-100.0); ABG TOTAL HEMOGLOBIN 7.4 G/dL (13.5-18.0); COHb 1.7 % (0.5-1.5); O2Hb 89.9 % (94.0-97.0); VENT MODE, BG NASAL CANNULA
--- NOTE | 2016-12-26 09:21 | NUR ---
VBG SAMPLE DRAWN BY REMI PETERS AND PROCESSED BY ME. VBG RESULTS REPORTED TO WITH NO CHANGES. NURSE AWARE.
[2016-12-26] MEDS: PANTOPRAZOLE 40 MG VIAL IV SCH (09:29)
[2016-12-26] MEDS: APIXABAN 2.5 MG TABLET PO SCH ×3 (09:30→17:23)
[2016-12-26] MEDS: LEVOTHYROXINE SODIUM 175 MCG TABLET PO SCH (09:30)
[2016-12-26] MEDS: LACTOBACILLUS RHAMNOSUS GG 1 EACH CAP.SPRINK GT SCH ×2 (09:30→17:22)
[2016-12-26] MEDS: CALCIUM ACETATE 667 MG TABLET NG SCH ×3 (09:30→17:28)
[2016-12-26] MEDS: NEOMY SULF/BACITRAC ZN/POLY 15 GM TUBE TP SCH (09:41)
[2016-12-26] MEDS: INSULIN ASPART NOVOLOG 100 UNIT/ML CARTRIDGE SQ SCH ×3 (09:44→17:34)
--- NOTE | 2016-12-26 10:47 | NUR ---
MS RN NOTE Pt resting in bed. Lethargic. BG=38. Mother at bedside refused to let RN give dextrose. Mom gave juice, recheck BG 56. Pt refusing am labs, wants to get it done with HD. Mom refused ACCOUNT CLASSIFICATION CLERK to check temp. BP 158/116, mom refused BP med, says pt's BP will go down during HD. Pt refusing NC, insists on keeping mask on at 5L. JUAN MANUEL midline patent. Had BM at [facility] w/ family assist. Will cont to monitor.
[2016-12-26] MEDS ORDERED: SECONDARY IV SET 1 EA INFUS.SET MC ONE (12:24)
[2016-12-26 12:55] LABS: EOSINOPHILS # (AUTO) 0.1 /CMM (0.0-0.7); EOSINOPHILS % (AUTO) 0.5 % (0.0-6.0); HEMATOCRIT 22 % (39-51); LYMPHOCYTES # (AUTO) 0.5 /CMM (0.8-4.8); LYMPHOCYTES % (AUTO) 3.2 % (20.0-44.0); MEAN CORPUSCULAR HEMOGLOBIN 28 PG (26.0-33.0); MEAN CORPUSCULAR HGB CONC 31 g/dl (31.0-36.0); MEAN CORPUSCULAR VOLUME 92 fL (80-96); MONOCYTES # (AUTO) 0.1 /CMM (0.1-1.30); MONOCYTES % (AUTO) 0.6 % (2.0-12.0); NEUTROPHILS # (AUTO) 14.4 /CMM (1.8-8.9); NEUTROPHILS % (AUTO) 95.7 % (43.0-81.0); PLATELET COUNT (AUTO) 234 /CMM (150-450); RED BLOOD CELL COUNT(AUTO) 2.43 MIL/uL (4.5-6.0)
[2016-12-26] MEDS: ALBUMIN 25% 25 GM in PREMIX 1 EA IV PRN (13:00)
[2016-12-26 13:01] LABS: HEMOGLOBIN 6.9 g/dL (13.5-17.5)
[2016-12-26 13:11] LABS: CALCIUM, SERUM 7.8 mg/dL (8.5-10.1); CREATININE 5.6 mg/dL (0.6-1.3); MAGNESIUM 2.2 mg/dL (1.8-2.4)
[2016-12-26 13:15] LABS: POTASSIUM 6.4 mmol/L (3.5-5.1)
[2016-12-26] MEDS ORDERED: BLOOD IV SET 1 EA INFUS.SET MC ONE (14:30)
[2016-12-26 14:46] LABS: ANISOCYTOSIS 1+; LYMPHOCYTES % (MANUAL) 5 % (16-48); MONOCYTES % (MANUAL) 1 % (0-11.0); NEUTROPHILS % (MANUAL) 94 (42-76); PLATELET ESTIMATE ADEQUATE
--- NOTE | 2016-12-26 14:54 | NUR ---
MS NOTE + CRITICAL LAB 1200 BG 86, held novolog. BP 99/51 during HD, albumin given by HD RN. Pt lethargic, pale, critical hgb=6.9, 1 unit infusing during HD. K=6.4, MD aware. Mom requested BG check at 1500, BG 111. Will cont to monitor.
--- NOTE | 2016-12-26 17:57 | NUR ---
MS RN NOTE Tolerated RBC with HD, 3L out. Refused mepilex dressing over sacral wound, hydrogel applied. Refused 0800 eliquis. Pt switches between NC and mask but prefers mask, despite attempts to keep NC on. 1800 BG 286. Will endorse to next RN.
--- NOTE | 2016-12-26 20:09 | NUR ---
RN NOTES. RECEIVED THE PT REST ON THE BED, AWAKE, ALERT, FOLLOW COMMANDS. OXYGEN 5 L VIA MASK. SAT 96 %. IV LT UPPER ARM PICC LINE. LT FA AV SHUNT. WILL CONTINUE TO MONITOR VITALS.
[2016-12-26] MEDS: INSULIN DETEMIR 100 UNIT/ML CARTRIDGE SQ SCH (22:09)
[2016-12-27] VITALS: BP 152/70
[2016-12-27] MEDS: BLOOD SUGAR DIAGNOSTIC 1 EACH STRIP IN SCH ×6 (00:34→21:35)
[2016-12-27] MEDS: ACETYLCYSTEINE 10% SOLN 400 MG/4 ML VIAL NEB SCH ×4 (01:35→23:26)
--- NOTE | 2016-12-27 02:51 | NUR ---
RN NOTE. AM CARE. ORAL CARE, BED BATH GIVEN. LINEN CHANGED. REMAINING MAGDA OXYGEN 5L VIA MASK. SAT 98%. LT UPPER ARM MID LINE. SALINE LOCK. WILL CONTINUE TO MONITOR VITALS.
[2016-12-27 04:00] VITALS: BP_SYST 146; BP_SYST 147; BP_DIAS 59; BP_DIAS 78
[2016-12-27] MEDS: INSULIN ASPART NOVOLOG 100 UNIT/ML CARTRIDGE SQ SCH ×3 (07:30→17:38)
[2016-12-27 08:00] VITALS: BP_SYST 167; BP_DIAS 120; BP_DIAS 136
[2016-12-27] MEDS: LEVOTHYROXINE SODIUM 175 MCG TABLET PO SCH (08:30)
[2016-12-27] MEDS: AMLODIPINE BESYLATE 5 MG TABLET PO SCH (08:37)
[2016-12-27] MEDS: HYDROGEL DRESSING 90 GM TUBE TP SCH (08:38)
[2016-12-27] MEDS: methylPREDNISolone SOD SUCC 125 MG/2ML VIAL IV SCH ×2 (08:44→17:28)
[2016-12-27] MEDS: PANTOPRAZOLE 40 MG VIAL IV SCH (08:44)
[2016-12-27] MEDS: APIXABAN 2.5 MG TABLET PO SCH ×2 (08:51→17:28)
[2016-12-27] MEDS: CALCIUM ACETATE 667 MG TABLET NG SCH ×3 (08:51→17:28)
[2016-12-27] MEDS: LACTOBACILLUS RHAMNOSUS GG 1 EACH CAP.SPRINK GT SCH ×2 (08:51→17:28)
[2016-12-27] MEDS: NEOMY SULF/BACITRAC ZN/POLY 15 GM TUBE TP SCH (08:56)
--- NOTE | 2016-12-27 10:00 | NUR ---
MS RN NOTE AOx2. On mask, pt switches from NC and mask. BMx1 in BSC w/ family assist. Family refused norvasc for BP 167/136 and refused novolog for BG 97. JUAN MANUEL midline and L femoral tonio cath. Will cont to monitor.
[2016-12-27 16:00] VITALS: BP 175/109
--- NOTE | 2016-12-27 18:20 | NUR ---
MS RN NOTE Will have HD today. Family refused novolog for BG 165, insulin given for 259. BP 175/109, family does not want meds, waiting for HD. Will endorse to next RN.
--- NOTE | 2016-12-27 19:30 | NUR ---
MS RN INITIAL NOTE PT IN BED WITH DIALYSIS NURSE AND MOTHER AT BEDSIDE. A/O X2-3 AND ABLE TO MAKE NEEDS KNOWN. PT ON 5L OF OXYGEN VIA FACE MASK, TOLERATING AND SATING WELL. IV JUAN MANUEL MIDLINE PATENT, CLEAN, DRY AND INTACT, FLUSHING WELL. LEFT FEMORAL CESAR CATH PATENT AND CLEAN. NO C/O PAIN AT THIS TIME. ALL SAFETY MEASURES IN PLACE. CALL LIGHT WITHIN REACH. WILL CONTINUE TO MONITOR.
[2016-12-27 20:00] VITALS: BP 180/112
[2016-12-27] MEDS ORDERED: hydrALAZINE HCL 10 MG TABLET PO ONE (21:30)
[2016-12-27] MEDS ORDERED: hydrALAZINE HCL 10 MG TABLET ONE (21:33)
[2016-12-27] MEDS: INSULIN DETEMIR 100 UNIT/ML CARTRIDGE SQ SCH (21:38)
[2016-12-27 22:18] LABS: EOSINOPHILS % (AUTO) 0.1 % (0.0-6.0); HEMATOCRIT 27 % (39-51); HEMOGLOBIN 8.9 g/dL (13.5-17.5); LYMPHOCYTES # (AUTO) 1.3 /CMM (0.8-4.8); LYMPHOCYTES % (AUTO) 8.9 % (20.0-44.0); MEAN CORPUSCULAR HEMOGLOBIN 29 PG (26.0-33.0); MEAN CORPUSCULAR HGB CONC 33 g/dl (31.0-36.0); MEAN CORPUSCULAR VOLUME 89 fL (80-96); MONOCYTES # (AUTO) 0.3 /CMM (0.1-1.30); MONOCYTES % (AUTO) 1.8 % (2.0-12.0); NEUTROPHILS # (AUTO) 13.5 /CMM (1.8-8.9); NEUTROPHILS % (AUTO) 89.2 % (43.0-81.0); PLATELET COUNT (AUTO) 240 /CMM (150-450); RDW COEFFICIENT OF VARIATION 23.8 (11.5-15.0); RED BLOOD CELL COUNT(AUTO) 3.06 MIL/uL (4.5-6.0); WHITE BLOOD COUNT (AUTO) 15.1 K/uL (4.3-11.0)
[2016-12-27 22:32] LABS: CALCIUM, SERUM 8.5 mg/dL (8.5-10.1); CREATININE 4.2 mg/dL (0.6-1.3); MAGNESIUM 2.1 mg/dL (1.8-2.4); PHOSPHORUS 5.7 mg/dL (2.5-4.9); POTASSIUM 5.3 mmol/L (3.5-5.1)
[2016-12-28] MEDS: BLOOD SUGAR DIAGNOSTIC 1 EACH STRIP IN SCH ×6 (01:00→17:00)
--- NOTE | 2016-12-28 01:17 | NUR ---
MS RN NOTES PATIENT WITH ACCU-CHECK Q4, NOTED WITH BLOOD SUGAR 320, PATIENT WITH NO SLIDING SCALE AT THIS TIME. INFORMED DR. SINGH WITH NEW ORDERS FOR MOD SLIDING SCALE Q4. WILL CONTINUE TO MONITOR.
[2016-12-28] MEDS: INSULIN REGULAR, HUMAN 100 UNIT/ML 3 ML VIAL SQ PRN ×2 (01:24→05:05)
[2016-12-28] MEDS ORDERED: DEXTROSE 50%-WATER 50 ML DISP.SYRIN IV PRN (01:30)
[2016-12-28 04:00] VITALS: BP 152/106
--- NOTE | 2016-12-28 06:30 | NUR ---
MS RN CLOSING NOTE PT REMAINED STABLE DURING SHIFT.5L OF O2 AND SATING WELL. NO C/O PAIN NOTED. IV SITE AND L FEMORAL CATH INTACT. CALL LIGHT WITHIN REACH AT ALL TIMES. WILL ENDORSE TO NEXT SHIFT FOR HENNA.
[2016-12-28] MEDS: ACETYLCYSTEINE 10% SOLN 400 MG/4 ML VIAL NEB SCH ×2 (07:07→15:48)
--- NOTE | 2016-12-28 07:24 | NUR ---
INITIAL NOTE patient sitting in bed, responding to name, able to verbalize simple needs in greenlandic. unable to determine if patient oriented to location. LOC appearing WNL. breathing even and unlabored with 5L o2 simple mask. RT at bed side. JUAN MANUEL midline patent with good blood return. R lung sounds diminished. L lung sounds clear. abd soft, distended, BS present. skin warm and dry. patient does not have complaints at this time, denies pain. discussed plan of care. mother not at bed side at this time. call light in reach.
[2016-12-28] MEDS: INSULIN ASPART NOVOLOG 100 UNIT/ML CARTRIDGE SQ SCH ×3 (07:30→17:30)
[2016-12-28 08:00] VITALS: BP 159/116
[2016-12-28] MEDS: LACTOBACILLUS RHAMNOSUS GG 1 EACH CAP.SPRINK GT SCH ×2 (08:53→17:00)
[2016-12-28] MEDS: CALCIUM ACETATE 667 MG TABLET NG SCH ×3 (08:53→17:48)
[2016-12-28] MEDS: LEVOTHYROXINE SODIUM 175 MCG TABLET PO SCH (08:53)
[2016-12-28] MEDS: AMLODIPINE BESYLATE 5 MG TABLET PO SCH (08:54)
[2016-12-28] MEDS: methylPREDNISolone SOD SUCC 125 MG/2ML VIAL IV SCH (08:55)
[2016-12-28] MEDS: PANTOPRAZOLE 40 MG VIAL IV SCH (08:55)
[2016-12-28] MEDS: HYDROGEL DRESSING 90 GM TUBE TP SCH (08:56)
[2016-12-28] MEDS: APIXABAN 2.5 MG TABLET PO SCH ×2 (09:00→17:00)
[2016-12-28] MEDS: NEOMY SULF/BACITRAC ZN/POLY 15 GM TUBE TP SCH (09:00)
--- NOTE | 2016-12-28 10:56 | NUR ---
rn note Dr. Zoraida Arias made aware of BP and BS this AM. Mariangel Kennedy saw patient and ordered to titrate O2 delivery system to NC as tolerated and physical therapy treatment.
[2016-12-28 11:44] LABS: EOSINOPHILS % (AUTO) 0.1 % (0.0-6.0); HEMATOCRIT 28 % (39-51); HEMOGLOBIN 8.9 g/dL (13.5-17.5); LYMPHOCYTES # (AUTO) 0.5 /CMM (0.8-4.8); LYMPHOCYTES % (AUTO) 3.6 % (20.0-44.0); MEAN CORPUSCULAR HEMOGLOBIN 29 PG (26.0-33.0); MEAN CORPUSCULAR HGB CONC 32 g/dl (31.0-36.0); MEAN CORPUSCULAR VOLUME 90 fL (80-96); MONOCYTES # (AUTO) 0.4 /CMM (0.1-1.30); MONOCYTES % (AUTO) 2.7 % (2.0-12.0); NEUTROPHILS # (AUTO) 13.3 /CMM (1.8-8.9); NEUTROPHILS % (AUTO) 93.6 % (43.0-81.0); PLATELET COUNT (AUTO) 241 /CMM (150-450); RDW COEFFICIENT OF VARIATION 24.2 (11.5-15.0); RED BLOOD CELL COUNT(AUTO) 3.07 MIL/uL (4.5-6.0); WHITE BLOOD COUNT (AUTO) 14.2 K/uL (4.3-11.0)
[2016-12-28] MEDS ORDERED: ALLA266C2 TP (11:55)
[2016-12-28] MEDS ORDERED: PANT40VI IV (11:55)
[2016-12-28] MEDS ORDERED: PRED10TA PO (11:55)
[2016-12-28] MEDS ORDERED: AMLO5TAB2 PO (11:55)
[2016-12-28] MEDS ORDERED: INSU100C4 SQ (11:55)
[2016-12-28] MEDS ORDERED: APIX2.5T PO (11:55)
[2016-12-28] MEDS ORDERED: PRED50TA PO (11:55)
[2016-12-28] MEDS ORDERED: ACET1OOV6 NEB (11:55)
[2016-12-28] MEDS ORDERED: PRED20TA GT (11:55)
[2016-12-28] MEDS ORDERED: Calcium Acetate NG (11:55)
[2016-12-28] MEDS ORDERED: INSU100I19 SQ (11:55)
[2016-12-28] MEDS ORDERED: ALBU2.5V13 NEB (11:56)
[2016-12-28 11:57] LABS: CALCIUM, SERUM 8.3 mg/dL (8.5-10.1); CREATININE 5.1 mg/dL (0.6-1.3); MAGNESIUM 2.2 mg/dL (1.8-2.4); PHOSPHORUS 7.1 mg/dL (2.5-4.9); POTASSIUM 5.4 mmol/L (3.5-5.1)
--- NOTE | 2016-12-28 11:57 | NUR ---
RN NOTES PATIENT REFUSING NASAL CANULA, CONTINUING SIMPLE MASK AT THIS TIME. WILL ATTEMPT AGAIN.
[2016-12-28 16:00] VITALS: BP 153/84
--- NOTE | 2016-12-28 17:52 | NUR ---
discharge note order for discharge acknowledged. prescriptions faxed to [facility] and confirmed all medication with dr. Conway. patient just got dialysis with 3L output, SBP 110 at this time. patient and mother refusing accucheck and all 1700 medication. PICC line removed 30 minutes before d/c, no bleeding at this time. patient tolerated procedure. mother verbalized understanding of going to HD clinic tomorrow. all paper work given and signed. all belongings confirmed with mother. mother confirms having O2 at home. supplied given. walker and commode given.
[2016-12-29] MEDS ORDERED: methylPREDNISolone SOD SUCC 125 MG/2ML VIAL IV SCH (09:00)
== END 2016-12-28 18:14 | disposition home or self-care (01) | DRG 207 ==
LOC: EDUNIT# 11:26 → ER 11:28 → ICU 13:35 → TELE1 12-16 16:02 → MEDSG1 12-17 11:41
PROVIDERS: ADMIT Family Medicine; ATTEND Family Medicine
PROC: 30233N1 Transfusion of Nonautologous Red Blood Cells into Peripheral Vein, Percutaneous Approach (ICD-10-PCS; 2016-11-30)
PROC: 5A09457 Assistance with Respiratory Ventilation, 24-96 Consecutive Hours, Continuous Positive Airway Pressure (ICD-10-PCS; 2016-12-03)
PROC: 0BH17EZ Insertion of Endotracheal Airway into Trachea, Via Natural or Artificial Opening (ICD-10-PCS; principal; 2016-12-04)
PROC: 5A1955Z Respiratory Ventilation, Greater than 96 Consecutive Hours (ICD-10-PCS; 2016-12-04)
PROC: 02HV33Z Insertion of Infusion Device into Superior Vena Cava, Percutaneous Approach (ICD-10-PCS; 2016-12-04)
PROC: B548ZZA Ultrasonography of Superior Vena Cava, Guidance (ICD-10-PCS; 2016-12-04)
PROC: 05H633Z Insertion of Infusion Device into Left Subclavian Vein, Percutaneous Approach (ICD-10-PCS; 2016-12-04)
PROC: 02HV33Z Insertion of Infusion Device into Superior Vena Cava, Percutaneous Approach (ICD-10-PCS; 2016-12-11)
PROC: 02PYX3Z Removal of Infusion Device from Great Vessel, External Approach (ICD-10-PCS; 2016-12-11)
PROC: B548ZZA Ultrasonography of Superior Vena Cava, Guidance (ICD-10-PCS; 2016-12-11)
PROC: 06HN33Z Insertion of Infusion Device into Left Femoral Vein, Percutaneous Approach (ICD-10-PCS; 2016-12-15)
PROC: B51CZZA Fluoroscopy of Left Lower Extremity Veins, Guidance (ICD-10-PCS; 2016-12-15)
PROC: 5A1D60Z (ICD-10-PCS; 2016-12-18)
DX: J96.01 Acute respiratory failure with hypoxia (principal); N18.6 End stage renal disease; J69.0 Pneumonitis due to inhalation of food and vomit; I50.33 Acute on chronic diastolic (congestive) heart failure; I13.2 Hypertensive heart and chronic kidney disease with heart failure and with stage 5 chronic kidney disease, or end stage renal disease; I31.3 Pericardial effusion (noninflammatory); E87.1 Hypo-osmolality and hyponatremia; J90 Pleural effusion, not elsewhere classified; E03.9 Hypothyroidism, unspecified; E10.22 Type 1 diabetes mellitus with diabetic chronic kidney disease; Q90.9 Down syndrome, unspecified; Z99.2 Dependence on renal dialysis; E10.65 Type 1 diabetes mellitus with hyperglycemia; Z79.4 Long term (current) use of insulin; J96.02 Acute respiratory failure with hypercapnia; E87.5 Hyperkalemia; D63.8 Anemia in other chronic diseases classified elsewhere; E10.649 Type 1 diabetes mellitus with hypoglycemia without coma; D69.6 Thrombocytopenia, unspecified; E78.1 Pure hyperglyceridemia; E83.39 Other disorders of phosphorus metabolism
CPT/HCPCS: 31720; 36415; 36600; 71010-TC; 71250-TC; 73550-TC; 76604-TC; 80048-TC; 80053-TC; 80076-TC; 80202-TC; 82962-TC; 83605-TC; 83735-TC; 83880; 84100-TC; 84478-TC; 84484-TC; 85025-TC; 85610-TC; 85730-TC; 86850-TC; 86921-TC; 87040-TC; 87070-TC; 87081-TC; 90935-TC; 92611-TC; 93307-TC; 93970-TC; 94002-TC; 94003-TC; 94760-TC; 94799-TC; A4216; A4606; A4624; A6248; A6402; A6403; C1750; C1751; C1769; C9113; J0885; J1644; J1815; J2060; J2185; J2250; J2270; J2370; J2405; J2704; J2930; J3010; J3370; J3490; J7040; J7050; J7060; P9016-BL; P9047; Z7610

== ENCOUNTER 2017-03-12 06:57 | Inpatient (IN) | payer BC ==
[~2017-03-12] VITALS: Ht 152.4 cm; Wt 59.9 kg
[~2017-03-12 06:57] MED LIST changes: +ACET1OOV6 NEB; +ALBU2.5V13 NEB; +ALLA266C2 TP; +AMLO5TAB2 PO; +APIX2.5T PO; +Calcium Acetate NG; +INSU100C4 SQ; +INSU100I19 SQ; -INSU100V3 SQ; +PANT40VI IV; +PRED10TA PO; +PRED20TA GT; +PRED50TA PO
--- NOTE | 2017-03-12 06:57 | NUR ---
PT BIB HIS MOTHER WITH A C/O DIARRHEA SINCE YESTERDAY. PT APPEARS PALE AND IS ASKING FOR O2. RESP EVEN AND UNLABORED. PT'S FINGERNAILS AND TOENAILS APPEAR CYANOTIC. DR. PAYTON IS AT THE BEDSIDE EVALUATING THE PT.
--- NOTE | 2017-03-12 07:05 | NUR ---
PT'S MOTHER STATED THAT THE PT USUALLY IS ON 5L O2 VIA FACE MASK AT HOME. PT PLACED ON 5L O2 VIA MASK. PT IS SATURATING AT 100%.
--- NOTE | 2017-03-12 07:29 | NUR ---
PT AND PT'S MOTHER REFUSED IV INSERTION. DR. PAYTON IS AWARE. CLOSING MACHINE OPERATOR IS AT THE BEDSIDE FOR BLOOD DRAW.
[2017-03-12] MEDS ORDERED: ONDANSETRON HCL/PF 4 MG/2 ML VIAL IVP ONE (07:30)
--- NOTE | 2017-03-12 07:37 | NUR ---
BLOOD DRAW DONE AT THE BEDSIDE. BLOOD CULTURES X2 DRAWN.
[2017-03-12] MEDS ORDERED: INSU100V3 SQ (07:41)
--- NOTE | 2017-03-12 07:41 | NUR ---
PT'S MOTHER REFUSED ZOFRAN. DR. PAYTON NOTIFIED.
[2017-03-12 07:47] LABS: HEMATOCRIT 33 % (39-51); HEMOGLOBIN 10.1 g/dL (13.5-17.5); MEAN CORPUSCULAR HEMOGLOBIN 26 PG (26.0-33.0); MEAN CORPUSCULAR HGB CONC 31 g/dl (31.0-36.0); MEAN CORPUSCULAR VOLUME 84 fL (80-96); PLATELET COUNT (AUTO) 214 /CMM (150-450); RDW COEFFICIENT OF VARIATION 21.4 (11.5-15.0); WHITE BLOOD COUNT (AUTO) 8.7 K/uL (4.3-11.0)
--- NOTE | 2017-03-12 08:03 | NUR ---
[facility]
[2017-03-12 08:06] LABS: TROPONIN I 0.05 ng/mL (0.00-0.056)
[2017-03-12 08:13] LABS: ALBUMIN 2.9 g/dL (3.4-5.0); BILIRUBIN,DIRECT 0.1 mg/dL (0.0-0.2); BILIRUBIN,TOTAL 0.4 mg/dL (0.2-1.0); CALCIUM, SERUM 9.2 mg/dL (8.5-10.1); TOTAL PROTEIN, SERUM 7.9 g/dL (6.4-8.2)
--- NOTE | 2017-03-12 08:13 | NUR ---
CALLED [facility] DR KYLAH FLORES NURSE OBGYN PAGED
[2017-03-12 08:15] LABS: CREATININE 12.5 mg/dL (0.6-1.3); POTASSIUM 6.4 mmol/L (3.5-5.1)
--- NOTE | 2017-03-12 08:53 | NUR ---
CALLING REPORT TO REMI MONTEZ
[2017-03-12 09:13] LABS: LYMPHOCYTES % (MANUAL) 13 % (16-48); MONOCYTES % (MANUAL) 7 % (0-11.0); NEUTROPHILS % (MANUAL) 80 (42-76)
[2017-03-12 09:15] VITALS: BP_SYST 112; BP_DIAS 61; BP_DIAS 68
--- NOTE | 2017-03-12 09:15 | NUR ---
RN NOTES RECEIVED PT FROM ER IN ROOM 118-1, PT IS A/Ox3, RESPIRATION EVEN AND UNLABORED, ON 5L SIMPLE MASK O2 SAT 97%. LEFT GROIN HD CATH CDI, PT'S MOM REFUSED TELE MONITOR PLACEMENT AND REFUSE SKIN ASSESSMENT AND IV AT THIS TIME , EXPLAINED TO MOM THE IMPORTANCE OF MONITOR PT'S HEART RHYTHM , MOM STILL REFUSING , SR UP x3, CALL LIGHT WITHIN EASY REACH , CONTINUE TO MONITOR PT CLOSELY AND NOTIFY MD FOR ANY SIGNIFICANT CHANGES .
--- NOTE | 2017-03-12 11:10 | NUR ---
RN NOTES DISCHARGE INSTRUCTION GIVEN TO PT , VERBALIZES UNDERSTANDING, PT REFUSED SKIN ASSESSMENT , NO APPARENT SKIN ISSUES NOTED, IV SITE D/ED, PER DISCHARGE ORDER, PT PATRICIA ANY DISTRESS, PT LEFT THE FLOOR TO MAIN ENTRANCE ACCOMPANIED BY STAFF MEMBERS IN STABLE CONDITION .TAXI ORDERED BY CLINICAL SUPPORT MANAGER. Addendum: 03/12/17 at 1116 by RACHNA VERDUGO RN PLEASE DISREGARD ABOVE CHARTING , WRONG PT .
[2017-03-12 12:00] VITALS: BP_SYST 121; BP_SYST 97; BP_DIAS 41; BP_DIAS 57
[2017-03-12] MEDS ORDERED: DEXTROSE 50%-WATER 50 ML DISP.SYRIN IV PRN (12:30)
[2017-03-12] MEDS: SEVELAMER CARBONATE 800 MG TABLET PO SCH ×2 (13:14→17:22)
[2017-03-12] MEDS: INSULIN REGULAR, HUMAN 100 UNIT/ML 3 ML VIAL SQ PRN ×2 (13:22→16:24)
--- NOTE | 2017-03-12 13:27 | NUR ---
RN NOTES JI=572 , NO HYPERGLYCEMIC SIGN AND SYMPTOM NOTED, 20 UNITS OF HUMULIN R GIVEN PER PROTOCOL DR SANDRA GRACE , CONTINUE TO MONITOR PT CLOSELY.
--- NOTE | 2017-03-12 14:00 | NUR ---
RN NOTES PT'S MOM REFUSED GLUCOSE BLOOD DRAWING .
--- NOTE | 2017-03-12 14:15 | NUR ---
RN NOTES DR FLORES PAGED TO BE NOTIFY REGARDING HIGH BG, NO RETURN CALL .
--- NOTE | 2017-03-12 14:30 | NUR ---
RN NOTES MOM REFUSED TO REPEAT ACCU CHECK AFTER THE SLIDING SCALE COVERAGE GIVEN .
[2017-03-12] MEDS ORDERED: IV NS 0.9% 1,000 ML ONE (14:53)
[2017-03-12 16:00] VITALS: BP 140/51
--- NOTE | 2017-03-12 16:00 | NUR ---
RN NOTES MOM BRINGS FOOD FROM HOME, EDUCATED MOM REGARDING 1800 DIABETIC DIET . MOM STILL WANT TO GIVE PT APPLE JUICE AND FOOD FROM HOME .
--- NOTE | 2017-03-12 16:10 | NUR ---
RN NOTES BG= 436 , MOM REFUSED INSULIN SLIDING FOR BG= 436. MOM IS VERY ANXIOUS AND WANT TO GO HOME AND BRING INSULIN FROM HOME, GONZALEZ .
--- NOTE | 2017-03-12 16:20 | NUR ---
RN NOTES STAT GLUCOSE LEVEL ORDERED ,MOM REFUSED GLUCOSE LEVEL DRAWING .
[2017-03-12] MEDS ORDERED: HEPARIN SODIUM, PORCINE 5000 UNITS/1 ML VIAL IV ONE (16:30)
[2017-03-12] MEDS ORDERED: INSULIN REGULAR, HUMAN 100 UNIT/ML 3 ML VIAL SQ SCH (17:00)
[2017-03-12] MEDS: BLOOD SUGAR DIAGNOSTIC 1 EACH STRIP IN SCH ×2 (17:04→21:32)
--- NOTE | 2017-03-12 17:18 | NUR ---
RN NOTES N NO RETUNE CALL FROM DR SANJAY MESA AGAIN REGARDING HIGH BG
--- NOTE | 2017-03-12 17:50 | NUR ---
RN NOTES DR WEST CALLED BACK NOTIFIED REGARDING HIGH BLOOD GLUCOSE ,NEW ORDER GIVEN .
[2017-03-12] MEDS ORDERED: INSULIN DETEMIR 100 UNIT/ML CARTRIDGE SQ ONE (18:00)
[2017-03-12] MEDS: INSULIN LISPRO/ASPART 100 UNIT/ML CARTRIDGE SQ SCH (18:06)
--- NOTE | 2017-03-12 18:46 | NUR ---
RN NOTES PT REFUSED TO HAVE BLOOD GLUCOSE RECHECKED .
--- NOTE | 2017-03-12 18:48 | NUR ---
RN NOTES PT SITTING UP ON THE BED , SR UPx3, BED ALARM ON , NO DISTRESS NOTED .
--- NOTE | 2017-03-12 19:40 | NUR ---
RN OPENING NOTES; RECEIVED PT SITTING ON BED, AWAKE AND VERBALLY RESPONSIVE. PATIENT NOTED TO BE IRRITABLE AT THIS TIME, WHEN INTRODUCED SELF TO PATIENT HE RESPONDED "GET OUT!" INFORMED PATIENT TO ASK FOR HELP IF NEEDED, AND CALL LIGHT WITHIN REACH. ON SIMPLE FACE MASK AT 5 LPM, TOLERATED WELL. NO IV ACCESS AT THIS TIME. PATIENT'S SISTER ARRIVED AT BEDSIDE. PATIENT NOT COMPLAINTS OF PAIN. TO CONTINUE TO MONITOR PATIENT.
[2017-03-12 20:00] VITALS: BP 123/69
[2017-03-12] MEDS: INSULIN DETEMIR 100 UNIT/ML CARTRIDGE SQ SCH (21:33)
[2017-03-13 04:00] VITALS: BP 119/74
[2017-03-13] MEDS: BLOOD SUGAR DIAGNOSTIC 1 EACH STRIP IN SCH ×5 (06:35→22:01)
--- NOTE | 2017-03-13 07:25 | NUR ---
RN INITIAL NOTES: Rec'd pt sitting on bed, not in any distress. Pt on simple face mask, O2 at 5lpm, no SOB noted. Pt has L femoral HD cath, intact. No IV line access noted, pt and mother refused. VS refused to be taken as well, mother at bedside said to check later. Provided comfort & safety measures. Call light placed w/in reach. Bed kept low & in locked position. Needs attended. Will continue to monitor.
--- NOTE | 2017-03-13 07:25 | NUR ---
RN INITIAL NOTES: Rec'd pt sitting on bed, not in any distress. Pt on simple face mask, O2 at 5lpm,
[2017-03-13] MEDS: SEVELAMER CARBONATE 800 MG TABLET PO SCH ×3 (08:18→18:21)
[2017-03-13] MEDS: LEVOTHYROXINE SODIUM 175 MCG TABLET PO SCH (08:18)
[2017-03-13] MEDS: INSULIN LISPRO/ASPART 100 UNIT/ML CARTRIDGE SQ SCH ×2 (09:00→16:28)
--- NOTE | 2017-03-13 09:00 | NUR ---
RN NOTES: Pt due for Insulin medication Humalog 10 units, as per pt's mother hold it for now and check blood sugar at 12pm. Risks explained but mother strongly refused.
--- NOTE | 2017-03-13 10:58 | NUR ---
WOUND CONSULT PATIENT AND PATIENT'S MOM REFUSED SKIN ASSESSMENT BY RETAIL PRODUCT DEMO SPECIALIST. WILL SEE NEEDED PATIENT'S MOM ALLOWS. PATIENT WITH CURRENT ROSLYN AT 19. PATIENT AND PATIENT'S MOM HAVE ALSO BEEN REFUSING SKIN ASSESSMENTS BY NURSING WELL.
[2017-03-13] MEDS: INSULIN REGULAR, HUMAN 100 UNIT/ML 3 ML VIAL SQ PRN ×2 (11:22→11:43)
[2017-03-13 12:00] VITALS: BP 106/72
[2017-03-13] MEDS ORDERED: VANCOMYCIN HCL 250 MG CAPSULE PO SCH (12:00)
--- NOTE | 2017-03-13 12:00 | NUR ---
RN NOTES: Accucheck 144 mg/dl, mother refused to give insulin. She said his blood sugar is okay. Risk & benefits explained but still refused.
[2017-03-13] MEDS ORDERED: IV NS 0.9% 1,000 ML ONE ×2 (12:43→14:20)
[2017-03-13] MEDS: VANCOMYCIN HCL 125 MG/2.5 ML ORAL.SUSP PO SCH ×3 (13:15→23:11)
[2017-03-13 14:38] LABS: HEMATOCRIT 32 % (39-51); HEMOGLOBIN 9.8 g/dL (13.5-17.5); MEAN CORPUSCULAR HEMOGLOBIN 25 PG (26.0-33.0); MEAN CORPUSCULAR HGB CONC 30 g/dl (31.0-36.0); MEAN CORPUSCULAR VOLUME 84 fL (80-96); PLATELET COUNT (AUTO) 211 /CMM (150-450); RDW COEFFICIENT OF VARIATION 21.4 (11.5-15.0); RED BLOOD CELL COUNT(AUTO) 3.86 MIL/uL (4.5-6.0); WHITE BLOOD COUNT (AUTO) 7.4 K/uL (4.3-11.0)
[2017-03-13 14:49] LABS: CALCIUM, SERUM 8.5 mg/dL (8.5-10.1)
[2017-03-13 15:10] LABS: CREATININE 11.4 mg/dL (0.6-1.3); POTASSIUM 6.4 mmol/L (3.5-5.1)
[2017-03-13 15:54] LABS: EOSINOPHILS % (MANUAL) 1 % (0-4); LYMPHOCYTES % (MANUAL) 7 % (16-48); MONOCYTES % (MANUAL) 4 % (0-11.0); NEUTROPHILS % (MANUAL) 88 (42-76)
--- NOTE | 2017-03-13 19:37 | NUR ---
RN CLOSING NOTES: No acute changes noted w/in shift. No SOB while on simple face mask, O2 at 5lpm. L femoral HD cath, intact but as per Lary, MISSY RN cath is not in good condition, Dr. Lopez is aware. Pt tolerated HD 2 L output. As per Lary, is also aware of current lab result. Pt's mother refused to take VS at 1600H. Kept well rested. Needs attended. Call light placed w/in reach. Bed kept low & in locked position. Endorsed to PM RN for HENNA.
--- NOTE | 2017-03-13 19:40 | NUR ---
MS RN INITIAL NOTE RECEIVED PT IN BED WITH SISTER AT BEDSIDE. A/O X3 AND FAROESE SPEAKING. ON 5L OF O2 VIA FACE MASK AND SATING WELL WITH NO ACUTE DISTRESS NOTED AT THIS TIME. L FEMORAL HD CATH IN PLACE AND CLEAN. NO C/O PAIN OR DISCOMFORT NOTED AT THIS TIME. CALL LIGHT WITHIN EASY REACH AT ALL TIMES. WILL CONTINUE TO MONITOR.
[2017-03-13 19:57] LABS: THYROID STIMULATING HORMONE 15.974 uIU/mL (0.358-3.74)
[2017-03-13 20:00] VITALS: BP 144/74
[2017-03-13 20:27] VITALS: BP 144/74
[2017-03-13] MEDS: INSULIN DETEMIR 100 UNIT/ML CARTRIDGE SQ SCH (22:05)
[2017-03-13] MEDS: *INSULIN REGULAR(HUMULIN R)HUM 100 UNIT/ML VIAL SQ PRN (23:07)
[2017-03-14] MEDS ORDERED: INSULIN REGULAR, HUMAN 100 UNIT/ML 3 ML VIAL IV ONE
[2017-03-14] MEDS ORDERED: INSULIN REGULAR, HUMAN 100 UNIT/ML 3 ML VIAL SQ ONE (00:30)
--- NOTE | 2017-03-14 00:57 | NUR ---
MS RN NOTE BLOOD SUGAR 410 AND GAVE 12 UNITS OF LEVEMIR. RECHECKED IN HALF AN HOUR AT 425 AND GAVE 10UNITS OF REGULAR INSULIN. NOTIFIED MD GRANDE AND ORDERED 12UNITS REGULAR INSULIN IV PUSH ONE TIME BUT PT DOES NOT HAVE IV ACCESS AND ORDER WAS DISCONTINUED AND NOT GIVEN. ORDERED 12UNITS OF REGULAR INSULIN SQ ONE TIME WITH BLOOD SUGAR AT 358. ORDERS READ BACK AND VERIFIED. ORDERS NOTED AND CARRIED OUT. WILL CONTINUE TO MONITOR.
[2017-03-14 04:00] VITALS: BP 109/74
[2017-03-14] MEDS: VANCOMYCIN HCL 125 MG/2.5 ML ORAL.SUSP PO SCH ×3 (05:59→17:32)
[2017-03-14] MEDS: LEVOTHYROXINE SODIUM 175 MCG TABLET PO SCH (06:37)
[2017-03-14] MEDS: BLOOD SUGAR DIAGNOSTIC 1 EACH STRIP IN SCH ×4 (06:37→22:03)
--- NOTE | 2017-03-14 07:00 | NUR ---
RN NOTE RECEIVED PT ON BED, A/O X3 , RESPIRATION EVEN AND UNLABORED, ON 5L OF O2 VIA FACE MASK , NO SOB NOTED, PATRICIA ANY PAIN , L FEMORAL HD CATH IN PLACE AND CLEAN. SR UP x3, CALL LIGHT WITHIN EASY REACH AT ALL TIMES. WILL CONTINUE TO MONITOR PT CLOSELY AND NOTIFY MD FOR ANY SIGNIFICANT CHANGES .
--- NOTE | 2017-03-14 07:01 | NUR ---
MS RN CLOSING NOTE PT REMAINED STABLE DURING SHIFT. BLOOD SUGAR 75 THIS AM. 5L OF O2 VIA FACE MASK WELL TOLERATED. CALL LIGHT WITHIN EASY REACH AT ALL TIMES. WILL ENDORSE TO NEXT SHIFT FOR HENNA.
[2017-03-14 08:00] VITALS: BP 129/68
[2017-03-14] MEDS: SEVELAMER CARBONATE 800 MG TABLET PO SCH ×3 (08:11→17:32)
[2017-03-14] MEDS: INSULIN LISPRO/ASPART 100 UNIT/ML CARTRIDGE SQ SCH ×2 (09:00→17:35)
--- NOTE | 2017-03-14 11:10 | NUR ---
RN NOTES BG=55. PT SITTING UP ON THE BED , WATCHING MOVIES , PATRICIA ANY S/S OF HYPOGLYCEMIA , MOM REFUSED IV , 2 BOX OF APPLE JUICE GIVEN , CONTINUE TO MONITOR PT CLOSELY AND REPEAT BG .
--- NOTE | 2017-03-14 11:39 | NUR ---
RN NOTES OV=637, PT STILL WATCHING MOVIES, NO DISTRESS NOTED, CONTINUE TO MONITOR. MOM AT THE BEDSIDE ,
[2017-03-14 16:00] VITALS: BP 127/72
[2017-03-14] MEDS ORDERED: ALTEPLASE CATHFLO 2 MG/VIAL XX ONE (17:00)
[2017-03-14] MEDS: INSULIN REGULAR, HUMAN 100 UNIT/ML 3 ML VIAL SQ PRN (17:37)
--- NOTE | 2017-03-14 18:52 | NUR ---
RN NOTES PT STABLE ,MEDICATED PER MD ORDER , ON 5L 02 FACE MASK, VSS STABLE , RESPIRATION EVEN AND UNLABORED . NO SIGNIFICANT CHANGES NOTED ON THIS SHIFT
--- NOTE | 2017-03-14 19:25 | NUR ---
RN OPEN NOTES RECEIVED PATIENT AWAKE IN BED. A/O X3. NO SIGNS OF DISTRESS OR DISCOMFORT. BREATHING EVEN AND UNLABORED. ON 5LPM O2 VIA FACE MASK. PATIENT DOES NOT HAVE IV ACCESS AT THIS TIME DUE TO MOTHERS REFUSAL. HAS L FEM HD CATH. BED IN LOW LOCKED POSITION WITH SIDE RAILS X3. CALL LIGHT WITHIN REACH. WILL CONTINUE TO MONITOR.
[2017-03-14 20:00] VITALS: BP 143/73
[2017-03-14] MEDS: INSULIN DETEMIR 100 UNIT/ML CARTRIDGE SQ SCH (22:00)
--- NOTE | 2017-03-15 00:30 | NUR ---
RN NOTES PATIENT REFUSED TO BE GIVEN VANCOMYCIN 5ML PO X3. PATIENT EDUCATION REINFORCED. WILL CONTINUE TO MONITOR.
[2017-03-15 04:00] VITALS: BP 128/81
--- NOTE | 2017-03-15 04:45 | NUR ---
RN NOTES PATIENT BS 55. PATIENT DOES NOT HAVE IV ACCESS, GIVEN APPLE JUICE WITH SUGAR. NO S/S OF HYPOGLYCEMIA. WILL CONTINUE TO MONITOR.
--- NOTE | 2017-03-15 05:20 | NUR ---
RN NOTES RECHECK BS 118. NO S/S OF HYPOGLYCEMIA. WILL CONTINUE TO MONITOR.
[2017-03-15 05:34] VITALS: BP 139/69
[2017-03-15] MEDS: VANCOMYCIN HCL 125 MG/2.5 ML ORAL.SUSP PO SCH ×6 (06:00→23:57)
[2017-03-15] MEDS: BLOOD SUGAR DIAGNOSTIC 1 EACH STRIP IN SCH ×4 (06:22→21:25)
--- NOTE | 2017-03-15 06:23 | NUR ---
RN NOTES PATIENT REFUSED TO BE GIVEN VANCOMYCIN 5ML PO X3. PATIENT EDUCATION REINFORCED. WILL CONTINUE TO MONITOR.
--- NOTE | 2017-03-15 07:04 | NUR ---
RN CLOSING NOTES PATIENT RESTING IN BED WITH FAMILY AT BEDSIDE. A/O X3. NO SIGNS OF DISTRESS OR DISCOMFORT. BREATHING EVEN AND UNLABORED. ON 5LPM O2 VIA FACE MASK. PATIENT DOES NOT HAVE IV ACCESS AT THIS TIME DUE TO MOTHERS REFUSAL. HAS L FEM HD CATH. NO SIGNIFICANT CHANGES THROUGH THE NIGHT. ALL NEEDS MET. BED IN LOW LOCKED POSITION WITH SIDE RAILS X3. CALL LIGHT WITHIN REACH. WILL ENDORSE TO AM SHIFT FOR HENNA.
[2017-03-15 08:00] VITALS: BP 118/78
[2017-03-15] MEDS: INSULIN LISPRO/ASPART 100 UNIT/ML CARTRIDGE SQ SCH ×2 (09:00→17:00)
[2017-03-15] MEDS: SEVELAMER CARBONATE 800 MG TABLET PO SCH ×3 (09:26→18:00)
[2017-03-15] MEDS: LEVOTHYROXINE SODIUM 175 MCG TABLET PO SCH (09:26)
[2017-03-15 10:21] LABS: BASOPHILS # (AUTO) 0.1 /CMM (0.0-0.2); BASOPHILS % (AUTO) 0.9 % (0.0-2.0); HEMATOCRIT 35 % (39-51); HEMOGLOBIN 10.7 g/dL (13.5-17.5); LYMPHOCYTES # (AUTO) 0.7 /CMM (0.8-4.8); MEAN CORPUSCULAR HEMOGLOBIN 25 PG (26.0-33.0); MEAN CORPUSCULAR HGB CONC 31 g/dl (31.0-36.0); MEAN CORPUSCULAR VOLUME 82 fL (80-96); MONOCYTES # (AUTO) 0.7 /CMM (0.1-1.30); MONOCYTES % (AUTO) 11.3 % (2.0-12.0); NEUTROPHILS # (AUTO) 4.6 /CMM (1.8-8.9); NEUTROPHILS % (AUTO) 75.8 % (43.0-81.0); PLATELET COUNT (AUTO) 217 /CMM (150-450); RDW COEFFICIENT OF VARIATION 21.3 (11.5-15.0); RED BLOOD CELL COUNT(AUTO) 4.22 MIL/uL (4.5-6.0); WHITE BLOOD COUNT (AUTO) 6.1 K/uL (4.3-11.0)
[2017-03-15 10:28] LABS: CALCIUM, SERUM 8.7 mg/dL (8.5-10.1); CREATININE 6.3 mg/dL (0.6-1.3); MAGNESIUM 2.3 mg/dL (1.8-2.4); PHOSPHORUS 5.4 mg/dL (2.5-4.9); POTASSIUM 3.1 mmol/L (3.5-5.1)
[2017-03-15 10:42] LABS: INR 1.01 (0.87-1.13); PROTHROMBIN TIME 10.8 SECS (9.5-12.7)
[2017-03-15] MEDS: INSULIN REGULAR, HUMAN 100 UNIT/ML 3 ML VIAL SQ PRN (12:20)
--- NOTE | 2017-03-15 15:00 | NUR ---
RN NOTES PT WENT TO OR FOR VASCULAR /HD CATHETER REPLACEMENT WITH MOTHER AT THE BEDSIDE.
[2017-03-15] MEDS ORDERED: HEPARIN SODIUM, PORCINE 1,000 UNIT/ML VIAL ONE ×2 (16:24→17:37)
[2017-03-15] MEDS ORDERED: LIDOCAINE HCL/PF 1% 30 ML SDV ONE (16:25)
[2017-03-15] MEDS ORDERED: HEMOSTATIC MATRIX 10 ML 1 EACH PAD MC ONE (16:25)
[2017-03-15] MEDS ORDERED: GELATIN SPONGE,ABSORBABLE 1 EA SPONGE TP ONE (16:25)
[2017-03-15] MEDS ORDERED: CELLULOSE,OXIDIZED 1 EACH EACH MC ONE ×2 (16:26→16:29)
[2017-03-15] MEDS ORDERED: CELLULOSE,OXIDIZED 1 PKT EACH MC ONE ×3 (16:29→18:17)
[2017-03-15] MEDS ORDERED: FENTANYL PF 100MCG/2ML AMPUL ONE (17:30)
[2017-03-15] MEDS ORDERED: THROMBIN (BOVINE) 5,000 UNITS VIAL TP ONE (17:39)
[2017-03-15] MEDS ORDERED: BUPIVACAINE 0.5 % PF 150 MG/30 ML VIAL ONE (17:50)
[2017-03-15] MEDS ORDERED: PAPAVERINE HCL 30 MG/ML 10 MLVIAL IV ONE ×2 (18:00)
[2017-03-15 20:00] VITALS: BP 109/53
[2017-03-15] MEDS: HYDROCODONE/APAP 5/325MG 1 EACH TABLET PO PRN (20:12)
--- NOTE | 2017-03-15 20:15 | NUR ---
PT CAME FROM PACU S/P LEFT ARM AV FISTULA CREATION WITH RAUL IN PLACE EMPTIED 15CC BLOODY DRAINAGE, ,LEFT FEMORAL HD CATHETER INTACT, RIGHT FOOR 20G IV ACCESS.FAMILY WANTED TO KEEP OXYGEN .SPO2 99%. PT ARRIVED TO FLOOR CRYING AND AGITATED, IN PAIN TRYING TO PULL OUT RAUL, DRESSING REINFORCED WITH KERLIX, SITE WITH BRUIT.GIVEN NORCO AT THIS TIME AND CALLED DR. FLORES FOR STRONGER PAIN MEDS.MOTHER AND SISTER AT BEDSIDE.VSS,AFEBRILE
[2017-03-15] MEDS: MORPHINE SULFATE INJ 2 MG/ML DISP.SYRIN IV PRN (21:39)
[2017-03-15] MEDS: INSULIN DETEMIR 100 UNIT/ML CARTRIDGE SQ SCH (21:40)
[2017-03-15] MEDS: *INSULIN REGULAR(HUMULIN R)HUM 100 UNIT/ML VIAL SQ PRN (21:42)
--- NOTE | 2017-03-15 22:44 | NUR ---
GOT ORDER FOR MORPHINE AND GIVEN. ACCUCHECK IS 456MG/DL, MADE AWARE NO ADDITIONAL ORDER GIVEN SLIDING SCALE OF 10 UNITS INSULIN. AND HIS LEVEMIR TONIGHT. RESTING AT THIS TIME LEFT ARM ELEVATED WITH PILLOWS, SISTER LEFT AND MOTHER IS COMING.
[2017-03-15] MEDS: ANCEF 1 GM/50 ML D5W IV SCH ×2 (23:07)
--- NOTE | 2017-03-16 01:30 | NUR ---
BLOOD SUGAR RECHECKED ,SISTER EARLIER WAS CONCERNED BLOOD SUGAR WILL DROP IN AM, LAST TIME PER SISTER SUGAR DROP TO 50, RECHECKED AND READS 541MG/DL, CHARGE NURSE MADE AWARE ORDERED BLOOD GLUCOSE DRAWN BY LAB PER PROTOCOL.
[2017-03-16] MEDS: MORPHINE SULFATE INJ 2 MG/ML DISP.SYRIN IV PRN (01:50)
--- NOTE | 2017-03-16 03:30 | NUR ---
DR FLORES MADE AWARE BLOOD GLUCOSE RESULTED 535MG/DL, BUT ORDER GIVEN, RECHECK ONLY IN AM PER PROTOCOL.
[2017-03-16 04:10] VITALS: BP 93/27
--- NOTE | 2017-03-16 05:47 | NUR ---
PT FALL ASLEEP AFTER MORPHINE GIVEN DRESSING REINFORCED WITH KERLIX FLUFFS AND REWRAPPED WITH KERLIX, VSS,AFEBRILE,KEPT LEFT ARM ELEVATED, RAUL INTACT ,AVF WITH GOOD BRUIT.
[2017-03-16] MEDS: BLOOD SUGAR DIAGNOSTIC 1 EACH STRIP IN SCH ×4 (06:30→21:57)
[2017-03-16] MEDS: LEVOTHYROXINE SODIUM 175 MCG TABLET PO SCH (06:33)
[2017-03-16] MEDS: HYDROCODONE/APAP 5/325MG 1 EACH TABLET PO PRN (06:33)
[2017-03-16] MEDS: INSULIN REGULAR, HUMAN 100 UNIT/ML 3 ML VIAL SQ PRN ×3 (06:35→17:17)
[2017-03-16 08:00] VITALS: BP 92/35
[2017-03-16] MEDS: ANCEF 1 GM/50 ML D5W IV SCH ×2 (09:59)
[2017-03-16] MEDS: SEVELAMER CARBONATE 800 MG TABLET PO SCH ×3 (10:00→17:20)
[2017-03-16] MEDS: INSULIN LISPRO/ASPART 100 UNIT/ML CARTRIDGE SQ SCH ×2 (10:13→17:15)
[2017-03-16 12:00] VITALS: BP 112/43
--- NOTE | 2017-03-16 12:15 | NUR ---
PT.'S MOTHER STRONGLY REFUSED FOR INSULIN COVERAGE .CHARGE NURSE MADE AWARE.
[2017-03-16] MEDS: VANCOMYCIN HCL 125 MG/2.5 ML ORAL.SUSP PO SCH ×3 (13:49→17:24)
[2017-03-16 20:00] VITALS: BP 131/62
[2017-03-16 20:35] VITALS: BP 131/62
[2017-03-16] MEDS: INSULIN DETEMIR 100 UNIT/ML CARTRIDGE SQ SCH (21:59)
[2017-03-16] MEDS: *INSULIN REGULAR(HUMULIN R)HUM 100 UNIT/ML VIAL SQ PRN (22:00)
[2017-03-17] MEDS: MORPHINE SULFATE INJ 2 MG/ML DISP.SYRIN IV PRN (00:34)
[2017-03-17 04:00] VITALS: BP 113/64
[2017-03-17 04:47] VITALS: BP 113/64
[2017-03-17] MEDS: VANCOMYCIN HCL 125 MG/2.5 ML ORAL.SUSP PO SCH ×5 (05:41→23:19)
[2017-03-17] MEDS: BLOOD SUGAR DIAGNOSTIC 1 EACH STRIP IN SCH ×4 (06:30→21:22)
--- NOTE | 2017-03-17 06:51 | NUR ---
PT DIDN'T SLEEP OVERNIGHT WATCHING MOVIES ON HIS IPAD,GIVEN MORPHINE X1 FOR PAIN,RAUL DRAIN 50CC SEROSANGUINOUS,REINFORCED DRESSING WITH KERLIX,GOOD BRUIT ON NEW AVF,VSS,AFEBRILE KEPT ON MASK PER PT COMFORT,REFUSED TO TAKE OFF NO ACUTE DISTRESS,NO SOB,ACCUCHECK 93MG/DL.WILL CONTINUE TO MONITOR.
[2017-03-17 08:00] VITALS: BP 130/71
[2017-03-17] MEDS: SEVELAMER CARBONATE 800 MG TABLET PO SCH ×3 (08:27→18:00)
[2017-03-17] MEDS: LEVOTHYROXINE SODIUM 175 MCG TABLET PO SCH (08:27)
[2017-03-17] MEDS: INSULIN LISPRO/ASPART 100 UNIT/ML CARTRIDGE SQ SCH ×2 (08:29→18:19)
[2017-03-17] MEDS: HYDROCODONE/APAP 5/325MG 1 EACH TABLET PO PRN (08:33)
[2017-03-17 16:00] VITALS: BP 105/70
--- NOTE | 2017-03-17 18:49 | NUR ---
RN NOTE RAUL DRAIN REMOVED BY DR MARLEY TODAY, STATED THAT THE PT CAN GO HOME FROM HIS PERSPECTIVE, SURGICAL DRESSING THOUGH SATURATED LEFT IN PLACE AND OKAY'D TO CHANGE IT IN 2 DAYS, ON 03/19/17. PT CO PAIN ONCE NORCO GIVEN ONCE, AFTERWARDS NO COMPLAINS. PT PO INTAKE IS ERRATIC, WITH BLOOD GLUCOSE BEING UP AND DOWN, 1700 HUMALOG 5 U GIVEN, BS 280, HOWEVER THE SS COVERAGE HELD DUE TO PT'S LOW PO INTAKE.
[2017-03-17] MEDS: INSULIN DETEMIR 100 UNIT/ML CARTRIDGE SQ SCH (21:36)
--- NOTE | 2017-03-17 21:37 | NUR ---
RN NOTES: PATIENT'S BLOOD SUGAR IS 271 MG/DL. CALLED PATIENT'S MOTHER AGUS AND NOTIFIED UPON HER REQUEST AND SHE SAID" NO SHOT, DON'T GIVE HIM INSULIN", EXPLAINED TO THE MOTHER THAT BLOOD SUGAR READING IS HIGH AND SHOULD BE TREATED, BUT PATIENT'S MOTHER STILL REFUSED. CHARGE NURSE SPOKE ALSO WITH THE PATIENT'S MOTHER AND EXPLAINED TO HER THAT BLOOD SUGAR IS HIGH AND SHOULD BE TREATED, BUT THE MOTHER STILL REFUSED NOT GIVE HIM ANY INSULIN. WILL HOLD THE LEVEMIR AND THE APPROPRIATE DOSE OF REGULAR INSULIN UPON THE SLIDING SCALE. WILL CONTINUE TO MONITOR PATIENT'S BLOOD SUGAR READINGS.
--- NOTE | 2017-03-18 05:46 | NUR ---
RN NOTES: PATIENT REFUSES VITAL SIGNS CHECK.
[2017-03-18] MEDS: VANCOMYCIN HCL 125 MG/2.5 ML ORAL.SUSP PO SCH ×3 (06:00→17:05)
--- NOTE | 2017-03-18 06:38 | NUR ---
RN NOTES: BLOOD SUGAR IS 263 MG/DL. WILL ENDORSE IT TO AM SHIFT NURSE TO FOLLOW UP.
[2017-03-18] MEDS: BLOOD SUGAR DIAGNOSTIC 1 EACH STRIP IN SCH ×4 (06:54→21:40)
--- NOTE | 2017-03-18 06:57 | NUR ---
RN NOTES: PATIENT REFUSED BLOOD DRAW FOR THE LAB STUDIES. WILL ENDORSE IT TO AM SHIFT NURSE TO FOLLOW UP.
--- NOTE | 2017-03-18 07:20 | NUR ---
RN MS NOTES PATIENT IN BED, ALERT AND ORIENTED, MOTHER AT BEDSIDE, GAVE ME INSTRUCTION NOT TO GIVE HIM INSULIN, REFUSED BLOOD DRAW THIS AM, DENIES PAIN AT THIS TIME, JUAN MANUEL AVF COVERED WITH DRESSING, ALL NEEDS ATTENDED, WILL CONTINUE TO MONITOR.
[2017-03-18] MEDS: LEVOTHYROXINE SODIUM 175 MCG TABLET PO SCH ×2 (07:30→08:49)
[2017-03-18 08:00] VITALS: BP 105/70
[2017-03-18] MEDS: SEVELAMER CARBONATE 800 MG TABLET PO SCH ×6 (08:00→17:05)
[2017-03-18] MEDS: INSULIN LISPRO/ASPART 100 UNIT/ML CARTRIDGE SQ SCH ×3 (08:05→16:34)
--- NOTE | 2017-03-18 08:05 | NUR ---
RN MS NOTES PATIENT OFFERED MEDICATIONS AND INSULIN, PATIENT REFUSED TO TAKE ANY MEDICATIONS, AND TO HAVE BLOOD SUGAR CHECKED. EXPLAINED RISKS AND BENEFITS, STILL REFUSED, PATIENT STATED "GO AWAY." CHARGE NURSE MADE AWARE, WILL INFORM MD.
--- NOTE | 2017-03-18 08:49 | NUR ---
RN MS NOTES PATIENT'S MOTHER CAME BACK AND WAS ABLE TO ADMINISTER MEDICATION TO THE PATIENT.
--- NOTE | 2017-03-18 09:00 | NUR ---
RN MS NOTES PATIENT REMOVED SURGICAL DRESSING, CHANGE DRESSING AND COVERED WITH KERLIX.
[2017-03-18 10:14] LABS: EOSINOPHILS % (AUTO) 0.6 % (0.0-6.0); HEMATOCRIT 24 % (39-51); HEMOGLOBIN 7.1 g/dL (13.5-17.5); LYMPHOCYTES # (AUTO) 0.7 /CMM (0.8-4.8); LYMPHOCYTES % (AUTO) 9.7 % (20.0-44.0); MEAN CORPUSCULAR HEMOGLOBIN 25 PG (26.0-33.0); MEAN CORPUSCULAR HGB CONC 30 g/dl (31.0-36.0); MEAN CORPUSCULAR VOLUME 84 fL (80-96); MONOCYTES # (AUTO) 0.6 /CMM (0.1-1.30); MONOCYTES % (AUTO) 7.5 % (2.0-12.0); NEUTROPHILS # (AUTO) 6.3 /CMM (1.8-8.9); NEUTROPHILS % (AUTO) 82.2 % (43.0-81.0); PLATELET COUNT (AUTO) 205 /CMM (150-450); RDW COEFFICIENT OF VARIATION 21.1 (11.5-15.0); RED BLOOD CELL COUNT(AUTO) 2.83 MIL/uL (4.5-6.0); WHITE BLOOD COUNT (AUTO) 7.7 K/uL (4.3-11.0)
[2017-03-18 10:47] LABS: CALCIUM, SERUM 8.1 mg/dL (8.5-10.1); MAGNESIUM 2.6 mg/dL (1.8-2.4)
--- NOTE | 2017-03-18 11:05 | NUR ---
RN MS NOTES CURRENTLY ON DIALYSIS, SEEN BY DR. WEST AND RELAYED ALL LAB RESULTS INCLUDING CRITICAL VALUES, TALKED TO DIALYSIS NURSE AND GAVE HIM INSTRUCTIONS, RECEIVED NEW ORDERS, ORDER NOTED AND CARRIED OUT. Addendum: 03/18/17 at 1710 by GIOVANNA MAGALLANES RN ADDENDUM: INFORMED DR. WEST OF PATIENT AND MOTHER'S REFUSAL OF MEDICATIONS AND CHANGING INSULIN DOSES PER MOM'S CHOICE. RECEIVED NO NEW ORDER.
[2017-03-18 11:12] LABS: POTASSIUM 6.9 mmol/L (3.5-5.1)
[2017-03-18 11:13] LABS: CREATININE 11.4 mg/dL (0.6-1.3)
[2017-03-18 11:19] LABS: PHOSPHORUS 10.5 mg/dL (2.5-4.9)
--- NOTE | 2017-03-18 11:27 | NUR ---
RN MS NOTES INFORMED DR. WEST OF PATIENT'S REFUSAL OF MEDICATIONS AT TIMES, AND THAT THE PATIENT'S MOTHER HAS HER OWN PREFERENCE WHEN IT COMES TO GIVING INSULIN DOSES OR SOMETIMES EVEN REFUSING INSULIN DOSE AT ALL. NO NEW ORDER AT THIS TIME.
[2017-03-18] MEDS ORDERED: EPOETIN ALFA (20,000 UNIT) 20,000 UNIT/ML VIAL IV ONE (11:30)
[2017-03-18] MEDS: INSULIN REGULAR, HUMAN 100 UNIT/ML 3 ML VIAL SQ PRN ×2 (12:02→16:34)
--- NOTE | 2017-03-18 13:00 | NUR ---
RN MS NOTES DIALYSIS COMPLETED WITH 2900ML OUTPUT. PATIENT IN STABLE CONDITION, NO DISTRESS AT THIS TIME, EPOGEN ADMINSTERED, NEEDS ATTENDED, CALL LIGHT WITHIN REACH, WILL CONTINUE TO MONITOR.
[2017-03-18 16:00] VITALS: BP 122/56
--- NOTE | 2017-03-18 17:07 | NUR ---
RN MS NOTES PATIENTS MOTHER REFUSED ALL MEDICATIONS BARBARA, PER MOM, PATIENT HAS HAD ENOUGH OF ALL THE MEDICATIONS, EXPLAINED RISKS STILL REFUSED, BLOOD SUGAR CHECKED WAS REQUESTED EARLY, MOM ONLY WANTED TO GIVE HUMALOG, NO SLIDING SCALE. WILL CONTINUE TO EDUCATE AND MONITOR.
--- NOTE | 2017-03-18 18:31 | NUR ---
RN MS NOTES PATIENT IN BED, ALERT AND ORIENTED, WATCHING IPAD, NO PAIN OR DISTRESS NOTED, BREATHING EVEN AND UNLABORED, ON O2 AT 5LPM VIA MASK WITH SPO2 98%, ALL NEEDS ATTENDED, COMPLETED DIALYSIS SESSION TODAY, DRESSING ON LEFT UPPER ARM CHANGED THIS AM, MOM REQUESTED TO ENDORSE TO PELLET PRESS OPERATOR TO NOT GIVE INSULIN TONIGHT, CALL LIGHT WITHINR EACH, WILL ENDORSE TO PELLET PRESS OPERATOR FOR HENNA.
[2017-03-18 20:00] VITALS: BP 112/90
[2017-03-18] MEDS: *INSULIN REGULAR(HUMULIN R)HUM 100 UNIT/ML VIAL SQ PRN (21:35)
--- NOTE | 2017-03-18 21:37 | NUR ---
RN NOTES: PATIENT'S BLOOD SUGAR IS 394 MG/DL. CALLED THE PATIENT'S MOTHER AND SHE REQUESTED NOT TO GIVE THE ORDERED DOSE OF LEVIMIR AND TO GIVE HIM ONLY 3 UNITS OF REGULAR INSULIN. CHARGE NURSE IS AWARE. WILL CONTINUE TO MONITOR.
[2017-03-18] MEDS: INSULIN DETEMIR 100 UNIT/ML CARTRIDGE SQ SCH (21:40)
[2017-03-19] MEDS: HYDROCODONE/APAP 5/325MG 1 EACH TABLET PO PRN ×2 (00:58→23:22)
[2017-03-19 04:00] VITALS: BP 137/76
[2017-03-19] MEDS: VANCOMYCIN HCL 125 MG/2.5 ML ORAL.SUSP PO SCH ×5 (06:00→23:22)
[2017-03-19] MEDS: BLOOD SUGAR DIAGNOSTIC 1 EACH STRIP IN SCH ×4 (06:41→22:38)
--- NOTE | 2017-03-19 06:41 | NUR ---
RN NOTES: BLOOD SUGAR IS 246 MG/DL. WILL ENDORSE IT TO AM SHIFT NURSE TO FOLLOW UP.
--- NOTE | 2017-03-19 07:00 | NUR ---
RN NOTES RECEIVED PT ON BED, A/O , RESPIRATION EVEN AND UNLABORED, ON 5L FACE MASK, NO SOB NOTED , R FOOT IV SITED CDI, DRESSING RO L ARM AVF CDI, SUPPORTIVE MOM AT THE BEDSIDE , REFUSED MORNING INSULIN , SR UP x3, CALL LIGHT WITHIN EASY REACH , CONTINUE TO MONITOR PT CLOSELY AND NOTIFY MD FOR ANY SIGNIFICANT CHANGES.
[2017-03-19 08:00] VITALS: BP 132/82
[2017-03-19] MEDS: LEVOTHYROXINE SODIUM 175 MCG TABLET PO SCH (08:03)
[2017-03-19] MEDS: INSULIN LISPRO/ASPART 100 UNIT/ML CARTRIDGE SQ SCH ×2 (08:05→16:46)
[2017-03-19] MEDS: SEVELAMER CARBONATE 800 MG TABLET PO SCH ×3 (08:05→18:16)
[2017-03-19 10:18] LABS: EOSINOPHILS % (AUTO) 0.6 % (0.0-6.0); HEMATOCRIT 26 % (39-51); HEMOGLOBIN 7.8 g/dL (13.5-17.5); LYMPHOCYTES # (AUTO) 0.8 /CMM (0.8-4.8); LYMPHOCYTES % (AUTO) 10.8 % (20.0-44.0); MEAN CORPUSCULAR HEMOGLOBIN 25 PG (26.0-33.0); MEAN CORPUSCULAR HGB CONC 30 g/dl (31.0-36.0); MEAN CORPUSCULAR VOLUME 84 fL (80-96); MONOCYTES # (AUTO) 0.9 /CMM (0.1-1.30); MONOCYTES % (AUTO) 13.2 % (2.0-12.0); NEUTROPHILS # (AUTO) 5.3 /CMM (1.8-8.9); NEUTROPHILS % (AUTO) 75.4 % (43.0-81.0); PLATELET COUNT (AUTO) 191 /CMM (150-450); RDW COEFFICIENT OF VARIATION 21.2 (11.5-15.0); RED BLOOD CELL COUNT(AUTO) 3.11 MIL/uL (4.5-6.0); WHITE BLOOD COUNT (AUTO) 7.1 K/uL (4.3-11.0)
[2017-03-19 10:38] LABS: CALCIUM, SERUM 8.3 mg/dL (8.5-10.1); MAGNESIUM 2.5 mg/dL (1.8-2.4); PHOSPHORUS 6.1 mg/dL (2.5-4.9)
[2017-03-19] MEDS: INSULIN REGULAR, HUMAN 100 UNIT/ML 3 ML VIAL SQ PRN (12:23)
--- NOTE | 2017-03-19 12:24 | NUR ---
RN NOTES PER MOM REQUEST ONLY 4 UNITS INSULIN GIVEN
[2017-03-19 16:00] VITALS: BP 133/65
--- NOTE | 2017-03-19 18:18 | NUR ---
RN NOTES PT STABLE AND RESTING IN BED, VSS STABLE. IV ON RIGHT FOOT DISCONTINUED. DIALYSIS COMPLETED WITH 2.5L OUT. NO SIGNIFICANT CHANGES DURING SHIFT. DRESSING TO THE LEFT ARM CDI, ALL DUE MEDS GIVEN AND TOLERATED.
[2017-03-19 20:00] VITALS: BP 158/56
[2017-03-19] MEDS: INSULIN DETEMIR 100 UNIT/ML CARTRIDGE SQ SCH (22:00)
--- NOTE | 2017-03-19 22:01 | NUR ---
RN NOTES: 21:45 called the patient's mother () regarding the patient's blood sugar reading of 460 mg/dl. requested not to give the ordered dose of levemir and to give only 5 units of regular insulin. 21:51 called MD. Gonzalez and notified about the patient's blood sugar reading of 460 mg/dl and the patient's mother request. STATES" IF THE MOTHER REFUSES, SHE REFUSES, THERE IS NOTHING WE CAN DO". agreed to give the patient's 5 units of regular insulin. will carry the order and re-check the blood sugar and continue to monitor.
[2017-03-19] MEDS: *INSULIN REGULAR(HUMULIN R)HUM 100 UNIT/ML VIAL SQ PRN ×3 (22:04→23:40)
--- NOTE | 2017-03-19 23:36 | NUR ---
RN NOTES: CALLED REGARDING THE REPEATED VALUE OF BLOOD SUGAR OF 456 MG/DL. . ORDERED TO FOLLOW THE SLIDING SCALE. WILL CARRY OUT THE ORDER AND CONTINUE TO MONITOR.
--- NOTE | 2017-03-20 01:17 | NUR ---
RN NOTES: BLOOD SUGAR IS 340 MG/DL. WILL CONTINUE TO MONITOR.
--- NOTE | 2017-03-20 04:06 | NUR ---
RN NOTES: PATIENT REFUSED VITAL SIGNS CHECK.
[2017-03-20] MEDS: VANCOMYCIN HCL 125 MG/2.5 ML ORAL.SUSP PO SCH (05:53)
[2017-03-20] MEDS: BLOOD SUGAR DIAGNOSTIC 1 EACH STRIP IN SCH (07:25)
[2017-03-20] MEDS: SEVELAMER CARBONATE 800 MG TABLET PO SCH (07:56)
[2017-03-20] MEDS: LEVOTHYROXINE SODIUM 175 MCG TABLET PO SCH (07:56)
[2017-03-20] MEDS: INSULIN LISPRO/ASPART 100 UNIT/ML CARTRIDGE SQ SCH (07:56)
[2017-03-20 08:00] VITALS: BP 126/83
--- NOTE | 2017-03-20 08:00 | NUR ---
auriculotherapist received pt in bed awake alert x3 on 5l simple face mask pt wants it that way otherwise he has a nervous breakdown, md aware, pt does not need oxygen, vs stable iv access patent dressing on new av fustula on arm intact no bleeding noted, pt is independent able to turn in bed off load, fall precautions taken call light w/ in reach family mother at bedside.
[2017-03-20 08:30] VITALS: BP 127/60
[2017-03-20] MEDS ORDERED: INSU100C SQ (10:08)
[2017-03-20] MEDS ORDERED: INSU100I19 SQ (10:08)
[2017-03-20] MEDS ORDERED: SEVE800T PO (10:08)
--- NOTE | 2017-03-20 11:19 | NUR ---
supervisor agricultural education pt dc home under stable condition vs stable no distress noted exit care done paperwork given to pt mother, valubal form signed, pt left via private care with family, mother has good understanding of home care and pts needs.
== END 2017-03-20 11:13 | disposition home or self-care (01) | DRG 981 ==
LOC: ER 06:59 → TELE1 09:27 → MEDSG1 10:49
PROVIDERS: ADMIT Internal Medicine Nephrology; ATTEND Internal Medicine Nephrology
PROC: 5A1D60Z (ICD-10-PCS; 2017-03-12)
PROC: 06H033Z Insertion of Infusion Device into Inferior Vena Cava, Percutaneous Approach (ICD-10-PCS; 2017-03-15)
PROC: B519YZA Fluoroscopy of Inferior Vena Cava using Other Contrast, Guidance (ICD-10-PCS; 2017-03-15)
PROC: 03180ZD Bypass Left Brachial Artery to Upper Arm Vein, Open Approach (ICD-10-PCS; principal; 2017-03-15 16:28)
PROC: 06PY33Z Removal of Infusion Device from Lower Vein, Percutaneous Approach (ICD-10-PCS; 2017-03-15 16:28)
DX: J96.00 Acute respiratory failure, unspecified whether with hypoxia or hypercapnia (principal); N18.6 End stage renal disease; J90 Pleural effusion, not elsewhere classified; J98.11 Atelectasis; T82.41XA Breakdown (mechanical) of vascular dialysis catheter, initial encounter; I13.2 Hypertensive heart and chronic kidney disease with heart failure and with stage 5 chronic kidney disease, or end stage renal disease; E89.0 Postprocedural hypothyroidism; E87.5 Hyperkalemia; Q90.9 Down syndrome, unspecified; Z99.2 Dependence on renal dialysis; D64.9 Anemia, unspecified; I25.10 Atherosclerotic heart disease of native coronary artery without angina pectoris; I50.9 Heart failure, unspecified; Z79.01 Long term (current) use of anticoagulants; Z79.4 Long term (current) use of insulin; E11.22 Type 2 diabetes mellitus with diabetic chronic kidney disease; T68.XXXA Hypothermia, initial encounter; K52.9 Noninfective gastroenteritis and colitis, unspecified; E11.65 Type 2 diabetes mellitus with hyperglycemia; Y84.9 Medical procedure, unspecified as the cause of abnormal reaction of the patient, or of later complication, without mention of misadventure at the time of the procedure; Y92.009 Unspecified place in unspecified non-institutional (private) residence as the place of occurrence of the external cause; Y71.2 Prosthetic and other implants, materials and accessory cardiovascular devices associated with adverse incidents
CPT/HCPCS: 36415; 71010-TC; 80048-TC; 80076-TC; 82947-TC; 82962-TC; 83605-TC; 83690-TC; 83735-TC; 84100-TC; 84439-TC; 84443-TC; 84480; 84484-TC; 85025-TC; 85610-TC; 85730-TC; 86850-TC; 87040-TC; 87045-TC; 87081-TC; 89055; 90935-TC; 93930-TC; 94799-TC; A4606; A6253; A6402; A6403; C1750; C1769; C1894; J0690; J0885; J1100; J1644; J1815; J2270; J2370; J2405; J2440; J2704; J2997; J3010; J3490; J7030; J7060; Z7610

== ENCOUNTER → 2017-07-09 | Emergency (ER) | payer BC ==
[~2017-07-09] VITALS: Ht 152.4 cm; Wt 65.3 kg
[~2017-07-09] MED LIST changes: -ACET1OOV6 NEB; -ALBU2.5V13 NEB; -ALLA266C2 TP; -AMLO5TAB2 PO; -APIX2.5T PO; -Calcium Acetate NG; +INSU100C SQ; -INSU100C4 SQ; -PANT40VI IV; -PRED10TA PO; -PRED20TA GT; -PRED50TA PO; +SEVE800T PO
--- NOTE | 2017-07-09 11:00 | NUR ---
DR PAYTON AT BEDSIDE FOR EVAL.
--- NOTE | 2017-07-09 11:17 | NUR ---
RADIOLOGY AT BEDSIDE FOR CHEST XRAY.
--- NOTE | 2017-07-09 11:18 | NUR ---
PAGED DR DAVID OFFICE -- PEARL GLUE OPERATOR IS DR VALDEZ
--- NOTE | 2017-07-09 11:20 | NUR ---
FEMORAL DIALYSIS CATHETER DISCONTINUED USING STERILE TECHNIQUE. PRESSURE DRESSING APPLIED. NO ACTIVE BLEEDING NOTED.
[2017-07-09 11:30] VITALS: BP 128/72
--- NOTE | 2017-07-09 11:47 | NUR ---
Patient discharged to home in stable condition. Written and verbal after care instructions given. Mom verbalizes understanding of instruction.
== END | disposition home or self-care (01) ==
LOC: ER 10:56
DX: I12.0 Hypertensive chronic kidney disease with stage 5 chronic kidney disease or end stage renal disease (principal); N18.6 End stage renal disease; E11.22 Type 2 diabetes mellitus with diabetic chronic kidney disease; Q90.9 Down syndrome, unspecified; Z99.2 Dependence on renal dialysis; E03.9 Hypothyroidism, unspecified; Z79.4 Long term (current) use of insulin
CPT/HCPCS: 71010; 99283; A4606; A6402; Z7610

== ENCOUNTER 2017-08-04 11:36 | Inpatient (IN) | payer BC ==
[~2017-08-04] VITALS: Ht 152.4 cm; Wt 64.9 kg
[2017-08-04 04:00] VITALS: BP 145/72
--- NOTE | 2017-08-04 11:49 | NUR ---
BIB MOTHER C/O SOB AND DESATURATING AT HOME. PATIENT IS ON HOME O2 AT 5L/MIN. A/OX 2. BREATHING EVEN AND UNLABORED. PATIENT PLACED ON 10 L VIA MASK, SATURATION 95% VITALS STABLE. SAFETY AND COMFORT MEASURES IN PLACE. AWAITING MD ORDERS.
--- NOTE | 2017-08-04 11:52 | NUR ---
AT BEDSIDE FOR EVAL.
--- NOTE | 2017-08-04 11:53 | NUR ---
CALLED RT FOR BREATHING TREATMENT
[2017-08-04] MEDS ORDERED: IPRATROPIUM NEB FS 0.5 MG/2.5 ML AMPUL.NEB ONE (11:59)
[2017-08-04] MEDS ORDERED: ALBUTEROL FS 2.5 MG/3 ML VIAL.NEB ONE (11:59)
[2017-08-04] MEDS ORDERED: IPRATROPIUM NEB FS 0.5 MG/2.5 ML AMPUL.NEB NEB ONE (12:00)
[2017-08-04] MEDS ORDERED: ALBUTEROL FS 2.5 MG/3 ML VIAL.NEB NEB ONE (12:00)
[2017-08-04 12:18] LABS: BASOPHILS % (AUTO) 0.3 % (0.0-2.0); EOSINOPHILS # (AUTO) 0.1 /CMM (0.0-0.7); EOSINOPHILS % (AUTO) 1.2 % (0.0-6.0); HEMATOCRIT 29 % (39-51); HEMOGLOBIN 8.9 g/dL (13.5-17.5); LYMPHOCYTES # (AUTO) 0.6 /CMM (0.8-4.8); LYMPHOCYTES % (AUTO) 12.7 % (20.0-44.0); MEAN CORPUSCULAR HEMOGLOBIN 26 PG (26.0-33.0); MEAN CORPUSCULAR HGB CONC 31 g/dl (31.0-36.0); MEAN CORPUSCULAR VOLUME 85 fL (80-96); MONOCYTES # (AUTO) 0.3 /CMM (0.1-1.30); MONOCYTES % (AUTO) 6.1 % (2.0-12.0); NEUTROPHILS # (AUTO) 4.1 /CMM (1.8-8.9); NEUTROPHILS % (AUTO) 79.7 % (43.0-81.0); PLATELET COUNT (AUTO) 204 /CMM (150-450); RDW COEFFICIENT OF VARIATION 19.5 (11.5-15.0); RED BLOOD CELL COUNT(AUTO) 3.43 MIL/uL (4.5-6.0); WHITE BLOOD COUNT (AUTO) 5.1 K/uL (4.3-11.0)
--- NOTE | 2017-08-04 12:20 | NUR ---
NEW IV STARTED ON RAC, 20 G. BLOOD DRAWN AND SENT TO LAB.
[2017-08-04] MEDS ORDERED: NITROGLYCERIN PACKET 1 GM PACKET TD ONE (12:30)
--- NOTE | 2017-08-04 12:30 | NUR ---
RT NOTE PATIENT MOTHER REFUSED ABG AT THIS TIME. RN SHAYNA AWARE, ER AWARE. PT IS IN NO RESPIRATORY DISTRESS AT THIS TIME. WILL CONTINUE TO MONITOR.
[2017-08-04 12:32] LABS: INR 1.05 (0.87-1.13); PROTHROMBIN TIME 10.9 SECS (9.5-12.7)
[2017-08-04] MEDS ORDERED: NITROGLYCERIN 0.4 MG/TAB BOTTLE ONE (12:33)
[2017-08-04 12:34] LABS: ALBUMIN 3.2 g/dL (3.4-5.0); BILIRUBIN,DIRECT 0.1 mg/dL (0.0-0.2); BILIRUBIN,TOTAL 0.4 mg/dL (0.2-1.0); CREATININE 7.3 mg/dL (0.6-1.3); POTASSIUM 4.5 mmol/L (3.5-5.1); TOTAL PROTEIN, SERUM 7.6 g/dL (6.4-8.2)
[2017-08-04] MEDS ORDERED: NITROGLYCERIN PACKET 1 GM PACKET ONE (12:34)
[2017-08-04 12:36] LABS: TROPONIN I 0.034 ng/mL (0.00-0.056)
--- NOTE | 2017-08-04 12:40 | NUR ---
CALLED NURSING SUP. FOR TELE BED
--- NOTE | 2017-08-04 12:55 | NUR ---
GROUP CALLED, IMAGING CENTER MANAGER, PAGED TO CALL BACK
--- NOTE | 2017-08-04 13:08 | NUR ---
PER , GIVE PT TO [facility] AND HE WILL CONSULT FOR NEPHROLOGY GROUP.
--- NOTE | 2017-08-04 13:09 | NUR ---
PT GOING TO [facility] 114-1, NURSE IS VARNER
--- NOTE | 2017-08-04 13:16 | NUR ---
[facility] PAGED, VICE PRESIDENT OF OPERATIONS
--- NOTE | 2017-08-04 13:24 | NUR ---
REPORT GIVEN TO TELLY KHALIL FOR ADMISSION.
--- NOTE | 2017-08-04 14:03 | NUR ---
CALLED RT FOR ABG
--- NOTE | 2017-08-04 14:15 | NUR ---
PATIENT/MOTHER REFUSED ABG'S AT THIS TIME. INFORMED AND STATED TO TRY AGAIN LATER. RT TO FOLLOW UP
[2017-08-04] MEDS ORDERED: MAGNESIUM HYDROXIDE 30 ML UDC PO PRN (15:00)
[2017-08-04] MEDS ORDERED: Z GUARD REMEDY 2 OZ OINT TP PRN (15:00)
[2017-08-04] MEDS ORDERED: HYDROCODONE/APAP 5/325MG 1 EACH TABLET PO PRN (15:00)
[2017-08-04] MEDS ORDERED: MAG HYDROX/AL HYDROX/SIMETH 30 ML UDC PO PRN (15:00)
[2017-08-04] MEDS ORDERED: ACETAMINOPHEN 325 MG TABLET PO PRN (15:00)
[2017-08-04] MEDS ORDERED: ONDANSETRON HCL/PF 4 MG/2 ML VIAL IVP PRN (15:00)
[2017-08-04] MEDS ORDERED: FEE PK DOSING 1 MIN EA MC ONE (15:13)
--- NOTE | 2017-08-04 15:30 | NUR ---
Patient admitted from E.[facility] .FAMILY PRESENT AT BEDSIDE.PT.A/O ABLE TO VERBALIZE NEEDS.ON O2 VIA MASK AT 8LPM.NO S/S OF DISTRESS.SAFETY MEASURES IN PLACE BED IN LOW AND LOCKED POSITION.WILL CONTINUE TO MONITOR FOR CHANGES.
[2017-08-04] MEDS: LEVOTHYROXINE SODIUM 175 MCG TABLET PO SCH (15:47)
[2017-08-04] MEDS: INSULIN LISPRO/ASPART 100 UNIT/ML CARTRIDGE SQ SCH (15:48)
[2017-08-04 16:00] VITALS: BP 145/72
[2017-08-04] MEDS ORDERED: VANCOMYCIN 1 GM in IV D5W 250 ML IV ONE (16:00)
[2017-08-04] MEDS ORDERED: PIPERACILLIN /TAZOBACTAM 2.25 G in IV D5W 50 ML IV SCH (16:00)
--- NOTE | 2017-08-04 17:00 | NUR ---
pt refused to have tele monitor . made aware.
[2017-08-04] MEDS: SEVELAMER CARBONATE 800 MG TABLET PO SCH (17:39)
[2017-08-04] MEDS: BLOOD SUGAR DIAGNOSTIC 1 EACH STRIP IN SCH (17:39)
--- NOTE | 2017-08-04 19:30 | NUR ---
[facility] RN INITIAL NOTES RECEIVED PATIENT AWAKE A/OX2, ABLE TO MAKE NEEDS KNOWN. DENIES PAIN OR DISCOMFORT. DENIES SOB. RESPIRATIONS EVEN AND UNLABORED, SISTER AT BEDSIDE. ON 6LPMO2 VIA MASK. PATIENT WATCHING TABLET. PATIENT NOT ON TELE MONITOR, REFUSED TELE MONITORING. SKIN WARM AND DRY TO TOUCH. SIDE RAILS UP AND LOCKED. BED KEPT AT LOWEST POSITION. CALL LIGHT KEPT WITHIN EASY REACH. WILL CONTINUE TO MONITOR.
[2017-08-04 20:00] VITALS: BP 126/65
[2017-08-04] MEDS: INSULIN DETEMIR 100 UNIT/ML CARTRIDGE SQ SCH (21:46)
[2017-08-04] MEDS ORDERED: ZOLPIDEM TARTRATE 5 MG TABLET PO PRN (22:00)
--- NOTE | 2017-08-04 23:57 | NUR ---
[employer] INSTALLER AT BEDSIDE TO DRAW TROPONIN LEVEL, ATTEMPTED ONCE TO DRAW BLOOD, BUT UNSUCCESSFUL. PATIENT REFUSED TO BE DRAWN AGAIN.
[2017-08-05] VITALS: BP 161/95
[2017-08-05] MEDS: BLOOD SUGAR DIAGNOSTIC 1 EACH STRIP IN SCH ×5 (00:05→23:50)
[2017-08-05] MEDS: INSULIN REGULAR, HUMAN 100 UNIT/ML 3 ML VIAL SQ PRN ×2 (00:06→23:52)
--- NOTE | 2017-08-05 04:30 | NUR ---
PATIENT REFUSED VITAL SIGNS
[2017-08-05] MEDS: DEXTROSE 50%-WATER 50 ML DISP.SYRIN IV PRN (06:48)
--- NOTE | 2017-08-05 06:48 | NUR ---
[facility] RN NOTES NOTED PATIENT WITH BLOOD SUGAR 29, AWAKE, ALERT SITTING IN BED. PRN D50 GIVEN IV. WILL CONTINUE TO MONITOR.
--- NOTE | 2017-08-05 07:15 | NUR ---
[facility] RN CLOSING NOTES BLOOD SUGAR RECHECKED 195, MOM AT BEDSIDE. NO RESPIRATORY DISTRESS NOTED, ON 6LPMO2 VIA MASK. ALL NEEDS ANTICIPATED AND MET. KEPT CLEAN AND DRY. WATCHING TABLET IN BED. SIDE RAILS UP AND LOCKED. BED KEPT AT LOWEST POSITION. CALL LIGHT KEPT WITHIN EASY REACH. CONTINUITY OF CARE ENDORSED TO AM NURSE.
[2017-08-05 08:00] VITALS: BP 105/58
--- NOTE | 2017-08-05 08:05 | NUR ---
[facility] RN INITIAL NOTES RN RECEIVED PATIENT AWAKE A/OX2, ABLE TO MAKE NEEDS KNOWN. PT DENIES PAIN OR DISCOMFORT. DENIES SOB. RESPIRATIONS EVEN AND UNLABORED, MOTHER AT BEDSIDE. ON 4LPMO2 VIA MASK. PATIENT USING PERSONAL ELECTRONICS AT THIS TIME . PATIENT IS [facility] STATUS HOWEVER NOT ON TELE MONITOR, DUE TO PATIENT AND FAMILY REFUSED TELE MONITORING. PATIENT MOTHER AND PATIENT REFUSED AM LABS ORDERED AT THIS TIME STATING THAT LAB SHOULD COME BACK DURING PATIENT DIALYSIS TREATMENT. PT'S SKIN WARM AND DRY TO TOUCH. PATIENT PICKED SCAB ON LEFT WRIST CAUSING MINOR BLEEDING DRESSING APPLIED.SAFETY MEASURES IN PLACE SIDE RAILS UP AND LOCKED. PT BED KEPT AT LOWEST POSITION. CALL LIGHT KEPT WITHIN EASY REACH. RN WILL CONTINUE TO MONITOR THROUGHOUT THE DAY .
--- NOTE | 2017-08-05 08:19 | NUR ---
RN NOTE PATIENT MOTHER STATES THAT THE PATIENT IS ASLEEP AND REQUEST THAT NURSING STAFF DOES NOT WAKE THE PATIENT UP FOR ANY REASON , SHE WILL BE LEAVING TO GO HOME AND RETURNING IN 1 HR , STATES DO NOT GIVE MEDICATION, TAKE VITALS OR BLOOD DRAW WHILE THE PATIENT IS ASLEEP. 2 RN WITNESSED , RN JIMBO OVERHEARD THE MOTHERS CONVERSATION WITH RN
[2017-08-05] MEDS ORDERED: LEVOFLOXACIN (250MG) 250 MG TABLET PO SCH (09:00)
--- NOTE | 2017-08-05 09:27 | NUR ---
RN NOTE RN SPOKE WITH MOTHER IN REGARDS TO MEDICATION ADMINISTRATION INCLUDING INSULIN PATIENT MOTHER STATES NOT TO WAKE THE PATIENT UP ALLOW HIM TO SLEEP AND ADMINISTER MEDICATION UPON PATIENT WAKING UP FROM HIS NAP , RN NOTIFIED CHARGE NURSE OF PATIENT MOTHER WISHES. RN WILL CONTINUE TO FOLLOW . MD TOMLINSON NOTIFIED OF PATIENT MOTHERS WISH AND REFUSAL OF CBG CHECKS AND ALSO MORNING LABS STATES "OK ".
[2017-08-05] MEDS: LEVOTHYROXINE SODIUM 175 MCG TABLET PO SCH (10:16)
[2017-08-05] MEDS: SEVELAMER CARBONATE 800 MG TABLET PO SCH ×3 (10:17→17:26)
[2017-08-05] MEDS: INSULIN LISPRO/ASPART 100 UNIT/ML CARTRIDGE SQ SCH (10:17)
--- NOTE | 2017-08-05 11:36 | NUR ---
RN NOTE PATIENT BLOOD SUGAR EXTREMELY LOW 35 PATIENT MOTHER REFUSED NURSE TO GIVE DEXTROSE VIA IV FLUIDS PATIENT GIVEN ORANGE JUICE WITH ADDED SUGAR PER MOTHER REQUEST RN WILL CONTINUE TO MONITOR. ALSO RN CONTACTED MD TOMLINSON IN REGARDS TO LOW CBG AWAITING RETURN PHONE CALL .
--- NOTE | 2017-08-05 12:50 | NUR ---
RN NOTE RN RECHECKED THE PATIENTS CBG 120 PATIENT EXPRESS FEELING ALOT BETTER PATIENT AND MOTHER REFUSED 12PM BRIGETTE STATES THAT PATIENT IS NOT EATING . CHARGE NURSE NOTIFIED RN STILL AWAITING RETURN PHONE CALL FROM MD TOMLINSON
[2017-08-05 16:00] VITALS: BP 133/58
[2017-08-05] MEDS ORDERED: VANCOMYCIN 500 MG in IV D5W 100 ML IV PRN (16:00)
[2017-08-05 16:42] VITALS: BP 128/79
--- NOTE | 2017-08-05 16:45 | NUR ---
RN NOTE MOTHER WITNESSED GIVING THE PATIET DIET COKE TO DRINK AND INFORMED HER THAT SHE SHOULD NOT GIVE HIM COKE IT WILL CAUSE BLOOD SUGAR TO RISE MOTHER REPLIES SHES ONLY GIVING HIM HALF, RN WILL CONTINUE TO FOLLOW
--- NOTE | 2017-08-05 17:00 | NUR ---
RN NOTE RN SPOKE WITH THE PATIENT MOTHER IN REGARDS TO THE IMPORTANCE OF INSULIN COVERAGE PATIENT CBG 243. PATIENT MOTHER STATES DO NOT ADMINISTER INSULIN BECAUSE THE PATIENT BLOOD SUGAR WILL DROP , SHE STATES PATIENT IS NOT EATING ENOUGH TO RECIEVE INSULIN RN NOTIFIED THE CHARGE NURSE , RN WILL CONTINUE TO MONITOR , PATIENT MOTHER ALSO REFUSED PM LAB DRAWS . AND ALL OTHER LABS FOR TODAY RN NOTIFIED MD TOMLINSON IN THE AM IN REGARDS TO LAB AND TREATMENT REFUSAL
--- NOTE | 2017-08-05 17:38 | NUR ---
RN NOTE PATIENT MOTHER EXPRESSED THAT SHE WOULD LIKE RN TO ONLY ADMINISTER 4 UNITS OF INSULIN EVEN THOUGH THE PRESCRIBED DOES IS 6 UNIT . MOTHER EXPRESSED THAT SHE KNOW WHAT HER SON NEED SHE HAS BEEN CARING FOR HIM FOR ALL HIS LIFE . RN EXPLAINS THAT SHE WOULD NEED A NEW ORDER CHANGED ONLY BY THE MD . PATIENT MOTHER STATES THAT SHE UNDERSTANDS AND REQUEST FOR CHANGE FOR ALL INSULIN MEDICATIONS . RN CONTACTED [facility] TO PAGE MD TOMLINSON FOR NEW ORDERS/ CHANGE IN ORDERS RN WILL AWAIT RETURN PHONE CALL.
--- NOTE | 2017-08-05 18:03 | NUR ---
RN NOTE [phone] - MOTHER CELL PHONE # B CALL IN REGARDS TO INSULIN AND CBG MOTHERS NAME IS TERESA
--- NOTE | 2017-08-05 18:48 | NUR ---
RN CLOSING NOTE RN SPOKE WITH MD TOMLINSON IN REGARDS TO THE MOTHER WISHES TO NOT ADMINISTER CERTAIN MEDICATION AND ALSO REFUSING SPECIFIC MD ORDERS AND LABS. STATES THAT NURSING STAFF NEEDS TO CONTINUE TO DOCUMENT ANY REFUSALS OF MEDICATION OR TREATMENTS. DOCUMENT ANY INFERENCE IN MEDICAL TREATMENT: INCLUDING MEDICATION ADMINISTRATION, LABS, AND ANY MD ORDERED TREATMENTS. THIS PREVENTS MEDICAL STAFF TO TREATMENT TREAT THE PATIENT ACCURATELY. RN WILL ENDORSE TO PM RN FOR CONTINUED CARE PATIENT HAS BEEN STABLE THROUGHOUT THE DAY UP TO THE BATH ROOM X1 NO ISSUES NOTED.
--- NOTE | 2017-08-05 19:05 | NUR ---
MS RN OPENING NOTES RECEIVED REPORT FROM RADHA KHALIL. PATIENT A/A/O X1-2, ABLE TO MAKE SOME NEEDS KNOWN. BREATHING EVEN & UNLABORED W/ O2 6L VIA SIMPLE MASK. DENIES SOB OR DIFFICULTY BREATHING. PULSES PRESENT. LEFT UPPER ARM AV SHUNT INTACT W/ DRESSING CDI. RIGHT FOREARM IV #20 INTACT & PATENT W/ DRESSING CDI, SALINE LOCKED. DENIES ANY PAIN OR DISCOMFORT @ THIS TIME. SAFETY MEASURES IN PLACE W/ SIDE RAILS UP, BED LOCKED & IN LOWEST POSITION, CALL LIGHT WITHIN REACH & BED ALARM ON. WILL CONTINUE TO MONITOR.
[2017-08-05 20:00] VITALS: BP 147/75
--- NOTE | 2017-08-05 22:00 | NUR ---
RN NOTES ATTEMPTED TO DRAW PREVIOUSLY ORDERED LABS BUT PATIENT REFUSED & STARTED YELLING AT STAFF. WILL TRY AGAIN IN AM.
[2017-08-05] MEDS: INSULIN DETEMIR 100 UNIT/ML CARTRIDGE SQ SCH (22:31)
[2017-08-06 04:00] VITALS: BP 153/83
[2017-08-06] MEDS: INSULIN REGULAR, HUMAN 100 UNIT/ML 3 ML VIAL SQ PRN ×4 (05:37→23:58)
[2017-08-06] MEDS: BLOOD SUGAR DIAGNOSTIC 1 EACH STRIP IN SCH ×4 (05:37→23:57)
--- NOTE | 2017-08-06 06:00 | NUR ---
RN NOTES PATIENT REFUSED AM LABS AGAIN. CHARGE NURSE AWARE. WILL ENDORSE TO ONCOMING NURSE.
--- NOTE | 2017-08-06 07:48 | NUR ---
MS RN NOTES RECEIVED PATIENT SITTING UP IN THE BED, ON 6L OXYGEN VIA SIMPLE MASK, APPEARS PALE, NO SOB. PATIENT IS AWAKE AND ALERT TO HIS NAME. DENIES ANY DISCOMFORT. PLACE CALL LIGHT WITHIN REACH. MOTHER AT THE BEDSIDE.
[2017-08-06 08:00] VITALS: BP 130/85
[2017-08-06] MEDS: LEVOTHYROXINE SODIUM 175 MCG TABLET PO SCH (08:04)
--- NOTE | 2017-08-06 08:48 | NUR ---
PATIENTS MOTHER REFUSING BLOOD TEST TODAY, HEALTH EDUCATION GIVEN BUT PATIENTS MOTHER STILL REFUSED.
[2017-08-06] MEDS: INSULIN LISPRO/ASPART 100 UNIT/ML CARTRIDGE SQ SCH (09:00)
[2017-08-06] MEDS: DEXTROSE 50%-WATER 50 ML DISP.SYRIN IV PRN (09:01)
--- NOTE | 2017-08-06 09:06 | NUR ---
BS 49MG/DL DEXTROSE 50% 50ML IVP PRN GIVEN, CHARGE NURSE WAS INFORMED, PATIENTS MOTHER AT THE BEDSIDE. WILL CONT TO MONITOR PATIENT, REMAINS AWAKE , A/O X1.
[2017-08-06] MEDS: SEVELAMER CARBONATE 800 MG TABLET PO SCH ×3 (09:09→17:57)
--- NOTE | 2017-08-06 09:09 | NUR ---
RENVELA TABLET NON ADMINISTERED, PATIENTS MOTHER REFUSING, EDUCATION GIVEN, IMPORTANCE AND RISK, BENEFITS TAKING RENVELA MEDICATIONS, PATIENTS MOTHER STILL REFUSED, STATED TO GIVE RENVELA IN THE AFTERNOON.
--- NOTE | 2017-08-06 09:22 | NUR ---
WOUND CARE CONSULT: PT PRESENTS WITH LEFT WRIST SCAR. PT NOTED TO BE MOVING ALL EXTREMITIES AND SITS UP IN BED AT TIMES. DUSKY COLOR TO PLANTAR FEET AND TOES. SKIN PROTECTION RECOMMENDATIONS DISCUSSED WITH NURSING STAFF. CURRENT ROSLYN SCORE IS 17. WILL SEE PRN. DEL RIO IN AGREEMENT WITH PLAN OF CARE. Addendum: 08/06/17 at 0923 by ANDREA HUIZAR WNDNU Amended: Links added.
--- NOTE | 2017-08-06 10:35 | NUR ---
RECHECK BS 77MG/DL, OFFERED ORANGE JUICE. PATIENT MOTHER STATED, "NO" AND NOT TO GIVE ORANGE JUICE TO PATIENT. DIALYSIS TREATMENT STARTED, DIALYSIS NURSE, KAT AT THE BEDSIDE.
[2017-08-06 11:22] LABS: BASOPHILS % (AUTO) 0.2 % (0.0-2.0); EOSINOPHILS # (AUTO) 0.1 /CMM (0.0-0.7); EOSINOPHILS % (AUTO) 1.6 % (0.0-6.0); HEMATOCRIT 29 % (39-51); HEMOGLOBIN 9.2 g/dL (13.5-17.5); LYMPHOCYTES # (AUTO) 0.7 /CMM (0.8-4.8); LYMPHOCYTES % (AUTO) 16.7 % (20.0-44.0); MEAN CORPUSCULAR HEMOGLOBIN 26 PG (26.0-33.0); MEAN CORPUSCULAR HGB CONC 31 g/dl (31.0-36.0); MEAN CORPUSCULAR VOLUME 84 fL (80-96); MONOCYTES # (AUTO) 0.3 /CMM (0.1-1.30); NEUTROPHILS # (AUTO) 3.2 /CMM (1.8-8.9); NEUTROPHILS % (AUTO) 74.5 % (43.0-81.0); PLATELET COUNT (AUTO) 193 /CMM (150-450); RDW COEFFICIENT OF VARIATION 20.8 (11.5-15.0); WHITE BLOOD COUNT (AUTO) 4.2 K/uL (4.3-11.0)
[2017-08-06 11:38] LABS: BILIRUBIN,TOTAL 0.4 mg/dL (0.2-1.0); CALCIUM, SERUM 8.3 mg/dL (8.5-10.1); CREATININE 5.8 mg/dL (0.6-1.3); MAGNESIUM 2.3 mg/dL (1.8-2.4); PHOSPHORUS 3.6 mg/dL (2.5-4.9); POTASSIUM 3.7 mmol/L (3.5-5.1); TOTAL PROTEIN, SERUM 7.7 g/dL (6.4-8.2)
--- NOTE | 2017-08-06 12:36 | NUR ---
DIALYSIS TREATMENT DONE, PER AMKACEY, DIALYSIS NURSE 1.5L FLUID OUTPUT, PATIENT TOLERATED WELL BP 138/67
[2017-08-06] MEDS ORDERED: EPOETIN ALFA (10,000 UNIT) 10,000 UNIT/ML VIAL SQ ONE (15:00)
[2017-08-06 16:00] VITALS: BP 117/78
--- NOTE | 2017-08-06 16:02 | NUR ---
PER PATIENTS MOTHER REQUEST TO CHECK BS- 258MG/DL, PER MOTHER TO GIVE ONLY 4 UNITS OF INSULIN. EXPLAIN TO PATIENTS MOTHER THAT ITS NOT DUE YET FOR FSBS AND INSULIN DOSE, AND TO RECHECK THE BS ACCORDING TO SET HOURS, STATED "OK"
--- NOTE | 2017-08-06 17:39 | NUR ---
FSBS 287MG/DL. PATIENTS MOTHER REFUSING 9 UNITS INSULIN REGULAR PER SLIDING SCALE PARAMETERS, STATED "ONLY 3 UNITS" INFORMED DR. RITCHIE, AWAITING FOR ANY ORDERS. CHARGE NURSE IS AWARE.
--- NOTE | 2017-08-06 17:58 | NUR ---
DR. RITCHIE ORDERED TO DECREASE LEVEMIR INSULIN TO 10 UNITS Q HS AND STAY ON MODERATE SLIDING SCALE. INFORMED PATIENTS MOTHER-JACKIE, AGREED ON 10 UNITS LEVEMIR INSULIN AT NIGHT BUT INSISTED TO GIVE 3 UNITS ONLY OF INSULIN REGULAR INSTEAD OF 9 UNITS EXACT DOSE OF REGULAR INSULIN PER INSULIN SLIDING SCALE MODERATE. INFORMED DR. RITCHIE, CHARGE NURSE IS AWARE. GIVEN 3 UNITS OF INSULIN REGULAR SQ TO PATIENT PER JACKIE AGUILAR REQUEST. RENVELA NON ADMINISTERED, PATIENT MOTHERJACKIE REFUSED X3.
--- NOTE | 2017-08-06 18:28 | NUR ---
MS RN CLOSING NOTES PATIENT IN BED, SLEEPING, AROUSES EASILY. ON OXYGEN 6L VIA FACE MASK, TOLERATING WELL, NO SOB. JUAN MANUEL AV SHUNT COVERED WITH GAUZE, NO BLEEDING NOTED. APPEARS COMFORTABLE IN BED, NO FACIAL GRIMACING. PLACE CALL LIGHT WITHIN REACH. BED LOW AND LOCKED. WILL ENDORSE TO BICYCLE MESSENGER RN FOR HENNA.
--- NOTE | 2017-08-06 19:05 | NUR ---
MS RN OPENING NOTES RECEIVED REPORT FROM MATHIEU KHALIL. PATIENT A/A/O X1-2, ABLE TO MAKE SOME NEEDS KNOWN. BREATHING EVEN & UNLABORED W/ O2 6L VIA SIMPLE MASK. DENIES SOB OR DIFFICULTY BREATHING. PULSES PRESENT. LEFT UPPER ARM AV SHUNT INTACT W/ DRESSING CDI. RIGHT FOREARM IV #20 INTACT & PATENT W/ DRESSING CDI, SALINE LOCKED. DENIES ANY PAIN OR DISCOMFORT @ THIS TIME. SAFETY MEASURES IN PLACE W/ SIDE RAILS UP, BED LOCKED & IN LOWEST POSITION, CALL LIGHT WITHIN REACH & BED ALARM ON. WILL CONTINUE TO MONITOR.
[2017-08-06 20:00] VITALS: BP 128/62
--- NOTE | 2017-08-06 22:00 | NUR ---
RN NOTES PATIENT'S BS = 262 FOR LEVEMIR 10 UNITS @ 2200. CALLED PATIENT'S MOTHER, JACKIE IF OK TO GIVE LEVEMIR 10 UNITS. PER JACKIE, GIVE LEVEMIR 10 UNITS BUT DO NOT GIVE REGULAR INSULIN FOR 0000 BS CHECK. CHARGE NURSE AWARE.
[2017-08-06] MEDS: INSULIN DETEMIR 100 UNIT/ML CARTRIDGE SQ SCH (22:07)
--- NOTE | 2017-08-07 00:11 | NUR ---
RN NOTES PATIENT'S 0000 BS = 262. PER MOTHER'S REQUEST, NO INSULIN COVERAGE GIVEN. CHARGE NURSE AWARE.
--- NOTE | 2017-08-07 04:30 | NUR ---
RN NOTES PATIENT REFUSED 0400 VITAL SIGNS. EXPLAINED IMPORTANCE OF TAKING VS, STILL REFUSED. WILL TRY AGAIN LATER.
[2017-08-07] MEDS: BLOOD SUGAR DIAGNOSTIC 1 EACH STRIP IN SCH ×4 (05:46→19:42)
[2017-08-07] MEDS: INSULIN REGULAR, HUMAN 100 UNIT/ML 3 ML VIAL SQ PRN ×3 (05:47→19:49)
--- NOTE | 2017-08-07 07:30 | NUR ---
RN NOTES RECEIVED PATIENT IN BED ALERT, AWAKE WITH BREATHING NORMAL EVEN AND UNLABORED. NO SOB NOTED. NO ACUTE DISTRESS NOTED. IV RFA IS PATENT AND INTACT, NO INFILTRATION NOTED. BOWEL SOUND PRESENT. PULSES PRESENT. SAFETY MEASURE OBSERVED. ALL NEEDS ATTENDED. CALL LIGHT WITH IN REACH. WILL CONT TO MONITOR.
[2017-08-07 08:00] VITALS: BP 126/71
[2017-08-07] MEDS: LEVOTHYROXINE SODIUM 175 MCG TABLET PO SCH (08:05)
[2017-08-07] MEDS: SEVELAMER CARBONATE 800 MG TABLET PO SCH ×3 (08:05→17:15)
[2017-08-07] MEDS: INSULIN LISPRO/ASPART 100 UNIT/ML CARTRIDGE SQ SCH (08:06)
--- NOTE | 2017-08-07 08:08 | NUR ---
RN NOTES PATIENT NOTED WITH BLOOD SUGAR = 66. ASYMPTOMATIC, ALERT, AWAKE, EATING BREAKFAST. MOTHER AT BEDSIDE. REFUSED TO RECHECK BLOOD SUGAR. RISKS EXPLAINED BUT STILL REFUSED STRONGLY.
--- NOTE | 2017-08-07 12:05 | NUR ---
RN NOTES PATIENT NOTED WITH BLOOD SUGAR = 41. ASYMPTOMATIC, ALERT, AWAKE WITH BREATHING NORMAL, EVEN AND UNLABORED. MOTHER AT BEDSIDE. REFUSED TO GIVE DEXTROSE 50% IV. RISKS EXPLAINED BUT STILL REFUSED STRONGLY. ORANGE JUICE GIVEN BY MOTHER. PA MARSH AWARE.
--- NOTE | 2017-08-07 12:50 | NUR ---
RN NOTES. RECHECKED BLOOD SUGAR = 50. PATIENT ASYMPTOMATIC, ALERT, AWAKE, MOTHER AT BEDSIDE.STILL REFUSED DEXTROSE 50% IV. RISKS EXPLAINED BUT STILL REFUSED STRONGLY. PATIENT EATING GRAPES THIS TIME. PA MARSH AWARE. WILL CONT TO MONITOR.
[2017-08-07 16:00] VITALS: BP 128/73
--- NOTE | 2017-08-07 18:46 | NUR ---
RN NOTES PATIENT ENDORSED TO NEXT SHIFT IN STABLE CONDITION WITH BREATHING NORMAL, EVEN AND UNLABORED. NO SOB NOTED. NO ACUTE DISTRESS NOTED. KEPT CLEAN, DRY AND COMFORTABLE. ALL NEEDS ATTENDED. SAFETY MEASURE OBSERVED. CALL LIGHT WITH IN REACH. WILL CONT TO MONITOR.
[2017-08-07 20:00] VITALS: BP 106/52
--- NOTE | 2017-08-07 20:00 | NUR ---
ms/rn notes PATIENT SITTING IN BED ON 6L OXYGEN VIA MASK, PATIENT MOTHER AT BEDSIDE, FAMILY INVOLVE AND MOTHER PROVIDES CARE, REQUEST TO HAVE BS CHECK EARLY BEFORE SHE LEAVES, BS RESULT AT 259 AND ONLY 3 UNIT MOTHER REQUESTED TO HAVE ADMINISTERED NOT 9 PER SLIDING SCALE. PREVIOUS HYPGLYCEMIC EPISODE TO LOW 60'S. WILL CONTINUE TO MONITOR AND PROVIDE CARE. ATTEND TO NEEDS AT ALL TIMES.
[2017-08-07] MEDS: INSULIN DETEMIR 100 UNIT/ML CARTRIDGE SQ SCH (21:21)
[2017-08-08] VITALS: BP 106/52
[2017-08-08 04:00] VITALS: BP 125/88
[2017-08-08 04:44] VITALS: BP 106/52
[2017-08-08] MEDS: BLOOD SUGAR DIAGNOSTIC 1 EACH STRIP IN SCH ×4 (06:00→23:00)
--- NOTE | 2017-08-08 06:18 | NUR ---
ms/rn notes patient refused to have blood draw per lab, inform the benefit will f/u with am rn for patient mom so she can assist and made aware.
--- NOTE | 2017-08-08 06:32 | NUR ---
MS/RN NOTES 114-1 PATIENT ABLE TO SLEEP DURING THE NIGHT. CALM AND RESPIRATIONS EVEN AND UNLABORED. ASSIST AND PROVIDE NEEDS. WATCHES TV AT TIMES. CONTINUE MONITORING.
--- NOTE | 2017-08-08 07:25 | NUR ---
RN NOTES PATIENT WAS REFUSING SUGAR CHECK THIS MORNING. CHECKED NOW AND IS 92. NO INSULIN NEEDED.
[2017-08-08] MEDS: LEVOTHYROXINE SODIUM 175 MCG TABLET PO SCH (07:30)
[2017-08-08 08:00] VITALS: BP 129/60
[2017-08-08] MEDS: SEVELAMER CARBONATE 800 MG TABLET PO SCH ×3 (08:00→17:39)
[2017-08-08] MEDS: INSULIN LISPRO/ASPART 100 UNIT/ML CARTRIDGE SQ SCH (08:36)
--- NOTE | 2017-08-08 11:44 | NUR ---
RN NOTES PATIENT BLOOD SUGAR IS 199 AND SLIDING SCALE STATES THE PT NEEDS 3UNITS OF INSULIN. MOTHER AT BEDSIDE REFUSING, STATING PATIENT NEEDS ONLY ONE UNIT. EXPLAINED THE IMPORTANCE TO THE MOTHER, BUT SHE STILL REFUSES, STATES "ONLY ONE UNIT." WILL ADMIN ONE UNIT.
[2017-08-08 12:05] LABS: BASOPHILS % (AUTO) 0.1 % (0.0-2.0); EOSINOPHILS # (AUTO) 0.1 /CMM (0.0-0.7); EOSINOPHILS % (AUTO) 1.3 % (0.0-6.0); HEMATOCRIT 30 % (39-51); HEMOGLOBIN 9.1 g/dL (13.5-17.5); LYMPHOCYTES # (AUTO) 0.6 /CMM (0.8-4.8); LYMPHOCYTES % (AUTO) 10.5 % (20.0-44.0); MEAN CORPUSCULAR HEMOGLOBIN 26 PG (26.0-33.0); MEAN CORPUSCULAR HGB CONC 31 g/dl (31.0-36.0); MEAN CORPUSCULAR VOLUME 84 fL (80-96); MONOCYTES # (AUTO) 0.3 /CMM (0.1-1.30); MONOCYTES % (AUTO) 6.1 % (2.0-12.0); NEUTROPHILS # (AUTO) 4.6 /CMM (1.8-8.9); RDW COEFFICIENT OF VARIATION 20.6 (11.5-15.0); RED BLOOD CELL COUNT(AUTO) 3.51 MIL/uL (4.5-6.0); WHITE BLOOD COUNT (AUTO) 5.6 K/uL (4.3-11.0)
[2017-08-08] MEDS: INSULIN REGULAR, HUMAN 100 UNIT/ML 3 ML VIAL SQ PRN ×3 (12:07→23:01)
[2017-08-08 12:45] LABS: CALCIUM, SERUM 8.2 mg/dL (8.5-10.1); CREATININE 4.2 mg/dL (0.6-1.3); PHOSPHORUS 2.7 mg/dL (2.5-4.9)
[2017-08-08 12:46] LABS: PLATELET COUNT (AUTO) 164 /CMM (150-450)
[2017-08-08 16:00] VITALS: BP 124/69
--- NOTE | 2017-08-08 18:39 | NUR ---
RN CLOSING NOTES NO SIGNIFICANT CHANGES IN PATIENT CONDITION THROUGHOUT THE SHIFT. NO SOB OR DISTRESS NOTED AT THIS TIME. PATIENT SLEEPING, DOES NOT APPEAR TO BE IN PAIN. BED IN A LOW POSITION, WILL ENDORSE FOR HENNA.
--- NOTE | 2017-08-08 19:30 | NUR ---
RN OPENING NOTES RECEIVED REPORT FROM DAYSHIFT RN. FOUND Pt AWAKE, SITTING IN BED WATCHING TV. NO S/S OF ACUTE DISTRESS OR SEVERE SOB NOTED. NO C/O PAIN AT THIS TIME. Pt IS VERBAL AND ABLE TO MAKE NEEDS KNOWN. SAFETY MEASURES IN PLACE. BED LOW, LOCKED, HOB ELEVATED, SIDE RAILS UP. CALL LIGHT AND BEDSIDE TABLE WITHIN REACH. WILL CONTINUE TO MONITOR Pt THROUGHOUT THE NIGHT FOR SAFETY.
[2017-08-08 20:00] VITALS: BP 124/85
--- NOTE | 2017-08-08 20:15 | NUR ---
RN NOTES ENDORSED TO EDWARD RNNATALYA FOR Pt's HENNA.
--- NOTE | 2017-08-08 20:20 | NUR ---
MS RN INITIAL NOTE RECEIVED PT SITTING UP IN BED. A/O X2 AND ABLE TO MAKE SOME NEEDS KNOWN. ON 6LPM OF O2 VIA FACE MASK AND SATURATING 92%. ALSO NOTED WITH EPISODES OF AGITATION AND UNCOOPERATIVENESS. BREATHING EVEN AND UNLABORED. NO SOB NOTED AT THIS TIME. IV RFA #20 CLEAN, DRY AND FLUSHING WELL. JUAN MANUEL AV SHUNT WITH THRILL AND BRUIT PRESENT. BED IN LOWEST POSITION AND LOCKED IN PLACE. CALL LIGHT WITHIN REACH. WILL CONTINUE TO MONITOR.
[2017-08-08] MEDS: INSULIN DETEMIR 100 UNIT/ML CARTRIDGE SQ SCH (22:57)
[2017-08-09 04:00] VITALS: BP 121/83
--- NOTE | 2017-08-09 05:30 | NUR ---
RN NOTE RECEIVED REPORT OF CT CHEST FROM RADIOLOGY. INFORMED PT HAS WORSENING CHF BILATERAL MILD TO MODERATE PLEURAL EFFUSIONS AND PERICARDIAL EFFUSION. WILL ENDORSE TO NEXT SHIFT.
[2017-08-09] MEDS: BLOOD SUGAR DIAGNOSTIC 1 EACH STRIP IN SCH ×4 (06:25→23:02)
[2017-08-09] MEDS: DEXTROSE 50%-WATER 50 ML DISP.SYRIN IV PRN ×2 (06:30→12:20)
[2017-08-09] MEDS: LEVOTHYROXINE SODIUM 175 MCG TABLET PO SCH (06:30)
--- NOTE | 2017-08-09 07:30 | NUR ---
MS/RN Patient received Patient received from third shift lieutenant. Sleeping soundly, appears in no distress. Mother at bedside, updated as to plan of care. Side rails X3 in upright condition, call light within reach, will continue to monitor and ensure safety.
--- NOTE | 2017-08-09 07:40 | NUR ---
MS RN CLOSING NOTE PT REMAINED STABLE DURING SHIFT. NO ACUTE DISTRESS NOTED. ALL NEEDS ATTENDED TO PROMPTLY. NO SOB NOTED. NO C/O PAIN OR DISCOMFORT. BLOOD SUGAR 56 THIS MORNING AND GAVE D50 IV. RECHECKED BLOOD SUGAR IN 20 MINS AND BLOOD SUGAR 119. CALL LIGHT WITHIN REACH. WILL ENDORSE TO NEXT SHIFT FOR HENNA.
[2017-08-09 08:00] VITALS: BP 117/73
[2017-08-09 08:02] VITALS: BP 117/73
[2017-08-09] MEDS: SEVELAMER CARBONATE 800 MG TABLET PO SCH ×3 (08:19→17:34)
[2017-08-09] MEDS: INSULIN LISPRO/ASPART 100 UNIT/ML CARTRIDGE SQ SCH (08:20)
--- NOTE | 2017-08-09 08:22 | NUR ---
MS/RN Medications Morning oral medications administered but mother refused for insulin. Educated as to the importance of receiving insulin and keeping blood sugars stable but continues to refuse.
--- NOTE | 2017-08-09 08:47 | NUR ---
MS/RN S/B Dr Ball Seen by Dr Ball - HDX ordered for today along with labs for tomorrow.
--- NOTE | 2017-08-09 10:00 | NUR ---
RN/MS NOTES: PT. MOTHER AT BED SIDE REFUSED LEVEMIR .
--- NOTE | 2017-08-09 11:23 | NUR ---
MS/RN HDX HDX started at bedside.
--- NOTE | 2017-08-09 11:24 | NUR ---
MS/RN S/B Dr Mckinley Seen by Dr Mckinley - 2Decho ordered.
--- NOTE | 2017-08-09 12:15 | NUR ---
MS/RN Blood sugars Hypoglycemic at noon -56, mother refuse D50, orange juice with four packets of sugar given -blood sugar rechecked, 69. D50 administered after mother re-educated. -blood sugar now 102.
[2017-08-09] MEDS ORDERED: ALBUMIN 25% 25 GM in PREMIX 1 EA IV PRN (12:30)
[2017-08-09 13:01] LABS: CALCIUM, SERUM 7.7 mg/dL (8.5-10.1); CREATININE 4.2 mg/dL (0.6-1.3); POTASSIUM 2.9 mmol/L (3.5-5.1)
--- NOTE | 2017-08-09 13:30 | NUR ---
MS/RN HDX Patient's blood pressure low throughout HDX, lowest reading being 88/29. Dr Sulilvan and Dr Ball made aware. Order given for patient to receive albumin 100ml. Order called and faxed to pharmacy. At completion of treatment and after albumin, BP 140/56. No output, just cleaning.
[2017-08-09] MEDS ORDERED: DEXTROSE 50%-WATER 50 ML DISP.SYRIN IV PRN (14:00)
[2017-08-09 16:00] VITALS: BP 126/73
--- NOTE | 2017-08-09 17:00 | NUR ---
MS/RN Blood sugar Blood sugar at 5p - 140, reufsed insulin coverage.
--- NOTE | 2017-08-09 17:35 | NUR ---
MS/RN Refused medication Mother refused for patient to be given renagel, stating that he son was not going to eat and would not need medication. Education provided but continues to refuse.
--- NOTE | 2017-08-09 18:00 | NUR ---
MS/RN 2D echo 2D echo completed, ejection fracture 80%.
--- NOTE | 2017-08-09 18:49 | NUR ---
MS/RN End note No changes in care at this time. Mother requesting that patient not be given any insulin this evening as blood sugars drop in the morning to critical levels. Will pass request onto incoming nurse. All needs attended, skin kept clean and dry, last blood sugar 140.
--- NOTE | 2017-08-09 19:30 | NUR ---
RN/MS NOTES: RECEIVED PT SITTING UP IN BED. A/O X2 AND ABLE TO MAKE SOME NEEDS KNOWN. UP W/ TABLET WATCHING. ON 6LPM OF O2 VIA FACE MASK AND SATURATING 91%. BREATHING EVEN AND UNLABORED. NO SOB NOTED AT THIS TIME. IV RFA #20 CLEAN, DRY AND FLUSHING WELL. JUAN MANUEL AV SHUNT WITH THRILL AND BRUIT PRESENT. BED LOCKED AND IN LOWEST POSITION.CALL LIGHT WITHIN REACH. WILL CONTINUE TO MONITOR.
[2017-08-09 20:00] VITALS: BP 128/64
[2017-08-09] MEDS: INSULIN DETEMIR 100 UNIT/ML CARTRIDGE SQ SCH (21:29)
[2017-08-09] MEDS: INSULIN REGULAR, HUMAN 100 UNIT/ML 3 ML VIAL SQ PRN (23:16)
[2017-08-10 04:00] VITALS: BP 94/63
[2017-08-10] MEDS: BLOOD SUGAR DIAGNOSTIC 1 EACH STRIP IN SCH ×3 (05:25→16:39)
--- NOTE | 2017-08-10 06:30 | NUR ---
RN/MS NOTES: PT. MOTHER AT BED SIDE. BS 77 . GAVE 2 ORANGE JUICE PT. DRANK IT. ASKED MOTHER IF SYNTHROID CAN BE GIVEN BUT PT. MOTHER REFUSED STATED HE IS SLEEPING. MOTHER REFUSED LABS THIS AM. NEXT SHIFT NURSE GIVEN REPORT TO CONTINUE PLAN OF CARE.
--- NOTE | 2017-08-10 07:20 | NUR ---
RN OPEN NOTES RECEIVED REPORT FROM STICK WELDER NURSE. OXYGEN SATURATIO N IS IN THE LOW 80. CALLED RT TO EVALUATE. WILL CONTINUE TO MONITOR AND ASSESS PATIENT THROUGH OUT MY SHIFT
--- NOTE | 2017-08-10 07:20 | NUR ---
RT AT BEDSIDE. PATIENT IS ON MASK 12L
[2017-08-10] MEDS: LEVOTHYROXINE SODIUM 175 MCG TABLET PO SCH (07:44)
[2017-08-10 08:00] VITALS: BP 127/70
[2017-08-10] MEDS: SEVELAMER CARBONATE 800 MG TABLET PO SCH ×3 (08:00→18:00)
[2017-08-10] MEDS: INSULIN LISPRO/ASPART 100 UNIT/ML CARTRIDGE SQ SCH (08:13)
--- NOTE | 2017-08-10 08:13 | NUR ---
PATIENT REFUSED FOOD. RENAGEL AND INSULIN HELD
--- NOTE | 2017-08-10 09:00 | NUR ---
PATIENT IS ON NON-BREATHER MASK 15L
--- NOTE | 2017-08-10 09:07 | NUR ---
RT NOTE: LATE ENTRY- PATIENT FOUND WITH SP02=80% ON SIMPLE MASK @12LPM. PATIENT CHANGE TO NON-REBREATHER @ 15LPM. SP02 INCREASE TO 94%. ABG HELD AT THIS TIME. MOTHER REFUSED ABG. WILL FOLLOW UP WITH PATIENT AFTER HEMODIALYSIS.
[2017-08-10 10:55] LABS: HEMATOCRIT 30 % (39-51); HEMOGLOBIN 9.3 g/dL (13.5-17.5); LYMPHOCYTES # (AUTO) 0.6 /CMM (0.8-4.8); MEAN CORPUSCULAR HEMOGLOBIN 26 PG (26.0-33.0); MEAN CORPUSCULAR HGB CONC 31 g/dl (31.0-36.0); MEAN CORPUSCULAR VOLUME 84 fL (80-96); MONOCYTES # (AUTO) 0.4 /CMM (0.1-1.30); MONOCYTES % (AUTO) 7.9 % (2.0-12.0); NEUTROPHILS # (AUTO) 3.5 /CMM (1.8-8.9); NEUTROPHILS % (AUTO) 78.1 % (43.0-81.0); PLATELET COUNT (AUTO) 157 /CMM (150-450); RDW COEFFICIENT OF VARIATION 20.5 (11.5-15.0); RED BLOOD CELL COUNT(AUTO) 3.56 MIL/uL (4.5-6.0); WHITE BLOOD COUNT (AUTO) 4.5 K/uL (4.3-11.0)
[2017-08-10 11:30] LABS: ALBUMIN 3.5 g/dL (3.4-5.0); BILIRUBIN,TOTAL 0.5 mg/dL (0.2-1.0); CALCIUM, SERUM 8.5 mg/dL (8.5-10.1); CREATININE 4.8 mg/dL (0.6-1.3); MAGNESIUM 2.2 mg/dL (1.8-2.4); PHOSPHORUS 3.1 mg/dL (2.5-4.9); POTASSIUM 3.1 mmol/L (3.5-5.1); TOTAL PROTEIN, SERUM 8.1 g/dL (6.4-8.2)
[2017-08-10 11:39] LABS: THYROID STIMULATING HORMONE 47.644 uIU/mL (0.358-3.74)
[2017-08-10 11:57] LABS: ABG OXYGEN SATURATION 96.9 % (92.0-98.5); ABG PCO2 52.7 mmHg (35.0-45.0); ABG PH 7.399 (7.350-7.450); ABG PO2 91.3 mmHg (75.0-100.0); AaDO2 423.8 mmHg; COHb 1.6 % (0.5-1.5); MetHb 0.7 % (0.0-1.5); O2Hb 94.7 % (94.0-97.0); SITE, ABG A-Line; VENT MODE, BG NON-REBREATHER MASK
[2017-08-10] MEDS: methylPREDNISolone SOD SUCC 125 MG/2ML VIAL IV SCH ×2 (13:00→21:12)
--- NOTE | 2017-08-10 13:15 | NUR ---
ATTEMPTED TO START A NEW IV. PATIENT IS AGITATED AND MOVING. MOTHER REQUESTED NOT TO TRY AGAIN AND MAYBE LATER
--- NOTE | 2017-08-10 13:22 | NUR ---
RN OPEN NOTES RECEIVED REPORT FROM TEACHER TUTOR NURSE. OXYGEN SATURATIO N IS IN THE LOW 80. CALLED RT TO EVALUATE. WILL CONTINUE TO MONITOR AND ASSESS PATIENT THROUGH OUT MY SHIFT Addendum: 08/10/17 at 1323 by MIKALA SHIELDS RN ABOVE NOTE REFLECT [id number] TIME
--- NOTE | 2017-08-10 14:00 | NUR ---
MOTHER LEFT FOR AN HOUR AND REQUESTED NOT TO TOUCH PATIENT SINCE HE IS SLEEPING. WILL ATTEMPT TO START A NEW IV WHEN MOTHER IS BACK
[2017-08-10] MEDS: FERROUS SULFATE (325 MG) 325 MG/TAB TABLET PO SCH (16:36)
[2017-08-10] MEDS: INSULIN REGULAR, HUMAN 100 UNIT/ML 3 ML VIAL SQ PRN (16:43)
--- NOTE | 2017-08-10 17:00 | NUR ---
BLOOD SUGAR 283. MOTHER INSISTED ON ONLY 4 UNITS AND NOT 6 UNITS PER SLIDING SCALE.
--- NOTE | 2017-08-10 17:15 | NUR ---
ER NURSE ATTEMPT TO START A NEW IV SITE, UNSUCCESSFUL. MOTHER REFUSE MIDLINE. UNABLE TO ADMINISTER SOLU MEDROL
--- NOTE | 2017-08-10 18:45 | NUR ---
MIDLINE NURSE AT BEDSIDE. UNABLE TO START A MIDLINE
[2017-08-10] MEDS ORDERED: CLOP75TA2 PO (19:12)
--- NOTE | 2017-08-10 19:35 | NUR ---
RN CLOSING NOTES PATIENT IS IN BED. ALERT AND ORIENTED TO SELF ONLY. NO SIGNS AND SYMPTOMS OF DISTRESS OR PAIN. MIDLINE IS INTACT AND PATENT. AL NURSING CARE ATTENDED. PATIENT KEPT CLEAN AND DRY. ENDORSED TO LOADER TECHNICIAN NURSE.
[2017-08-10 20:00] VITALS: BP 111/73
[2017-08-10] MEDS: INSULIN DETEMIR 100 UNIT/ML CARTRIDGE SQ SCH (21:21)
--- NOTE | 2017-08-10 21:22 | NUR ---
RN NOTES RECEIVED PATIENT SITTING ON THE BED WITH NO RESPIRATORY DISTRESS OR SHORTNESS OF BREATH. BREATHING EVEN AND UNLABORED. ON 02 @6LPM VIA MASK TOLERATING WELL. NO COMPLAINT OF PAIN. MOTHER AT BEDSIDE WITH INSTRUCTION NO SHOTS (INSULIN). EMPHASIZED SEVERAL TIMES AND BEFORE SHE LEFT. BLOOD SUGAR TAKEN AT 2200 392MG/DL. NO LEVEMIR SHOT GIVEN PER MOTHER'S INSTRUCTION. WILL CONTINUE TO MONITOR.
--- NOTE | 2017-08-11 00:44 | NUR ---
RN NOTES BLOOD SUGAR LEVEL IS 363,G/DL AT 0000. MOTHER DOES NOT WANT ANY INSULIN COVERAGE.
[2017-08-11] MEDS: methylPREDNISolone SOD SUCC 125 MG/2ML VIAL IV SCH ×2 (05:54→12:27)
[2017-08-11] MEDS: BLOOD SUGAR DIAGNOSTIC 1 EACH STRIP IN SCH ×3 (06:12→12:27)
--- NOTE | 2017-08-11 06:25 | NUR ---
RN NOTES BLOOD SUGAR CHECK, 489MG/DL. CALLED MOTHER, LEFT VOICE MAIL MESSAGE. CALLED MD, WAITING FOR CALL BACK. ASYMPTOMATIC. NO DIAPHORESIS OR AGITATION NOTED. BREATHING EVEN AND UNLABORED. NO PHYSICAL MANIFESTATION OF PAIN OR DISCOMFORT. WILL ENDORSE TO AM SHIFT FOR CONTINUITY OF CARE.
--- NOTE | 2017-08-11 07:30 | NUR ---
RN AM NOTES RECEIVED PATIENT SITTING IN THE BED, O2 AT6 LPM VIA MASK. WITH NO RESPIRATORY DISTRESS OR SHORTNESS OF BREATH. BREATHING EVEN AND UNLABORED. NO COMPLAINT OF PAIN. LUE AV SHUNT THRILL PRESENT, LUCNIA MIDLINE FLUSHES WELL, SITE CLEAR. MOTHER AT BEDSIDE NOW WANTS INSULIN SHOT. AOX2, AMB WITH ASSIST. SOFT DIET. SEE NURSING FLOWSHEET FOR SKIN ISSUES. CALL LIGHT WITHIN REACH. BED LOW/LOCKED. SR UPX 2. WILL CONT TO MONITOR.
[2017-08-11] MEDS: LEVOTHYROXINE SODIUM 175 MCG TABLET PO SCH (07:51)
[2017-08-11] MEDS: SEVELAMER CARBONATE 800 MG TABLET PO SCH ×2 (07:52→12:27)
[2017-08-11 08:00] VITALS: BP 135/95
[2017-08-11] MEDS: INSULIN REGULAR, HUMAN 100 UNIT/ML 3 ML VIAL SQ PRN ×2 (08:01→11:47)
--- NOTE | 2017-08-11 08:01 | NUR ---
MS RN NOTES ADMINISTERED HUM R 10 UNITS PER SS.
[2017-08-11] MEDS: FERROUS SULFATE (325 MG) 325 MG/TAB TABLET PO SCH (08:51)
--- NOTE | 2017-08-11 08:56 | NUR ---
MS RN NOTES RECHECKED BS. 460 MG/DL. ADMINISTERED SCHEDULED HUMALOG 10 UNITS.
[2017-08-11] MEDS: INSULIN LISPRO/ASPART 100 UNIT/ML CARTRIDGE SQ SCH (08:58)
--- NOTE | 2017-08-11 10:38 | NUR ---
MS KHALIL NOTES ORDERED RANDOM GLUCOSE. MOTHER REFUSED. RE CHECKED BS 468 MG/DL. WILL NOTIFY MD. Addendum: 08/11/17 at 1128 by JOSE MANUEL AYOUB RN NO NEW ORDER.
--- NOTE | 2017-08-11 11:47 | NUR ---
MS RN NOTES ADMINISTERED 10 UNITS HUM R PER SS.
--- NOTE | 2017-08-11 12:37 | NUR ---
MS RN NOTES REPEAT BS CHECK READING "HI" [>600]. PA DOWNING TELETYPIST NOTIFIED, NEW ORDER TO GIVE ANOTHER 10 UNITS HUM R. ALSO PATIENT IS ON SOLUMEDROL.
[2017-08-11] MEDS ORDERED: INSULIN REGULAR, HUMAN 100 UNIT/ML 10 ML VIAL SQ ONE (13:00)
[2017-08-11] MEDS ORDERED: FERR325T28 PO (14:11)
[2017-08-11] MEDS ORDERED: FOLI1TAB16 PO (14:11)
[2017-08-11] MEDS ORDERED: CYAN500T4 PO (14:11)
--- NOTE | 2017-08-11 16:01 | NUR ---
MS RN NOTES PATIENT DISCHARGED TO HOME TODAY PER MD IN STABLE CONDITION.PROVIDED DC INSTRUCTIONS,MED RECON LIST/PRESCRIPTIONS, HEALTH TEACHINGS. LUCINA MIDLINE REMOVED, CATH TIP COMPLETE, PRESSURE APPLIED X 10MINUTES, NO BLEEDING, DRESSING IN PLACE. ALL BELONGINGS CHECKED AND RETURNED. ALL PAPER WORKS SIGNED BY MOTHER. ACCOMPANIED BY KEVIN KEENE TO LOBBY VIA WHEELCHAIR ACCOMPANIED WELL BY MOTHER AND SISTER. UNABLE TO TAKE PICTURE OF SKIN ISSUES, PATIENT IS PUSHING NURSE AWAY EVERYTIME I TOUCH HIM AND SAYS "NO". PATIENT TO PROCEED WITH SCHEDULED HD ON SUNDAY AND FOLLOW WITH PCP IN 1 WEEK, FOLLOW UP WITH DR. HERNANDEZ FOR CT SCAN.
[2017-08-11 16:07] VITALS: BP 135/85
[2017-08-12] MEDS ORDERED: FOLIC ACID 1 MG TABLET PO SCH (09:00)
[2017-08-12] MEDS ORDERED: CYANOCOBALAMIN 500 MCG TABLET PO SCH (09:00)
== END 2017-08-11 15:59 | disposition home or self-care (01) | DRG 196 ==
LOC: ER 11:40 → TELE-TD 14:13 → MEDSG1 08-05 09:57
PROVIDERS: ADMIT Internal Medicine; ATTEND Internal Medicine
PROC: 05H633Z Insertion of Infusion Device into Left Subclavian Vein, Percutaneous Approach (ICD-10-PCS; principal; 2017-08-04)
PROC: 5A1D70Z Performance of Urinary Filtration, Intermittent, Less than 6 Hours Per Day (ICD-10-PCS; 2017-08-04)
DX: J67.9 Hypersensitivity pneumonitis due to unspecified organic dust (principal); J96.01 Acute respiratory failure with hypoxia; I13.2 Hypertensive heart and chronic kidney disease with heart failure and with stage 5 chronic kidney disease, or end stage renal disease; G93.40 Encephalopathy, unspecified; E27.8 Other specified disorders of adrenal gland; E11.22 Type 2 diabetes mellitus with diabetic chronic kidney disease; E11.649 Type 2 diabetes mellitus with hypoglycemia without coma; I27.20 Pulmonary hypertension, unspecified; N18.6 End stage renal disease; I50.31 Acute diastolic (congestive) heart failure; I31.3 Pericardial effusion (noninflammatory); E87.1 Hypo-osmolality and hyponatremia; I31.9 Disease of pericardium, unspecified; E11.65 Type 2 diabetes mellitus with hyperglycemia; Z99.81 Dependence on supplemental oxygen; Z99.2 Dependence on renal dialysis; Z87.01 Personal history of pneumonia (recurrent); Z86.718 Personal history of other venous thrombosis and embolism; Z79.4 Long term (current) use of insulin; Q90.9 Down syndrome, unspecified; K21.9 Gastro-esophageal reflux disease without esophagitis; E53.8 Deficiency of other specified B group vitamins; E03.9 Hypothyroidism, unspecified; D64.9 Anemia, unspecified; J40 Bronchitis, not specified as acute or chronic; E87.70 Fluid overload, unspecified; M85.9 Disorder of bone density and structure, unspecified; R59.0 Localized enlarged lymph nodes
CPT/HCPCS: 36415; 36569; 36600; 71010-TC; 71250-TC; 80048-TC; 80053-TC; 80061-TC; 80076-TC; 80202-TC; 82728-TC; 82746; 82803-TC; 82962-TC; 83540-TC; 83605-TC; 83615-TC; 83735-TC; 84100-TC; 84439-TC; 84443-TC; 84484-TC; 85025-TC; 85730-TC; 87040-TC; 87081-TC; 90935-TC; 93307-TC; A4216; A4606; A6402; A6403; J0885; J1815; J2543; J2930; J3370; J7050; J7060; P9047; Z7610

== ENCOUNTER 2017-08-12 19:12 | Inpatient (IN) | payer BC ==
[~2017-08-12] VITALS: Ht 165.1 cm; Wt 65.5 kg
[~2017-08-12 19:12] MED LIST changes: +CLOP75TA2 PO; +CYAN500T4 PO; +FERR325T28 PO; +FOLI1TAB16 PO
--- NOTE | 2017-08-12 19:14 | NUR ---
PT TO EXAM ROOM AT 1914 WITH MOTHER AND GRANDMOTHER AT BEDSIDE. MOTHER STATES PT WAS SEEN HERE LAST NIGHT AND DC TO HOME. AT HOME PT DECOMPENSATED ON 12L O2. PT HAS DOWNS SYNDROME AND IS AUTISTIC. PT PRESENTS NOW SOB WITH AGITATION. GRANDMOTHER HAS STATED SHE "IS FRUSTRATED AND UPSET WITH PT CARE LAST NIGHT", MOTHER STATES "HE SHOULD NEVER HAVE BEEN DISCHARGED". MD NOTIFIED. PT PLACED ON 15L O2, NON-REBREATHER MASK SAT 90-95, PULSE OXIMETER PLACED ON RIGHT EAR.
--- NOTE | 2017-08-12 20:00 | NUR ---
MD TO PT BEDSIDE 1949, XRAY TO PT BEDSIDE 1999
[2017-08-12 20:37] LABS: BASOPHILS % (AUTO) 0.3 % (0.0-2.0); EOSINOPHILS # (AUTO) 0.1 /CMM (0.0-0.7); EOSINOPHILS % (AUTO) 0.9 % (0.0-6.0); HEMATOCRIT 28 % (39-51); HEMOGLOBIN 8.4 g/dL (13.5-17.5); LYMPHOCYTES # (AUTO) 0.6 /CMM (0.8-4.8); LYMPHOCYTES % (AUTO) 9.9 % (20.0-44.0); MEAN CORPUSCULAR HEMOGLOBIN 26 PG (26.0-33.0); MEAN CORPUSCULAR HGB CONC 30 g/dl (31.0-36.0); MEAN CORPUSCULAR VOLUME 85 fL (80-96); MONOCYTES # (AUTO) 0.4 /CMM (0.1-1.30); MONOCYTES % (AUTO) 5.7 % (2.0-12.0); NEUTROPHILS # (AUTO) 5.5 /CMM (1.8-8.9); NEUTROPHILS % (AUTO) 83.2 % (43.0-81.0); PLATELET COUNT (AUTO) 183 /CMM (150-450); RDW COEFFICIENT OF VARIATION 19.4 (11.5-15.0); RED BLOOD CELL COUNT(AUTO) 3.31 MIL/uL (4.5-6.0); WHITE BLOOD COUNT (AUTO) 6.6 K/uL (4.3-11.0)
--- NOTE | 2017-08-12 20:38 | NUR ---
Sheila reyes in EDM - 08/12/17 at 2139 by NORMAN UNABLE TO ESTABLISH PERIPHERAL IV ACCESS WITH LARGE ENOUGH GAUGE , MD RIHCTER ACCEPTING ADMITTANCE, WILL COME TO ER TO ESTABLISH MIDLINE.
[2017-08-12 20:47] LABS: CALCIUM, SERUM 8.1 mg/dL (8.5-10.1); POTASSIUM 4.3 mmol/L (3.5-5.1)
[2017-08-12 20:52] LABS: CREATININE 9.6 mg/dL (0.6-1.3)
[2017-08-12] MEDS ORDERED: IV NS 0.9% 250 ML IV ONE (21:28)
[2017-08-12] MEDS ORDERED: CT SWABBABLE VALVE TRANS SET 1 EA INFUS.SET MC ONE (21:28)
[2017-08-12] MEDS ORDERED: IOHEXOL-350 100 ML VIAL IV ONE (21:28)
--- NOTE | 2017-08-12 21:34 | NUR ---
CALLED Nazar, BRANCH OPERATIONS SPECIALIST WAS PAGED.
--- NOTE | 2017-08-12 21:39 | NUR ---
TO ICU 18G ATTEMPTED RT AC, INFILTRATED AND REMOVED. FAMILY REFUSING ANY OTHER ATTEMPT AT IV ACCESS AT THIS TIME. MD DISCUSSED WITH FAMILY, DECISION TO TAKE PT TO DIRECTLY TO ICU WITHOUT IV ACCESS MADE. FAMILY REFUSING ANY PERIPHREAL LINES AT THIS TIME.
[2017-08-12] MEDS ORDERED: ENOXAPARIN SODIUM 30 MG/0.3 ML DISP.SYRIN SQ SCH (23:30)
[2017-08-12] MEDS ORDERED: *INSULIN REGULAR(HUMULIN R)HUM 100 UNIT/ML VIAL SQ PRN (23:30)
[2017-08-12] MEDS ORDERED: MORPHINE SULFATE INJ 2 MG/ML DISP.SYRIN IV PRN (23:30)
[2017-08-12] MEDS ORDERED: DEXTROSE 50%-WATER 50 ML DISP.SYRIN IV PRN (23:30)
[2017-08-12] MEDS ORDERED: ONDANSETRON HCL/PF 4 MG/2 ML VIAL IVP PRN (23:30)
[2017-08-12] MEDS ORDERED: INSULIN REGULAR, HUMAN 100 UNIT/ML 3 ML VIAL SQ PRN (23:30)
[2017-08-12] MEDS ORDERED: Z GUARD REMEDY 2 OZ OINT TP PRN (23:30)
[2017-08-12] MEDS ORDERED: ACETAMINOPHEN 325 MG TABLET PO PRN (23:30)
--- NOTE | 2017-08-12 23:37 | NUR ---
REPORT CALLED TO MERCHANDISE PLANNER, PT SLEEPING IN GUARDED CONDITION AT THIS TIME. ADMIT TO ICU 256
--- NOTE | 2017-08-12 23:47 | NUR ---
RN NOTES spoke to Omar Garcia DNP patient is stable to be admitted in [facility].
[2017-08-13] VITALS: BP 117/68
--- NOTE | 2017-08-13 00:12 | NUR ---
PT TRANSPORTED TO [facility]114 BED 1 VIA [facility] ACLS PROTOCOL. REPORT GIVEN TO NATALYA KHALIL RECEIVING. PT VSS
--- NOTE | 2017-08-13 00:20 | NUR ---
[facility] RN INITIAL NOTE RECEIVED PT VIA GURNEY WITH MOTHER AT BEDSIDE. PT TRANSFERRED SAFELY TO BED IN ROOM 114-1.A/O X1, MUMBLES WORDS BUT MOSTLY NON VERBAL AT THIS TIME. ON 15L OF NONREBREATHER AND SATURATING 92%. BREATHING IS REGULAR BUT SHALLOW. LUNG SOUNDS ARE DIMINISHED BILATERALLY. PT LETHARGIC AND ASKING TO SLEEP.HEART SOUNDS AUSCULTATED WITH S1S2 PRESENT. TELE-SR 86. NO IV ACCESS AT THIS TIME. MOTHER REFUSED AND AGREES TO A MIDLINE INSERTION IN THE MORNING. PT AND MOTHER REFUSED ANY CARE AND INFORMED STAFF TO LET PT SLEEP AND THAT SHE WOULD BE ON THE UNIT IN THE MORNING. JAUN MANUEL AV SHUNT WITH THRILL/BRUIT PRESENT. PT/MOTHER REFUSED SKIN ASSESSMENT BUT NOTED WITH L WRIST SCAR FROM OLD HD SITE. BED LOCKED IN PLACE AND IN LOWEST POSITION WITH CALL LIGHT WITHIN REACH. WILL CONTINUE TO MONITOR.
[2017-08-13 04:00] VITALS: BP 113/74
--- NOTE | 2017-08-13 06:43 | NUR ---
[facility] RN CLOSING NOTE PT REMAINED STABLE DURING SHIFT. SLEPT MOST OF THE SHIFT. ON 15L OF O2 VIA NONREBREATHER AND SATURATING 96%. NO ACUTE DISTRESS NOTED. NO C/O PAIN OR DISCOMFORT. NOTED WITH EPISODES OF REMOVING THE TELEMONITOR. SPOKE WITH DR.TIM RICHTER REGARDING ORDER FOR CT PULMONARY ANGIOGRAM TODAY WITH NEW ORDER TO D/C THAT ORDER STATING PT ALREADY HAD ONE DONE AND DOES NOT NEED A NEW ONE. PT JUST NEEDS SOME OXYGEN AND DIALYSIS. ORDERS NOTED AND CARRIED OUT. CALL LIGHT WITHIN REACH AT ALL TIMES. ALL NEEDS ATTENDED TO PROMPTLY. WILL ENDORSE TO NEXT SHIFT FOR CONTINUITY OF CARE.
--- NOTE | 2017-08-13 07:10 | NUR ---
RN NOTE RECEIVED PT ON BED, MUMBLES WORDS BUT MOSTLY NON VERBAL , ON 15L OF NONREBREATHER O2 SAT 95%, PATRICIA SOB AT THIS TIME , ON TELE SR HR IN 70'S , BG =55, NO SIGN AND SYMPTOM OF HYPOGLYCEMIA NOTED, MOM REFUSED TO GIVE D50 IV, BREAKFAST GIVEN AND SHE STATED BREAKFAST IS ENOUGH TO INCREASE THE BLOOD SUGAR, WILL RECHECK BG AFTER PT EATS, MOM AGREES TO A MIDLINE INSERTION THIS AM , L UA AV SHUNT WITH THRILL/BRUIT PRESENT. PT/MOTHER REFUSED SKIN ASSESSMENT, SR UP x3, CALL LIGHT WITHIN EASY REACH, BED LOCKED IN PLACE AND IN LOWEST POSITION, WILL CONTINUE TO MONITOR.
[2017-08-13] MEDS ORDERED: LEVOTHYROXINE SODIUM 175 MCG TABLET PO SCH (07:30)
--- NOTE | 2017-08-13 07:30 | NUR ---
RN NOTES MOM REFUSED SKIN ASSESSMENT.
--- NOTE | 2017-08-13 07:58 | NUR ---
RN NOTES MOM REFUSED TO GET BG RECHECKED , , SHE STATED SHE WANTS TO WAIT FOR ANOTHER ONE TO TWO HOUR BEFORE RECHECK THE BG, PT IS EATING BREAKFAST AND NO SIGN AND SYMPTOMS OF HYPOGLYCEMIA NOTED. CONTINUE TO MONITOR . MOM ALSO REFUSED VSS TO BE TAKEN THIS AM.
[2017-08-13] MEDS ORDERED: MORPHINE SULFATE INJ 10 MG/ML DISP.SYRIN IV PRN (08:00)
[2017-08-13] MEDS ORDERED: SEVELAMER CARBONATE 800 MG TABLET PO SCH (08:00)
[2017-08-13] MEDS: BLOOD SUGAR DIAGNOSTIC 1 EACH STRIP IN SCH ×2 (08:12→11:54)
--- NOTE | 2017-08-13 08:41 | NUR ---
RN NOTES EDUCATED MOM REGARDING HOW IMPORTANT IT IS TO CHECK BG AND VSS FOR THE PT , MOM STILL REFUSED
--- NOTE | 2017-08-13 08:42 | NUR ---
RN NOTES MOM REFUSED MIDLINE FOR THE PT FOR AT THIS TIME .
[2017-08-13] MEDS ORDERED: FERROUS SULFATE (325 MG) 325 MG/TAB TABLET PO SCH (09:00)
[2017-08-13] MEDS ORDERED: FOLIC ACID 1 MG TABLET PO SCH (09:00)
[2017-08-13] MEDS ORDERED: INSULIN LISPRO/ASPART 100 UNIT/ML CARTRIDGE SQ SCH (09:00)
[2017-08-13] MEDS ORDERED: CYANOCOBALAMIN 500 MCG TABLET PO SCH (09:00)
[2017-08-13] MEDS ORDERED: CLOPIDOGREL BISULFATE 75 MG TABLET PO SCH (09:00)
[2017-08-13] MEDS ORDERED: methylPREDNISolone SOD SUCC 125 MG/2ML VIAL IV SCH (10:00)
--- NOTE | 2017-08-13 10:15 | NUR ---
RN NOTES BG =55, PT'S MOTHER REFUSED D50 IV TO BE GIVEN , SHE ALSO REFUSED MIDLINE PLACEMENT AND SOLUMEDRAL IV AND ABG TO BE DRAWN . EMPLANED TO MOM HOW IMPORTANT IT IS TO FOLLOW THE PLAN OF CARE, MOM STILL REFUSED . NO SIGN AND SYMPTOMS OF HYPOGLYCEMIA NOTED , PT IS ALERT .CONTINUE TO MONITOR .
--- NOTE | 2017-08-13 10:15 | NUR ---
RN NOTES DR ANG REYES AT THE BEDSIDE SEEING THE PT AND NOTIFIED REGARDING PT MOM REFUSAL TO FOLLOW THE PLAN OF CARE .
[2017-08-13 12:00] VITALS: BP 143/71
--- NOTE | 2017-08-13 12:42 | NUR ---
RN NOTES PT 'S MOTHER WANT TO TAKE THE PT TO ANOTHER HOSPITAL AMA . MOM WAS EDUCATED REGARDING THE RISKS OF LEAVING AMA AT THIS TIME . MOM STILL REFUSED. ANG CASTELLANO AND NURSING CRIMPING PRESS OPERATOR NOTIFIED. AMA FORM SIGNED BY PT'S MOTHER . PT LEFT THE FLOOR VIA W/C ACCOMPANIED BY MOTHER AND HIS SISTER AND NURSING STAFF TO MAIN ENTRANCE .
[2017-08-13] MEDS ORDERED: ENOXAPARIN SODIUM 30 MG/0.3 ML DISP.SYRIN SQ SCH (21:00)
[2017-08-13] MEDS ORDERED: INSULIN DETEMIR 100 UNIT/ML CARTRIDGE SQ SCH (22:00)
== END 2017-08-13 12:45 | disposition left against medical advice (07) | DRG 189 ==
LOC: ER 19:13 → TELE1 20:55 → ICU 22:35 → TELE-TD 23:53
PROVIDERS: ADMIT Nurse Practitioner Acute Care; ATTEND Nurse Practitioner Acute Care
PROC: 5A1D70Z Performance of Urinary Filtration, Intermittent, Less than 6 Hours Per Day (ICD-10-PCS; principal; 2017-08-12)
DX: J81.0 Acute pulmonary edema (principal); J96.01 Acute respiratory failure with hypoxia; J96.02 Acute respiratory failure with hypercapnia; N18.6 End stage renal disease; I12.0 Hypertensive chronic kidney disease with stage 5 chronic kidney disease or end stage renal disease; J90 Pleural effusion, not elsewhere classified; Z94.0 Kidney transplant status; Q90.9 Down syndrome, unspecified; E11.22 Type 2 diabetes mellitus with diabetic chronic kidney disease; Z99.81 Dependence on supplemental oxygen; E03.9 Hypothyroidism, unspecified; Z99.2 Dependence on renal dialysis; Z79.4 Long term (current) use of insulin; R59.0 Localized enlarged lymph nodes; D63.8 Anemia in other chronic diseases classified elsewhere; E87.70 Fluid overload, unspecified; J44.9 Chronic obstructive pulmonary disease, unspecified
CPT/HCPCS: 36415; 71010-TC; 80048-TC; 82962-TC; 84484-TC; 85025-TC; 90935-TC; A4606; J1815; J2930; J7050; Q9967

== ENCOUNTER 2017-11-05 10:49 | Emergency (ER) | payer OTHER, BC ==
[~2017-11-05] VITALS: Ht 160 cm; Wt 59.4 kg
[~2017-11-05 10:49] MED LIST changes: +CLOP75TA15 PO; -CLOP75TA2 PO; -SEVE800T PO; +SEVE800T7 PO
--- NOTE | 2017-11-05 10:51 | NUR ---
SEEN BY MD PAYTON
--- NOTE | 2017-11-05 10:53 | NUR ---
BIBMOTHER DT SOB. PER MOTHER PATIENT IS USUALLY ON O2 VIA NC @2LPM AT HOME, HOWVER PATIENT STARTED HAVING SOB EVEN WITH O2 SUPPLEMENT. PATIENT NOTED SATING ON 80S VIA NC. PATIENT WAS PLACED ON NON REBREATHER @18LMP WITH NOTED HELP-- SATING 98#%. PT WITH AV FISTULA AMAYA MENDOZA HD TODAY. OTHER VSS. WILL CONT TO MONITOR
--- NOTE | 2017-11-05 11:03 | NUR ---
PATIENT'S MOTHER REFUSED ANY BLOOD DRAW NOR SALINE LOCK. STATED "I ONLY WANT XRAY FOR HIM" EEXPLAINED RISKS AND BENEFITS BY MOTHER STRONGLY REFUSED. MD PAYTON MADE AWARE.
[2017-11-05 11:30] VITALS: BP 140/90
--- NOTE | 2017-11-05 11:31 | NUR ---
Patient does not wish to proceed with medical care recommended by Dr. Dodd. Patient given information related to possible complications, up to and including , which could occur as a result of leaving the hospital at this time. Patient verbalizes understanding of risks involved due to leaving against medical advice. Patient has signed AMA form.
== END 2017-11-05 11:33 | disposition left against medical advice (07) ==
LOC: ER 10:50
DX: J81.1 Chronic pulmonary edema (principal); Q90.9 Down syndrome, unspecified; I12.0 Hypertensive chronic kidney disease with stage 5 chronic kidney disease or end stage renal disease; N18.6 End stage renal disease; E11.22 Type 2 diabetes mellitus with diabetic chronic kidney disease; E03.9 Hypothyroidism, unspecified; Z99.2 Dependence on renal dialysis; Z79.4 Long term (current) use of insulin
CPT/HCPCS: 71045; 93005; 99284; A4606; Z7610

== ENCOUNTER 2017-11-07 07:50 | Emergency (ER) | payer OTHER, BC ==
[~2017-11-07] VITALS: Ht 157.5 cm; Wt 49.9 kg
--- NOTE | 2017-11-07 08:00 | NUR ---
BB MOTHER FROM HOME C/O SOB SINCE THIS AM. 86% RA, PALE IN COLOR. AT BS FOR EVAL. PLACED ON OXYGEN. SAFETY AND COMFORT MEASURES PROVIDED. WILL MONITOR.
--- NOTE | 2017-11-07 08:15 | NUR ---
RAPID STREP SAMPLE OBTAINED AND SENT TO LAB.
--- NOTE | 2017-11-07 08:24 | NUR ---
CALLED DR. Tara WEST.
--- NOTE | 2017-11-07 09:44 | NUR ---
PAGED DR RIGOBERTO WEST
[2017-11-07 10:11] VITALS: BP 138/86
--- NOTE | 2017-11-07 10:12 | NUR ---
Patient discharged to home in stable condition. Written and verbal after care instructions given. Patient verbalizes understanding of instruction.
== END 2017-11-07 10:12 | disposition home or self-care (01) ==
LOC: ER 07:53
DX: I12.0 Hypertensive chronic kidney disease with stage 5 chronic kidney disease or end stage renal disease (principal); N18.6 End stage renal disease; E11.22 Type 2 diabetes mellitus with diabetic chronic kidney disease; J02.9 Acute pharyngitis, unspecified; R05 Cough; Z99.2 Dependence on renal dialysis; Z79.4 Long term (current) use of insulin; E03.9 Hypothyroidism, unspecified; Q90.9 Down syndrome, unspecified
CPT/HCPCS: 71045; 87070; 87880; 93005; 99285; A4606; Z7610; 86403-TC

== ENCOUNTER 2017-11-12 07:13 | Inpatient (IN) | payer BC, OTHER ==
[~2017-11-12] VITALS: Ht 152.4 cm; Wt 62.1 kg
--- NOTE | 2017-11-12 07:15 | NUR ---
BIB MOM C/O COUGH AND SOB SINCE LAST NIGHT. RR IS EVEN AND SLIGHTLY LABORED. SKIN IS WARM AND DRY. PATIENT PLACED ON NC AT 4L/MIN. PLACED ON THE MONITOR. WILL CONTINUOUSLY MONITOR THE PATIENT. AWAITING MD FOR EVAL.
--- NOTE | 2017-11-12 07:32 | NUR ---
PATIENT'S MOM REFUSED BLOOD DRAW. DR PAYTON MADE AWARE.
--- NOTE | 2017-11-12 08:18 | NUR ---
Marcus GRAVES, DR FLORES S ROTARY BAR OPERATOR
--- NOTE | 2017-11-12 08:59 | NUR ---
RECEIVED TELEPHONE SBAR REPORT ON THE PATIENT FROM ER. AWAITING FOR THE PATIENT'S ARRIVAL TO THE UNIT. PATIENT IS GOING TO NEED DIALYSIS. PER CHARGE NURSE WILTON DIALYSIS NURSE ALREADY INFORMED. PATIENT WILL BE DIALYZED TODAY. PATIENT/MOTHER REFUSED IV ACCESS AND BLOOD DRAW IN ER. CHARGE NURSE WILTON NOTIFIED.
--- NOTE | 2017-11-12 09:10 | NUR ---
REPORT GIVEN TO REMI CARDENAS FOR [facility] TELE [phone]
[2017-11-12] MEDS ORDERED: MIDO10TA PO (09:15)
[2017-11-12] MEDS ORDERED: INSU100I19 SQ (09:15)
[2017-11-12] MEDS ORDERED: INSU100I14 SQ (09:15)
[2017-11-12] MEDS ORDERED: LEVO75TA7 PO (09:15)
[2017-11-12] MEDS ORDERED: SEVE800T8 PO (09:15)
--- NOTE | 2017-11-12 09:30 | NUR ---
PATIENT ARRIVED TO THE UNIT VIA GURNEY. SAFELY [id number] THE BED. BED IS LOCKED IN LOWEST POSITION, SIDE RAILS UP X3, BED ALARM IS ON, CALL LIGHT WITHIN REACH. ALL BELONGINGS AT THE BEDSIDE, ACCESSIBLE. PATIENT IS A/OX2, CONFUSED, PRESENTS WITH COGNITIVE DEFICIT. MOTHER AT THE BEDSIDE. PATIENT IS ON 7L OXYGEN VIA FACE MASK, SATURATING 96%. DENIES PAIN DISCOMFORT AT THIS TIME. PATIENT IS AWAKE AND RESPONSIVE. CHEST RISING EQUALLY BILATERALLY. NO IV ACCESS. PATIENT/MOTHER REFUSED BLOOD DRAW. REFUSED TELEMETRY BOX/LEADS PLACEMENT. RISKS AND BENEFITS DISCUSSED. ADMITTING PHYSICIAN NOTIFIED OF PATIENT'S ARRIVAL TO THE UNIT. WILL CONTINUE TO ASSESS/MONITOR THROUGHOUT THE SHIFT.
--- NOTE | 2017-11-12 10:00 | NUR ---
HD at the bedside
[2017-11-12] MEDS ORDERED: HYDROCODONE/APAP 5/325MG 1 EACH TABLET PO PRN (10:30)
[2017-11-12] MEDS ORDERED: ZOLPIDEM TARTRATE 5 MG TABLET PO PRN (10:30)
[2017-11-12] MEDS ORDERED: MAGNESIUM HYDROXIDE 30 ML UDC PO PRN (10:30)
[2017-11-12] MEDS ORDERED: ONDANSETRON HCL/PF 4 MG/2 ML VIAL IVP PRN (10:30)
[2017-11-12] MEDS ORDERED: MAG HYDROX/AL HYDROX/SIMETH 30 ML UDC PO PRN (10:30)
[2017-11-12] MEDS ORDERED: Z GUARD REMEDY 2 OZ OINT TP PRN (10:30)
[2017-11-12] MEDS ORDERED: ACETAMINOPHEN 325 MG TABLET PO PRN (10:30)
[2017-11-12] MEDS: ACETYLCYSTEINE 20% SOLN 800 MG/4 ML VIAL NEB SCH ×4 (11:30→23:20)
[2017-11-12] MEDS: LEVOTHYROXINE SODIUM 75 MCG TABLET PO SCH (11:30)
[2017-11-12 11:43] LABS: BASOPHILS % (AUTO) 0.1 % (0.0-2.0); EOSINOPHILS # (AUTO) 0.1 /CMM (0.0-0.7); EOSINOPHILS % (AUTO) 2.6 % (0.0-6.0); HEMATOCRIT 27 % (39-51); HEMOGLOBIN 8.7 g/dL (13.5-17.5); LYMPHOCYTES # (AUTO) 0.6 /CMM (0.8-4.8); LYMPHOCYTES % (AUTO) 15.9 % (20.0-44.0); MEAN CORPUSCULAR HEMOGLOBIN 31 PG (26.0-33.0); MEAN CORPUSCULAR HGB CONC 33 g/dl (31.0-36.0); MEAN CORPUSCULAR VOLUME 94 fL (80-96); MONOCYTES # (AUTO) 0.1 /CMM (0.1-1.30); MONOCYTES % (AUTO) 3.5 % (2.0-12.0); NEUTROPHILS # (AUTO) 3.2 /CMM (1.8-8.9); NEUTROPHILS % (AUTO) 77.9 % (43.0-81.0); PLATELET COUNT (AUTO) 177 /CMM (150-450); RDW COEFFICIENT OF VARIATION 20.9 (11.5-15.0); RED BLOOD CELL COUNT(AUTO) 2.85 MIL/uL (4.5-6.0); WHITE BLOOD COUNT (AUTO) 4.1 K/uL (4.3-11.0)
--- NOTE | 2017-11-12 11:44 | NUR ---
Patient's mom stated he already took Synthroid today.
[2017-11-12 11:56] LABS: CALCIUM, SERUM 8.2 mg/dL (8.5-10.1); CREATININE 5.9 mg/dL (0.6-1.3); POTASSIUM 3.3 mmol/L (3.5-5.1)
[2017-11-12 12:01] LABS: TROPONIN I 0.026 ng/mL (0.00-0.056)
[2017-11-12 12:08] LABS: ALBUMIN 3.4 g/dL (3.4-5.0); BILIRUBIN,DIRECT 0.1 mg/dL (0.0-0.2); BILIRUBIN,TOTAL 0.4 mg/dL (0.2-1.0); TOTAL PROTEIN, SERUM 8.3 g/dL (6.4-8.2)
[2017-11-12 12:13] LABS: INR 1.01 (0.87-1.13)
--- NOTE | 2017-11-12 12:57 | NUR ---
HD completed. 2 liters out
[2017-11-12] MEDS: ALBUTEROL FS 2.5 MG/0.5 ML VIAL.NEB NEB SCH ×4 (13:06→23:18)
[2017-11-12] MEDS: IPRATROPIUM NEB FS 0.5 MG/2.5 ML AMPUL.NEB NEB SCH ×4 (13:06→23:18)
--- NOTE | 2017-11-12 13:22 | NUR ---
Breathing tx scheduled for 11:30 not given. Not aware of new patient, nurse contacted me at this time. Pt is stable, mom is at the bedside.
--- NOTE | 2017-11-12 13:30 | NUR ---
Per patient's mother melida receives Humalog in the afternoon. Calling Dr. Alcantara to change time of administration for Humalog and obtain order for MRSA nare testing.
[2017-11-12] MEDS: SEVELAMER CARBONATE 800 MG TABLET PO SCH ×2 (13:50→17:47)
[2017-11-12] MEDS: CLOPIDOGREL BISULFATE 75 MG TABLET PO SCH (13:51)
[2017-11-12] MEDS: MIDODRINE HCL (5MG) 5 MG TABLET PO SCH ×2 (13:51→16:26)
[2017-11-12 14:40] VITALS: BP 128/68
[2017-11-12 14:54] VITALS: BP 110/72
[2017-11-12 16:00] VITALS: BP 107/56
[2017-11-12] MEDS: INSULIN ASPART/LISPRO 100 UNIT/ML CARTRIDGE SQ SCH (16:26)
--- NOTE | 2017-11-12 16:30 | NUR ---
MUCOMYST ORDERED TO BE ADMINISTERED EVERY 8 HRS. INITIAL DOSE ADMINISTERED 3 HRS AGO AT 1317. MEDICATION NOT DUE UNTIL 1916. ADMINISTERED MEDICATION FOLLOWING 7 RIGHT OF MEDICATION ADMINISTRATION ORDERED.
[2017-11-12] MEDS: BLOOD SUGAR DIAGNOSTIC 1 EACH STRIP IN SCH ×2 (17:48→22:03)
--- NOTE | 2017-11-12 17:55 | NUR ---
Patient's fingerstick BG >600 mg/dL. called Dr. Alcantara to obtain an stat BG lab draw order.
--- NOTE | 2017-11-12 18:03 | NUR ---
Received order from Dr. Alcantara for 10 units Humalog once now.
[2017-11-12] MEDS ORDERED: INSULIN LISPRO/ASPART 100 UNIT/ML CARTRIDGE SQ ONE (18:30)
--- NOTE | 2017-11-12 19:15 | NUR ---
Re-ckecked BG. Still shows more than 600mg/dL. Dr Alcantara Notified. Called lab for the lab draw. Lab stated they will be here soon.
--- NOTE | 2017-11-12 19:20 | NUR ---
PER DR. TOMLINSON NO ACTIONS NEEDED AT THIS TIME. MONITOR PATIENT'S BLOOD GLUCOSE IN 2 HRS. NOTIFY DOCTOR INSURANCE SALES EXECUTIVE IF ELEVATED. ENDORSED TO DEMAND PLANNING MANAGER RN.
--- NOTE | 2017-11-12 19:43 | NUR ---
PATIENT IS AWAKE NA DRESPONSIVE IN BED WATCHING HIS IPAD. BED IS LOCKED IN LOWEST POSITION, SIDE RAILS UP X3, BED ALARM IS ON, CALL LIGHT WITHIN REACH. ALL BELONGINGS AT THE BEDSIDE, ACCESSIBLE. PATIENT IS A/OX2, CONFUSED, PRESENTS WITH COGNITIVE DEFICIT. PATIENT IS ON 6L OXYGEN VIA FACE MASK, SATURATING 97%. DENIES PAIN DISCOMFORT AT THIS TIME. PATIENT IS AWAKE AND RESPONSIVE. CHEST RISING EQUALLY BILATERALLY. NO IV ACCESS. REFUSED TELEMETRY BOX/LEADS PLACEMENT. RISKS AND BENEFITS DISCUSSED. LAST BG IS CRITICALLY HIGH. DR. TOMLINSON NOTIFIED. NO NEW ORDER RECEIVED. LAB IS NOTIFIED TO DRAW BLOOD FOR BLOOD GLUCOSE. ENDORSED TO THE PUBLIC HEALTH INTERNSHIP NURSE FOR HENNA.
--- NOTE | 2017-11-12 19:50 | NUR ---
MS RN OPENING NOTES RECEIVED PATIENT IN BED, ASLEEP COMFORTABLY, EASILY AROUSED WITH VERBAL STIMULI. PATIENT WITH COGNITIVE DEFICITS DAYSHIFT RN REPORTS PATIENT FOLLOWS COMMANDS AND ABLE TO COMMUNICATE BASIC NEEDS. PATIENTS MOTHER AT BEDSIDE, REFUSES TELE MONITORS, BLOOD DRAWS, IV LINES. PATIENT'S BLOOD GLUCOSE WAS CRITICALLY HIGH BEFORE SHIFT CHANGE. LAB NOTIFIED FOR BLOOD DRAW TO CHECK GLUCOSE LEVEL. 20 UNITS OF INSULIN ADMINISTERED BY DAY SHIFT NURSE, NOTIFIED MD, NO NEW ORDERS RECEIVED AT THIS TIME. LEFT UPPER ARM AV SHUNT. PATIENT IS ON 6L OF OXYGEN VIA FACE MASK WITH O2 SAT OF 97%. RESPIRATIONS EVEN AND UNLABORED. PATIENT KEPT CLEAN AND COMFORTABLE. SAFETY MEASURES IN PLACE, BED IN LOW LOCKED POSITION WITH SIDE RAILS UP x2, CALL LIGHT WITHIN EASY REACH, WILL CONTINUE TO MONITOR.
[2017-11-12 20:00] VITALS: BP 108/52
--- NOTE | 2017-11-12 20:24 | NUR ---
pt refused tx. no resp distress noted. rn aware. Addendum: 11/12/17 at 2024 by HUNTER HOYT RT Amended: Links added.
[2017-11-12] MEDS ORDERED: INSULIN ASPART/LISPRO 100 UNIT/ML CARTRIDGE SQ SCH (22:00)
--- NOTE | 2017-11-12 22:00 | NUR ---
BLOOD GLUCOSE CHECKED, 323 MG/DL. ADMINISTERED LANTUS 15 UNITES SCHEDULED PER MD ORDER.
[2017-11-12] MEDS: INSULIN GLARGINE, 100 UNIT/ML CARTRIDGE SQ SCH (22:06)
[2017-11-13] VITALS: BP 116/55
[2017-11-13 04:00] VITALS: BP 110/79
[2017-11-13] MEDS: ALBUTEROL FS 2.5 MG/0.5 ML VIAL.NEB NEB SCH ×6 (05:19→23:25)
[2017-11-13] MEDS: IPRATROPIUM NEB FS 0.5 MG/2.5 ML AMPUL.NEB NEB SCH ×6 (05:19→23:25)
--- NOTE | 2017-11-13 05:20 | NUR ---
BREATHING TX TRIAGED, DUE TO RT BUSY AT CODE BLUE.
--- NOTE | 2017-11-13 06:56 | NUR ---
MS RN CLOSING NOTES PATIENT IN BED, ASLEEP COMFORTABLY, EASILY AROUSED WITH VERBAL STIMULI. PATIENT WITH COGNITIVE DEFICITS FOLLOWS COMMANDS AND ABLE TO COMMUNICATE BASIC NEEDS. NO IV LINES OR TELE MONITOR DUE TO MOTHER REFUSING. PATIENT'S BLOOD GLUCOSE WAS CHECKED AT 2200 WITH BG OF 323 MG/DL. LEFT UPPER ARM AV SHUNT. PATIENT IS ON 6L OF OXYGEN VIA FACE MASK WITH O2 SAT OF 98%. RESPIRATIONS EVEN AND UNLABORED. PATIENT KEPT CLEAN AND COMFORTABLE. SAFETY MEASURES IN PLACE, BED IN LOW LOCKED POSITION WITH SIDE RAILS UP x2, CALL LIGHT WITHIN EASY REACH, WILL ENDORSE TO DAYSHIFT FOR CONTINUITY OF CARE.
--- NOTE | 2017-11-13 07:30 | NUR ---
NAILHEAD SETTER NOTES PATIENT IS UP SITTING IN HIS BED, WATCHING MOVIE. DENIES ANY PAIN. FOLLOW SIMPLE COMMAND. NO IVC IN PLACE, PATIENT AND MOTHER REFUSED PER REPORT. ON OXYGEN VIA FACE MASK AT 6L, NO SOB. BED LOW AND LOCKED, CALL LIGHT WITHIN REACH. WILL CONT TO MONITOR.
[2017-11-13 08:00] VITALS: BP 119/74
[2017-11-13] MEDS: CLOPIDOGREL BISULFATE 75 MG TABLET PO SCH (08:10)
[2017-11-13] MEDS: SEVELAMER CARBONATE 800 MG TABLET PO SCH ×3 (08:10→17:27)
[2017-11-13] MEDS: BLOOD SUGAR DIAGNOSTIC 1 EACH STRIP IN SCH ×5 (08:10→22:47)
[2017-11-13] MEDS: LEVOTHYROXINE SODIUM 75 MCG TABLET PO SCH (08:10)
[2017-11-13] MEDS: MIDODRINE HCL (5MG) 5 MG TABLET PO SCH ×3 (08:17→17:00)
[2017-11-13] MEDS: INSULIN ASPART/LISPRO 100 UNIT/ML CARTRIDGE SQ SCH (08:20)
--- NOTE | 2017-11-13 08:20 | NUR ---
INSULIN NOVOLOG 10 UNITS NON ADMINISTERED, FSBS 73MG/DL. PATIENTS MOTHER REFUSED.
[2017-11-13] MEDS: ACETYLCYSTEINE 20% SOLN 800 MG/4 ML VIAL NEB SCH ×3 (08:27→23:25)
[2017-11-13 09:00] VITALS: BP 119/84
--- NOTE | 2017-11-13 09:25 | NUR ---
PT'S MOM REFUSED ABG.
[2017-11-13] MEDS ORDERED: DEXTROSE 50%-WATER 50 ML DISP.SYRIN IV PRN (13:00)
[2017-11-13] MEDS: INSULIN REGULAR, HUMAN 100 UNIT/ML 3 ML VIAL SQ PRN ×3 (13:13→22:53)
[2017-11-13 15:12] LABS: BASOPHILS % (AUTO) 0.1 % (0.0-2.0); EOSINOPHILS # (AUTO) 0.1 /CMM (0.0-0.7); EOSINOPHILS % (AUTO) 2.2 % (0.0-6.0); HEMATOCRIT 27 % (39-51); HEMOGLOBIN 8.8 g/dL (13.5-17.5); LYMPHOCYTES # (AUTO) 0.6 /CMM (0.8-4.8); MEAN CORPUSCULAR HEMOGLOBIN 30 PG (26.0-33.0); MEAN CORPUSCULAR HGB CONC 32 g/dl (31.0-36.0); MEAN CORPUSCULAR VOLUME 94 fL (80-96); MONOCYTES # (AUTO) 0.2 /CMM (0.1-1.30); MONOCYTES % (AUTO) 4.9 % (2.0-12.0); NEUTROPHILS # (AUTO) 3.1 /CMM (1.8-8.9); NEUTROPHILS % (AUTO) 78.8 % (43.0-81.0); PLATELET COUNT (AUTO) 178 /CMM (150-450); RDW COEFFICIENT OF VARIATION 20.6 (11.5-15.0); RED BLOOD CELL COUNT(AUTO) 2.88 MIL/uL (4.5-6.0)
[2017-11-13 15:27] LABS: ALBUMIN 3.5 g/dL (3.4-5.0); BILIRUBIN,TOTAL 0.3 mg/dL (0.2-1.0); CREATININE 4.8 mg/dL (0.6-1.3); MAGNESIUM 2.3 mg/dL (1.8-2.4); PHOSPHORUS 4.1 mg/dL (2.5-4.9); POTASSIUM 3.4 mmol/L (3.5-5.1); TOTAL PROTEIN, SERUM 8.6 g/dL (6.4-8.2)
[2017-11-13 15:33] LABS: THYROID STIMULATING HORMONE 77.569 uIU/mL (0.358-3.74)
[2017-11-13 15:39] LABS: CALCIUM, SERUM 5.8 mg/dL (8.5-10.1)
[2017-11-13 16:00] VITALS: BP 107/70
--- NOTE | 2017-11-13 16:00 | NUR ---
LOW CALCIUM LEVEL 5.8, POTASSIUM LEVEL 3.4 DIALYSIS STILL IN PROGRESS, UPDATE DIALYSIS NURSE/RASMIK WITH CURRENT LAB RESULT, PER RASMIK/RN WILL REPLACE CALCIUM DURING DIALYSIS NOW.
--- NOTE | 2017-11-13 17:51 | NUR ---
Pt has hx of Down syndrome, he lives at home with family, his mother is the primary caregiver.Pt is ambulatory, he uses wheelchair outside household. [facility] [phone] for HD needs. Patient has adequate DME; Home O2, walker and wheelchair, Patient mother will provide ride home once discharge. Addendum: 11/13/17 at 1751 by BLANK SIMS RN Amended: Links added.
--- NOTE | 2017-11-13 18:21 | NUR ---
MS RN CLOSING NOTES PATIENT IN BED, AWAKE. BLOOD SUGAR MONITORED WITH INSULIN SLIDING SCALE PARAMETERS. PATIENT HAD DIALYSIS TODAY WITH 3L FLUID OUTPUT PER DIALYSIS NURSE-JUAN MANUEL RIVAS AV SHUNT, GAUZE IN PLACE, NO BLEEDING NOTED. DENIES PAIN, ON OXYGEN VIA FACE MASK AT 6L, NO SOB. MAINTAIN SAFETY PRECAUTION. CONT HOSPITALIZATION PER MD. WILL ENDORSE TO ONCOMING RN.
--- NOTE | 2017-11-13 19:30 | NUR ---
MS/RN OPENING NOTES PT RECEIVED AWAKE, MOTHER AT BEDSIDE. A/OX1. ON 6L O2 VIA SIMPLE MASK. BREATHING EVEN AND UNLABORED. IN NO DISTRESS. OCCASIONAL NON PRODUCTIVE COUGH NOTED. ABLE TO ANSWER YES/NO QUESTIONS. NO IV ACCESS PER MD. S/P HD TODAY. JUAN MANUEL AV SHUNT DRESSING C/D/I. BED IN LOW/LOCKED POSITION WITH CALL LIGHT IN REACH. SIDE RAILS UPX2 AND BED ALARM ON FOR SAFETY. WILL CONTINUE TO MONITOR
[2017-11-13 20:00] VITALS: BP 137/64
[2017-11-13] MEDS: INSULIN GLARGINE, 100 UNIT/ML CARTRIDGE SQ SCH (22:49)
[2017-11-14] MEDS: IPRATROPIUM NEB FS 0.5 MG/2.5 ML AMPUL.NEB NEB SCH ×6 (03:26→23:45)
[2017-11-14] MEDS: ALBUTEROL FS 2.5 MG/0.5 ML VIAL.NEB NEB SCH ×6 (03:26→23:45)
[2017-11-14] MEDS: BLOOD SUGAR DIAGNOSTIC 1 EACH STRIP IN SCH ×4 (06:58→23:01)
--- NOTE | 2017-11-14 06:58 | NUR ---
MS/RN NOTES BLOOD SUGAR THIS AM= 52, GAVE OJ WITH SUGAR. PT WITH NO IV ACCESS. MD ORDERED. PT IS AWAKE, ABLE TO MAKE NEEDS KNOWN. IN NO ACUTE DISTRESS.
[2017-11-14] MEDS: ACETYLCYSTEINE 20% SOLN 800 MG/4 ML VIAL NEB SCH ×3 (07:35→23:45)
--- NOTE | 2017-11-14 07:35 | NUR ---
MS/RN OPENING NOTES PT AWAKE, WATCHING TV ON IPAD. REMAINS ON 6L O2 VIA SIMPLE MASK. BREATHING EVEN AND UNLABORED. IN NO DISTRESS. STILL WITH NO IV ACCESS PER MD. BREATHING TX GIVEN ORDERED. KEPT PT COMFORTABLE DURING SHIFT. ALL NEEDS ATTENDED. NO SIGNIFICANT CHANGES OVERNIGHT. BED IN LOW/LOCKED POSITION WITH CALL LIGHT IN REACH. SIDE RAILS UPX2 AND BED ALARM ON FOR SAFETY. WILL ENDORSE TO DAY SHIFT RN HENNA.
[2017-11-14 08:00] VITALS: BP 104/53
--- NOTE | 2017-11-14 08:00 | NUR ---
RN NOTE RECEIVED REPORT FROM RESIDENTIAL GAS HEAT TECHNICIAN NURSE. RECEIVED PATIENT SITTING UP IN BED, ALERT TO SELF, VERBALLY RESPONSIVE, EATING BREAKFAST WITH MOTHER AT BEDSIDE. NOTED PT WITH NO SOB AND IN NO ACUTE DISTRESS AT THIS TIME. PT CONTINUES TO RECEIVE O2 VIA FACE MASK @ 6LPM. ALL PATIENT'S NEEDS ATTENDED TO AT THIS TIME. WILL CONTINUE TO MONITOR PT.
--- NOTE | 2017-11-14 08:50 | NUR ---
RN NOTE REPORT GIVEN TO REMI GARDUNO FOR CONTINUITY OF CARE.
[2017-11-14] MEDS: INSULIN ASPART/LISPRO 100 UNIT/ML CARTRIDGE SQ SCH ×2 (09:00→11:10)
--- NOTE | 2017-11-14 09:00 | NUR ---
While rounding on change of shift report. Patient was noted in bed sitting up with mask on at 5 ltrs. Patient is awake, alert and oriented to self and environment. Noted with one bout of hypoglycemia on pocket builder. Call light is with in reach. Noted Family at bed side with patient. Noted hands dry and flaky and patient has a history of picking at scabs on body. Continue to monitor.
[2017-11-14] MEDS: CLOPIDOGREL BISULFATE 75 MG TABLET PO SCH (10:10)
[2017-11-14] MEDS: LEVOTHYROXINE SODIUM 75 MCG TABLET PO SCH (10:10)
[2017-11-14] MEDS: MIDODRINE HCL (5MG) 5 MG TABLET PO SCH ×4 (10:10→17:39)
[2017-11-14] MEDS: SEVELAMER CARBONATE 800 MG TABLET PO SCH ×3 (10:10→18:03)
--- NOTE | 2017-11-14 11:30 | NUR ---
Dr. Sullivan at bedside to see patient. Titrated o2 via mask to room air. Patient o2 sat was not tolerated, patient desaturated to 87 % at room air. MD aware. Continue o2 via mask at 5 ltrs.
--- NOTE | 2017-11-14 12:33 | NUR ---
Nurse while rounding on medication pass. Patient was noted to be sitting up in bed with electronic device on table and patient up in bed. Noted bs at 46, charge nurse aware. Protocol for hypo glycemia initiated. Per endorsement, patient is non-compliant with access to i.v. therapy, MD aware. Patient is stable and vitals signs are stable. call light with in reach and continue to monitor.
[2017-11-14 16:00] VITALS: BP 111/61
--- NOTE | 2017-11-14 16:30 | NUR ---
Titrated patient with R.T.'s assistance, Patient on o2 at 4 ltrs saturation at 96% via mask. Titrated with humidified air to 4 ltrs via n.c. tolerating at 92% via n.c. Patient family teaching on compliance with plan of care and not to adjust o2 at flow meter without checking with nurse in charge of patient. Family verbalized understanding of instructions. Pattern Technician Jane KHALIL.
--- NOTE | 2017-11-14 16:40 | NUR ---
S/P titration to 4 ltrs via n.c. at 97%. Patient is tolerated well. Noted sat on left hand and patient would not permit me to confirm on right hand o2 sat. Extensive patient/family teaching on compliance of plan of care. Advice patient not to adjust o2 at wall. Noted several episodes where the o2 on wall was adjusted to less then 6 ltrs via non-rebreather mask. No cardiopulmonary distress noted at this point and time. Call light with in reach.
[2017-11-14] MEDS: INSULIN REGULAR, HUMAN 100 UNIT/ML 3 ML VIAL SQ PRN ×2 (17:38→23:02)
--- NOTE | 2017-11-14 17:49 | NUR ---
sbp 119/75, Family none compliant with plan of care, sneaking in food and refusing to give perscribed midodirne hcl as ordered. Patient/family teaching with director of cardiology service line on importance of compliance of plan of care. In addition patient is not tolerating o2 via nc at 4 ltrs desating to 91 %. changed to non-rebreather mask at 6 ltrs and tolerated at 93%. Call light with in reach.
--- NOTE | 2017-11-14 19:30 | NUR ---
MS/RN OPENING NOTES PT RECEIVED SITTING UP IN BED, WATCHING IPAD. A/OX2. ON 6L O2 VIA SIMPLE MASK, BREATHING EVEN AND UNLABORED. NO SOB OR PAIN NOTED. UNABLE TO TOLERATE TITRATION OF O2 TODAY. JUAN MANUEL AV SHUNT WITH DRESSING C/D/I. NO IV ACCESS PER MD ORDER. BED IN LOW/LOCKED POSITION WITH CALL LIGHT IN REACH. SIDE RAILS UPX2. BED ALARM ON FOR SAFETY. WILL CONTINUE TO MONITOR
[2017-11-14 20:00] VITALS: BP 106/68
[2017-11-14] MEDS: INSULIN GLARGINE, 100 UNIT/ML CARTRIDGE SQ SCH (23:01)
[2017-11-15] MEDS: IPRATROPIUM NEB FS 0.5 MG/2.5 ML AMPUL.NEB NEB SCH ×6 (04:40→23:42)
[2017-11-15] MEDS: ALBUTEROL FS 2.5 MG/0.5 ML VIAL.NEB NEB SCH ×6 (04:40→23:42)
[2017-11-15] MEDS: BLOOD SUGAR DIAGNOSTIC 1 EACH STRIP IN SCH ×4 (06:41→21:45)
[2017-11-15] MEDS: ACETYLCYSTEINE 20% SOLN 800 MG/4 ML VIAL NEB SCH ×3 (07:19→23:42)
--- NOTE | 2017-11-15 07:19 | NUR ---
MS/RN CLOSING NOTES PT SITTING UP IN BED. WATCHING IPAD. A/OX2. REMAINS ON 6L O2 VIA SIMPLE MASK. IN NO DISTRESS. BREATHING EVEN AND UNLABORED. NO SOB OR PAIN NOTED. JUAN MANUEL AV SHUNT WITH DRESSING C/D/I. BLOOD SUGAR THIS AM =51. JUICE WITH SUGARS PROVIDED. NO IV ACCESS, MD AWARE. WILL ENDORSE TO DAY SHIFT RN TO RECHECK BLOOD SUGAR. NO S/S OF HYPOGLYCEMIA NOTED. KEPT PT COMFORTABLE. ALL NEEDS MET. BED IN LOW/LOCKED POSITION WITH TESSY LIGHT IN REACH. SIDE RAILS UPX2 WITH BED ALARM ON. WILL ENDORSE TO DAY SHIFT RN HENNA.
--- NOTE | 2017-11-15 07:20 | NUR ---
MS RN OPENING NOTES RECEIVED PATIENT SITTING IN BED.HOB ELEVATED. WATCHING IPAD, A/OX2. MOTHER AT BEDSIDE FEEDING PATIENT. NO ACUTE DISTRESS NOTED. ON 6L O2 VIA SIMPLE MASK. NO SOB NOTED. BREATHING EVEN AND UNLABORED. JUAN MANUEL AV SHUNT WITH DRESSING, CLEAN. NO IV ACCESS, MD AWARE. NO S/SX OF HYPOGLYCEMIA NOTED. SAFETY MEASURES IN PLACE. BED IN LOW/LOCKED POSITION .CALL LIGHT WITHIN REACH. SIDE RAILS UPX2 WITH BED ALARM ON. WILL CONTINUE TO MONITOR ACCORDINGLY
[2017-11-15] MEDS: LEVOTHYROXINE SODIUM 75 MCG TABLET PO SCH (08:07)
[2017-11-15] MEDS: SEVELAMER CARBONATE 800 MG TABLET PO SCH ×3 (08:12→17:17)
--- NOTE | 2017-11-15 08:20 | NUR ---
MS/RN NOTES MOTHER NON COMPLIANT WITH NURSING CARE. ADMINISTERED SYNTHROID ORDERED. 3 TABS OF RENVELA ORDERED, HOWEVER MOTHER SAYING HE DOESNT NEED 3 TABS, "ITS TOO MUCH, HE WILL ONLY TAKE 2". EDUCATED MOTHER AND APPEARED ANNOYED, STATING THAT THE "DOCTOR DOESNT KNOW ITS TOO MUCH". PT ENDED UP TAKING ALL 3 TABS ANYWAYS. MOTHER ALSO PULLED OUT AT HOME PLAVIX AND ELIQUIS, ATTEMPTING TO GIVE PT MEDICATION. EDUCATED MOTHER THAT DAY SHIFT RN WILL BE ADMINISTERING PLAVIX AT 0900 AND ELIQUIS IS NOT ORDERED FOR HIM. PT'S MOTHER WANTED TO ADMINISTERED ELIQUIS ANYWAY, HOWEVER INFORMED HER NOT TO GIVE ANY HOME MEDICATIONS AND INFORMED HER OF THE RISKS OF DOUBLE DOSING AND GIVING MEDICATION THAT IS NOT ORDERED FROM THE DOCTOR. VERBALIZED UNDERSTANDING BUT DID NOT WANT TO SENT MEDICATION TO PHARMACY. DAY SHIFT RN MADE AWARE
[2017-11-15 09:00] VITALS: BP 142/78
--- NOTE | 2017-11-15 09:31 | NUR ---
MS RN NOTES SEEN BY RENARD BRADLEY MADE AWARE OF BLOOD SUGAR DECREASE IN AM WITH NEW ORDERS MADE TO DISCONTINUE NOVOLOG 10 UNITS @ 1400. NOTED AND CARRIED OUT.
[2017-11-15] MEDS: MIDODRINE HCL (5MG) 5 MG TABLET PO SCH ×3 (09:51→17:26)
[2017-11-15] MEDS: CLOPIDOGREL BISULFATE 75 MG TABLET PO SCH (09:51)
--- NOTE | 2017-11-15 09:51 | NUR ---
MS RN NOTES HELD MIDODRINE DUE TO BLOOD PRESSURE 142/78. DR RAMIREZ MADE AWARE.
--- NOTE | 2017-11-15 13:50 | NUR ---
MS RN NOTES PATIENT AND MOTHER AT BEDSIDE STRONGLY REFUSED MIDODRINE AND SEVELAMER DESPITE OF EXPLANATION OF RISKS AND BENEFITS.
[2017-11-15 16:00] VITALS: BP 176/92
[2017-11-15] MEDS: INSULIN REGULAR, HUMAN 100 UNIT/ML 3 ML VIAL SQ PRN (17:40)
--- NOTE | 2017-11-15 18:30 | NUR ---
MS RN CLOSING NOTES PATIENT IN BED, ALERT ORIENTED. HOB ELEVATED. WITH ON GOING DIALYSIS AT THIS TIME. MOTHER AT BEDSIDE. NO ACUTE DISTRESS NOTED. ON O2 2LPM VIA SIMPLE MASK, SATURATING AT 96%. NO SOB NOTED. BREATHING EVEN AND UNLABORED. NO IV ACCESS, MD AWARE. NO S/SX OF HYPOGLYCEMIA NOTED. SAFETY MEASURES IN PLACE. BED IN LOW/LOCKED POSITION . NEEDS ATTENDED. DUE MEDICATIONS GIVEN, NO ASE NOTED. CALL LIGHT WITHIN REACH. SIDE RAILS UPX2 WITH BED ALARM ON. WILL CONTINUE TO MONITOR ACCORDINGLY. WILL ENDORSE TO COMMERCIAL INSURANCE UNDERWRITER FOR CONTINUITY OF CARE.
--- NOTE | 2017-11-15 20:27 | NUR ---
MS RN OPENING NOTES RECEIVED PATIENT SITTING IN BED .HOB ELEVATED, A/OX2. RESPIRATION EVEN AND UNLABORED, NO ACUTE DISTRESS NOTED. ON 6L O2 VIA SIMPLE MASK. NO SOB NOTED. JUAN MANUEL AV SHUNT WITH DRESSING, CLEAN. NO IV ACCESS, MD AWARE. NO S/SX OF HYPOGLYCEMIA NOTED. SAFETY MEASURES IN PLACE. BED IN LOW/LOCKED POSITION .CALL LIGHT WITHIN REACH. SIDE RAILS UPX2 WITH BED ALARM ON. WILL CONTINUE TO MONITOR ACCORDINGLY
[2017-11-15] MEDS: INSULIN GLARGINE, 100 UNIT/ML CARTRIDGE SQ SCH (21:45)
--- NOTE | 2017-11-15 21:45 | NUR ---
MS RN PT REFUSED BLOOD SUGAR TO BE CHECKED. PT STATED "I DON'T WANT IT, LEAVE ME ALONE". EXPLAIN THE RISK AND BENEFITS. PT STILL REFUSED. WILL CONTINUE TO MONITOR FOR S/SX OF HYPOGLYCEMIA. WILL ENDORSE TO NEXT SHIFT NURSE.
[2017-11-16] MEDS: ALBUTEROL FS 2.5 MG/0.5 ML VIAL.NEB NEB SCH ×5 (03:05→20:51)
[2017-11-16] MEDS: IPRATROPIUM NEB FS 0.5 MG/2.5 ML AMPUL.NEB NEB SCH ×5 (03:05→20:51)
[2017-11-16] MEDS: BLOOD SUGAR DIAGNOSTIC 1 EACH STRIP IN SCH ×4 (05:40→21:30)
--- NOTE | 2017-11-16 06:03 | NUR ---
MS RN PT REFUSED BLOOD SUGAR TO BE CHECKED. EXPLAIN THE RISK AND BENEFITS. PT STILL REFUSED. WILL CONTINUE TO MONITOR FOR S/SX OF HYPOGLYCEMIA. WILL ENDORSE TO NEXT SHIFT NURSE.
--- NOTE | 2017-11-16 06:13 | NUR ---
MS RN CLOSING NOTES PATIENT IN BED, AWAKE, NO ACUTE DISTRESS NOTED. ON O2 2LPM VIA SIMPLE MASK, NO SOB NOTED. BREATHING EVEN AND UNLABORED. NO IV ACCESS, MD AWARE. NO S/SX OF HYPOGLYCEMIA NOTED. SAFETY MEASURES IN PLACE. BED IN LOW/LOCKED POSITION . NEEDS ATTENDED. CALL LIGHT WITHIN REACH. SIDE RAILS UPX2 WITH BED ALARM ON. WILL CONTINUE TO MONITOR ACCORDINGLY. WILL ENDORSE TO NEXT SHIFT FOR CONTINUITY OF CARE.
--- NOTE | 2017-11-16 07:00 | NUR ---
MS RN OPENING NOTES PATIENT SITTING IN BED, ALERT ORIENTED. WATCHING FROM HIS IPAD ON THE TABLE. NO SOB NOTED. NO ACUTE DISTRESS NOTED. ON O2 2LPM VIA SIMPLE MASK, SATURATING AT 94%. BREATHING EVEN AND UNLABORED. NO IV ACCESS, MD AWARE. NO S/SX OF HYPOGLYCEMIA NOTED. SAFETY MEASURES IN PLACE. BED IN LOW/LOCKED POSITION . CALL LIGHT WITHIN REACH. SIDE RAILS UPX2 WITH BED ALARM ON. WILL CONTINUE TO MONITOR ACCORDINGLY.
[2017-11-16 08:00] VITALS: BP 124/87
[2017-11-16] MEDS: LEVOTHYROXINE SODIUM 75 MCG TABLET PO SCH (08:06)
[2017-11-16] MEDS: ACETYLCYSTEINE 20% SOLN 800 MG/4 ML VIAL NEB SCH ×2 (08:34→17:09)
[2017-11-16] MEDS: CLOPIDOGREL BISULFATE 75 MG TABLET PO SCH (08:56)
[2017-11-16] MEDS: SEVELAMER CARBONATE 800 MG TABLET PO SCH ×3 (08:56→18:00)
[2017-11-16] MEDS: MIDODRINE HCL (5MG) 5 MG TABLET PO SCH ×3 (09:00→17:00)
[2017-11-16] MEDS: INSULIN REGULAR, HUMAN 100 UNIT/ML 3 ML VIAL SQ PRN ×4 (09:00→21:36)
[2017-11-16 16:00] VITALS: BP 141/64
--- NOTE | 2017-11-16 18:30 | NUR ---
MS RN CLOSING NOTES PATIENT LYING IN BED, SLEEPING , AROUSABLE TO VERBAL AND TACTILE STIMULI. NO SOB NOTED. NO ACUTE DISTRESS NOTED. ON O2 4LPM VIA NASAL CANNULA, SATURATING AT 94%. BREATHING EVEN AND UNLABORED. NO IV ACCESS, MD AWARE. NO S/SX OF HYPOGLYCEMIA NOTED.NEEDS ATTENDED . DUE MEDICATIONS GIVEN, NO ASE NOTED. REFUSED SOME MEDICATIONS. EXPLAINED RISK AND BENEFITS. DIALYSIS DONE, 2400 ML REMOVED. PATIENT REMAINS WITH STABLE VITAL SIGNS. MOTHER AT BEDSIDE. SAFETY MEASURES IN PLACE. BED IN LOW/LOCKED POSITION . CALL LIGHT WITHIN REACH. SIDE RAILS UPX2 WITH BED ALARM ON. WILL ENDORSE TO FINANCE MANAGER FOR CONTINUITY OF CARE..
--- NOTE | 2017-11-16 19:30 | NUR ---
MS RN OPENING NOTES: PATIENT SITTING ON BED, AWAKE AND ALERT, WITH LIMITED VERBAL RESPONSE, WATCHING PROGRAM ON TABLET. ON O2 AT 5 LPM VIA FACE MASK. BREATHING EVEN AND UNLABORED, BREATH SOUNDS CLEAR TO AUSCULTATION. PATIENT HAS JUAN MANUEL AV SHUNT POSITIVE FOR THRILLS AND BRUIT, WITH CLEAN AND INTACT DRESSING. PROVIDED FOR COMFORT AND SAFETY. BED IN LOWEST AND LOCKED POSITION, SIDERAILS UP X 3. CALL LIGHT WITHIN REACH. WILL CONT TO MONITOR.
[2017-11-16 20:00] VITALS: BP 99/63
[2017-11-16] MEDS: INSULIN GLARGINE, 100 UNIT/ML CARTRIDGE SQ SCH (21:33)
--- NOTE | 2017-11-16 21:36 | NUR ---
RN NOTES: BLOOD SUGAR CHECKED AT 195 MG/DL. ADMINISTERED 3 UNITS REGULAR INSULIN AND LANTUS 15 UNITS SQ ORDERED. LIGHT SNACK PROVIDED. WILL CONT TO MONITOR.
[2017-11-17] MEDS: ALBUTEROL FS 2.5 MG/0.5 ML VIAL.NEB NEB SCH ×7 (00:03→23:01)
[2017-11-17] MEDS: ACETYLCYSTEINE 20% SOLN 800 MG/4 ML VIAL NEB SCH ×4 (00:03→23:00)
[2017-11-17] MEDS: IPRATROPIUM NEB FS 0.5 MG/2.5 ML AMPUL.NEB NEB SCH ×7 (00:03→23:01)
--- NOTE | 2017-11-17 00:56 | NUR ---
Lying in bed watching tv o2 @ 6l via facemask av shunt to right upper arm good thrill and bruit. Denies of any distress. Siderails up, call light within reach bed in lowest position.
[2017-11-17 02:00] VITALS: BP 105/60
--- NOTE | 2017-11-17 06:05 | NUR ---
RN NOTES: PATIENT'S BLOOD SUGAR CHECKED AT 52 MG/DL. PATIENT REFUSING TO HAVE IV INSERTED, APPEARS UPSET AND SHOVED AWAY NURSE. PATIENT ONLY ABLE TO DRINK 1 CUP OF OJ, REFUSED ADDITIONAL SOURCES OF SUGAR AT THIS TIME. WILL RECHECK BLOOD SUGAR.
[2017-11-17] MEDS: BLOOD SUGAR DIAGNOSTIC 1 EACH STRIP IN SCH ×4 (06:36→22:16)
--- NOTE | 2017-11-17 06:42 | NUR ---
RN NOTES: BLOOD SUGAR RECHECKED AT 69 MG/DL, 30 MINS AFTER OJ WAS GIVEN. PATIENT AOX2, REFUSES TO DRINK ANOTHER OJ BEING OFFERED. ALSO REFUSING IV INSERTION. ORDERED FOR RANDOM GLUCOSES (STAT) FROM LAB.
--- NOTE | 2017-11-17 06:51 | NUR ---
RN NOTES: LAB AT BEDSIDE, PATIENT REFUSING BLOOD DRAW.
--- NOTE | 2017-11-17 07:07 | NUR ---
MS RN CLOSING NOTES: PATIENT IN BED, AOX2, ON O2 AT 4 LPM VIA FACE MASK, BREATHING OF EVEN EXPANSION, BUT PATIENT CANNOT TOLERATE BEING FLAT ON BED. BREATH SOUNDS DIMINISHED OVER BASES. PATIENT'S BLOOD SUGAR AT 69 MG/DL. PROVIDED FOR COMFORT AND SAFETY. BED IN LOWEST AND LOCKED POSITION, SIDERAILS UP X 3. WILL ENDORSE TO AM RN FOR HENNA.
--- NOTE | 2017-11-17 07:30 | NUR ---
MS RN OPENING NOTES RECEIVED PATIENT IN NO APPARENT DISTRESS. BEDSIDE RAILS ARE UPX2 . BED IS LOCKED AND LOWERED. CALL LIGHT IS WITHIN REACH. WILL CONTINUE TO MONITOR.
[2017-11-17 08:00] VITALS: BP 115/65
[2017-11-17] MEDS: SEVELAMER CARBONATE 800 MG TABLET PO SCH ×3 (08:18→17:40)
[2017-11-17] MEDS: LEVOTHYROXINE SODIUM 75 MCG TABLET PO SCH (08:18)
[2017-11-17] MEDS: CLOPIDOGREL BISULFATE 75 MG TABLET PO SCH (08:18)
[2017-11-17] MEDS: MIDODRINE HCL (5MG) 5 MG TABLET PO SCH ×3 (08:19→17:00)
--- NOTE | 2017-11-17 11:00 | NUR ---
DIALYSIS NURSE AT BEDSIDE PERFORMING DIALYSIS.
[2017-11-17 12:55] LABS: BASOPHILS % (AUTO) 0.2 % (0.0-2.0); EOSINOPHILS # (AUTO) 0.1 /CMM (0.0-0.7); EOSINOPHILS % (AUTO) 2.3 % (0.0-6.0); HEMATOCRIT 31 % (39-51); HEMOGLOBIN 9.9 g/dL (13.5-17.5); LYMPHOCYTES # (AUTO) 0.7 /CMM (0.8-4.8); MEAN CORPUSCULAR HEMOGLOBIN 30 PG (26.0-33.0); MEAN CORPUSCULAR HGB CONC 32 g/dl (31.0-36.0); MEAN CORPUSCULAR VOLUME 93 fL (80-96); MONOCYTES # (AUTO) 0.3 /CMM (0.1-1.30); MONOCYTES % (AUTO) 5.7 % (2.0-12.0); NEUTROPHILS # (AUTO) 4.2 /CMM (1.8-8.9); NEUTROPHILS % (AUTO) 78.8 % (43.0-81.0); PLATELET COUNT (AUTO) 199 /CMM (150-450); RDW COEFFICIENT OF VARIATION 19.6 (11.5-15.0); RED BLOOD CELL COUNT(AUTO) 3.37 MIL/uL (4.5-6.0); WHITE BLOOD COUNT (AUTO) 5.3 K/uL (4.3-11.0)
[2017-11-17] MEDS: INSULIN REGULAR, HUMAN 100 UNIT/ML 3 ML VIAL SQ PRN ×3 (13:03→22:22)
[2017-11-17 13:09] LABS: ALBUMIN 4.1 g/dL (3.4-5.0); BILIRUBIN,TOTAL 0.5 mg/dL (0.2-1.0); CALCIUM, SERUM 9.3 mg/dL (8.5-10.1); POTASSIUM 4.8 mmol/L (3.5-5.1); TOTAL PROTEIN, SERUM 10.2 g/dL (6.4-8.2)
[2017-11-17 16:00] VITALS: BP 147/77
--- NOTE | 2017-11-17 19:30 | NUR ---
MS RN CLOSING NOTES PATIENT IS ALERT AND RESTING IN BED. IN NO APPARENT DISTRESS. BEDSIDE RAILS ARE UPX2. BED IS LOCKED AND LOWERED. CALL LIGHT IS WITHIN REACH. ALL NEEDS WERE MET. WILL ENDORSE CARE TO GENERAL DENTIST/OWNER NURSE FOR HENNA.
[2017-11-17 20:00] VITALS: BP 132/82
--- NOTE | 2017-11-17 20:00 | NUR ---
lying in bed watching 02 @ 6L via mask no s/l a/v shunt to left upper arm good thrill and bruitt Denies of aany distress. Side rails up call light within reach.
[2017-11-18] MEDS: IPRATROPIUM NEB FS 0.5 MG/2.5 ML AMPUL.NEB NEB SCH ×2 (03:26→07:48)
[2017-11-18] MEDS: ALBUTEROL FS 2.5 MG/0.5 ML VIAL.NEB NEB SCH ×2 (03:26→07:48)
[2017-11-18] MEDS: LEVOTHYROXINE SODIUM 75 MCG TABLET PO SCH (06:08)
[2017-11-18] MEDS: BLOOD SUGAR DIAGNOSTIC 1 EACH STRIP IN SCH (06:10)
--- NOTE | 2017-11-18 07:06 | NUR ---
Closing Notes: Remains on 6L via mask, Am Blood sugar 73 no coverqage given. left upper arm a/v shunt good thrill and bruitt. siderail up Call light within reach. Denies of Distress. Cooperative with staff.
--- NOTE | 2017-11-18 07:10 | NUR ---
RN NOTES PT IS SITTING IN BED WITH FAMILY AT BEDSIDE. PT ON 6L O2, RESPIRATIONS ARE EVEN AND UNLABORED. NO IV ACCESS. SAFETY MEASURES ARE IN PLACE, CALL LIGHT IS IN REACH. WILL CONTINUE TO MONITOR.
[2017-11-18] MEDS: ACETYLCYSTEINE 20% SOLN 800 MG/4 ML VIAL NEB SCH (07:48)
[2017-11-18] MEDS: SEVELAMER CARBONATE 800 MG TABLET PO SCH (08:21)
[2017-11-18] MEDS: CLOPIDOGREL BISULFATE 75 MG TABLET PO SCH (08:21)
[2017-11-18] MEDS: MIDODRINE HCL (5MG) 5 MG TABLET PO SCH (08:34)
[2017-11-18] MEDS ORDERED: INSULIN GLARGINE, 100 UNIT/ML CARTRIDGE SQ SCH (09:00)
--- NOTE | 2017-11-18 10:00 | NUR ---
RN NOTES PT WAS DISCHARGED HOME IN STABLE CONDITION ACCOMPANIED BY HIS FAMILY. DISCHARGE PAPERS WERE SIGNED, BELONGINGS WERE RETURNED TO PT. PTS FAMILY WAS INFORMED TO FOLLOW UP WITH PRIMARY CARE PHYSICIAN WITHIN 1-2 WEEKS OF DISCHARGE. FAMILY VERBALIZED UNDERSTANDING. NO IV ACCESS TO REMOVE. PT WAS BROUGHT TO LOBBY TO PRIVATE CARE BY WHEELCHAIR WITH MAINTENANCE TEAM MEMBER.
== END 2017-11-18 10:00 | disposition home or self-care (01) | DRG 291 ==
LOC: ER 07:16 → TELE 08:54 → MED 11:28 → TELE 19:37 → MED 11-13 09:19
PROVIDERS: ADMIT Internal Medicine; ATTEND Internal Medicine
PROC: 5A1D70Z Performance of Urinary Filtration, Intermittent, Less than 6 Hours Per Day (ICD-10-PCS; principal; 2017-11-12)
PROC: 5A1D70Z Performance of Urinary Filtration, Intermittent, Less than 6 Hours Per Day (ICD-10-PCS; 2017-11-13)
PROC: 5A1D70Z Performance of Urinary Filtration, Intermittent, Less than 6 Hours Per Day (ICD-10-PCS; 2017-11-15)
PROC: 5A1D70Z Performance of Urinary Filtration, Intermittent, Less than 6 Hours Per Day (ICD-10-PCS; 2017-11-17)
DX: I13.2 Hypertensive heart and chronic kidney disease with heart failure and with stage 5 chronic kidney disease, or end stage renal disease (principal); J96.21 Acute and chronic respiratory failure with hypoxia; J90 Pleural effusion, not elsewhere classified; N18.6 End stage renal disease; I50.21 Acute systolic (congestive) heart failure; Q90.9 Down syndrome, unspecified; E11.22 Type 2 diabetes mellitus with diabetic chronic kidney disease; Z99.2 Dependence on renal dialysis; Z79.4 Long term (current) use of insulin; Z79.899 Other long term (current) drug therapy; J20.9 Acute bronchitis, unspecified; E03.9 Hypothyroidism, unspecified; M85.9 Disorder of bone density and structure, unspecified; D64.9 Anemia, unspecified; E11.649 Type 2 diabetes mellitus with hypoglycemia without coma
CPT/HCPCS: 36415; 70360-TC; 71045-TC; 80048-TC; 80053-TC; 80061-TC; 80076-TC; 82945-TC; 82962-TC; 83605-TC; 83735-TC; 84100-TC; 84443-TC; 84484-TC; 85025-TC; 85730-TC; 86850-TC; 87040-TC; 87081-TC; 90935-TC; 94799-TC; A4606; A6402; J1815; J7030; Z7610

== ENCOUNTER 2018-01-23 08:34 | Emergency (ER) | payer BC, OTHER ==
[~2018-01-23] VITALS: Ht 152.4 cm; Wt 59.0 kg
[~2018-01-23 08:34] MED LIST changes: -CYAN500T4 PO; -FERR325T28 PO; -FOLI1TAB16 PO; -INSU100C SQ; +INSU100I14 SQ; -LEVO175T2 PO; +LEVO75TA7 PO; +MIDO10TA PO; -SEVE800T7 PO; +SEVE800T8 PO
--- NOTE | 2018-01-23 08:45 | NUR ---
BB MOTHER FROM [place]: BLEEDING LUE AV SHUNT BEFORE HEMODIALYSIS. HD CANCELLED. PATIENT A/OX 3, BREATHING EVEN AND UNLABORED. NO SOB, NAD, VITALS STABLE. NO BLEEDING NOTED AT THIS TIME. SAFETY AND COMFORT MEASURES IN PLACE. AWAITING MD ORDERS.
--- NOTE | 2018-01-23 09:05 | NUR ---
PATIENT'S MOTHER REFUSING BLOOD DRAW. STATING SHE ONLY WANTED HD DONE. INFORMED AND STATED THERE WILL BE NO HD DONE IN THE ER WITHOUT ANY BLOOD WORK. PATIENT'S MOTHER INFORMED, HAS AGREED TO ONLY DO CXR AT THIS TIME. WILL F/U.
--- NOTE | 2018-01-23 09:08 | NUR ---
PBX OPERATOR AT BEDSIDE
--- NOTE | 2018-01-23 09:18 | NUR ---
[facility] CALLED
[2018-01-23 09:31] VITALS: BP 109/62
--- NOTE | 2018-01-23 09:33 | NUR ---
Patient discharged to home in stable condition. Written and verbal after care instructions given. Patient verbalizes understanding of instruction.
== END 2018-01-23 09:32 | disposition home or self-care (01) ==
LOC: ER 08:35
DX: T82.838A Hemorrhage due to vascular prosthetic devices, implants and grafts, initial encounter (principal); Q90.9 Down syndrome, unspecified; I12.0 Hypertensive chronic kidney disease with stage 5 chronic kidney disease or end stage renal disease; E11.22 Type 2 diabetes mellitus with diabetic chronic kidney disease; N18.6 End stage renal disease; E03.9 Hypothyroidism, unspecified; Z79.4 Long term (current) use of insulin; Z99.2 Dependence on renal dialysis; Y84.1 Kidney dialysis as the cause of abnormal reaction of the patient, or of later complication, without mention of misadventure at the time of the procedure
CPT/HCPCS: 71045-TC; A4606; Z7610

== ENCOUNTER 2018-01-25 08:48 | Inpatient (IN) | payer BC, OTHER ==
[~2018-01-25] VITALS: Ht 152.4 cm; Wt 61.2 kg
[2018-01-25] MEDS ORDERED: GELATIN SPONGE,ABSORBABLE 1 SPONGE SPONGE TP ONE ×2 (08:58→18:30)
--- NOTE | 2018-01-25 09:07 | NUR ---
BIB MOM C/O UNCONTROLLED BLEEDING FROM LUE AV SHUNT. DR MEEKS AT FOR EVAL. PLACED ON THE MONITOR. PRESSURE APPLIED TO THE SITE. WILL CONTINUOUSLY MONITOR THE PATIENT.
--- NOTE | 2018-01-25 09:08 | NUR ---
CALLED AYAKA [facility]IO [phone]
[2018-01-25] MEDS ORDERED: DESMOPRESSIN 20 MCG in IV NS 0.9% 50 ML IV ONE (09:30)
[2018-01-25] MEDS ORDERED: CALC667C6 PO (09:30)
[2018-01-25] MEDS ORDERED: LEVO175T7 PO (09:30)
[2018-01-25] MEDS ORDERED: LIDOCAINE 1%-EPI 1:100,000 50 ML VIAL IJ ONE (09:30)
--- NOTE | 2018-01-25 09:30 | NUR ---
RAC #20 IV ACCESS. BLOOD SAMPLE COLLECTED SENT TO LAB
[2018-01-25] MEDS ORDERED: LIDOCAINE 1% INJ 50 ML MDV IJ ONE (09:35)
[2018-01-25 09:43] LABS: BASOPHILS % (AUTO) 0.3 % (0.0-2.0); EOSINOPHILS % (AUTO) 0.7 % (0.0-6.0); HEMATOCRIT 35 % (39-51); HEMOGLOBIN 10.9 g/dL (13.5-17.5); LYMPHOCYTES # (AUTO) 0.8 /CMM (0.8-4.8); LYMPHOCYTES % (AUTO) 10.9 % (20.0-44.0); MEAN CORPUSCULAR HGB CONC 32 g/dl (31.0-36.0); MEAN CORPUSCULAR VOLUME 94 fL (80-96); MONOCYTES # (AUTO) 0.4 /CMM (0.1-1.30); MONOCYTES % (AUTO) 5.8 % (2.0-12.0); NEUTROPHILS # (AUTO) 6.2 /CMM (1.8-8.9); NEUTROPHILS % (AUTO) 82.3 % (43.0-81.0); PLATELET COUNT (AUTO) 156 /CMM (150-450); RDW COEFFICIENT OF VARIATION 19.3 (11.5-15.0); WHITE BLOOD COUNT (AUTO) 7.5 K/uL (4.3-11.0)
[2018-01-25] MEDS ORDERED: MIDAZOLAM HCL 2 MG/2ML VIAL ONE (09:43)
[2018-01-25 09:54] LABS: INR 0.95 (0.85-1.15)
[2018-01-25 09:55] LABS: ALBUMIN 3.7 g/dL (3.4-5.0); BILIRUBIN,DIRECT 0.2 mg/dL (0.0-0.2); BILIRUBIN,TOTAL 0.7 mg/dL (0.2-1.0); CALCIUM, SERUM 8.8 mg/dL (8.5-10.1); POTASSIUM 5.9 mmol/L (3.5-5.1); TOTAL PROTEIN, SERUM 8.6 g/dL (6.4-8.2)
[2018-01-25 09:57] LABS: CREATININE 10.9 mg/dL (0.6-1.3)
[2018-01-25] MEDS ORDERED: INSULIN ASPART/LISPRO 100 UNIT/ML CARTRIDGE SQ STA (10:04)
--- NOTE | 2018-01-25 10:11 | NUR ---
PT MOTHER REFUSE IV FLUIDS DR MEEKS AWARE
[2018-01-25] MEDS ORDERED: INSULIN REGULAR, HUMAN 100 UNIT/ML 10 ML VIAL ONE (10:17)
--- NOTE | 2018-01-25 10:22 | NUR ---
REPORT GIVEN TO REMI ABAD FOR HENNA 113-1
[2018-01-25] MEDS ORDERED: IV NS 0.9% 500 ML IV ONE (10:30)
--- NOTE | 2018-01-25 11:00 | NUR ---
MS RN NOTE: RECEIVED PATIENT IN ROOM 113-1 AND REPORT WAS GIVEN BY SOUMYA RAMIREZ RN. PATIENT WAS TRANSPORTED VIA STRETCHER AND MOTHER WAS PRESENT AT THE BEDSIDE. PATIENT ON OXYGEN W/ FACEMASK OF 15L/MIN. THE MOTHER REFUSED TO HAVE THE VITAL SIGN CHECK. ACCORDING TO THE MOTHER, "MY SON IS OK. NO NEED TO TAKE THE VITAL SIGN." (R) AC IV LINE NOTED INTACT. (L) UA AV FISTULA WAS NOTED W/ KERLIX WRAPPED AND SECURED W/ TAPE. BRUIT AND THRILL PRESENT. MOTHER ALSO REFUSED TO HAVE THE PATIENT'S CLOTHES CHANGED. SHE SAID "PLEASE DO NOT TOUCH MY SON. PLEASE LET HIM REST HIS VERY TIRED." HOB ELEVATED. BED ALARMED AND LOCKED AT ALL TIMES. CALL LIGHT WITHIN REACH. CALLED AND SPOKE W/ CHAD MELGAR NP RE: THE PATIENT'S ADMISSION AND FOR ORDERS. AWAITING FOR ORDERS. MOTHER IS AWARE.
[2018-01-25] MEDS ORDERED: DEXTROSE 50%-WATER 50 ML DISP.SYRIN IV PRN (13:00)
[2018-01-25] MEDS ORDERED: MAG HYDROX/AL HYDROX/SIMETH 30 ML UDC PO PRN (13:00)
[2018-01-25] MEDS ORDERED: MAGNESIUM HYDROXIDE 30 ML UDC PO PRN (13:00)
[2018-01-25] MEDS ORDERED: ONDANSETRON HCL/PF 4 MG/2 ML VIAL IVP PRN (13:00)
[2018-01-25] MEDS ORDERED: Z GUARD REMEDY 2 OZ OINT TP PRN (13:00)
[2018-01-25] MEDS: CALCIUM ACETATE 667 MG TABLET PO SCH ×2 (13:35→17:54)
[2018-01-25] MEDS: MIDODRINE HCL (5MG) 5 MG TABLET PO SCH ×2 (15:14→17:54)
--- NOTE | 2018-01-25 15:14 | NUR ---
MS RN NOTE: THE PATIENT'S MOTHER REFUSED TO HAVE THE PATIENT RECEIVED THE MEDICATION AT THIS TIME. SHE SAID THAT SHE WANTED THE MEDICATION TO BE GIVEN A FEW MINUTES DURING DIALYSIS. SALMA BONILLA WAS MADE AWARE.
[2018-01-25] MEDS: BLOOD SUGAR DIAGNOSTIC 1 EACH STRIP IN SCH ×2 (17:33→22:03)
[2018-01-25] MEDS: SEVELAMER CARBONATE 800 MG TABLET PO SCH (17:54)
[2018-01-25] MEDS: INSULIN REGULAR, HUMAN 100 UNIT/ML 3 ML VIAL SQ PRN ×2 (17:58→22:08)
--- NOTE | 2018-01-25 19:45 | NUR ---
MS RN NOTE: PATIENT IN BED, ASLEEP BUT AROUSABLE W/ TOUCH. DENIED ANY PAIN. RESTING COMFORTABLY. CALL LIGHT WITHIN REACH. REPORT GIVEN TO PM SHIFT NURSE FOR CONTINUITY OF CARE.
[2018-01-25 20:00] VITALS: BP 126/87
--- NOTE | 2018-01-25 20:22 | NUR ---
RN NOTES RECEIVED PATIENT IN BED, AWAKE WATCHING TV WITH MOTHER AT BEDSIDE. NO RESPIRATORY DISTRESS OR SHORTNESS OF BREATH. AFEBRILE WITH SKIN WARM AND DRY TO TOUCH. NO COMPLAINT OF PAIN OR DISCOMFORT. NEEDS ATTENDED. KEPT CLEAN AND DRY. WILL CONTINUE TO MONITOR.
[2018-01-25] MEDS ORDERED: INSULIN GLARGINE, 100 UNIT/ML CARTRIDGE SQ SCH (22:00)
[2018-01-26 04:00] VITALS: BP 122/74
--- NOTE | 2018-01-26 06:14 | NUR ---
RN NOTES IN BED RESTING COMFORTABLY WITH NO DISTRESS NOTED. ALERT AND RESPONSIVE., WITH DOWN SYNDROME, MUMBLE WORDS. NO COMPLAINT OF PAIN OR DISCOMFORT. NO SIGNIFICANT CHANGE OF CONDITION. VITAL SIGNS WNL. WILL ENDORSE TO AM SHIFT FOR CONTINUITY OF CARE
--- NOTE | 2018-01-26 07:10 | NUR ---
RN OPENING NOTES RECEIVED PT. PT IS STABLE AND RESTING IN BED. NO S/S OF SOB OR RESP DISTRESS. PT IS ON 8L O2 VIA MASK WITH O2 SAT WNL. NO C/O PAIN AT THIS TIME. DRESSING FOR AV FISTULA NOTED ON JUAN MANUEL. SAFETY MEASURES IN PLACE, CALL LIGHT WITHIN REACH. WILL CONTINUE TO MONITOR.
--- NOTE | 2018-01-26 07:50 | NUR ---
RN NOTES PT TRANSFERED TO 2ND FLOOR MED SURG ROOM 205-1. REPORT GIVEN TO REMI CHRISTINE.
[2018-01-26 08:00] VITALS: BP 120/53
[2018-01-26] MEDS: BLOOD SUGAR DIAGNOSTIC 1 EACH STRIP IN SCH ×3 (08:00→20:29)
--- NOTE | 2018-01-26 08:00 | NUR ---
MS/patient information coordinator Patient transferred from . Admitted through the emergency room 01/25 with bleeding AV fistula. Upon arrive, dressing to left arm dry and intact. Oriented to new surroundings, mother at bedside. Will continue to monitor and ensure safety.
[2018-01-26] MEDS: SEVELAMER CARBONATE 800 MG TABLET PO SCH ×3 (08:23→17:46)
[2018-01-26] MEDS: CALCIUM ACETATE 667 MG TABLET PO SCH ×3 (08:23→17:46)
[2018-01-26] MEDS: LEVOTHYROXINE SODIUM 175 MCG TABLET PO SCH (08:23)
[2018-01-26] MEDS: MIDODRINE HCL (5MG) 5 MG TABLET PO SCH ×3 (09:00→17:46)
--- NOTE | 2018-01-26 10:07 | NUR ---
MS/RN HDX HDX treatment started at bedside.
[2018-01-26 11:56] LABS: EOSINOPHILS % (AUTO) 1.2 % (0.0-6.0); HEMATOCRIT 27 % (39-51); HEMOGLOBIN 8.5 g/dL (13.5-17.5); LYMPHOCYTES # (AUTO) 0.7 /CMM (0.8-4.8); LYMPHOCYTES % (AUTO) 13.6 % (20.0-44.0); MEAN CORPUSCULAR HGB CONC 32 g/dl (31.0-36.0); MEAN CORPUSCULAR VOLUME 89 fL (80-96); MONOCYTES # (AUTO) 0.5 /CMM (0.1-1.30); MONOCYTES % (AUTO) 9.7 % (2.0-12.0); NEUTROPHILS # (AUTO) 3.8 /CMM (1.8-8.9); NEUTROPHILS % (AUTO) 75.5 % (43.0-81.0); PLATELET COUNT (AUTO) 142 /CMM (150-450); RDW COEFFICIENT OF VARIATION 20.6 (11.5-15.0); RED BLOOD CELL COUNT(AUTO) 2.99 MIL/uL (4.5-6.0)
--- NOTE | 2018-01-26 12:00 | NUR ---
MS/RN Blood sugar Blood sugar at noon - 268, mother at bedside and refused insulin coverage as son was still on HD and would not be eating. Educated mother about the importance of keeping blood sugars within a normal range, but completely refusing coverage.
[2018-01-26 12:15] LABS: MAGNESIUM 2.6 mg/dL (1.8-2.4); PHOSPHORUS 7.4 mg/dL (2.5-4.9); POTASSIUM 5.3 mmol/L (3.5-5.1)
[2018-01-26 12:24] LABS: THYROID STIMULATING HORMONE 3.669 uIU/mL (0.358-3.74)
[2018-01-26 12:29] LABS: CREATININE 8.1 mg/dL (0.6-1.3)
--- NOTE | 2018-01-26 13:30 | NUR ---
MS/RN HDX HDX completed, 2.5l removed. Vital signs remained stable throughout.
[2018-01-26 16:07] VITALS: BP 118/69
[2018-01-26] MEDS: INSULIN REGULAR, HUMAN 100 UNIT/ML 3 ML VIAL SQ PRN (16:32)
[2018-01-26] MEDS ORDERED: *INSULIN REGULAR(HUMULIN R)HUM 100 UNIT/ML VIAL SQ PRN (17:30)
[2018-01-26] MEDS ORDERED: DEXTROSE 50%-WATER 50 ML DISP.SYRIN IV PRN (17:30)
[2018-01-26] MEDS ORDERED: BLOOD SUGAR DIAGNOSTIC 1 EACH STRIP IN SCH ×2 (17:30→22:00)
[2018-01-26] MEDS ORDERED: INSULIN REGULAR, HUMAN 100 UNIT/ML 3 ML VIAL SQ PRN (17:30)
--- NOTE | 2018-01-26 18:15 | NUR ---
MS/RN Blood sugar Blood sugar at 5p reading as high on glucose machine, per protocol, 10 units regular insulin administered and stat blood glucose ordered. Per blood glucose, blood sugar 741. Lefty Kelly FIELD MARKETING TEAM LEADER called via exchange. Order given by FIELD MARKETING TEAM LEADER to recheck sugar in one hour and to change sliding scale from mild to aggressive.
--- NOTE | 2018-01-26 19:03 | NUR ---
MS/RN Blood sugar Blood sugar rechecked, still resulted as HI. Lefty Kelly called via exchange, awaiting call back. Spoke with mother, stated that at home Sarah does not use regular insulin as it does not control his blood sugars, instead humalog is used. Will inform LEATHER SEASONER when call back received.
--- NOTE | 2018-01-26 19:07 | NUR ---
MS KHALIL NOTES RECEIVE PT IN BED A/O X 2, NO S/S OF DISTRESS, SAFETY MEASURES IN PLACE, CALL LIGHT WITHIN REACH, WILL CONTINUE TO MONITOR. AWAITING CALL BACK OF HOSPITALIST Addendum: 01/26/18 at 2307 by NINFA HART RN RECEIVE PT WITHOUT IV HEPLOCK
--- NOTE | 2018-01-26 19:15 | NUR ---
PER MOTHER OF THE PT JUSTIN, KRISTINEISAEL PT HAS NO IV ACCESS AND DOESNT WANT IT DESPITE EXPLAINING RISKS AND BENEFITS OFFERED 3 TIMES STILL REFUSE
--- NOTE | 2018-01-26 19:15 | NUR ---
PAGED HOSPITALIST HOME STAGER AWAITING CALL BACK
[2018-01-26 20:00] VITALS: BP 115/94
[2018-01-26] MEDS ORDERED: INSULIN REGULAR, HUMAN 100 UNIT/ML 10 ML VIAL IV ONE ×2 (20:00)
[2018-01-26] MEDS ORDERED: *INSULIN ASPART NOVOLOG 100 UNIT/ML CARTRIDGE SQ PRN (20:00)
--- NOTE | 2018-01-26 20:00 | NUR ---
PER MESERET DIRECTOR OF CASEWORK, D/C IV HUMULIN R 10 UNITS READ BACK AND VERIFIED ORDERS NOTED AND CARRIED OUT Addendum: 01/26/18 at 2320 by NINFA HART RN MADE AWARE MESERET THAT PT HAS NO IV ACCESS PER MOTHER REQUEST AND WE CANNOT ADMINISTER IV PUSH INSULIN IN OUR FLOOR PER MESERET Velazquez/C HER ORDER
--- NOTE | 2018-01-26 20:00 | NUR ---
SPOKE TO HOSPITALIST MESERET MANDARIN TEACHER OF DR. GARCIA RELAYED RESULTS OF BLOOD GLUCOSE PER MESERET CHANGE SLIDING SCALE TO AGGRESSIVE SLIDING SCALE ACCUCHECK EVERY 4 HOURS WITH SLIDING SCALE OF NOVOLOG/HUMALOG AND CHANGE LANTUS OF 20 UNITS HS READ BACK AND VERIFIED NOTED AND CARRIED OUT PT STABLE
--- NOTE | 2018-01-26 20:32 | NUR ---
AWAITING TRAFFIC INCIDENT MANAGEMENT MANAGER TO PROVIDE MEDICATION OF NOVOLOG INSULIN
--- NOTE | 2018-01-26 20:38 | NUR ---
PER GENERAL LABORER NOVOLOG/HUMALOG NOT AVAILABLE IN MED ROOM SHE WILL CALL THE JJ
[2018-01-26] MEDS: INSULIN GLARGINE, 100 UNIT/ML CARTRIDGE SQ SCH (20:54)
--- NOTE | 2018-01-26 20:54 | NUR ---
PER HOSPITALIST CALLED OUR FLOOR SPOKE TO MESERET MARSH OK TO GIVE NOW LANTUS 20 UNITS HS WHILE AWAITING HUMALOG/NOVOLOG INSULIN OK TO USE AC AGGRESSIVE SLIDING SCALE EVERY 4 HOURS READ BACK AND VERIFIED ORDERS NOTED AND CARRIED OUT
--- NOTE | 2018-01-26 21:07 | NUR ---
AWAITING PHARMACY TO DELIVER MEDICATION
--- NOTE | 2018-01-26 21:08 | NUR ---
SPOKE TO MESERET MARSH HOSPITALIST OK TO STAY TO M/S NOT IN TELEMETRY WILL CONTINUE TO MONITOR BLOOD SUGAR Addendum: 01/26/18 at 2113 by NINFA HART RN AWARE LATEST BLOOD SUGAR AWAITING NOVOLOG/HUMALOG MEDICATION
[2018-01-26 21:33] VITALS: BP 136/72
[2018-01-26] MEDS: INSULIN ASPART/LISPRO 100 UNIT/ML CARTRIDGE SQ PRN (22:29)
--- NOTE | 2018-01-26 22:29 | NUR ---
PHARMACIST DELIVERED MEDICATION WILL GIVE PER SLIDING SCALE
[2018-01-27] VITALS: BP 121/80
--- NOTE | 2018-01-27 00:15 | NUR ---
MS RN NOTES BLOOD GLUCOSE CHECK AT 00:09 57 MG/DL NON ADMINISTRATION OF DEXTROSE INJ 50% DISP SYRINGE 50 ML IV NOT AVAILABLE PT CONSUMED 8 OZ OF ORANGE JUICE N.P MADE AWARE
[2018-01-27] MEDS: DEXTROSE 50%-WATER 50 ML DISP.SYRIN IV PRN (00:19)
--- NOTE | 2018-01-27 00:43 | NUR ---
BLOOD GLUCOSE CHECKED RESULT 84 MG/DL NO SLIDING SCALE PT EATING SNACKS
[2018-01-27] MEDS: INSULIN ASPART/LISPRO 100 UNIT/ML CARTRIDGE SQ PRN ×4 (01:16→17:24)
[2018-01-27] MEDS: BLOOD SUGAR DIAGNOSTIC 1 EACH STRIP IN SCH ×6 (01:16→21:44)
[2018-01-27 06:23] LABS: EOSINOPHILS % (AUTO) 0.9 % (0.0-6.0); HEMATOCRIT 30 % (39-51); HEMOGLOBIN 9.5 g/dL (13.5-17.5); LYMPHOCYTES % (AUTO) 18.4 % (20.0-44.0); MEAN CORPUSCULAR HGB CONC 32 g/dl (31.0-36.0); MEAN CORPUSCULAR VOLUME 90 fL (80-96); MONOCYTES # (AUTO) 0.5 /CMM (0.1-1.30); MONOCYTES % (AUTO) 9.8 % (2.0-12.0); NEUTROPHILS # (AUTO) 3.8 /CMM (1.8-8.9); NEUTROPHILS % (AUTO) 70.9 % (43.0-81.0); PLATELET COUNT (AUTO) 150 /CMM (150-450); RDW COEFFICIENT OF VARIATION 20.7 (11.5-15.0); WHITE BLOOD COUNT (AUTO) 5.4 K/uL (4.3-11.0)
[2018-01-27 06:31] LABS: CALCIUM, SERUM 8.9 mg/dL (8.5-10.1); POTASSIUM 4.1 mmol/L (3.5-5.1)
[2018-01-27 06:33] LABS: CREATININE 7.6 mg/dL (0.6-1.3)
--- NOTE | 2018-01-27 06:37 | NUR ---
MS RN NOTES PT IN BED ASLEEP AND EASILY AWAKEN, ON SIMPLE MASK 6L O2 SAT 100%. NOT IN DISTRESS, AM CARE PROVIDED. STABLE CONDITION. KEPT CLEAN AND DRY AND COMFORT. NURSING CARE RENDERED. NEEDS ATTENDED AND ANTICIPATED. GOOD SKIN CARE PROVIDED. ON LOW BED TO ENSURE SAFETY, CALL LIGHT WITHIN REACH, WILL ENDORSE TO THE NEXT SHIFT CONTINUE PLAN OF CARE
--- NOTE | 2018-01-27 07:10 | NUR ---
MS RN NOTES RECEIVED PATIENT IN BED WATCHING TV, VERBALLY RESPONSIVE, MOTHER AT BEDSIDE. NO ACUTE DISTRESS NOTED. BREATHING UNLABORED. ON 02 @ 5 LPM VIA MASK. NO BLEEDING NOTED. SAFETY MEASURES IN PLACE. CALL LIGHT WITHIN REACH. WILL CONTINUE TO MONITOR ACCORDINGLY.
[2018-01-27] MEDS: SEVELAMER CARBONATE 800 MG TABLET PO SCH ×3 (07:24→17:21)
[2018-01-27] MEDS: LEVOTHYROXINE SODIUM 175 MCG TABLET PO SCH (07:24)
[2018-01-27] MEDS: CALCIUM ACETATE 667 MG TABLET PO SCH ×3 (08:17→17:21)
[2018-01-27] MEDS: MIDODRINE HCL (5MG) 5 MG TABLET PO SCH ×3 (08:18→17:00)
[2018-01-27 08:38] VITALS: BP 116/61
--- NOTE | 2018-01-27 11:45 | NUR ---
RN NOTES RECEIVED NEW ORDERS FROM DR MARLEY WITH NEW ORDERS MADE. NOTED AND CARRIED OUT.
[2018-01-27 15:48] VITALS: BP 135/78
--- NOTE | 2018-01-27 17:00 | NUR ---
RN NOTES HELD MIDODRINE HCL DUE TO BLOOD PRESSURE OF 135/78.
--- NOTE | 2018-01-27 18:21 | NUR ---
RN NOTES PATIENT IN BED SLEEPING , EASILY AWAKEN. NO ACUTE DISTRESS NOTED. BREATHING UNLABORED. DUE MEDICATIONS GIVEN, NO ASE NOTED. NEEDS ATTENDED AND ANTICIPATED. SAFETY MEASURES IN PLACE. CALL LIGHT WITHIN REACH. WILL CONTINUE TO MONITOR ACCORDINGLY. WILL ENDORSE TO NIGHT NURSE FOR CONTINUITY OF CARE.
--- NOTE | 2018-01-27 19:30 | NUR ---
RN NOTES RECEIVED PATIENT IN BED AWAKE, AO X 2, ABLE TO MAKE BASIC NEEDS KNOWN. NO ACUTE DISTRESS NOTED. DENIES ANY PAIN AT THIS TIME. NO IV SITE. LUNCH COOK AWARE PER DAY SHIFT NURSE. JUAN MANUEL AV FISTULA COVERED IN DRESSING; NO BLEEDING NOTED. SAFETY REMINDERS GIVEN. ON LOW BED WITH BILATERAL UPPER SIDE RAILS UP. CALL ROOT WITHIN EASY REACH. WILL CONTINUE TO MONITOR.
[2018-01-27 20:00] VITALS: BP 120/79
[2018-01-27] MEDS: INSULIN GLARGINE, 100 UNIT/ML CARTRIDGE SQ SCH (21:46)
[2018-01-28] MEDS: BLOOD SUGAR DIAGNOSTIC 1 EACH STRIP IN SCH ×6 (00:17→21:00)
[2018-01-28 06:03] LABS: POTASSIUM 4.8 mmol/L (3.5-5.1)
[2018-01-28 06:05] LABS: CREATININE 9.1 mg/dL (0.6-1.3)
--- NOTE | 2018-01-28 06:30 | NUR ---
RN NOTES PATIENT ASLEEP, EASILY AROUSABLE. RESPIRATIONS EVEN. NO SIGNS OF PAIN NOTED. NO SI/HI IDEATION. DUE MEDS GIVEN WITH NO ASE NOTED. NEEDS ATTENDED. KEPT CLEAN, DRY, AND COMFORTABLE. SAFETY PRECAUTIONS AND COMFORT MEASURES IN PLACE. WILL GIVE REPORT TO DAY SHIFT FOR CONTINUITY OF CARE. SITTER AT BEDSIDE.
[2018-01-28] MEDS: LEVOTHYROXINE SODIUM 175 MCG TABLET PO SCH (07:30)
[2018-01-28 08:00] VITALS: BP 115/64
[2018-01-28] MEDS: SEVELAMER CARBONATE 800 MG TABLET PO SCH ×3 (08:00→17:03)
--- NOTE | 2018-01-28 08:00 | NUR ---
MS RN NOTES PATIENT IN BED RESTING NO SOB OR ACUTE DISTRESS NOTED. PATIENT MALAYSIAN SPEAKING. ALERT, ORIENTED X2. DENIES ANY PAIN OR DISCOMFORT. NO IV ACCESS MD AWARE. PATIENTS MOM REFUSES ACCESS UNTIL PATIENT IS IN OR. BED IN LOW LOCKED POSITION. CALL LIGHT WITHIN REACH. WILL CONTINUE TO MONITOR.
[2018-01-28] MEDS: CALCIUM ACETATE 667 MG TABLET PO SCH ×3 (09:00→17:03)
[2018-01-28] MEDS: MIDODRINE HCL (5MG) 5 MG TABLET PO SCH ×3 (09:00→17:03)
--- NOTE | 2018-01-28 14:30 | NUR ---
MS RN NOTES CALL RECEIVED FROM DR. MARLEY STATING HE HAD AN EMERGENCY SURGERY, SURGERY NEEDS TO BE CANCELLED TO BE RESCHEDULED FOR 01/29/18 AT 0700 PATIENTS MOM MADE AWARE ORDERED DIET FOR PATIENT.
[2018-01-28 16:00] VITALS: BP 132/70
[2018-01-28] MEDS: INSULIN ASPART/LISPRO 100 UNIT/ML CARTRIDGE SQ PRN (17:22)
--- NOTE | 2018-01-28 19:12 | NUR ---
MS RN NOTES PATIENT COMPLETED HD WITH 2L OUTPUT TOLERATED WELL. PATIENTS MOTHER AT BEDSIDE. ALL DUE MEDICATIONS ADMINISTERED. ALL NEEDS MET. AV SHUNT INTACT PATENT. WILL ENDORSE CARE TO PM SHIFT.
--- NOTE | 2018-01-28 19:30 | NUR ---
MS/RN OPENING NOTES PT RECEIVED SITTING UP IN BED, WATCHING HIS IPAD. ON 6L O2 VIA SIMPLE MASK. BREATHING EVEN AND UNLABORED. NO S/S OF DISTRESS AT THIS TIME. DENIES PAIN. NO IV ACCESS, FAMILY REFUSING. BED IN LOW/LOCKED POSITION WITH CALL LIGHT IN REACH. SIDE RAILS UPX2. WILL CONTINUE TO MONITOR
--- NOTE | 2018-01-28 21:30 | NUR ---
MS/RN NOTES PT REFUSING VITAL SIGN CHECK AND BLOOD SUGAR CHECK. RAISES VOICE AND SAYS "LEAVE ME ALONE! GO AWAY!" EDUCATED MULTIPLE TIMES AND OFFERED TO COME BACK TO RECHECK ON MULTIPLE OCCASIONS. PT STILL REFUSING.
[2018-01-28] MEDS: INSULIN GLARGINE, 100 UNIT/ML CARTRIDGE SQ SCH (22:00)
[2018-01-29] VITALS (17 sets, daily range): BP systolic 72–114; BP diastolic 29–68
[2018-01-29] MEDS: BLOOD SUGAR DIAGNOSTIC 1 EACH STRIP IN SCH ×6 (01:04→20:49)
[2018-01-29] MEDS: INSULIN ASPART/LISPRO 100 UNIT/ML CARTRIDGE SQ PRN ×3 (01:04→21:02)
[2018-01-29] MEDS ORDERED: ANESTHESIA TRAY IN PYXIS 1 EA TRAY MC ONE (06:18)
[2018-01-29] MEDS ORDERED: THROMBIN (BOVINE) 5,000 UNITS VIAL TP ONE (06:19)
[2018-01-29] MEDS ORDERED: GELATIN SPONGE,ABSORBABLE 1 EA SPONGE TP ONE (06:19)
[2018-01-29] MEDS ORDERED: HEPARIN SODIUM, PORCINE 1,000 UNIT/ML VIAL ONE (06:19)
[2018-01-29] MEDS ORDERED: LIDOCAINE 1% INJ 50 ML MDV IJ ONE (06:19)
--- NOTE | 2018-01-29 06:20 | NUR ---
MS/RN NOTES PT WENT TO SURGERY
--- NOTE | 2018-01-29 07:00 | NUR ---
MS/RN CLOSING NOTES PT AWAKE, REMAINS ON 6L O2 VIA NC, BREATHING EVEN AND UNLABORED. NO S/S OF SOB OR DISTRESS NOTED. DENIES PAIN. PT HAD 1 EPISODE OF BLEEDING FROM FISTULA ON JUAN MANUEL. PRESSURE APPLIED TO SITE AND REINFORCED DRESSING, BLEEDING STOPPED. NO IV ACCESS. NO SIGNIFICANT CHANGES OVERNIGHT. KEPT PT COMFORTABLE DURING SHIFT. ALL NEEDS MET. BED IN LOW/LOCKED POSITION WITH CALL LIGHT IN REACH. SIDE RAILS UPX2. ENDORSED TO DAY SHIFT RN HENNA.
--- NOTE | 2018-01-29 07:04 | NUR ---
MS/slab grinder Patient in surgery at start of shift.
[2018-01-29] MEDS: LEVOTHYROXINE SODIUM 175 MCG TABLET PO SCH (07:30)
[2018-01-29] MEDS: SEVELAMER CARBONATE 800 MG TABLET PO SCH ×3 (08:00→17:07)
[2018-01-29] MEDS: CALCIUM ACETATE 667 MG TABLET PO SCH ×3 (08:07→16:54)
[2018-01-29] MEDS: MIDODRINE HCL (5MG) 5 MG TABLET PO SCH ×3 (08:08→16:54)
[2018-01-29] MEDS ORDERED: CELLULOSE,OXIDIZED 1 EA PACK MC ONE ×2 (08:36→09:31)
[2018-01-29] MEDS ORDERED: protAMINE SULFATE 10 MG/ML VIAL IV ONE (09:21)
[2018-01-29] MEDS ORDERED: SUCCINYLCHOLINE CHLORIDE 20 MG/ML VIAL ONE (10:20)
[2018-01-29 11:08] LABS: EOSINOPHILS % (AUTO) 0.7 % (0.0-6.0); HEMATOCRIT 30 % (39-51); HEMOGLOBIN 9.2 g/dL (13.5-17.5); LYMPHOCYTES # (AUTO) 0.5 /CMM (0.8-4.8); LYMPHOCYTES % (AUTO) 4.4 % (20.0-44.0); MEAN CORPUSCULAR HGB CONC 31 g/dl (31.0-36.0); MEAN CORPUSCULAR VOLUME 92 fL (80-96); MONOCYTES # (AUTO) 0.2 /CMM (0.1-1.30); MONOCYTES % (AUTO) 1.7 % (2.0-12.0); NEUTROPHILS # (AUTO) 9.8 /CMM (1.8-8.9); NEUTROPHILS % (AUTO) 93.2 % (43.0-81.0); PLATELET COUNT (AUTO) 158 /CMM (150-450); RED BLOOD CELL COUNT(AUTO) 3.25 MIL/uL (4.5-6.0); WHITE BLOOD COUNT (AUTO) 10.5 K/uL (4.3-11.0)
[2018-01-29 11:23] LABS: CALCIUM, SERUM 7.8 mg/dL (8.5-10.1); POTASSIUM 5.8 mmol/L (3.5-5.1)
--- NOTE | 2018-01-29 11:30 | NUR ---
UNABLE TO OBTAIN ABG FROM PT. PT IS COMBATIVE, ATTEMPTED BY RT EDIL AND RT MAURO. AT BEDSIDE, OK'ED STOPPING ATTEMPTS.
[2018-01-29 11:33] LABS: CREATININE 8.6 mg/dL (0.6-1.3)
--- NOTE | 2018-01-29 12:05 | NUR ---
1045 PT RECEIVED IN ICU POST OP INTUBATED, PLACED ON AC 14 500 +0 100% PER DR. SENIOR AT BEDSIDE. PT SX'ED AND LAVAGED TO MOD AMOUNTS OF THIN BLOOD TINGED SECRETIONS. ETT PATENT, SECURED W/ ACHOFAST. BREATH SOUNDS EQUAL DIMINISHED. VENT IN RED OUTLET, VENT ALARMS CHECKED AND AUDIBLE, AMBUBAG AT BEDSIDE. 1145 PT AWAKE, ANXIOUS, "BUCKING" THE VENT; PLACED ON CPAP 0 PS 10 W/ MD AT BEDSIDE. PT EXTUBATED W/ RNMD AT BEDSIDE. PLACED ON 15L NRB MASK. SPO2 READING AT 92% NOTED.
[2018-01-29] MEDS: HYDROCODONE/APAP 5/325MG 1 EACH TABLET PO PRN (12:58)
[2018-01-29] MEDS ORDERED: ALBUMIN 25% 12.5 GM/50 ML BOTTLE IV ONE (14:00)
[2018-01-29] MEDS ORDERED: ALBUMIN 25% 25 GM in PREMIX 1 EA IV ONE (14:00)
--- NOTE | 2018-01-29 14:09 | NUR ---
INITIAL NAIL ARTIST NOTE 1117 RCVD PT INTUBATED FROM MD ABBY UNABLE TO SAFELY EXTUBATE AFTER PROCEDURE. PT WAKING UP AT THIS TIME, ATTEMPTING TO PULL ETT. DR. CASSIDY AT BEDSIDE ASSESSING PT. REPORT RCVD FROM ANTIONETTE, REMI. PT ALERT AND AWAKE, RESTLESS. WILL CONTINUE TO MONITOR PT FOR SAFETY AND COMFORT. BED IN LOW AND LOCKED POSITION. CALL LIGHT WITHIN REACH. DR. CASSIDY ORDERED TO HAVE PT EXTUBATED, RT CALLED AT BEDSIDE. PT TOLERATED PROCEDURE, PT PLACED ON NRB MASK AT 15 L WITH SATURATION IN LOW 90's. ST ON TELE. DRESSING OVER LEFT UPPER ARM, S/P AV FISTULA REVISION. WILL CONTINUE TO CLOSELY MONITOR PT. PT'S MOM AT BEDSIDE. PT PULLED [id number] PROBE AND REFUSES TO GET HIS BP CHECKED, PT'S MOM AT BEDSIDE. UNABLE TO GET ACCURATE READING ON BP, O2 SATURATION SINCE PT IS FIGHTING AND REFUSES TO GET VITALS CHECKED. PRASHANTH BLACK INFORMED.
--- NOTE | 2018-01-29 15:36 | NUR ---
UNEMPLOYMENT CLAIMS ADJUDICATOR NOTE PT CONTINUES TO REFUSE ALL MONITORING. PT'S MOM AT BEDSIDE REFUSED ALBUMIN DESPITE BEING EDUCATED ON THE NEED FOR THE MEDICATION. BLOOD GLUCOSE RE-ASSESSED STILL >400 PT'S MOM DECIDED TO DRAW HER OWN INSULIN AND GAVE PT 8 UNITS. SALMA HERNANDEZ AWARE OF PT'S MOM'S ACTIONS AND BLOOD GLUCOSE LEVEL. WILL CONTINUE TO MONITOR.
--- NOTE | 2018-01-29 17:57 | NUR ---
DUB ROOM ENGINEER NOTE PT CONTINUES TO REFUSE MONITORING, VITAL SIGNS BEING TAKEN EVERY HOUR. PROBES AND LEADS REMOVED BY PT WITH MOM AT BEDSIDE. K 5.9 THIS AFTERNOON. PT'S MOM AWARE STATES THAT WILL WAIT UNTIL DIALYSIS IS DONE TOMORROW, DOES NOT WANT ANY MEDICATIONS TO BE GIVEN TO PT. CURRENTLY PT SLEEPING IN BED, SHOWING NO S/O DISTRESS. TOLERATING O2 VIA SIMPLE MASK. BLOOD GLUCOSE CHECKED. PT'S MOTHER REFUSED INSULIN COVERAGE. WILL ENDORSE PT'S CARE TO RETAIL ACCOUNT MANAGER. BED IN LOW AND LOCKED POSITION. CALL LIGHT WITHIN REACH.
--- NOTE | 2018-01-29 19:45 | NUR ---
CARDIO CLINICIAN NOTES PATIENT SAFELY TRANSFERRED TO TELEMETRY 1ST FLOOR, ROOM 113-2, VIA ACLS PROTOCOL. PRIMARY NURSE SCAR, REPORT GIVEN BY DAY SHIFT NURSE SILVINO. PATIENT TOLERATED TRANSFER WELL, IN NO ACUTE DISTRESS AT THE TIME OF TRANSFER. WILL NOTIFY FAMILY MEMBERS REGARDING TRANSFER TO ROOM 113-2.
--- NOTE | 2018-01-29 19:55 | NUR ---
PARTS ROOM CLERK NOTES, RECEIVED 27 YEAR OLD MALE TRANSFERRED FROM ICU IN STABLE CONDITION, BREATHING EVEN AND UNLABORED NO SOB/ACUTE DISTRESS NOTED AT THIS TIME, ACCOMPANIED BY STAFF VIA BED, WEARING SIMPLE MASK AT 6LPM, NO S/S OR C/O PAIN OE DISCOMFORT AT THIS TIME, SINUS RHYTHM IN THE SWAMPER, T. 97.6, BP 111/42, 90, 19, O2 SAT 92%, CENTRAL LINE IN LEFT FEMORAL INTACT AND PATENT, S/P JUAN MANUEL FISTULA REPAIRED, SITE CLEAN AN DRY, DRESSING INTACT, NO BLEEDING NOTED, DRY AND CLEAN, INVOLVED IN CARE, LINEN CHANGE, WILL CONTINUE TO MONITOR CLOSELY, AND ADMINISTER MEDICATIONS ORDERED.
[2018-01-29] MEDS: INSULIN GLARGINE, 100 UNIT/ML CARTRIDGE SQ SCH (21:04)
[2018-01-30] VITALS: BP 102/48
[2018-01-30] MEDS: BLOOD SUGAR DIAGNOSTIC 1 EACH STRIP IN SCH ×6 (00:35→21:11)
[2018-01-30 04:00] VITALS: BP 102/48
--- NOTE | 2018-01-30 04:00 | NUR ---
APRICOT PACKER NOTES, PATIENT REFUSED VS AT THIS TIME, EDUCATION OROVIDED, STILL REFUSED, WILL CONTINUE TO MONITOR CLOSELY.
--- NOTE | 2018-01-30 05:20 | NUR ---
FARM EQUIPMENT ENGINE MECHANIC NOTES, PT NOTED WITH BS 67MG/dL, 8OZ OJ GIVEN, AND PT EATING SNACK AT THIS TIME, WILL CONTINUE TO MONITOR CLOSELY.
--- NOTE | 2018-01-30 07:30 | NUR ---
RN NOTES PATIENT RECEIVED AWAKE ALERT TO SELF REFUSING VS TO BE TAKEN. REMOVING JUAN MANUEL DRESSING NURSING EDUCATION REINFORCED.IV ACCESS PATENT AND INTACT NO REDNESS OR INFILTRATION NOTED RESPIRATIONS EVEN AND UNLABORED, IN NO APPARENT PAIN OR DISCOMFORT. KEPT CLEAN DRY AND COMFORTABLE, CALL LIGHT WITHIN EASY REACH
[2018-01-30 07:44] LABS: CALCIUM, SERUM 7.8 mg/dL (8.5-10.1); MAGNESIUM 2.7 mg/dL (1.8-2.4); POTASSIUM 5.7 mmol/L (3.5-5.1)
[2018-01-30 07:50] LABS: CREATININE 9.7 mg/dL (0.6-1.3)
[2018-01-30 07:55] LABS: PHOSPHORUS 8.9 mg/dL (2.5-4.9)
[2018-01-30 08:00] VITALS: BP 98/50
--- NOTE | 2018-01-30 08:00 | NUR ---
RN NOTES PATIENT REMOVED TELE MONITOR REFUSING X3 TO GET REPLACED WILL CONTINUE TO EDUCATE AND MAKE MD AWARE
[2018-01-30 08:26] LABS: HEMATOCRIT 26 % (39-51); HEMOGLOBIN 8.3 g/dL (13.5-17.5); MEAN CORPUSCULAR VOLUME 91 fL (80-96); RED BLOOD CELL COUNT(AUTO) 2.87 MIL/uL (4.5-6.0); WHITE BLOOD COUNT (AUTO) 6.7 K/uL (4.3-11.0)
[2018-01-30 08:27] LABS: MEAN CORPUSCULAR HGB CONC 32 g/dl (31.0-36.0); PLATELET COUNT (AUTO) 160 /CMM (150-450); RDW COEFFICIENT OF VARIATION 20.2 (11.5-15.0)
[2018-01-30 08:30] LABS: LYMPHOCYTES % (MANUAL) 8 % (16-48); MONOCYTES % (MANUAL) 7 % (0-11.0); NEUTROPHILS % (MANUAL) 85 (42-76)
[2018-01-30] MEDS: CALCIUM ACETATE 667 MG TABLET PO SCH ×3 (08:32→17:46)
[2018-01-30] MEDS: MIDODRINE HCL (5MG) 5 MG TABLET PO SCH ×3 (08:32→17:46)
[2018-01-30] MEDS: SEVELAMER CARBONATE 800 MG TABLET PO SCH ×3 (08:32→17:46)
[2018-01-30] MEDS: LEVOTHYROXINE SODIUM 175 MCG TABLET PO SCH (08:33)
[2018-01-30] MEDS: HYDROCODONE/APAP 5/325MG 1 EACH TABLET PO PRN ×2 (08:33→21:28)
[2018-01-30] MEDS: INSULIN ASPART/LISPRO 100 UNIT/ML CARTRIDGE SQ PRN ×3 (08:35→17:45)
--- NOTE | 2018-01-30 09:00 | NUR ---
RN NOTES PATIENT REMOVED TELE MONITOR REFUSING X3 TO GET REPLACED WILL CONTINUE TO EDUCATE AND MAKE MD AWARE
--- NOTE | 2018-01-30 10:00 | NUR ---
RN NOTES PATIENT REMOVED TELE MONITOR REFUSING X3 TO GET REPLACED WILL CONTINUE TO EDUCATE AND MAKE MD AWARE
--- NOTE | 2018-01-30 12:00 | NUR ---
RN NOTES PATIENT REFUSING MEHUL WAITE MOTHER AT BEDSIDE STATING "SANTANA IS SLEEPING PLEASE GO" CONTINUING TO REFUSE PLACEMENT OF TELE MONITOR WILL CONTINUE TO MONITOR Addendum: 01/30/18 at 1259 by PAL JAUREGUI RN Amended: Links added.
--- NOTE | 2018-01-30 13:30 | NUR ---
RN NOTES PATIENT AND MOTHER REFUSING NOON MEDS NURSING EDUCATION REINFORCED WILL CONTINUE TO MONITOR
[2018-01-30 16:00] VITALS: BP 111/60
--- NOTE | 2018-01-30 19:30 | NUR ---
CHUTE OPERATOR INITIAL NOTE PT AWAKE AND ALERT SITTING UP IN BED. ON 6L OF O2 VIA SIMPLE MASK. BREATHING UNLABORED. COVERED JUAN MANUEL FISTULA REPAIR WITH BURN NETTING. C/O SLIGHT PAIN BUT REFUSING PAIN MEDICATION AT THIS TIME. PT REFUSING TO PUT TELE MONITOR ON EVEN WITH PT TEACHING OF RISKS AND BENEFITS. CALL LIGHT WITHIN REACH. WILL CONTINUE TO MONITOR.
--- NOTE | 2018-01-30 19:37 | NUR ---
RN NOTES PATIENT AWAKE ALERT TO SELF REFUSING MERCURY PURIFIER. REMOVING JUAN MANUEL DRESSING NURSING EDUCATION REINFORCED.IV ACCESS PATENT AND INTACT NO REDNESS OR INFILTRATION NOTED RESPIRATIONS EVEN AND UNLABORED, IN NO APPARENT PAIN OR DISCOMFORT. KEPT CLEAN DRY AND COMFORTABLE, CALL LIGHT WITHIN EASY REACH ENDORSED TO NEXT SHIFT FOR CONTINUITY OF CARE
[2018-01-30 20:00] VITALS: BP_SYST 103; BP_SYST 108; BP_DIAS 56; BP_DIAS 65
[2018-01-30] MEDS: INSULIN GLARGINE, 100 UNIT/ML CARTRIDGE SQ SCH (21:15)
[2018-01-30] MEDS: DEXTROSE 50%-WATER 50 ML DISP.SYRIN IV PRN (21:26)
--- NOTE | 2018-01-30 22:32 | NUR ---
NETWORK SYSTEMS ANALYST NOTE BLOOD SUGAR CHECKED- 49 AND GAVE D50 IVP. RECHECKED AND BLOOD SUGAR 143. PT ALERT. NO S/SX OF HYPOGLYCEMIA NOTED. WILL MONITOR.
[2018-01-31] VITALS (8 sets, daily range): BP systolic 100–126; BP diastolic 58–97
[2018-01-31] MEDS: BLOOD SUGAR DIAGNOSTIC 1 EACH STRIP IN SCH ×6 (01:42→23:57)
[2018-01-31] MEDS: INSULIN ASPART/LISPRO 100 UNIT/ML CARTRIDGE SQ PRN ×2 (01:49→04:54)
--- NOTE | 2018-01-31 06:40 | NUR ---
NEUROLOGY TECHNICIAN CLOSING NOTE PT REMAINED STABLE DURING SHIFT. NO ACUTE DISTRESS NOTED. ON CONTINUOUS O2 VIA SIMPLE MASK. ALL NEEDS ATTENDED TO PROMPTLY. PT REFUSED BLOOD DRAW. PT TEACHING DONE AND STILL REFUSED. WILL TRY AGAIN LATER. WILL ENDORSE TO NEXT SHIFT FOR CONTINUITY OF CARE.
--- NOTE | 2018-01-31 07:55 | NUR ---
RN NOTE RECEIVED PATIENT AWAKE ALERT AND ORIENT 1-2 WATCHING ON HIS IPAD. BREATHING EVEN AND UNLABORED WITH MASK OF 6L O2. JUAN MANUEL FISTULA DRESSING INTACT WITH NO SIGNS OF BLEEDING NOTED. NO DISCOMFORT OR DISTRESS NOTED. BED LOCK AND LOW POSITION, ALL SAFETY MEASURES DONE. PLACED CALL LIGHT WITHIN REACH
[2018-01-31] MEDS: LEVOTHYROXINE SODIUM 175 MCG TABLET PO SCH (08:41)
[2018-01-31] MEDS: MIDODRINE HCL (5MG) 5 MG TABLET PO SCH ×3 (08:41→17:00)
[2018-01-31] MEDS: CALCIUM ACETATE 667 MG TABLET PO SCH ×3 (08:41→17:00)
[2018-01-31] MEDS: SEVELAMER CARBONATE 800 MG TABLET PO SCH ×3 (08:41→18:00)
--- NOTE | 2018-01-31 08:50 | NUR ---
RN NOTE DIALYSIS NURSE WAS NOT ABLE TO PERFORM DIALYSIS ON PATIENT DUE TO PATIENT BEING RESTLESS, MOTHER WAS AT BEDSIDE. WILL TRY TOMORROW. MARY WINSLOW NP MADE AWARE AND DR RODGERS.
--- NOTE | 2018-01-31 08:55 | NUR ---
RN NOTE PATIENT REFUSED TO GET HIS LABS DRAWN. EXPLAINED RISKS AND BENEFITS, STILL REFUSED. MOTHER AT BEDSIDE AND REFUSED WELL.
[2018-01-31] MEDS: HYDROCODONE/APAP 5/325MG 1 EACH TABLET PO PRN (10:49)
--- NOTE | 2018-01-31 17:00 | NUR ---
RN NOTE PATIENT REFUSED TO 1700 MEDICATIONS. EXPLAINED RISKS AND BENEFIT 3 TIMES, STILL REFUSED. MOTHER AT BEDSIDES AND REFUSED MEDICATION FOR PATIENT WELL.
--- NOTE | 2018-01-31 20:54 | NUR ---
RN NOTES RECEIVED PAITENT AWAKE IN BED WITH MOTHER AT BEDSIDE. NO DISTRESS NOTED. BREATHING EVEN AND UNLABORED. NO COMPLAINT OF PAIN OR DISCOMFORT. TRANSFERRED TO ROOM 101 PER MOTHER'S REQUEST. NEEDS ATTENDED. KEPT CLEAN AND DRY. WILL CONTINUE TO MONITOR.
[2018-01-31] MEDS ORDERED: IPRATROPIUM NEB FS 0.5 MG/2.5 ML AMPUL.NEB NEB PRN (22:30)
[2018-01-31] MEDS ORDERED: ALBUTEROL FS 2.5 MG/0.5 ML VIAL.NEB NEB PRN (22:30)
--- NOTE | 2018-01-31 22:40 | NUR ---
RN NOTES NOTED PATIENT TO BE IN DISTRESS AT AROUND 2200, NOTED WITH CONGESTION. CHECKED 02SAT FLUCTUATING FROM 75% TO 85%. hR 86BPM. CHANGED MASK TO NON REBREATHER AND INCREASE OXYGENATION TO 100%. SATURATION INCREASE TO 88-89%. AFTER A FEW MINUTES, PATIENT'S SAT WENT DOWN AGAIN TO 70-75%. CALLED MD AT AROUND 2220. OBTAINED ORDER FOR ABG, CHEST XRAY AND BREATHING TREATMENT STAT. UNABLE TO DRAW BLOOD FOR ABG, CHEST XRAY DONE. CALLED MD AND OBTAINED ORDER TO TRANSFER TO ICU AND PLACE ON BIPAP. NOTED AND CARRIED OUT. GAVE ENDORSEMENT TO ICU NURSE.
--- NOTE | 2018-01-31 22:50 | NUR ---
RN NOTES TRIED CALLING FAMILY, MOTHER & SISTER, BUT THE TELEPHONE NUMBER GIVEN IS ALREADY NOT IN SERVICE. INFORMED ICU NURSE RENETTA FAMILY WASNOT CONTACTED.
--- NOTE | 2018-01-31 23:19 | NUR ---
pt refused to have the BIPAP ON, tried multiple time to draw ABG but was not successful due to patients uncooperativeness, charge nurse HOLLY and lighthouse keeper at bedside.
[2018-01-31] MEDS: INSULIN GLARGINE, 100 UNIT/ML CARTRIDGE SQ SCH (23:58)
[2018-02-01] VITALS (25 sets, daily range): BP systolic 72–147; BP diastolic 42–99
[2018-02-01] MEDS: BLOOD SUGAR DIAGNOSTIC 1 EACH STRIP IN SCH ×6 (01:57→21:48)
[2018-02-01] MEDS: INSULIN ASPART/LISPRO 100 UNIT/ML CARTRIDGE SQ PRN ×2 (01:59)
--- NOTE | 2018-02-01 07:00 | NUR ---
RN NOTES RECEIVED PT ON BED, A/Ox1-2, ON NR MASK , NO SOB NOTED, PT'S MOM REFUSING TO HAVE NR MASK ON , SHE TAKES IT OFF AT TIMES , SHE STATED , HE DOES NOT NEED THE NR MASK, MOM ALSO REFUSING TO HAVE THE PT'S TEMPERATURE CHECKED , SHE STATED SANTANA ONLY NEEDS DIALYSIS TODAY , ON TELE HR IN 60'S SR , L AV FISTULA DRESSING CLEAN AND DRY , SR UP x3, CALL LIGHT WITHIN EASY REACH , CONTINUE TO MONITOR
[2018-02-01] MEDS: SEVELAMER CARBONATE 800 MG TABLET PO SCH ×3 (08:00→17:29)
[2018-02-01] MEDS: CALCIUM ACETATE 667 MG TABLET PO SCH ×3 (08:17→17:00)
[2018-02-01] MEDS: MIDODRINE HCL (5MG) 5 MG TABLET PO SCH ×4 (09:00→17:00)
--- NOTE | 2018-02-01 09:00 | NUR ---
RN NOTES UNABLE TO GET GOOD O2 WAVE AND SAT ON THE MONITOR , PT AND MOTHER REFUSED ABG , DR DALAL NOTIFED, PT ALERT, CONTINUE TO MONITOR.
--- NOTE | 2018-02-01 09:00 | NUR ---
RN NOTES PT AND HIS MOTHER REFUSED TO HAVE AM CARE AND DO NOTE WANT LINEN CHANGED .
[2018-02-01] MEDS: LEVOTHYROXINE SODIUM 175 MCG TABLET PO SCH (09:10)
--- NOTE | 2018-02-01 09:13 | NUR ---
RN NOTES BG= 61, PT IS ASYMPTOMATIC , NO DISTRESS NOTED, APPLE JUICE GIVEN , CONTINUE TO MONITOR
--- NOTE | 2018-02-01 10:25 | NUR ---
RN NOTES BG=31, PT IS ALERT/ TALKATIVE , SUGAR ADDED TO WATER AND GIVEN TO PT PER MOM REQUEST , MOM IS REFUSING IV ACCESS , CONTINUE TO MONITOR
--- NOTE | 2018-02-01 10:25 | NUR ---
RN NOTES DR RITCHIE AT THE BEDSIDE SEEING THE PT MD NOTIFED REGARDING BG=31, NO NEW ORDER GIVEN CONTINUE TO MONITOR .
--- NOTE | 2018-02-01 10:42 | NUR ---
RN NOTES MOM REFUSED TO HAVE BLOOD GLUCOSE RECHECKED , STATED RISHIS IS FINE . PT IS ALERT/ AND TAKING TO MOM .CONTINUE TO MONITOR .
--- NOTE | 2018-02-01 11:10 | NUR ---
RN NOTES BG =71 AT THIS TIME
[2018-02-01] MEDS: ALBUMIN 25% 25 GM in PREMIX 1 EA IV PRN (13:18)
[2018-02-01 13:19] LABS: CALCIUM, SERUM 8.1 mg/dL (8.5-10.1); MAGNESIUM 2.9 mg/dL (1.8-2.4)
[2018-02-01 13:25] LABS: HEMATOCRIT 26 % (39-51); HEMOGLOBIN 8.1 g/dL (13.5-17.5); MEAN CORPUSCULAR HGB CONC 32 g/dl (31.0-36.0); MEAN CORPUSCULAR VOLUME 91 fL (80-96); PLATELET COUNT (AUTO) 164 /CMM (150-450); RDW COEFFICIENT OF VARIATION 20.3 (11.5-15.0); RED BLOOD CELL COUNT(AUTO) 2.81 MIL/uL (4.5-6.0); WHITE BLOOD COUNT (AUTO) 6.6 K/uL (4.3-11.0)
--- NOTE | 2018-02-01 13:25 | NUR ---
RN NOTES JJ=186, MOM REFUSED INSULIN COVERAGE . PT RECEIVING HD AT THIS TIME
[2018-02-01 13:57] LABS: POTASSIUM 6.2 mmol/L (3.5-5.1)
[2018-02-01 13:59] LABS: CREATININE 9.8 mg/dL (0.6-1.3); PHOSPHORUS 9.4 mg/dL (2.5-4.9)
[2018-02-01 14:17] LABS: EOSINOPHILS % (MANUAL) 3 % (0-4); LYMPHOCYTES % (MANUAL) 9 % (16-48); MONOCYTES % (MANUAL) 4 % (0-11.0); NEUTROPHILS % (MANUAL) 84 (42-76)
[2018-02-01 15:34] LABS: ABG BASE EXCESS 0.3 mmol/L; ABG OXYGEN SATURATION 91.5 % (92.0-98.5); ABG PCO2 59.3 mmHg (35.0-45.0); ABG PH 7.285 (7.350-7.450); ABG PO2 71.9 mmHg (75.0-100.0); AaDO2 581.8 mmHg; COHb 0.4 % (0.5-1.5); MetHb 0.5 % (0.0-1.5); O2Hb 90.7 % (94.0-97.0); SITE, ABG Left Radial
--- NOTE | 2018-02-01 15:50 | NUR ---
RN NOTES STAT ABG DONE , PT PLACED ON BIPAP PER DR DALAL ORDER .
--- NOTE | 2018-02-01 15:59 | NUR ---
RN NOTES PT TOOK BIPAP OFF AND REFUSED TO HAVE IT ON , DR DALAL NOTIFED ,PT BACK ON NR MASK PER DR DALAL , CONTINUE TO MONITOR .
--- NOTE | 2018-02-01 16:02 | NUR ---
Pt placed on BiPAP at [address] August. At 1600 pt removed BiPAP and refused to place BiPAP back on. Pt and mother are noncompliant. RN was at bedside. Dr. August informed of the situation. Pt placed onto NRB per Dr. August Addendum: 02/01/18 at 1608 by NOHEMI MERCADO RT Amended: Links added.
--- NOTE | 2018-02-01 18:00 | NUR ---
RN NOTES PT AND MOM REFUSED INSULIN COVERAGE FOR BG 213 .
--- NOTE | 2018-02-01 18:42 | NUR ---
RN NOTES PT ON NR MASK , STILL UNABLE TO GET EVEN O2 SAT WAVES , PT SITTING UP ON THE BED PLAYING WITH HIS COMPUTER, NO DISTRESS NOTED, WILL ENDOSE TO DAY CARE HOME MOTHER NURSE FOR HENNA
--- NOTE | 2018-02-01 19:20 | NUR ---
ICU/BROWN SOURER MOTHER AT BEDSIDE ASKED TO SPEAK TO NURSE, WENT IN TO TALK TO MOTHER AND SISTER. MOTHER ASKED IF SHE CAN NOW TAKE HOME THE PT. EXPLAIN TO MOTHER THROUGH THE ADULT SISTER AT BEDSIDE THAT PT NEEDS TO STAY SO THAT WE CAN MONITOR HIS OXYGEN. PT'S ABG IS NOT GOOD AND NUMBERS ARE NOT GOOD EITHER. EXPLAIN THAT IF SHE DOES TAKE HOME THE PT AND SHOULD HIS HEALTH CONTINUES TO DECREASE THEN SHE WILL BE RESPONSIBLE. CURRENTLY MOTHER HAS PREVENTED NURSES TO PROVIDE CARE TO PT, SUCH CHECK BLOOD SUGARS, AND HAS PREVENTED RT TO PLACE PT ON BIPAP. WILL CONTINUE TO CLOSELY MONITOR THIS PT. MOTHER WENT HOME WITH SISTER.
--- NOTE | 2018-02-01 19:55 | NUR ---
ICU/CHAIN SALES CONSULTANT WITH MOTHER GONE, PT WAS YELLING OUT FOR MOTHER. STAYED AT BEDSIDE WITH PT AND TRIED TO SOOTH PT'S FEARS WITH HIS MOTHER GONE, PT HAS DOWN SYNDROME. RT CALLED INTO ROOM TO HELP PLACE BIPAP ON PT DUE TO LOW SATURATION AT 15 LITER OF LOW 80'S, HOWEVER PT IS REFUSED AND IS ACTIVELY ENGAGED WITH RT STATING "NO, NO WANT" . RT TRIED FOR ABOUT 5-10 MINUTES TO GET PT TO PLACE ON THE BIPAP, HOWEVER PT STILL REFUSED. WILL MONITOR THIS PT.
--- NOTE | 2018-02-01 20:40 | NUR ---
ICU/GARDE MANGER TRIED AGAIN TO GET PT TO WEAR THE BIAPAP, HOWEVER PT SAID " NO" AND WAVED HAND TO PUSH AWAY BIPAP MASK. PT APPEARS TO BE ASLEEP, AND PLACED PILLOWS AROUND PT. SITTING IN FRONT OF ROOM TO KEEP A CLOSE EYE ON PT.
--- NOTE | 2018-02-01 21:20 | NUR ---
ICU/MUFFLE OPERATOR PT APPEARED TO HAVE A PANIC ATTACK, WITH INCREASED HEART RATE TO 120'S STARTED TO PULL OFF COVERS/SHEETS. WAS ABLE TO CALM PT DOWN AGAIN, SITTING OUTSIDE ROOM, PT APPEARS TO BE SOOTHED BY THIS. OCCASIONAL PT WILL LOOK OVER TO MAKE SURE THAT I'M SITTING OUTSIDE ROOM. ASKED PT AGAIN TO PLACE ON BI-PAP MASK, HOWEVER PT STILL REFUSING. WILL MONITOR THIS PT.
[2018-02-01] MEDS: INSULIN GLARGINE, 100 UNIT/ML CARTRIDGE SQ SCH (21:51)
--- NOTE | 2018-02-01 21:58 | NUR ---
ICU/STEAMTABLE WORKER PT'S BLOOD SUGAR IS 301, PT REFUSED THE REGULAR INSULIN TO COVER THIS AND ALSO THE LANTUS 20 UNITS SQ FOR THIS. WILL TRY AGAIN LATER
--- NOTE | 2018-02-01 22:12 | NUR ---
ICU/PRINTED CIRCUIT BOARDS INSPECTOR PT WAS ABLE TO LET US PLACE BIPAP MASK ON HIM, SETTINGS IS 15/5, RATE 14, 100%, WITH PS 10, SATURATION CAME UP TO 90 FROM LOW 70'S. WILL MONITOR THIS PT.
--- NOTE | 2018-02-01 22:12 | NUR ---
PT PLACED ON BIPAP PER MD'S ORDERED, RN ROSALIA NOTIFIED. SPO2 90%
--- NOTE | 2018-02-01 22:38 | NUR ---
PT TOOK OFF BAYLEE, REMI LINDSEY AWARE. PT. PLACED BACK ON NONREBREATHER MASK 15L. WILL CONTINUE TO MONITOR .
--- NOTE | 2018-02-01 22:38 | NUR ---
ICU.COMPUTER HARDWARE DESIGNER PT TOOK OFF BIPAP MASK WAS NOT ABLE TO REPLACE THIS ON PT, APPEARED TO HAVE ANOTHER PANIC ATTACK. NONREBREATHER MASK AT 15 LITERS PLACED BACK ON PT. WILL MONITOR THIS PT.
[2018-02-02] VITALS (33 sets, daily range): BP systolic 90–168; BP diastolic 38–114
--- NOTE | 2018-02-02 00:15 | NUR ---
ICU/RESIDENTIAL BUILDER TRIED AGAIN TO GET PT TO GO ON BI-PAP HOWEVER PT STILL REFUSING. PT GOT VERY AGGRESSIVE AND UPSET. WILL TRY AGAIN LATER.
[2018-02-02] MEDS: BLOOD SUGAR DIAGNOSTIC 1 EACH STRIP IN SCH ×6 (00:48→22:38)
[2018-02-02] MEDS: INSULIN ASPART/LISPRO 100 UNIT/ML CARTRIDGE SQ PRN (00:51)
--- NOTE | 2018-02-02 01:19 | NUR ---
ICU/MOTOR CHECKER BLOOD SUGAR WAS 321, WAS ABLE TO GIVEN THE COVERAGE FOR THIS. WILL RECHECK SUGAR AT 0500.
--- NOTE | 2018-02-02 02:35 | NUR ---
ICU/FOLEY ARTIST AGAIN TRIED WITH RT TO PLACE PT BACK ON BIPAP, PT REFUSED AND AGAIN HAD A PANIC ATTACK. CHANGED PULSE SENSOR TO EAR VS FINGERS DUE TO EXTREMITIES. PT'S FINGERS HAVE A COPD CLUBBING APPEARS. AND ALSO PLACED A NASAL CANULA AT 3 LITERS ON PT WELL. WHEN PT IS SITTING UP SATURATION IS HIGH 80'S TO LOW 90'S. HOWEVER WHEN PT IS ASLEEP THEN SATURATION FALLS TO LOW 80'S TO HIGH 70'S. RT IS AWARE, CHARGE NURSE AWARE, DR DALAL HAS MADE ENTRY NOTES ABOUT THIS.
--- NOTE | 2018-02-02 03:40 | NUR ---
ICU/ELECTRONIC INTEGRATED SYSTEMS MECHANIC SATURATION IS HIGH 80'S, NO ACUTE DISTRESS NOTED. PT HAS YET TO HAVE PANIC ATTACK.
[2018-02-02 05:01] LABS: EOSINOPHILS % (AUTO) 0.7 % (0.0-6.0); HEMATOCRIT 26 % (39-51); HEMOGLOBIN 8.2 g/dL (13.5-17.5); LYMPHOCYTES # (AUTO) 1.6 /CMM (0.8-4.8); LYMPHOCYTES % (AUTO) 21.6 % (20.0-44.0); MEAN CORPUSCULAR HGB CONC 32 g/dl (31.0-36.0); MEAN CORPUSCULAR VOLUME 90 fL (80-96); MONOCYTES # (AUTO) 0.4 /CMM (0.1-1.30); MONOCYTES % (AUTO) 5.7 % (2.0-12.0); NEUTROPHILS # (AUTO) 5.3 /CMM (1.8-8.9); PLATELET COUNT (AUTO) 180 /CMM (150-450); RDW COEFFICIENT OF VARIATION 20.6 (11.5-15.0); RED BLOOD CELL COUNT(AUTO) 2.86 MIL/uL (4.5-6.0); WHITE BLOOD COUNT (AUTO) 7.4 K/uL (4.3-11.0)
[2018-02-02 05:17] LABS: CALCIUM, SERUM 8.7 mg/dL (8.5-10.1); MAGNESIUM 2.8 mg/dL (1.8-2.4); POTASSIUM 5.6 mmol/L (3.5-5.1)
[2018-02-02 05:35] LABS: CREATININE 8.9 mg/dL (0.6-1.3)
--- NOTE | 2018-02-02 05:41 | NUR ---
ICU/CLERICAL SPECIALIST BLOOD SUGAR IS 100, ALSO CRITICAL LAB VALUES BEING REPORTED OF PHOS-9 & CREAT-8.9 CHARGE NURSE AWARE, PT TO HAVE HD TODAY.
--- NOTE | 2018-02-02 07:30 | NUR ---
VP OF TECHNOLOGY INITIAL NOTES RECEIVED PATIENT SLEEPING IN BED, AOX1, ENGLISH SPEAKING, ON NON REBREATHER MASK, AND NC 3L, PATIENT SATURATING IN 80S, O2 SENSOR ON EAR, NO IV ACCESS PER FAMILY REFUSAL, JUAN MANUEL FISTULA, ON TELE MONITORING SR-ST, NO SIGNS OF DISTRESS, WILL CONTINUE TO MONITOR.
--- NOTE | 2018-02-02 08:00 | NUR ---
COMPUTER ENGINEERING TECHNICIAN NOTES PATIENT MOTHER REMOVED SENSOR OFF OF EAR AND PLACED ON FINGER, UNABLE TO GET GOOD SATURATION ON FINGER, TEACHING DONE TO MOTHER, CONTINUES TO REFUSE.
[2018-02-02] MEDS: LEVOTHYROXINE SODIUM 175 MCG TABLET PO SCH (08:36)
[2018-02-02] MEDS: CALCIUM ACETATE 667 MG TABLET PO SCH ×3 (08:36→17:00)
[2018-02-02] MEDS: SEVELAMER CARBONATE 800 MG TABLET PO SCH ×3 (08:36→17:11)
[2018-02-02] MEDS: MIDODRINE HCL (5MG) 5 MG TABLET PO SCH ×3 (08:37→17:00)
--- NOTE | 2018-02-02 09:00 | NUR ---
PETROL TANKER DRIVER NOTES PATIENTS BS 64, MOTHER GIVING PATIENT SUGAR DRINK, REFUSING TO RECHECK IN FEW MINUTES.
--- NOTE | 2018-02-02 09:30 | NUR ---
FULL TIME BABYSITTER NOTES PATIENT RECEIVING HEMODIALYSIS, STABLE.
[2018-02-02] MEDS: ALBUMIN 25% 25 GM in PREMIX 1 EA IV PRN (09:31)
--- NOTE | 2018-02-02 13:09 | NUR ---
GATE ATTENDANT NOTES PATIENT BS 58, PATIENT GIVEN JUICE AND FOOD.
--- NOTE | 2018-02-02 13:25 | NUR ---
RURAL MAIL CONTRACTOR NOTES PATIENT'S MOTHER RECHECKED BLOOD SUGAR ON HER OWN FROM HOME DEVICE BS 72.
--- NOTE | 2018-02-02 14:00 | NUR ---
THERAPIST OCCUPATIONAL NOTES DR RITCHIE ORDERED STAT ABG, PATIENTS FAMILY AGREED, WHEN RESPIRATORY THERAPIST CAME TO DRAW BLOOD THE PATIENT REFUSED AFTER SEVERAL ATTEMPTS, WILL RETRY AGAIN AT A LATER TIME.
--- NOTE | 2018-02-02 17:01 | NUR ---
CITY ROUTEMAN NOTES PATIENT BS 197 MOTHER REFUSING COVERAGE DUE TO PATIENT HAVE LOW BLOOD SUGAR EARLIER.
--- NOTE | 2018-02-02 17:02 | NUR ---
BLANKET BINDER NOTES MOTHER STATED PATIENT IS NOT FEELING WELL, AGREED TO HAVE BIPAP FOR 30 MINS. PATIENT IS SATURATING 94%, WILL CONTINUE TO MONITOR.
--- NOTE | 2018-02-02 17:10 | NUR ---
BODY DESIGNER NOTES PATIENT RIPPED OFF HIS BIPAP , PLACED BACK ON NONREBREATHER MASK.
--- NOTE | 2018-02-02 18:45 | NUR ---
DICTATING TRANSCRIBING MACHINE SERVICER END NOTES PATIENT ON NONREBREATHER, SATURATING IN 90s WHEN ABLE TO GET GOOD WAVE FORM, NO DISTRESS NOTED, AWAKE ALERT, MOTHER IS FEEDING HIM, PATIENT PLAYING ON IPAD. WILL ENDORSE TO THERMOMETER MAKER FOR CONTINUITY OF CARE.
--- NOTE | 2018-02-02 19:25 | NUR ---
PT REMAINS ON NRB MASK O2 SAT 80-90%.
--- NOTE | 2018-02-02 19:45 | NUR ---
ICU/RESIDENT DOCTOR PT WAS TO HAVE ABG DONE THIS AFTERNOON HOWEVER RT UNABLE TO GET A GOOD ARTERIAL DRAW. IT WAS LEFT FOR DESIGN INSERTER RT. WHEN RT ARRIVED IN ROOM TO DO THE DRAW, MOTHER REFUSED TO HAVE IT DONE. EXPLAIN THE NEED TO HAVE THIS DONE HOWEVER PT'S MOTHER STILL REFUSED.
--- NOTE | 2018-02-02 19:50 | NUR ---
ABG ORDERED PER MD. MOM AT BEDSIDE REFUSED ABG TO BE DONE ON HIS SON. RN AWARE.
--- NOTE | 2018-02-02 20:20 | NUR ---
ICU/HUMAN RESOURCES VICE PRESIDENT WITH MOTHER GONE, PT WAS YELLING OUT FOR HIS MOTHER. STAYED AT BEDSIDE WITH PT AND TRIED TO KEEP PT CALM PT HAS DOWN SYNDROME. TRIED TO PLACE BIPAP, HOWEVER PT REFUSED AND IS ACTIVELY ENGAGED STATING "NO, NO WANT" . DID THIS FOR ABOUT 5-10 MINUTES TO GET PT ON THE BIPAP, HOWEVER PT STILL REFUSED. WILL CONTINUE TO MONITOR THIS PT.
--- NOTE | 2018-02-02 21:05 | NUR ---
ICU/IVF EMBRYOLOGIST SATURATION IS LOW 90'S, NO ACUTE DISTRESS NOTED. PT ON OCCASION YELLS FOR HIS MOTHER FROM TIME TO TIME, WILL CONTINUE TO MONITOR THIS PT.
--- NOTE | 2018-02-02 22:35 | NUR ---
ICU/DIVIDEND DEPOSIT ENTRY CLERK DID PT'S BLOOD SUGAR LATE BECAUSE PT REFUSED FROM EARLIER, 2200 BLOOD SUGAR WAS DONE WITH WAS 325 THIS WAS COVERED WITH LANTUS 20 UNITS SQ. WILL CONTINUE TO MONITOR THIS PT'S BLOOD SUGAR.
[2018-02-02] MEDS: INSULIN GLARGINE, 100 UNIT/ML CARTRIDGE SQ SCH (22:41)
[2018-02-03] VITALS (39 sets, daily range): BP systolic 52–136; BP diastolic 23–88
[2018-02-03] MEDS: BLOOD SUGAR DIAGNOSTIC 1 EACH STRIP IN SCH ×6 (01:17→21:33)
[2018-02-03] MEDS: INSULIN ASPART/LISPRO 100 UNIT/ML CARTRIDGE SQ PRN ×2 (01:22→05:28)
--- NOTE | 2018-02-03 01:22 | NUR ---
ICU/FIRE ENGINE OPERATOR PT'S BLOOD SUGAR IS 364, PT WAS COVERED FOR THIS PER MD ORDERS. WILL CONTINUE TO MONITOR THE BLOOD SUGAR AGAIN 4 HRS.
--- NOTE | 2018-02-03 03:05 | NUR ---
ICU/MACHINE STITCHER AGAIN TRIED WITH RT TO PLACE PT BACK ON BIPAP, PT REFUSED AGAIN. CHANGED PULSE SENSOR TO EAR VS FINGERS DUE TO EXTREMITIES. WHEN PT IS SITTING UP SATURATION IS 90'S. HOWEVER WHEN PT IS ASLEEP THEN SATURATION FALLS TO 80'S. RT IS AWARE, CHARGE NURSE AWARE, DR DALAL HAS MADE ENTRY NOTES ABOUT THIS
--- NOTE | 2018-02-03 04:20 | NUR ---
ICU/DRAPERY HAND SATURATION IS LOW 90'S, NO ACUTE DISTRESS NOTED. PT ON OCCASION YELLS FOR HIS MOTHER FROM TIME TO TIME, WILL MONITOR THIS PT.
[2018-02-03 04:57] LABS: EOSINOPHILS % (AUTO) 0.3 % (0.0-6.0); HEMATOCRIT 26 % (39-51); HEMOGLOBIN 7.9 g/dL (13.5-17.5); LYMPHOCYTES % (AUTO) 14.4 % (20.0-44.0); MEAN CORPUSCULAR HGB CONC 31 g/dl (31.0-36.0); MEAN CORPUSCULAR VOLUME 91 fL (80-96); MONOCYTES # (AUTO) 0.3 /CMM (0.1-1.30); MONOCYTES % (AUTO) 4.1 % (2.0-12.0); NEUTROPHILS # (AUTO) 5.6 /CMM (1.8-8.9); NEUTROPHILS % (AUTO) 81.2 % (43.0-81.0); PLATELET COUNT (AUTO) 178 /CMM (150-450); RDW COEFFICIENT OF VARIATION 20.4 (11.5-15.0); RED BLOOD CELL COUNT(AUTO) 2.84 MIL/uL (4.5-6.0); WHITE BLOOD COUNT (AUTO) 6.9 K/uL (4.3-11.0)
[2018-02-03 05:14] LABS: CALCIUM, SERUM 8.4 mg/dL (8.5-10.1); MAGNESIUM 2.6 mg/dL (1.8-2.4); PHOSPHORUS 7.5 mg/dL (2.5-4.9); POTASSIUM 5.5 mmol/L (3.5-5.1)
[2018-02-03 05:27] LABS: CREATININE 8.9 mg/dL (0.6-1.3)
--- NOTE | 2018-02-03 05:30 | NUR ---
ICU/AUTOMOTIVE COLLISION ESTIMATOR PT'S BLOOD SUGAR IS 164, PT WAS COVERED FOR THIS PER MD ORDERS. WILL CONTINUE TO MONITOR THE BLOOD SUGAR AGAIN 4 HRS.
[2018-02-03] MEDS: LEVOTHYROXINE SODIUM 175 MCG TABLET PO SCH (06:50)
[2018-02-03] MEDS: SEVELAMER CARBONATE 800 MG TABLET PO SCH ×3 (07:51→17:08)
--- NOTE | 2018-02-03 08:00 | NUR ---
MINING AND QUARRYING MACHINERY REPAIRER: pt.is on 15L NRBM, SBP over 100, SR, pt.mother refused for Bipap, IV access, pulse oximetry monitoring and said: we are waiting HD. Pt.is rest now, can follow simple commands, O2sat. 96% per one time pulse oximeter check.
[2018-02-03] MEDS: MIDODRINE HCL (5MG) 5 MG TABLET PO SCH ×3 (08:40→17:00)
[2018-02-03] MEDS: CALCIUM ACETATE 667 MG TABLET PO SCH ×4 (08:40→17:00)
[2018-02-03] MEDS: DEXTROSE 50%-WATER 50 ML DISP.SYRIN IV PRN (09:53)
--- NOTE | 2018-02-03 10:00 | NUR ---
HEEL EMERY BUFFER: checked BS x2: 22,23, on IV access, gave Dextrose 50%-50ml with HD, notify MD
--- NOTE | 2018-02-03 10:01 | NUR ---
ACTOR UNDERSTUDY: no IV access
[2018-02-03] MEDS: ALBUMIN 25% 25 GM in PREMIX 1 EA IV PRN (11:32)
--- NOTE | 2018-02-03 12:00 | NUR ---
COUNT TEAM CLERK- RECEIVED PT FROM MAURO KHALIL. PT CURRENTLY SLEEPING & RESTING IN BED. IN NO ACUTE DISTRESS. MOTHER AT BEDSIDE. ON 15L NON-REBREATHER, NO SOB OR DISTRESS PRESENT. PT NOT ATTACHED TO BEDSIDE MONITOR AND NO IV ACCESS NOTED. CHARGE NURSE & MDS AWARE. WILL CONTINUE TO MONITOR.
--- NOTE | 2018-02-03 12:45 | NUR ---
GRINDING WHEEL INSPECTOR- ATTEMPTED TO ADMINISTER PT'S MEDS AND CHECK BLOOD SUGAR FOR 1300. PT'S MOTHER REFUSED, STATES PT IS SLEEPING IN BED AT THIS TIME. WILL CONTINUE TO MONITOR.
--- NOTE | 2018-02-03 14:20 | NUR ---
BOOM SUPERVISOR- DR. RITCHIE AT BEDSIDE. MD AWARE OF PT'S LOW BLOOD SUGAR READINGS, NO IV ACCESS (UNABLE TO GIVE D50) AND PT REFUSING MEDS. PER MD, NEW ORDERS OBTAINED FOR PICC LINE INSERTION, ABGS AND X-RAY. OBTAINED CONSENT FOR PICC LINE INSERTION FROM PT'S MOTHER. RT AWARE OF ABGS. WILL CONTINUE TO MONITOR.
--- NOTE | 2018-02-03 15:53 | NUR ---
PROPERTY CARETAKER- INFORMED DR. RITCHIE PICC LINE NURSE UNSUCCESSFUL IN PUTTING PICC LINE, STATES RIGHT ARM IS OCCLUDED. RECOMMENDS CENTRAL LINE. ALSO INFORMED MD RTS WERE UNSUCCESSFUL WITH ABGS. 1730- OK PER DR. RITCHIE FOR CENTRAL LINE PLACEMENT. INFORMED MD BLOOD SUGARS NOW ARE 274 AND CURRENTLY HOLDING INSULIN DUE TO EPISODES OF LOW BLOOD SUGAR. WILL CONTINUE TO MONITOR.
--- NOTE | 2018-02-03 18:00 | NUR ---
COMPTOMETER OPERATOR- RT ATTEMPTING TO OBTAIN ABGS HOWEVER UNSUCCESSFUL. PT UNCOOPERATIVE. WAS ABLE TO PLACE PT ON MONITOR BRIEFLY HOWEVER PT REMOVED LEADS. CHARGE NURSE AWARE. WILL CONTINUE TO MONITOR.
--- NOTE | 2018-02-03 19:20 | NUR ---
ICU/MEAT MARKET MANAGER AFTER REPORT WENT IN TPO SEE PT, EXTREMITIES WERE A BLUISH/PURPLE AND LIPS WERE A PURPLISH COLOR WELL. IT WAS DIFFICULT TO GET SATURATION READING. CALLED RT TO PLACE PT ON BIPAP, CT APPEARED TO BE HAVING DIFFICULTY BREATHING AND WAS LABORED. MOTHER AT BEDSIDE WAS REFUSING TO PLACE PT ON BIPAP, SHOWED HER THE FINGER AND TOES THEN ASKED IF THAT WAS HIS NORMAL COLOR THEN SHE AGREED TO PLACE PT ON BIPAP. CHARGE NURSE WAS IN ROOM. BIPAP SETTINGS WERE 15/5, 100%, RATE 14, PS 10. WILL MONITOR THIS PT.
--- NOTE | 2018-02-03 19:30 | NUR ---
ICU/FRONT DESK LEAD ER MD UP HERE TO PLACE A CENTRAL LINE IN PT, PT HAS NO PERIPHERAL LINE AND NO CENTRAL LINE. THERE IS SOME CONCERN ABOUT IV ACCESS DUE TO BS BEING CRITICALLY LOW IN THE 20'S TO 30'S. HOWEVER PT WAS VERY AGITATED, SOUMYA CASTELLANO WAS HAVING A HARD TIME GETTING PT TO SETTLE DOWN AND RELAX ENOUGH TO LOW FOR THE PROCEDURE. THEN PT'S MOM WAS APPROACHED TO AN I/O IN THE KNEE HOWEVER SHE REFUSED THIS, AND REFUSED TO PLACE ANY LINES IN THE NECK. PT'S MOM SAID ONLY IN THE GROIN, BUT PT HIMSELF REFUSED. ER LEFT DOWN STAIRS, DUE TO MOM UNABLE TO COME TO A CONCLUSION ABOUT CENTRAL LINE.
[2018-02-03] MEDS: ALPRAZOLAM 0.25 MG TABLET PO PRN (19:54)
--- NOTE | 2018-02-03 19:55 | NUR ---
ICU/REAL ESTATE INSPECTOR PT WITH BIPAP MASK ON, COLOR IS RETURNING TO PERIPHERAL EXTREMITIES FROM PREVIOUS PURPLISH/BLUE. PT HOWEVER IS EXTREMELY AGITATED AND IS TRYING TO PULL OFF BIPAP MASK. PRN XANAX WAS GIVEN TO HELP CALM PT DOWN ENOUGH TO ALLOW FOR THE BIPAP MASK TO STAY ON. WILL MONITOR THIS PT.
--- NOTE | 2018-02-03 20:15 | NUR ---
ICU/SKI TOPPER MOTHER AT BEDSIDE CRYING STATED THAT "YOU ARE HURTING MY BABY, TAKE OFF THE MASK AND PUT OTHER MASK ON." WITH MOTHER AT BEDSIDE CRYING, PT'S ANXIETY WAS INCREASED A DIRECT INFLUENCE OF HIS MOTHER'S ACTIONS. INSTEAD OF HAVING THE SITUATION GET OUT OF CONTROL, TOOK BIPAP MASK OFF THEN PLACED PT ON 15 LITERS NON REBREATHER MASK. PT'S MOTHER STOP CRYING THEN STATED SHE WAS GOING HOME, PT THEN APPEARED CALMER. WILL CONTINUE TO MONITOR THIS PT'S SATURATION. TODAY CXY SHOWED INCREASED BILAT. INFILTRATES. PULMONARY EDEMA.
--- NOTE | 2018-02-03 21:30 | NUR ---
ICU/LABOR CONCILIATOR PT'S BLOOD SUGAR IS 384, PT REFUSED INSULIN. PT HAS Q 4 HRS ACCU CHECKS. WILL CONTINUE TO MONITOR THIS.
[2018-02-03] MEDS: INSULIN GLARGINE, 100 UNIT/ML CARTRIDGE SQ SCH (22:22)
--- NOTE | 2018-02-03 23:40 | NUR ---
ICU/DIRECTOR SECURITY MANAGEMENT SATURATION IS LOW 90'S TO HIGH 80'S, NO ACUTE DISTRESS NOTED. TRIED TO PLACE PT ON BIPAP MASK AGAIN HOWEVER PT STILL REFUSED.PT REMAINS ON 15 LITERS CURRENTLY. PT ON OCCASION YELLS FOR HIS MOTHER FROM TIME TO TIME, WILL CONTINUE TO MONITOR THIS PT.
[2018-02-04] VITALS (30 sets, daily range): BP systolic 58–144; BP diastolic 24–87
[2018-02-04] MEDS: BLOOD SUGAR DIAGNOSTIC 1 EACH STRIP IN SCH ×6 (00:49→21:01)
--- NOTE | 2018-02-04 00:50 | NUR ---
ICU/ROCK BREAKER PT'S SATURATION DIPS DOWN TO THE HIGH 80'S, NO ACUTE DISTRESS NOTED PT RR RATE IS 34 WHILE ASLEEP. CHEST XRAY IN MORNING, INFLATED WORSENING
[2018-02-04] MEDS: INSULIN ASPART/LISPRO 100 UNIT/ML CARTRIDGE SQ PRN ×3 (00:53→21:02)
--- NOTE | 2018-02-04 03:30 | NUR ---
ICU/DEPUTY K 9 PT'S SATURATION SLOWLY FELL TO 82-84 % WITH A GOOD WAS FORM AND CORRELATED WITH HEART RATE, AT THIS TIME BIPAP WAS ONCE AGAIN ATTEMPTED. PT WAS VERY SLEEPY, NOT AGITATED WITH THE BIPAP BEFORE WHEN MOTHER WAS AT BEDSIDE. PT WAS TALKED INTO KEEPING MASK ON. STAYED IN ROOM AND AT BEDSIDE TO HELP PT'S ANXIETIES.
--- NOTE | 2018-02-04 04:20 | NUR ---
ICU/HEALTHCARE RECEPTIONIST PT WAS CHANGED OVER TO HIGH FLOW OXYGEN VIA N/C AT 100% AND 40 LITER FLOW. PT WAS NOT TOLERATING THE BIPAP MASK, RT SUGGESTED THE HIGH FLOW VIA N/C. PT TOLERATED THIS WELL. SATURATION IS 95% FROM THE 15 LITERS MASK AT 83%. WILL CONTINUE TO MONITOR THIS PT.
--- NOTE | 2018-02-04 04:22 | NUR ---
PT PLACED ON HIGH FLOW NASAL CANNULA ON 100% FIO2 @ 40LPM. PT ABLE TO TOLERATE HIGH FLOW NASAL CANNULA. REMI MORRISON. WILL CONTINUE TO MONITOR Addendum: 02/04/18 at 0538 by HUNTER HOYT RT Amended: Links added.
[2018-02-04 04:46] LABS: HEMATOCRIT 29 % (39-51); LYMPHOCYTES # (AUTO) 1.3 /CMM (0.8-4.8); LYMPHOCYTES % (AUTO) 14.4 % (20.0-44.0); MEAN CORPUSCULAR HGB CONC 32 g/dl (31.0-36.0); MEAN CORPUSCULAR VOLUME 90 fL (80-96); MONOCYTES # (AUTO) 0.5 /CMM (0.1-1.30); MONOCYTES % (AUTO) 5.9 % (2.0-12.0); NEUTROPHILS # (AUTO) 6.8 /CMM (1.8-8.9); NEUTROPHILS % (AUTO) 78.7 % (43.0-81.0); PLATELET COUNT (AUTO) 208 /CMM (150-450); RDW COEFFICIENT OF VARIATION 20.2 (11.5-15.0); RED BLOOD CELL COUNT(AUTO) 3.17 MIL/uL (4.5-6.0); WHITE BLOOD COUNT (AUTO) 8.7 K/uL (4.3-11.0)
[2018-02-04 05:05] LABS: CALCIUM, SERUM 8.5 mg/dL (8.5-10.1); MAGNESIUM 2.6 mg/dL (1.8-2.4); PHOSPHORUS 6.9 mg/dL (2.5-4.9)
[2018-02-04 05:09] LABS: POTASSIUM 5.2 mmol/L (3.5-5.1)
[2018-02-04 05:11] LABS: CREATININE 9.2 mg/dL (0.6-1.3)
--- NOTE | 2018-02-04 05:20 | NUR ---
ICU/RESERVOIR ENGINEERING MANAGER BLOOD SUGAR THROUGH OUT THE NIGHT REMAINS HIGH WELL ABOVE 300'S. THIS WAS COVERED WITH WHAT MD ORDERED. WILL CONTINUE TO MONITOR THIS PT.
[2018-02-04] MEDS: LEVOTHYROXINE SODIUM 175 MCG TABLET PO SCH (05:51)
--- NOTE | 2018-02-04 07:00 | NUR ---
RN NOTES RECEIVED PT ON BED, SITTING UP ON BED , PLAYING WITH HIS COMPUTER , A/Ox1, ON HIGH FLOW NASAL CANNULA ON 100% FIO2 @ 40LPM. HR IN 60'S SR , NO DISTRESS NOTED, DRESSING TO L UPPER ARM FISTULA CDI, UNABLE TO GET EVEN WAVES ON O2 SAT MONITOR , PURPLE/BLUE FINGERS AND TOES NOTED, SR UP x3, CALL LIGHT WITHIN EASY REACH, BED LOCKED AND IN LOWEST POSITION, WILL CONTINUE TO MONITOR .
[2018-02-04] MEDS: SEVELAMER CARBONATE 800 MG TABLET PO SCH ×3 (08:00→17:10)
[2018-02-04] MEDS: CALCIUM ACETATE 667 MG TABLET PO SCH ×3 (08:24→16:29)
[2018-02-04] MEDS: MIDODRINE HCL (5MG) 5 MG TABLET PO SCH ×3 (08:25→16:29)
--- NOTE | 2018-02-04 09:10 | NUR ---
RN NOTES BG= 30, PT IS ALERT, DR DALAL AT THE BEDSIDE, NOTIFED REGARDING BG=30, PT REFUSED TO EAT OR DRINK , NO IV ACCESS AT THIS TIME, A PIECE OF CHOCOLATE BAR GIVEN PER MOM REQUEST. CONTINUE TO MONITOR .
--- NOTE | 2018-02-04 09:30 | NUR ---
RN NOTES BG 32 AT THIS TIME , MORE CHOCOLATE BAR GIVEN PER MOM REQUEST , PT IS ALERT, REFUSING TO EAT FOOD OR DRINK AND WANTS FACE MASK INSTEAD OF HIGH FLOW O2. CONTINUE TO MONITOR.
--- NOTE | 2018-02-04 10:08 | NUR ---
RN NOTES BG =73 AT THIS TIME, PT RESTING O2 SAT 96%, CONTINUE TO MONITOR .
[2018-02-04] MEDS: ALBUMIN 25% 25 GM in PREMIX 1 EA IV PRN (11:14)
--- NOTE | 2018-02-04 11:59 | NUR ---
RN NOTES PT IS RECEIVING HD AT THIS TIME , TOLERATING WELL, CONTINUE TO MONITOR.
[2018-02-04] MEDS ORDERED: methylPREDNISolone SOD SUCC 125 MG/2ML VIAL IV SCH (16:30)
[2018-02-04] MEDS ORDERED: prednisoLONE 15 MG/5 ML UDC PO SCH (16:30)
[2018-02-04] MEDS: predniSONE 20 MG TABLET PO SCH (17:26)
--- NOTE | 2018-02-04 17:50 | NUR ---
RN NOTES PT IN RADIOLOGY DEP. AT THIS TIME FOR CT SCAN . DURING CT PT KEPT MOVING AROUND AND WAS UNABLE TO STAY STILL.
--- NOTE | 2018-02-04 18:41 | NUR ---
RN NOTES PT STABLE AT THIS TIME , MOM AT THE BEDSIDE, ECHO HAS NOT BEEN DONE YET , ECHO TACH NOTIFED REGARDING ECHO CARDIOGRAM THAT HAS TO BE DONE TODAY PER DR RITCHIE ORDER , SR UP x3, CALL LIGHT WITHIN EASY REACH , WILL ENDORSE TO [place] MATE NURSE FOR HENNA .
--- NOTE | 2018-02-04 19:45 | NUR ---
RN NOTES RECEIVED PT AWAKE WATCHING ON HIS TABLET ON SITTING POSITION WHILE ON BED. WITH HIGH FLOW OXYGEN 100 FIO2 40%. SATURATION 94% PT IS AOX 2 ABLE TO EXPRESS FEELINGS AND NEEDS. ASKED FOR MASK TO PLACED ON HIM. EDUCATE PT BUT UNABLE TO UNDERSTAND AND REPEATEDLY ASKED FOR IT. SATING REMAINED AT 90'S WITHOUT ACUTE RESPO DISTRESS SHOWN. COMPLAINING OF HEADACHE. AFEBRILE. ST ON TELE MONITOR. NO IV ACCESS, LEFT UPPER ARM FISTULA WITH DRESSING . TYLENOL PRN GIVEN FOR HEADACHE PT REFUSED. WILL OFFERED AGAIN. KEPT PT CLEAN AND DRY. ENCOURAGED BIPAP BUT PT REFUSED. WILL CONTINUE TO MONITOR.
[2018-02-04] MEDS: ACETAMINOPHEN 325 MG TABLET PO PRN (19:54)
[2018-02-04] MEDS: ALPRAZOLAM 0.25 MG TABLET PO PRN (20:58)
[2018-02-04] MEDS: INSULIN GLARGINE, 100 UNIT/ML CARTRIDGE SQ SCH (21:01)
--- NOTE | 2018-02-04 21:20 | NUR ---
RN NOTES SISTER AT BEDSIDE. PT IS VERY ANXIOUS AND KEEP ASKING FOR MASK, EDUCATE ABOUT THE BENEFITS OF HIGH PALLAVI SINCE HE WAS REFUSING BIPAP. SISTER AWARE AND EXPLAINED TO PATIENT. XANAX GIVEN SISTERS REQUEST AND TYLENOL OFFERED FOR THE SECOND TIME PT REFUSED TO TAKE IT EARLIER. BS CHECKED AND INFORMED THE SISTER AND REQUESTED JUST TO GIVE 12 UNITS OF LONG ACTING INSULIN WHICH IS LANTUS. GIVEN RISK AND BENEFITS EXPLAINED, SISTER WAS TALING TO THE MOM ON THE PHONE WHILE DICTATING WHAT THE MOM SAID. PT IS COMPLIANT AT THIS TIME. ALL NEEDS ATTENDED. AND PT IS WELL COOPERATIVE WITH SISTER.
[2018-02-05] VITALS (29 sets, daily range): BP systolic 52–150; BP diastolic 25–90
[2018-02-05] MEDS: INSULIN ASPART/LISPRO 100 UNIT/ML CARTRIDGE SQ PRN ×5 (01:14→21:59)
[2018-02-05] MEDS: BLOOD SUGAR DIAGNOSTIC 1 EACH STRIP IN SCH ×6 (01:23→21:50)
--- NOTE | 2018-02-05 02:45 | NUR ---
RN NOTES CALLED AND SPOKE TO TALIA REGARDING BS 526 MG/DL REPEATED AFTER BS 455 MG/DL WITH 20 UNITS OF NOVOLOG GIVEN. PER TALIA NETWORK AND THREAT SUPPORT SPECIALIST INSTRUMENT LENS GENERATOR TO GIVE 10 UNITS NOVOLOG STAT AND RECHECKED AFTER 30 MINUTES ACKNOWLEDSGE AND GAVE MEDICINE ORDERED.
--- NOTE | 2018-02-05 05:13 | NUR ---
PT REC'D ON HIGH FLOW NASAL CANNULA ON 100% FIO2 @ 40LPM. PT TOLERATING HIGH FLOW NASAL CANNULA WELL. WILL CONTINUE TO MONITOR Addendum: 02/05/18 at 0514 by MAGDI TEJEDA RT Amended: Links added.
[2018-02-05 05:26] LABS: HEMOGLOBIN 9.2 g/dL (13.5-17.5)
[2018-02-05 05:35] LABS: CREATININE 10.9 mg/dL (0.6-1.3); PHOSPHORUS 8.8 mg/dL (2.5-4.9); POTASSIUM 7.3 mmol/L (3.5-5.1)
[2018-02-05 05:39] LABS: HEMATOCRIT 30 % (39-51); MEAN CORPUSCULAR HGB CONC 31 g/dl (31.0-36.0); MEAN CORPUSCULAR VOLUME 91 fL (80-96); PLATELET COUNT (AUTO) 211 /CMM (150-450); RDW COEFFICIENT OF VARIATION 20.3 (11.5-15.0); RED BLOOD CELL COUNT(AUTO) 3.29 MIL/uL (4.5-6.0); WHITE BLOOD COUNT (AUTO) 13.5 K/uL (4.3-11.0)
[2018-02-05 06:22] LABS: LYMPHOCYTES % (MANUAL) 4 % (16-48); MONOCYTES % (MANUAL) 3 % (0-11.0); NEUTROPHILS % (MANUAL) 93 (42-76)
--- NOTE | 2018-02-05 06:40 | NUR ---
RN NOTES CALL MELGAR REGARDING K 7.3, GLUCOSE 441, PHOS 8.8 AND CREATININE 10.9 WAITING TO CALL BACK. PT ASLEEP AT THIS TIME. NO ACUTE RESP DISTRESS, SATING 92-95% ON HIGH FLOW OXYGEN LAST BS CHECKED WAS 408 MG/DL 20 UNITS OF NOVOLOG GIVEN ORDERED. KEPT PT CLEAN AND COMFORTABLE IN BED. WILL ENDORSED CONTINUITY OF CARE TO AM NURSE.
[2018-02-05] MEDS: LEVOTHYROXINE SODIUM 175 MCG TABLET PO SCH (08:00)
[2018-02-05] MEDS: MIDODRINE HCL (5MG) 5 MG TABLET PO SCH ×3 (08:23→17:39)
[2018-02-05] MEDS: SEVELAMER CARBONATE 800 MG TABLET PO SCH ×3 (08:24→17:38)
[2018-02-05] MEDS: predniSONE 20 MG TABLET PO SCH (08:24)
[2018-02-05] MEDS: CALCIUM ACETATE 667 MG TABLET PO SCH ×3 (08:24→17:39)
--- NOTE | 2018-02-05 08:30 | NUR ---
Pt refuses food and spits out medications.
[2018-02-05] MEDS ORDERED: predniSONE 20 MG TABLET PO SCH (09:00)
[2018-02-05] MEDS ORDERED: SODIUM POLYSTYRENE SULFONATE 15 G/60 ML BOTTLE PO ONE (10:30)
--- NOTE | 2018-02-05 11:00 | NUR ---
After long discussion w dr asif pt's mother was able to assist pt to tale Kayexalate and Prednisone.
[2018-02-05] MEDS ORDERED: EPOETIN ALFA (10,000 UNIT) 10,000 UNIT/ML VIAL SQ ONE (12:00)
[2018-02-05] MEDS: ALBUMIN 25% 25 GM in PREMIX 1 EA IV PRN (13:43)
--- NOTE | 2018-02-05 14:50 | NUR ---
hd nomplited. Pt tolerated HD well. 1L off.
--- NOTE | 2018-02-05 17:52 | NUR ---
BS 598. Per dr order pt needs to receive 20 units Novolog, patients mother states she will let us administer 7 units. 7 units given witnessed with Gerard.
--- NOTE | 2018-02-05 18:06 | NUR ---
Dr. Mcdonald paged via [employer].
--- NOTE | 2018-02-05 19:40 | NUR ---
RN OPENING NOTES: RECEIVED PATIENT SITTING ON BED WITH MOTHER AT BEDSIDE. PATIENT REFUSING FOR HIS MOTHER TO LEAVE, IN A SORT OF ARGUMENT WITH MOTHER. PATIENT WAS ABLE TO CALM DOWN WHEN MOTHER LEFT. ORDER STILL PENDING FOR NOTED BLOOD SUGAR IN THE AFTERNOON. ON NON REBREATHER MASK, NOT IN APPARENT DISTRESS AT THIS TIME. SINUS TACH ON THE MONITOR HR AT 103BPM. NO IV ACCESS RECEIVED. SAFETY MEASURES ENSURED AT ALL TIMES. CALL LIGHT WITHIN REACH. CONTINUOUSLY MONITORED.
[2018-02-05] MEDS ORDERED: INSULIN ASPART/LISPRO 100 UNIT/ML CARTRIDGE SQ ONE (20:00)
--- NOTE | 2018-02-05 20:21 | NUR ---
DR KAYLYNN HERNANDEZ bs 453, OK TO GIVE 15 UNITS OF NOVOLOG. RECHECK IN 2H.
--- NOTE | 2018-02-05 21:48 | NUR ---
RN NOTES: BLOOD SUGAR RECHECK DONE POST 15 UNITS NOVOLOG; NOW AT 525 CRITICAL HIGH; WHEN ASKED IF OK TO RECHECK AGAIN PATIENT NOW REFUSING SAYING "ENOUGH". SPOKE TO MD CONSULTING ACTUARY DR ANTIONETTE CHAIDEZ AND RELAYED BLOOD SUGAR LEVEL. ASKED MD IF OK TO FOLLOW PROTOCOL AND PT IS ALSO DUE FOR A GLARGINE. PER MD NOT TO GIVE NOVOLOG AT THIS TIME BUT GIVE GLARGINE. TO RECHECK BLOOD SUGAR AGAIN IN 2 HOURS AND CONTINUE BS CHECK OF Q4H. NOTED AND CARRIED OUT. LOW VOLTAGE TECHNICIAN RENEE MADE AWARE.
[2018-02-05] MEDS: INSULIN GLARGINE, 100 UNIT/ML CARTRIDGE SQ SCH (21:58)
[2018-02-06] VITALS (32 sets, daily range): BP systolic 51–120; BP diastolic 14–90
--- NOTE | 2018-02-06 00:04 | NUR ---
RN NOTES: BS RECHECKED; AT 449; REPORTED RESULT TO DR ADAN MANAGER TRADE MARKETING MD; PER MD JUST GIVE NOVOLOG PER PROTOCOL AND RECHECK BS AT A REGULAR SCHEDULE ORDERED WHICH IS Q4H. NOTED AND CARRIED OUT. CONTINUOUSLY MONITORED PATIENT. PATIENT AT THIS TIME REMAINED ON NON REBREATHER MASKS; KEPT O2 ABOVE 90%.
[2018-02-06] MEDS: BLOOD SUGAR DIAGNOSTIC 1 EACH STRIP IN SCH ×6 (00:05→20:09)
[2018-02-06] MEDS: INSULIN ASPART/LISPRO 100 UNIT/ML CARTRIDGE SQ PRN ×4 (00:11→20:18)
--- NOTE | 2018-02-06 04:30 | NUR ---
RN NOTES: SCHEDULED BS CHECK DONE, BS NOW AT 270. NOVOLOG ORDERED PER PROTOCOL. PATIENT NOT IN APPARENT DISTRESS AT THIS TIME.
[2018-02-06 05:11] LABS: HEMATOCRIT 28 % (39-51); HEMOGLOBIN 8.7 g/dL (13.5-17.5); MEAN CORPUSCULAR HGB CONC 31 g/dl (31.0-36.0); MEAN CORPUSCULAR VOLUME 91 fL (80-96); PLATELET COUNT (AUTO) 234 /CMM (150-450); RED BLOOD CELL COUNT(AUTO) 3.11 MIL/uL (4.5-6.0); WHITE BLOOD COUNT (AUTO) 11.4 K/uL (4.3-11.0)
[2018-02-06 05:17] LABS: CALCIUM, SERUM 9.1 mg/dL (8.5-10.1); MAGNESIUM 2.7 mg/dL (1.8-2.4); PHOSPHORUS 7.7 mg/dL (2.5-4.9); POTASSIUM 5.2 mmol/L (3.5-5.1)
[2018-02-06 05:21] LABS: CREATININE 9.1 mg/dL (0.6-1.3)
[2018-02-06 05:32] LABS: LYMPHOCYTES % (MANUAL) 8 % (16-48); MONOCYTES % (MANUAL) 10 % (0-11.0); NEUTROPHILS % (MANUAL) 82 (42-76)
--- NOTE | 2018-02-06 06:27 | NUR ---
RN CLOSING NOTES: PATIENT REMAINED IN BED NOT IN APPARENT DISTRESS, PATIENT IS EITHER LYING DOWN OR SITTING UP ON BED THROUGHOUT THE NIGHT. REMAINED ON NON REBREATHER MASK O2 SATS REMAINED TO BE WNL. ST ON THE MONITOR WITH HR AT THE LOW 100'S. SAFETY MEASURES ENSURED AT ALL TIMES. BLOOD TEST DONE, RESULTS IN. REFUSING MORNING CARE, PATIENT JUST WANTS TO REST AND NOT TO BE BOTHERED AT THIS TIME. TO REOFFER. CONTINUOUSLY MONITORED. TO ENDORSE TO AM SHIFT RN.
--- NOTE | 2018-02-06 07:31 | NUR ---
RN NOTES RECEIVED PT AWAKE AND ALERT WITH NAD. PT ON BIPAP. NO COMPLAINTS OF ANY DISCOMOFRT NOTED. NO BLEEDING NOTED FROM HD ACCESS. PT HAS NO IV ACCESS, REOFFERED BUT REFUSED. PTS MOTHER AT BEDSIDE, SHE IS CLAIMING THAT HER SONS BLOOD SUGAR LEVEL IS LOW BUT PT HAS NO SYMPTOMS NOTED AND PTS MOTHER IS INSISTING TO GIVE ORANGE JUICE. OFFERED TO CHECK BLOOD SUGAR LEVEL FIRST BUT PTS MOTHER SAID NO AND GOT HERSELF ORANGE JUICE AND GAVE IT TO THE PT. RISK AND BENEFITS DISCUSSED BUT THE MOTHER DID NOT COMPLY.
[2018-02-06] MEDS: LEVOTHYROXINE SODIUM 175 MCG TABLET PO SCH (08:10)
[2018-02-06] MEDS: predniSONE 20 MG TABLET PO SCH (08:10)
[2018-02-06] MEDS: SEVELAMER CARBONATE 800 MG TABLET PO SCH ×3 (08:11→16:43)
[2018-02-06] MEDS: CALCIUM ACETATE 667 MG TABLET PO SCH ×3 (08:13→16:17)
[2018-02-06] MEDS: MIDODRINE HCL (5MG) 5 MG TABLET PO SCH ×3 (08:13→16:17)
--- NOTE | 2018-02-06 08:21 | NUR ---
PATIENT ASSESSED APPEARS COMFORTABLE ON NRB MASK WATCHING MOVIE ON TABLET. MOTHER AT BED DID NOT WANT HFNC ON. CONT CURRENT PLAN OF CARE.
--- NOTE | 2018-02-06 08:52 | NUR ---
RN NOTES PTS MOTHER REFUSED TEMP TO BE CHECKED; EXPLAINED RISK AND BENEFITS BUT MOTHER SAID" NO NEED".
--- NOTE | 2018-02-06 09:07 | NUR ---
RN NOTES INFORMED CORINNA RICHTER RE STARTING A LINE OR IV ACCESS FOR THE PT, ASKED IF OK WITH THE FAMILY. SPOKE TO THE PTS MOTHER RE HAVING AN IV LINE; MOTHER SAID NO, SHE ONLY WANTS DIALYSIS LINE.. MOTHER SAID HER SON HAS BEEN IN THE HOSPITAL FOR A LONG TIME AND HIS VEINS ARE NOT GOOD. I EXPLAINED RE HAVING A CENTRAL LINE BUT MOTHER STILL STRONGLY REFUSED. CORINNA RICHTER AWARE
--- NOTE | 2018-02-06 09:19 | NUR ---
RN NOTES PT NOTED OFF WELFARE PROJECT MANAGER AND UNABLE TO OBTAIN VS. WENT TO PTS ROOM AND PT IS OFF THE MONITOR; PT REFUSED AT BE ATTACHED TO THE MONITOR; PTS MOTHER SAID HER SON DOESNT NEED IT; RISK AND BENEFITS EXPLAINED, TEACHINGS REINFORCED BUT STRONGLY REFUSED. ATTEMPTED TO OBTAIN MANUAL VITALS BUT BOTH MOTHER AND PT REFUSED
[2018-02-06] MEDS ORDERED: ALBUMIN 25% 25 GM in PREMIX 1 EA IV PRN (10:30)
--- NOTE | 2018-02-06 15:33 | NUR ---
RN NOTES PT AND PTS MOTHER REFUSING VITAL SIGNS TO BE CHECKED AND ALSO REFUSED CARDIAC MONITORING; RISK AND BENEFITS EXPLAINED BUT STILL REFUSED. LEAD ACCOUNTANT GIL AWARE; CORINNA RICHTER AWARE
[2018-02-06] MEDS: ACETAMINOPHEN 325 MG TABLET PO PRN (16:41)
--- NOTE | 2018-02-06 16:47 | NUR ---
RN NOTES PT WITH HEADACHE ACCORDING TO THE MOTHER; REQUESTED TYLENOL; GIVEN ORDERED. PT STILL REFUSING TO BE ON THE MONITOR; REOFFERED TO CHECK VITALS BUT STILL REFUSED; MENTIONED HAVING AN IV LINE OR ACCESS PLACED; TRIED TO EXPLAIN RISK AND BENEFITS AGAIN BUT MOTHER SAID NO. COCOA BEAN ROASTER HELPER GIL INFORMED
--- NOTE | 2018-02-06 17:45 | NUR ---
PATCHER HELPER NOTE PT AND MOTHER HAVE REPEATEDLY DECLINED MONITORING, IV LINE PLACEMENTS, ACCUCHECKS, VS MEASUREMENTS. UNABLE TO MONITOR SPO2. UNABLE TO ADEQUATELY TREAT AND MONITOR PT'S CONDITION DESPITE REPEATED DISCUSSIONS REGARDING THE IMPORTANCE OF THESE ACTIVITIES. DISCUSSIONS WERE DONE THROUGH BILINGUAL INTERPRETERS BY OTHER STAFF WELL, TO NO AVAIL. THIS WAS DISCUSSED WITH PRIMARY CARE. PTS IS NOW DOWNGRADED TO M/S STATUS. Addendum: 02/06/18 at 1810 by MARIANO SEWELL RN PT NOW TELE STATUS.
--- NOTE | 2018-02-06 18:38 | NUR ---
RN CLOSING NOTES PT REMAINS ON NON REBREATHER MASK @ 15 L/MIN; DENIES PAIN AT THIS TIME, .NAD. ABLE TO COMMUNICATE NEEDS WITH MOTHER. PT AND MOTHER STILL REFUSING IV LINE PLACEMENT, REFUSED CARDIAC MONITORING. JUAN MANUEL HD ACCESS HAS NO BLEEDING NOTED. NO SIGNIFICANT CHANGE NOTED WILL ENDORSE TO NEXT SHIFT RN FOR CONTINUITY OF CARE IN STABLE CONDITION
--- NOTE | 2018-02-06 19:11 | NUR ---
RN NOTES PT TELE STATUS; TEL REPORT GIVEN TO CELESTE REMI MA
--- NOTE | 2018-02-06 19:15 | NUR ---
LASER SYSTEMS ENGINEER PT TRANSFERRED TO TELE; REPORT GIVEN BY DAY SHIFT NURSE.
--- NOTE | 2018-02-06 19:45 | NUR ---
Patient arrived to the floor from ICU - refused tele monitor. patient is tele status. charge nurse, nursing order department supervisor, aware
--- NOTE | 2018-02-06 20:00 | NUR ---
RECEIVED PATIENT TRANSFER FROM ICU, PATIENT IS EXTREMELY ANXIOUS, RESTLESS. VSS, AFEBRILE PATIENT HAS DOWN SYNDROME ABLE FOLLOW SIMPLE COMMANDS. INSTRUCTIONS GIVEN, CALL LIGHT WITHIN REACH- CONTINUE TO MONITOR
--- NOTE | 2018-02-06 20:10 | NUR ---
XANAX GIVEN PER ANXIETY ORDERED - WILL REASSESS
[2018-02-06] MEDS: ALPRAZOLAM 0.25 MG TABLET PO PRN (20:16)
--- NOTE | 2018-02-06 20:22 | NUR ---
BS 412- 20 UNITS OF NOVOLOG GIVEN ORDERED AND DR. ADAN NOTIFIED, MD AGREED WITH 20 UNITS OF NOVOLOG AND 20 UNITS OF LANTUS SC ORDERED PER PARAMETERS CONTINUE TO MONITOR
[2018-02-06] MEDS: INSULIN GLARGINE, 100 UNIT/ML CARTRIDGE SQ SCH (21:35)
--- NOTE | 2018-02-06 21:40 | NUR ---
PATIENT IS MORE CALM AFTER GETTING XANAX BS 461- LANTUS 20 UNITS GIVEN ORDERED AND DISCUSSED WITH DR. ADAN CONTINUE TO MONITOR
[2018-02-07] VITALS (36 sets, daily range): BP systolic 68–179; BP diastolic 23–111
[2018-02-07] MEDS: BLOOD SUGAR DIAGNOSTIC 1 EACH STRIP IN SCH ×6 (00:26→21:25)
[2018-02-07] MEDS: INSULIN ASPART/LISPRO 100 UNIT/ML CARTRIDGE SQ PRN (00:30)
--- NOTE | 2018-02-07 04:30 | NUR ---
BS 59 AT THIS TIME, PATIENT HAS NO IV ACCESS , PATIENT AGREED TO HAVE APPLE JUICE, A LITTLE BIT OF VANILLA PUDDING, REFUSED MILK
--- NOTE | 2018-02-07 04:45 | NUR ---
DEBBIE BS 51- DR. ADAN NOTIFIED, AWAITING CALL BACK
[2018-02-07] MEDS ORDERED: GLUCAGON,HUMAN RECOMBINANT 1 MG/VIAL VIAL IM ONE ×2 (05:00→07:00)
--- NOTE | 2018-02-07 05:00 | NUR ---
DR. ADAN CALLED BACK -GLUCAGON IM GIVEN
[2018-02-07] MEDS ORDERED: GLUCAGON,HUMAN RECOMBINANT 1 MG/VIAL VIAL ONE (05:02)
--- NOTE | 2018-02-07 06:00 | NUR ---
BS IS STILL LOW WENT FROM 27 TO 33 TO 31 PATIENT WAS GIVEN SOME APPLE JUICE, PATIENT REFUSED MILK, ORANGE JUICE EVEN CANDY BAR DR. ADAN WAS NOTIFIED OF LATEST BLOOD SUGAR RESULTS, PATIENT'S CONDITION AWAITING CALL BACK
--- NOTE | 2018-02-07 06:40 | NUR ---
GLUCAGON IM GIVEN PER DR. ADAN'S ORDER AGAIN. PATIENT IS AWAKE, ALERT NO SYMPTOMS OF HYPOGLYCEMIA. CONTINUE TO MONITOR
--- NOTE | 2018-02-07 06:46 | NUR ---
LATEST BS 33- PATIENT IS AWAKE WILL REINFORCE CLOSE MONITORING TO THE DAY SHIFT RN
[2018-02-07] MEDS: LEVOTHYROXINE SODIUM 175 MCG TABLET PO SCH (07:45)
--- NOTE | 2018-02-07 07:45 | NUR ---
GRANULATING MACHINE OPERATOR NOTE: RECEIVED PATIENT IN ROOM 111-1 SEATED ON HIS BED WITH THE MOTHER PRESENT AT THE BEDSIDE. PATIENT IS AWAKE AND ABLE TO VERBALIZE WHAT HE WANTED AND REFERS TO THE MOTHER MOST OF THE TIME. PER MOTHER, THE PATIENT HAS BEEN FEELING UPSET STOMACH. MOTHER WAS AWARE THAT THE PATIENT'S BLOOD SUGAR CHECK WAS LOW THIS MORNING AND THAT GLUCAGON IM WAS GIVEN BY REMI IBARRA X 2 PER NURSE REPORT. INFORMED HER THAT THE BLOOD SUGAR WILL BE CLOSELY MONITORED, BUT SHE SAID "I WANT SANTANA TO GET SOME REST. HE DID NOT GET ENOUGH SLEEP LAST NIGHT. HE IS VERY TIRED." STILL REFUSED TO HAVE THE ZOO DIRECTOR ATTACHED TO THE PATIENT. NO IV ACCESS NOTED AND REFUSED TO HAVE ONE INSERTED WELL. MOTHER WAS THE PRIMARY CAREGIVER AND DECIDED FOR HIS SON. ENCOURAGED THE MOTHER TO INFORM THE NURSE IF SHE NEEDED SOME HELP WITH THE PATIENT. AT THIS TIME, THE MOTHER WANTED THE SON TO GET SOME REST AND TO HAVE HIS UPSET STOMACH RELIEVED. MAALOX WAS ADMINISTERED PER MD ORDER TO RELIEVE THE UPSET STOMACH OF THE PATIENT. HOB ELEVATED. BED IN LOWEST POSITION. BED ALARMED AND LOCKED AT ALL TIMES. CALL LIGHT WITHIN REACH.
[2018-02-07] MEDS: SEVELAMER CARBONATE 800 MG TABLET PO SCH ×3 (09:00→17:56)
--- NOTE | 2018-02-07 09:00 | NUR ---
CONTROL SYSTEM COMPUTER SCIENTIST NOTE: PATIENT'S MOTHER STILL PRESENT AT THE BEDSIDE. INFORMED HER ABOUT THE RENVELA AND THE ACCUCHECK FOR THE PATIENT THAT NEEDED TO BE DONE. PER MOTHER, "NO. HE DOES NOT NEED IT RIGHT NOW. SANTANA WANTED TO REST." OFFERED 3X, EXPLAINED THE RISKS AND BENEFITS, BUT SHE STRONGLY REFUSED FOR THE PATIENT TO RECEIVE THE MEDICATION AND GET HIS BLOOD SUGAR CHECK. PATIENT REMAINED AWAKE AND ALERT TO HIMSELF. NO CHANGES ON HIS CURRENT MENTAL STATUS. DISCUSSED ALL OF THESE CONCERNS W/ SALMA NORRIS STUDENT OF DR. CORINNA RICHTER.
--- NOTE | 2018-02-07 09:30 | NUR ---
EMERGENCY SERVICE RESTORER NOTE: SPOKE W/ DR. DALAL ABOUT THE PATIENT'S CURRENT CONDITION AT THIS TIME. PER DR. DALAL, HE WANTED TO HAVE THE RUSSIAN HISTORY PROFESSOR ARRANGED A MEETING W/ THE PATIENT'S MOTHER AND THE OLDER SIBLINGS OF THE PATIENT IN ORDER TO DISCUSS THE PLAN OF CARE FOR THE PATIENT. SPOKE W/ MILEY, RUSSIAN HISTORY PROFESSOR AND INFORMED HIM ABOUT THE REQUEST OF DR. DALAL. PER MILEY, SHE WILL COORDINATE W/ XENIA, GLOBAL COMMODITY MANAGER IN ORDER TO TRANSLATE FOR THE MOTHER AND SHE WILL CALL BACK TO GIVE AN UPDATE REGARDING THE PLANNED FAMILY MEETING. JR AUTOMOBILE BODY CUSTOMIZER STUDENT OF DR. CORINNA RICHTER MADE AWARE.
[2018-02-07] MEDS: CALCIUM ACETATE 667 MG TABLET PO SCH ×3 (09:31→17:55)
[2018-02-07] MEDS: MIDODRINE HCL (5MG) 5 MG TABLET PO SCH ×3 (09:32→17:55)
[2018-02-07] MEDS: predniSONE 20 MG TABLET PO SCH (09:32)
[2018-02-07] MEDS: HYDROCODONE/APAP 5/325MG 1 EACH TABLET PO PRN (09:34)
--- NOTE | 2018-02-07 10:20 | NUR ---
WALLPAPER HANGER HELPER NOTE: YECENIA CASTILLO INFORMED THE NURSE THAT THE PATIENT REFUSED TO EAT HIS BREAKFAST TRAY. MOTHER STILL PRESENT AT THE BEDSIDE. SALMA NORRIS STUDENT OF DR. CORINNA RICHTER MADE AWARE.
--- NOTE | 2018-02-07 10:30 | NUR ---
HIGH SCHOOL COMBINATION TEACHER NOTE: DISCUSSED WITH SALMA NORRIS STUDENT OF DR. CORINNA RICHTER RE: THE PATIENT'S BLOOD SUGAR TREND. HE WAS ALSO INFORMED THAT THE PATIENT'S MOTHER WAS REFUSING IN BEHALF OF THE PATIENT. HE WAS INFORMED TO REVIEW THE INSULIN SLIDING SCALE AND THE SCHEDULED LANTUS INSULIN OF THE PATIENT. PER JR, HE WILL INFORM DR. CORINNA RICHTER ABOUT IT AND WILL GET BACK TO THE NURSE. MOTHER WAS AWARE ABOUT IT.
--- NOTE | 2018-02-07 12:40 | NUR ---
WET ROOM SUPERVISOR NOTE: PAGED DR. CORINNA RICHTER RE: THE ORDER FOR MILK OF MAGNESIA FOR THE PATIENT. IT WAS ORDERED HS PRN AND THE PATIENT WAS TELLING HIS MOTHER THAT HE WANTED TO MOVE HIS BOWEL. PER MOTHER THE PATIENT HAD A BOWEL MOVEMENT THIS MORNING WHEN HE WENT TO THE BATHROOM. AWAITING FOR DR. RICHTER'S REPLY.
--- NOTE | 2018-02-07 12:48 | NUR ---
DELI SLICER NOTE: PAGED DR. CORINNA RICHTER AGAIN AND MADE HIM AWARE THAT THE FAMILY OF THE PATIENT WAS AWAITING FOR HIM TO COME BY AND TALK TO THEM. AWAITING FOR MD'S CALL BACK OR RESPONSE.
--- NOTE | 2018-02-07 12:49 | NUR ---
SCRIPT EDITOR NOTE: DR. DALAL WAS INFORMED THAT THE PATIENT'S FAMILY WAS PRESENT AT THE BEDSIDE AT THIS TIME. THEY WOULD LIKE TO SPEAK WITH THE DOCTOR ABOUT THE PATIENT'S CURRENT CONDITION. AND PER DR. DALAL, HE WILL BE BACK IN THE HOSPITAL BY 2PM TODAY. WAS ALSO INFORMED THAT DR. CORINNA RICHTER WAS ALSO PAGED ABOUT THE FAMILY'S CONCERN.
--- NOTE | 2018-02-07 13:38 | NUR ---
CEMENT TESTER ASSISTANT NOTE: UPON COMING BACK FROM LUNCH BREAK, PATIENT WAS SEEN BY DR. CORINNA RICHTER AT THE BEDSIDE AND HE WAS NOTED WITH LOW OXYGEN SATURATION 87% WITH 15.0L OXYGEN ON NONREBREATHER MASK. FAMILY REMAINED PRESENT AT THE BEDSIDE. DR. CORINNA RICHTER ORDERED TO TRANSFER THE PATIENT TO ICU FOR CLOSE MONITORING AND TO START BIPAP ON HIM.
[2018-02-07] MEDS ORDERED: methylPREDNISolone SOD SUCC 125 MG/2ML VIAL ONE (13:40)
[2018-02-07] MEDS ORDERED: PHENYLEPHRINE 10 MG/ML VIAL ONE ×3 (13:43→22:43)
--- NOTE | 2018-02-07 14:01 | NUR ---
RT NOTE: LATE ENTRY-@1335-PATIENT WAS ORALLY INTUBATED BY DR.TIM RICHTER WITH 7.0 ETT TAPED AT 19 CM MID LIP LINE. POSITIVE COLOR CHANGE ON CAPNOMETER. B/S=DIMINISHED LEFT AND EXP WHZ RIGHT THROUGHOUT LUNGS. PATIENT WAS PLACED ON PB 840 VENT. SETTINGS PER . ALARMS SET AND AUDIBLE. VENT PLUGGED INTO RED OUTLET. AMBU BAG AT [facility].
[2018-02-07] MEDS ORDERED: PROPOFOL 100 ML IV PRN (14:30)
[2018-02-07 15:09] LABS: ABG BASE EXCESS -8.7 mmol/L; ABG OXYGEN SATURATION 91.9 % (92.0-98.5); ABG PCO2 68.2 mmHg (35.0-45.0); ABG PH 7.113 (7.350-7.450); ABG PO2 87.8 mmHg (75.0-100.0); COHb 0.4 % (0.5-1.5); MetHb 0.6 % (0.0-1.5); PEEP,BG 8 cm H2O; SITE, ABG A-Line; VT, ABG 450 mL
--- NOTE | 2018-02-07 15:09 | NUR ---
AFTER X-RAY PER CORINNA NEELAM- ETT PUSHED IN AND SECURED AT 24 CM MID LIP LINE.
--- NOTE | 2018-02-07 15:10 | NUR ---
ICU/RN: POST XRAY, ETT ADJUSTED TO 24CM AT THE LIP, WILL CONTINUE TO MONITOR AND ASSESS
[2018-02-07] MEDS ORDERED: ETOMIDATE 2 MG/ML VIAL IV ONE (15:25)
[2018-02-07] MEDS ORDERED: methylPREDNISolone SOD SUCC 125 MG/2ML VIAL IV SCH (15:30)
--- NOTE | 2018-02-07 16:00 | NUR ---
ICU/RN: 1330-PT RUSHED TO ROOM 262, PT IN RESPIRATORY DISTRESS, 02 SAT IN 60S AND SUDDENLY ARRESTED UPON ARRIVAL. CORINNA RICHTER AT BEDSIDE. 1332-CODE BLUE CALLED BY DR.TIM RICHTER. ARRIVED AND SPOKE TO MOM, PT INTUBATED DURING CODE 1346-END OF CODE BLUE, PT INTUBATED ON VENT SETTINGS ORDERED BY MD. (SEE CODE BLUE SHEET) 1351-ARTERIAL LINE INSERTED, RIGHT FEMORAL, LEFT FEMORAL TRIPLE LUMEN CATH INSERTED BY CORINNA RICHTER. PT BP STABLE, STANDBY MIN AVAILABLE. WILL CONTINUE TO MONITOR AND ASSESS
[2018-02-07 17:10] LABS: ABG BASE EXCESS -8.9 mmol/L; ABG OXYGEN SATURATION 96.4 % (92.0-98.5); ABG PCO2 37.2 mmHg (35.0-45.0); ABG PH 7.281 (7.350-7.450); ABG PO2 105.8 mmHg (75.0-100.0); COHb 0.3 % (0.5-1.5); MetHb 0.6 % (0.0-1.5); O2Hb 95.5 % (94.0-97.0); PEEP,BG 8 cm H2O; SITE, ABG A-Line; VT, ABG 450 mL
[2018-02-07] MEDS: PHENYLEPHRINE 40 MG in IV D5W 250 ML IV PRN ×2 (17:20→22:49)
--- NOTE | 2018-02-07 17:20 | NUR ---
ICU/RN: LOW ARTERIAL LINE BP, PER CORINNA COPELAND STARTED. TELEPHONE ORDER RECEIVED TO KEEP BP <160 SINCE PT HAS DESCENDING AORTIC COARCTATION AND >90. WILL CONTINUE TO MONITOR AND ASSESS SISTER AT BEDSIDE. UPDATES GIVEN.
--- NOTE | 2018-02-07 19:20 | NUR ---
ICU/RN ENDING NOTES,AM REPORT ENDORSED TO NIGHT NURSE FOR CONTINUATION OF CARE. ALL NEEDS ATTENDED TO, PT INTUBATED, SEDATED, ON VENT SETTINGS ORDERED BY MD, NO ACUTE DISTRESS AT THIS TIME. PT ON MIN FOR BP SUPPORT,ART LINE IN PLACE. LEFT FEM TLC. DIPRIVAN FOR SEDATION. SAFETY MEASURES TAKEN. WILL CONTINUE CARE. BILATERAL WRIST RESTRAINTS FOR SAFETY, ASSESSED PER PROTOCOL.
--- NOTE | 2018-02-07 19:48 | NUR ---
ACADEMY EDUCATION DIRECTOR. INITIAL ASSESSMENT. RECEIVED THE PT REST ON THE BED. ORALLY INTUBATED. SEDATED WITH DIPRIVAN. ETT #7,LIP 24,AC 18,TV 450,FIO2 100%,PEEP 8. SAT 98%. NO ACUTE DISTRESS NOTED. CONSULTING PRACTICE DIRECTOR SHOWING S TACH.IV LT FEMORAL CENTRAL LINE, DIPRIVAN 25MCG/KG/MIN, MIN 40MCG/MIN. HOB ELEVATED. OGT INTACT. CLAMPED. GINO SOFT WRIST RESTRAINT CHECKED AND RELEASED. NO INJURY OR REDNESS NOTED, WILL CONTINUE TO MONITOR VITALS.
[2018-02-07] MEDS: INSULIN GLARGINE, 100 UNIT/ML CARTRIDGE SQ SCH (22:00)
--- NOTE | 2018-02-07 22:10 | NUR ---
MACHINE SHOP HELPER. TOSHA NOT GIVEN BLOOD SUGAR 89. WILL CONTINUE TO MONITOR.
[2018-02-07] MEDS: methylPREDNISolone SOD SUCC 125 MG/2ML VIAL IV SCH (22:27)
[2018-02-08] VITALS (12 sets, daily range): BP systolic 88–148; BP diastolic 25–33
[2018-02-08 00:41] LABS: HEMATOCRIT 31 % (39-51); HEMOGLOBIN 9.5 g/dL (13.5-17.5); LYMPHOCYTES # (AUTO) 0.6 /CMM (0.8-4.8); LYMPHOCYTES % (AUTO) 2.2 % (20.0-44.0); MEAN CORPUSCULAR HGB CONC 30 g/dl (31.0-36.0); MEAN CORPUSCULAR VOLUME 93 fL (80-96); MONOCYTES # (AUTO) 0.3 /CMM (0.1-1.30); MONOCYTES % (AUTO) 0.9 % (2.0-12.0); NEUTROPHILS # (AUTO) 26.7 /CMM (1.8-8.9); NEUTROPHILS % (AUTO) 96.9 % (43.0-81.0); PLATELET COUNT (AUTO) 200 /CMM (150-450); RDW COEFFICIENT OF VARIATION 21.1 (11.5-15.0); RED BLOOD CELL COUNT(AUTO) 3.36 MIL/uL (4.5-6.0); WHITE BLOOD COUNT (AUTO) 27.5 K/uL (4.3-11.0)
[2018-02-08 00:45] LABS: ABG BASE EXCESS -20.1 mmol/L; ABG OXYGEN SATURATION 94.9 % (92.0-98.5); ABG PCO2 38.5 mmHg (35.0-45.0); ABG PH 7.025 (7.350-7.450); ABG PO2 112.8 mmHg (75.0-100.0); AaDO2 561.7 mmHg; COHb 0.3 % (0.5-1.5); MetHb 0.7 % (0.0-1.5); PEEP,BG 8 cm H2O; VT, ABG 450 mL
[2018-02-08 00:58] LABS: CALCIUM, SERUM 9.9 mg/dL (8.5-10.1); MAGNESIUM 3.2 mg/dL (1.8-2.4)
[2018-02-08] MEDS ORDERED: NOREPINEPHRINE 16 MG in IV D5W 500 ML IV PRN (01:00)
[2018-02-08 01:03] LABS: POTASSIUM 7.6 mmol/L (3.5-5.1)
[2018-02-08 01:04] LABS: CREATININE 9.8 mg/dL (0.6-1.3); PHOSPHORUS 14.6 mg/dL (2.5-4.9)
[2018-02-08] MEDS ORDERED: SODIUM BICARBONATE SYR 50 MEQ/50 ML DISP.SYRIN IV ONE ×6 (01:30→08:11)
[2018-02-08] MEDS ORDERED: INSULIN REGULAR, HUMAN 100 UNIT/ML 10 ML VIAL IV ONE (01:30)
[2018-02-08] MEDS ORDERED: SODIUM POLYSTYRENE SULFONATE 15 G/60 ML BOTTLE PO ONE ×2 (01:30→04:00)
[2018-02-08] MEDS ORDERED: ALBUTEROL FS 2.5 MG/3 ML VIAL.NEB NEB SCH ×2 (01:30→03:30)
[2018-02-08] MEDS ORDERED: DEXTROSE 50%-WATER 50 ML DISP.SYRIN IVP ONE ×3 (01:30→04:00)
[2018-02-08] MEDS: BLOOD SUGAR DIAGNOSTIC 1 EACH STRIP IN SCH ×2 (01:38→05:44)
--- NOTE | 2018-02-08 01:59 | NUR ---
DYE WEIGHER, AROUND 000 SUDDEN CARDIO RESPIRATORY ARREST CODE BLUE ACTIVATED. SEE CODE BLUE SHEET.
[2018-02-08 02:02] LABS: BAND % (MANUAL) 8 % (0.0-5.0); LYMPHOCYTES % (MANUAL) 1 % (16-48); MONOCYTES % (MANUAL) 1 % (0-11.0); NEUTROPHILS % (MANUAL) 90 (42-76)
--- NOTE | 2018-02-08 02:02 | NUR ---
CALLED THE FAMILY NO RESPOND LEFT MESSAGE.
--- NOTE | 2018-02-08 02:03 | NUR ---
B OPERATOR. S/P CODE BLUE CBC,BNP,TROPONIN AND ABG DONE.
--- NOTE | 2018-02-08 02:04 | NUR ---
INTERACTIVE MEDIA DIRECTOR, LAB CALLED FOR CRITICAL RESULT POTASSIUM 7.6, CRET 9.3, PHOS 14.6.DR ADAN MADE AWARE, NEW ORDER RECEIVED AND CARRIED OUT.
--- NOTE | 2018-02-08 02:06 | NUR ---
STEEL DIE PRINTER. PAGED NEPHROLOGY. WAITING FOR CALL BACK.
--- NOTE | 2018-02-08 02:07 | NUR ---
EXPLOSIVE OPERATOR SUPERVISOR. BLOOD SUGAR 25MG/DL. CALLED THE LAB FOR STAT BLOOD SUGAR TEST. DW50% IV GIVEN.
--- NOTE | 2018-02-08 02:09 | NUR ---
PRODUCT SUPPORT SPECIALIST, 15 MIN LATER AGAIN CHECKED GLUCOSE 59. WILL CONTINUE TO MONITOR.
--- NOTE | 2018-02-08 02:10 | NUR ---
NETWORKING ENGINEER. 15MIN LATER AGAIN CHECKED BLOOD SUGAR 540. WILL CONTINUE TO MONITOR.
--- NOTE | 2018-02-08 02:30 | NUR ---
VENDOR MANAGEMENT CONSULTANT. DR WEST CALLED BACK. NEW ORDER CARRIED OUT.
[2018-02-08] MEDS ORDERED: PHENYLEPHRINE 10 MG/ML VIAL ONE ×2 (02:37→05:49)
[2018-02-08] MEDS ORDERED: EPINEPHRINE (1:1000) 1 MG/ML AMPUL ONE ×2 (03:05→04:50)
[2018-02-08] MEDS ORDERED: Calcium Gluconate 0.465 MEQ/ML VIAL IV ONE ×2 (03:15→03:30)
[2018-02-08] MEDS: EPINEPHRINE (1:1000) 1 MG in IV D5W 250 ML IV PRN ×2 (03:26→05:25)
[2018-02-08] MEDS: PHENYLEPHRINE 40 MG in IV D5W 250 ML IV PRN (03:39)
[2018-02-08] MEDS ORDERED: Sodium Bicarbonate 150 MEQ in IV D5W 1,000 ML IV PRN (04:00)
[2018-02-08] MEDS ORDERED: INSULIN REGULAR, HUMAN 100 UNIT/ML 3 ML VIAL IV ONE (04:00)
--- NOTE | 2018-02-08 04:04 | NUR ---
WOOD POLE TREATER. INSULIN 10UNITS IV NOT GIVEN, BLOOD SUGAR 11. DW50 IV GIVEN. ORDER FROM DR ADAN. POTASSIUM WAS 7.6,
[2018-02-08] MEDS ORDERED: NOREPINEPHRINE 4 MG/4 ML AMPUL IV ONE (04:09)
[2018-02-08 04:25] LABS: HEMATOCRIT 29 % (39-51); HEMOGLOBIN 7.9 g/dL (13.5-17.5); LYMPHOCYTES # (AUTO) 0.7 /CMM (0.8-4.8); LYMPHOCYTES % (AUTO) 2.7 % (20.0-44.0); MEAN CORPUSCULAR HGB CONC 27 g/dl (31.0-36.0); MEAN CORPUSCULAR VOLUME 101 fL (80-96); MONOCYTES # (AUTO) 1.1 /CMM (0.1-1.30); MONOCYTES % (AUTO) 4.5 % (2.0-12.0); NEUTROPHILS # (AUTO) 22.7 /CMM (1.8-8.9); NEUTROPHILS % (AUTO) 92.8 % (43.0-81.0); PLATELET COUNT (AUTO) 127 /CMM (150-450); RDW COEFFICIENT OF VARIATION 21.8 (11.5-15.0); RED BLOOD CELL COUNT(AUTO) 2.86 MIL/uL (4.5-6.0); WHITE BLOOD COUNT (AUTO) 24.4 K/uL (4.3-11.0)
--- NOTE | 2018-02-08 04:26 | NUR ---
RUBBER STAMPS AND DIES SUPERVISOR. POTASSIUM 7.6,DR ADAN ORDERED 2ROUND BREATHING TREATMENT BACK TO BACK X3,INSULIN 10UNIT IV. ONLY ONE TIME INSULIN GIVEN. BLOOD SUGAR WAS 11. DW50 X2, 1AMP BICARB X2 KAYEXALATE 30G X2 GIVEN.
--- NOTE | 2018-02-08 04:34 | NUR ---
SET PAINTER. AGAIN X2 ACTIVATED CODE BLUE. SEE CODE BLUE SHEET.
--- NOTE | 2018-02-08 04:35 | NUR ---
ANVILSMITH. PT MOTHER CALLED BACK. DIMAS RN SPOKE WITH MOTHER ARIE SPEAKING
[2018-02-08 04:45] LABS: ALBUMIN 2.7 g/dL (3.4-5.0); BILIRUBIN,TOTAL 0.7 mg/dL (0.2-1.0); CALCIUM, SERUM 9.2 mg/dL (8.5-10.1); MAGNESIUM 3.3 mg/dL (1.8-2.4); TOTAL PROTEIN, SERUM 5.8 g/dL (6.4-8.2)
--- NOTE | 2018-02-08 05:00 | NUR ---
PER DIEM RN. MOTHER CALLED CODE STATUS CHANGED.DNR
[2018-02-08 05:05] LABS: POTASSIUM 7.4 mmol/L (3.5-5.1)
[2018-02-08 05:06] LABS: PHOSPHORUS 15.5 mg/dL (2.5-4.9)
[2018-02-08] MEDS: methylPREDNISolone SOD SUCC 125 MG/2ML VIAL IV SCH (05:46)
--- NOTE | 2018-02-08 05:57 | NUR ---
RT STAT 5X FOR CPR, PT BAGGED UNTIL ROSC WAS ACHIEVED.
--- NOTE | 2018-02-08 06:47 | NUR ---
CREAM BEATER. LAB CALLED FOR CRITICAL RESULT. DR ADAN MADE AWARE.
--- NOTE | 2018-02-08 06:48 | NUR ---
SWEATER DESIGNER. TOTAL 7 TIMES CODED, AROUND 0515. MOTHER CALLED SPOKE WITH DIMAS KHALIL. CODE STATUS CHANGED DNR.
--- NOTE | 2018-02-08 06:51 | NUR ---
ACOUSTICAL ENGINEER. 7 TIMES CODED. SEE CODE BLUE SHEET.
--- NOTE | 2018-02-08 07:00 | NUR ---
FOOD BEVERAGE MANAGER. PT AT 0657.SHOP WELDER RENETTA PRONOUNCED. PUPIL DILATED, NO REACTING. MAJOR ARTERIES NO PULSE
--- NOTE | 2018-02-08 07:54 | NUR ---
DOCUMENT PREPARATION SPECIALIST. NOTIFIED DR ADAN.
--- NOTE | 2018-02-08 08:01 | NUR ---
SENIOR PASTOR. NOTIFIED [facility]. CASE NO [id number]
[2018-02-08] MEDS ORDERED: DEXTROSE 50%-WATER 50 ML DISP.SYRIN IV ONE ×2 (08:06→08:11)
[2018-02-08] MEDS ORDERED: FEE EMEERGENCY 1 MIN EA MC ONE ×2 (08:06→08:11)
[2018-02-08] MEDS ORDERED: CALCIUM CHLORIDE 1,000 MG/10 ML DISP.SYRIN IV ONE (08:06)
[2018-02-08] MEDS ORDERED: EPINEPHRINE (1:10,000) SYRINGE 1 MG/10 ML DISP.SYRIN IVP ONE ×2 (08:06→08:11)
[2018-02-08] MEDS ORDERED: ATROPINE SULFATE 1 MG/10 ML DISP.SYRIN IV ONE (08:06)
--- NOTE | 2018-02-08 09:50 | NUR ---
RN NOTES REMAINS BROUGHT TO [place]. FAMILY AWARE. MORTUARY OF CHOICE WILL P/U THE REMAINS
--- NOTE | 2018-02-13 01:59 | NUR ---
LATE ENTRY; DATE OF OCCURRENCE IS 02/08/2018 AT 0657 PRONOUNCEMENT OF :CODE STATUS "DO NOT RESUSCITATE" PATIENT IS UNRESPONSIVE TO ANY FORM OF STIMULI, PUPILS ARE FIXED AND DILATED, EKG, ASYSTOLE X2 LEADS, W/ ABSENT HEART TONES, PERIPHERAL PULSES ARE ABSENT. APNEIC, RESPIRATIONS ARE ZERO. NO AGGARWAL. SO SIGNS OF LIFE. PATIENT IS PRONOUNCED . BY:RENETTA ALFORD 02/08/2018 AT 0657
== END 2018-02-08 07:00 | disposition expired | DRG 252 ==
LOC: ER 08:49 → TELE1 10:26 → MEDSG1 12:58 → MEDSG2 01-26 07:45 → ICU 01-29 10:50 → TELE1 01-29 19:43 → MEDSG1 01-31 11:12 → ICU 01-31 22:47 → TELE1 02-06 19:21 → ICU 02-07 13:34
PROVIDERS: ADMIT Nurse Practitioner Acute Care; ATTEND Nurse Practitioner Acute Care
PROC: 0X370ZZ Control Bleeding in Left Upper Extremity, Open Approach (ICD-10-PCS; principal; 2018-01-25)
PROC: 03LY0ZZ Occlusion of Upper Artery, Open Approach (ICD-10-PCS; 2018-01-29)
PROC: 03120ZD Bypass Innominate Artery to Upper Arm Vein, Open Approach (ICD-10-PCS; 2018-01-29)
PROC: 06HN33Z Insertion of Infusion Device into Left Femoral Vein, Percutaneous Approach (ICD-10-PCS; 2018-01-29)
PROC: B54CZZA Ultrasonography of Left Lower Extremity Veins, Guidance (ICD-10-PCS; 2018-01-29)
PROC: 06PY33Z Removal of Infusion Device from Lower Vein, Percutaneous Approach (ICD-10-PCS; 2018-01-29)
PROC: 06HN33Z Insertion of Infusion Device into Left Femoral Vein, Percutaneous Approach (ICD-10-PCS; 2018-01-29)
PROC: B54CZZA Ultrasonography of Left Lower Extremity Veins, Guidance (ICD-10-PCS; 2018-01-29)
PROC: 0JHP3XZ Insertion of Tunneled Vascular Access Device into Left Lower Leg Subcutaneous Tissue and Fascia, Percutaneous Approach (ICD-10-PCS; 2018-02-07)
PROC: 06HN33Z Insertion of Infusion Device into Left Femoral Vein, Percutaneous Approach (ICD-10-PCS; 2018-02-07)
PROC: B54CZZA Ultrasonography of Left Lower Extremity Veins, Guidance (ICD-10-PCS; 2018-02-07)
PROC: 5A1935Z Respiratory Ventilation, Less than 24 Consecutive Hours (ICD-10-PCS; 2018-02-08)
PROC: 0BH17EZ Insertion of Endotracheal Airway into Trachea, Via Natural or Artificial Opening (ICD-10-PCS; 2018-02-08)
PROC: 5A2204Z Restoration of Cardiac Rhythm, Single (ICD-10-PCS; 2018-02-08)
DX: T82.838A Hemorrhage due to vascular prosthetic devices, implants and grafts, initial encounter (principal); N18.6 End stage renal disease; J96.21 Acute and chronic respiratory failure with hypoxia; I46.9 Cardiac arrest, cause unspecified; I13.2 Hypertensive heart and chronic kidney disease with heart failure and with stage 5 chronic kidney disease, or end stage renal disease; G93.40 Encephalopathy, unspecified; E11.10 Type 2 diabetes mellitus with ketoacidosis without coma; I50.31 Acute diastolic (congestive) heart failure; J96.22 Acute and chronic respiratory failure with hypercapnia; D62 Acute posthemorrhagic anemia; L03.114 Cellulitis of left upper limb; E11.22 Type 2 diabetes mellitus with diabetic chronic kidney disease; E11.65 Type 2 diabetes mellitus with hyperglycemia; E11.649 Type 2 diabetes mellitus with hypoglycemia without coma; E87.5 Hyperkalemia; Y84.9 Medical procedure, unspecified as the cause of abnormal reaction of the patient, or of later complication, without mention of misadventure at the time of the procedure; Y92.009 Unspecified place in unspecified non-institutional (private) residence as the place of occurrence of the external cause; Q90.9 Down syndrome, unspecified; Y71.2 Prosthetic and other implants, materials and accessory cardiovascular devices associated with adverse incidents; Z99.81 Dependence on supplemental oxygen; Z99.2 Dependence on renal dialysis; Z91.19 Patient's noncompliance with other medical treatment and regimen; Z79.4 Long term (current) use of insulin; Z79.899 Other long term (current) drug therapy; E03.9 Hypothyroidism, unspecified; Y84.1 Kidney dialysis as the cause of abnormal reaction of the patient, or of later complication, without mention of misadventure at the time of the procedure; M85.9 Disorder of bone density and structure, unspecified; Z66 Do not resuscitate; E66.01 Morbid (severe) obesity due to excess calories; Z68.26 Body mass index [BMI] 26.0-26.9, adult; E27.8 Other specified disorders of adrenal gland
CPT/HCPCS: 31720; 36415; 36600; 71045-TC; 71250-TC; 80048-TC; 80053-TC; 80061-TC; 80076-TC; 82803-TC; 82945-TC; 82947-TC; 82962-TC; 83605-TC; 83735-TC; 84100-TC; 84132-TC; 84443-TC; 84484-TC; 85025-TC; 85730-TC; 86850-TC; 87081-TC; 90935-TC; 92950-TC; 93307-TC; 94002-TC; 94003-TC; 94799-TC; A4216; A4606; A6253; A6402; A6403; C1751; C1769; J0171; J0330; J0461; J0610; J0690; J0885; J1100; J1610; J1644; J1815; J2250; J2370; J2405; J2597; J2704; J2710; J2720; J2930; J3490; J7040; J7050; J7060; J7070; J7510; P9047; Z7610